=== PATIENT | female | born 1950 | race Caucasian/White ===

== ENCOUNTER → 2019-11-23 | Outpatient (CLI) | payer SELFPAY | PROVIDERS: Family Provider Family Medicine; Visit Provider Licensed Practical Nurse | DX: M51.17 Intervertebral disc disorders with radiculopathy, lumbosacral region (principal); M48.061 Spinal stenosis, lumbar region without neurogenic claudication; I70.0 Atherosclerosis of aorta | CPT/HCPCS: 72120 ==

== ENCOUNTER 2019-11-26 17:52 | Outpatient (CLI) | payer MEDICARE, OTHER, SELFPAY | END 2019-11-26 17:53 | disposition home or self-care (01) | LOC: RADWPI 17:53 | PROVIDERS: Family Provider Family Medicine; PCP Family Medicine; Visit Provider Licensed Practical Nurse | DX: M51.17 Intervertebral disc disorders with radiculopathy, lumbosacral region (principal); Z53.9 Procedure and treatment not carried out, unspecified reason ==

== ENCOUNTER → 2019-12-16 14:12 | Outpatient (BNVA) | payer MEDICARE, OTHER, SELFPAY | PROVIDERS: Family Provider Family Medicine; Visit Provider Psychiatry & Neurology Neurology | DX: M54.16 Radiculopathy, lumbar region (principal); M79.604 Pain in right leg; M79.605 Pain in left leg; Z87.891 Personal history of nicotine dependence | CPT/HCPCS: 95886; 95909 ==

== ENCOUNTER → 2020-01-04 09:25 | Outpatient (BNVA) | payer MEDICARE, OTHER, SELFPAY | PROVIDERS: Family Provider Family Medicine; Visit Provider Orthopaedic Surgery | DX: M17.12 Unilateral primary osteoarthritis, left knee (principal); M25.562 Pain in left knee | CPT/HCPCS: 73560; 73565 ==

== ENCOUNTER 2020-02-07 | Day surgery (SDC) | payer MEDICARE, OTHER, SELFPAY ==
--- NOTE | 2020-02-07 09:12 | ECG_ITS ---
Measurements Intervals [place] Rate: 58 P: 16 SC: 156 QRS: 21 QRSD: 98 T: 37 QT: 428 QTc: 422 SINUS BRADYCARDIA LOW QRS VOLTAGE IN PRECORDIAL LEADS [QRS DEFLECTION < 1.0 mV IN CHEST LEADS] WARNING: DATA QUALITY MAY AFFECT INTERPRETATION Compared to ECG 04/19/2019 12:15:48 Low QRS voltage now present Sinus rhythm no longer present Electronically Signed On 02-07-2020 17:24:28 CDT by Gabriel Sharma M.D. [email or web address]
--- NOTE | 2020-02-07 09:25 | ANES.PREANE2 ---
Pre-Anesthetic Assessment Pre-Anesthetic Assessment: Height/Weight: Height 1.6 m Weight 104.326 kg Preop Diagnosis: osteoarthritis left knee Proposed Procedure: Operation Date: 02/14/20 07:00 Proposed Procedures p Total Knee Arthroplasty 94370 M17.11(Left) - Mark Corbin MD Social: Social History: Tobacco Packs per day: 1/2 or less x20y Pack years: <10 Comment: quit 30y Exam: Pre-Anes Outpt Exam: alert, oriented x 3, clear to auscultation bilaterally and regular rate & rhythm Airway: Submandibular: WNL Cervical ROM: WNL MP: 2 Dentition: Full Pulmonary: Pulmonary: Sleep apnea CV/HEM: CV/HEM: HTN Comments: rx'd x 40y stress test ' negative 3 caths negative GI: GI: GERD Metabolic: Metabolic: Morbid obesity Musc/skel: Comments: bilateral radiculopathy Anesthetic Plan: ASA status: 3 Anesthesia: General PFSH Anesthesia PFSH: Medical History CVA (cerebral vascular accident) Hypercholesteremia Hypertension Lumbar disc disease with radiculopathy Lumbar spondylosis Morbid obesity Spondylolisthesis, lumbar region Surgical History (Updated 02/07/20 @ 08:35 by Lulú Auguste RN) H/O carpal tunnel repair H/O cataract removal with insertion of prosthetic lens H/O: hysterectomy History of arthroscopic surgery of elbow History of cholecystectomy Social History Smoking and tobacco status: former smoker Second hand smoke exposure: No Alcohol intake: never Adopted: No Caregiver/support person: Yes Lives independently: Yes Household members: spouse Housing: House Marital status: service: No Current occupational status: retired Current occupational exposures/hazards: No Pets and animals: No History of recent travel: No Sexually active: No Current gender identity: Female Ratna/Roman Catholic: Congregational Special ratna needs: No Agree to transfusion: No Financial difficulty paying for basics: Decline to Answer Data Anesthesia Cardiac Studies: No Data to Display
== END 2020-02-14 23:00 | disposition home or self-care (01) ==
LOC: OR 07-28 11:38
PROVIDERS: PCP Family Medicine; Visit Provider Orthopaedic Surgery
DX: Z01.818 Encounter for other preprocedural examination (principal); M17.12 Unilateral primary osteoarthritis, left knee; I10 Essential (primary) hypertension; K21.9 Gastro-esophageal reflux disease without esophagitis; E78.00 Pure hypercholesterolemia, unspecified; E66.01 Morbid (severe) obesity due to excess calories; Z68.41 Body mass index [BMI] 40.0-44.9, adult; Z86.73 Personal history of transient ischemic attack (TIA), and cerebral infarction without residual deficits; Z87.891 Personal history of nicotine dependence
CPT/HCPCS: 93005

== ENCOUNTER 2020-05-01 10:50 | Observation (INO) | payer MEDICARE, OTHER, SELFPAY ==
[2020-04-25 10:48] VITALS: BMI 40.7
--- NOTE | 2020-04-25 11:04 | P.ANESASSM_ITS ---
Pre-Anesthetic Assessment Pre-Anesthetic Assessment: Height/Weight: Height 1.6 m Weight 104.326 kg Preop Diagnosis: osteoarthritis left knee Proposed Procedure: Operation Date: 05/01/20 07:00 Proposed Procedures p Total Knee Arthroplasty 37094 M17.12(Left) - Mark Corbin MD Social: Social History: Tobacco (quit 2009) and No alcohol Exam: Pre-Anes Outpt Exam: alert, oriented x 3, clear to auscultation bilaterally and regular rate & rhythm Airway: Submandibular: WNL Cervical ROM: WNL MP: 2 Dentition: False (upper and lower) History/ROS: No significant history except as noted Pulmonary: Pulmonary: KELLY and Sleep apnea CV/HEM: CV/HEM: HTN : : None reported Hepatic: Hepatic: None reported GI: GI: GERD (occ) Metabolic: Metabolic: Hyperlipidemia and Morbid obesity Musc/skel: Musc/skel: Lower Back Pain and OA/DJD Neuropsych: Neuropsych: 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 for regional block, General and Regional (specify below) (left AC) Risk of > 500 ml blood loss (7ml/kg in children): Yes, adequate IV access and fluids planned PFSH Anesthesia PFSH: Medical History CVA (cerebral vascular accident) Hypercholesteremia Hypertension Lumbar disc disease with radiculopathy Lumbar spondylosis Morbid obesity Spondylolisthesis, lumbar region Surgical History H/O carpal tunnel repair H/O cataract removal with insertion of prosthetic lens H/O: hysterectomy History of arthroscopic surgery of elbow History of cholecystectomy Family History Father Cancer CAD (coronary artery disease) Mother CAD (coronary artery disease) Diabetes Hypertension Stroke Denies family history of Anesthesia complication Bleeding disorder Social History Smoking and tobacco status: former smoker Second hand smoke exposure: No Alcohol intake: never Adopted: No Caregiver/support person: Yes Lives independently: Yes Household members: spouse Housing: House Marital status: service: No Current occupational status: retired Current occupational exposures/hazards: No Pets and animals: No History of recent travel: No Sexually active: No Current gender identity: Female Ratna/Caodaism: Christianity Special ratna needs: No Agree to transfusion: No Financial difficulty paying for basics: Decline to Answer Data Anesthesia Cardiac Studies: No Data to Display
[2020-04-25 13:03] LABS: Basophils % 0.4 %; Eosinophils # 0.2 10^3/uL (0.0-0.8); Eosinophils % 2.6 %; Hematocrit 35.9 % (37.0-47.0); Hemoglobin 10.9 g/dL (11.5-15.3); Lymphocytes # 1.5 10^3/uL (0.8-4.8); Lymphocytes % 21.2 %; Mean Corpuscular HGB Conc 30.4 g/dL (30.0-36.0); Mean Corpuscular Hemoglobin 26.8 pg (28.0-34.0); Mean Corpuscular Volume 88.4 fL (81-99); Monocytes # 0.6 10^3/uL (0.2-0.9); Monocytes % 8.9 %; Neutrophils # 4.6 10^3/uL (1.8-7.7); Neutrophils % 66.3 %; Nucleated Red Blood Cells % 0 %; Platelet Count 283 10^3/cmm (130-400); Red Blood Count 4.06 10^6/uL (4.1-5.3); Red Cell Distribution Width 13.9 % (12.1-15.1); White Blood Count 6.9 10^3/uL (4.0-10.0)
[2020-04-25 13:06] LABS: Bilirubin Urine Neg (NEGATIVE); Blood Urine Neg (Negative); Glucose Urine UA Norm (Normal); Ketones Urine Negative (Negative); Nitrate Urine Positive (Negative); Protein Urine Neg (Negative); Specific Gravity, Urine 1.015 (1.005-1.030); Urine Appearance Cloudy (CLEAR); Urine Color Yellow (Yellow); Urobilinogen Urine Norm (Negative)
[2020-04-25 13:07] LABS: Add Urine Microscopic? YES; Leukocyte Esterase Urine 2+ (Negative)
[2020-04-25 13:22] LABS: Add Urine Culture? Yes; Bacteria Urine 3+; RBC Urine 0-4 /hpf (0-2); Squamous Epithelial Cell Urine 0-4 (0-5); WBC Urine 55-80 /hpf (0-5)
[2020-04-25 16:57] LABS: Alanine Aminotransferase 13 U/L (0-33); Albumin Level 4.2 g/dL (3.5-5.2); Alkaline Phosphatase 90 IU/L (35-105); Anion Gap 14.4 (5-19); Aspartate Amino Transferase 16 U/L (0-32); Blood Urea Nitrogen 12 mg/dL (8-23); Calcium 9.9 mg/dL (8.5-10.5); Carbon Dioxide 25 mmol/L (22-29); Chloride 99 mmol/L (98-107); Creatinine Clr Calc Pharmacy 77.7436; Glomerular Filtration Rate 83.2 mL/min (90-130); Glucose 114 mg/dL (65-115); Osmolality Calculated 275 mOsm/kg (285-295); Potassium 4.4 mmol/L (3.5-5.1); Sodium 134 mmol/L (136-145); Total Bilirubin 0.3 mg/dL (0.15-1.2); Total Protein 7.2 g/dL (6.6-8.7)
[2020-05-01] VITALS (25 sets, daily range): BP systolic 84–182; BP diastolic 43–84; PULSE 66–95; RESP 15–72; TEMP 36.2–36.8; O2SAT 90–100
--- NOTE | 2020-05-01 06:57 | P.ANESUD_ITS ---
Pre-Anesthetic Update Pre-Anesthetic Assessment: Date of Surgery/Procedure: 05/01/20 Preop Ashely gnosis: osteoarthritis left knee Proposed Procedure: Operation Date: 05/01/20 07:50 Proposed Procedures p Total Knee Arthroplasty 58774 M17.12(Left) - Mark Corbin MD Any changes to Pre-Anesthetic Assessment?: No Changes from Pre-Anesthetic Assessment: took labetalol Last Intake: Intake Last Liquid Date 05/01/20 Last Liquid Time 05:00 Last Solid Date 04/30/20 Last Solid Time 19:30 Vitals: Temperature 97.1 F L 05/01/20 06:31 Temperature Source Temporal Artery S can 05/01/20 06:31 Pulse Rate 67 05/01/20 06:31 Pulse Rhythm 05/01/20 06:31 Pulse Strength 3+ Normal 05/01/20 06:31 Respiratory Rate 18 05/01/20 06:31 Blood Pressure 182/84 05/01/20 06:31 Blood Pressure Annabel n 116 05/01/20 06:31 Pulse Oximetry 95 05/01/20 06:31 Oxygen Delivery Me thod 05/01/20 06:31 Cardiac Studies: No Data to Display
[2020-05-01] MEDS: sodium chloride 0.9% 1,000 ML 30 ML IV (06:58)
--- NOTE | 2020-05-01 06:59 | W.PM.OPSUD ---
Surgery/Procedure H&P Update DATE OF PROCEDURE: May 01, 2020 PREOP DIAGNOSIS: osteoarthritis left knee PLANNED PROCEDURE: Operation Date: 05/01/20 07:50 Proposed Procedures p Total Knee Arthroplasty 56147 M17.12(Left) - Mark Corbin MD
--- NOTE | 2020-05-01 07:01 | P.HP_ITS ---
Same Day Surgery H&P Indication for Procedure/HPI DATE OF PROCEDURE: May 01, 2020 CHIEF COMPLAINT/INDICATIONFOR SURGICAL PROCEDURE: Osteoarthritis left knee, here for left total knee arthroplasty PREOP DIAGNOSIS: osteoarthritis left knee PLANNED PROCEDRUE: Operation Date: 05/01/20 07:50 Proposed Procedures p Total Knee Arthroplasty 53785 M17.12(Left) - Mark Corbin MD Medications/Allergies* Home Medications Medication Instructions Recorded Confirmed Type amlodipine 5 mg tablet 5 mg PO ONCE tab 11/21/19 05/01/20 History aspirin 325 mg tablet 325 mg PO ONCE tab 11/21/19 04/25/20 History clonidine HCl 0.2 mg tablet 0.2 mg PO Q6H PRN tab 11/21/19 04/25/20 History hydrocodone 5 mg-acetaminophen 325 1 tab PO .as needed PRN tab 11/21/19 05/01/20 History mg tablet nitroglycerin 0.4 mg sublingual 0.4 mg SUBLINGUAL ONCE PRN tab 11/21/19 04/25/20 History tablet labetalol 200 mg PO DAILY 02/07/20 05/01/20 History biotin 1 mg PO DAILY 04/25/20 05/01/20 History Allergies/Adverse Reactions Allergy/AdvReac Type Severity Reaction Status Date / Time No Known Allergies Allergy Verified 02/08/20 13:03 Current Medications: Generic Name Dose Route Start Last Admin Trade Name Freq PRN Reason Stop Dose Admin Sodium Chloride 1,000 mls @ 30 mls/hr 05/01/20 05:45 05/01/20 06:58 Sodium Chloride 0.9% IV 05/02/20 05:44 30 mls/hr .Q24H BETTIE Administration Pertinent History/Comorbid Conditions* Medical History (Updated 02/08/20 @ 14:41 by Mark Corbin MD) CVA (cerebral vascular accident) Hypercholesteremia Hypertension Lumbar disc disease with radiculopathy Lumbar spondylosis Morbid obesity Spondylolisthesis, lumbar region Surgical History (Updated 02/05/20 @ 08:16 by Justin Johnson MD) H/O carpal tunnel repair H/O cataract removal with insertion of prosthetic lens H/O: hysterectomy History of arthroscopic surgery of elbow History of cholecystectomy Family History (Updated 02/03/20 @ 13:55 by Eri Loco RN) Diabetes Mother CAD (coronary artery disease) Father Mother Cancer Father Hypertension Mother Stroke Mother Denies family history of Anesthesia complication Bleeding disorder Social History Smoking and tobacco status: former smoker Second hand smoke exposure: No Alcohol intake: never Adopted: No Caregiver/support person: Yes Lives independently: Yes Household members: spouse Housing: House Marital status: service: No Current occupational status: retired Current occupational exposures/hazards: No Pets and animals: No History of recent travel: No Sexually active: No Current gender identity: Female Ratna/Amish: Mormonism Special ratna needs: No Agree to transfusion: No Financial difficulty paying for basics: Decline to Answer Pertinent Exam Findings alert, oriented x 3, clear to auscultation bilaterally and regular rate & rhythm Recommendations Surgery/Procedure today Coding Level of Care Code 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
[2020-05-01] MEDS: midazolam 1 mg/mL INJ 2 mL 2 MG IVP (07:10)
--- NOTE | 2020-05-01 07:13 | ANES.PROC ---
Anesthesia Procedures Procedure/Date: 05/01/20 Nerve Block ^: Nerve Block 1: Main Anesthesia: general anesthesia Time Out Performed: Yes Consent: requested by attending/covering physician, from patient, risks and benefits reviewed and patient agrees to proceed Nerve block location: adductor canal (L) Anesthesia monitors applied: pulse oximetry, BP cuff and oxygen Nerve block position: supine Anesthetic Used: ropivicaine 0.5% and with decadron (4 mg) Amount of anesthesia used (mL): 30 Ultrasound used to: recognize landmarks and visualize and ID femerol nerve Interscalene/Femoral BLK: 4 stimuplex 21 g needle used for position and inplane approach Injection: neg aspiration of heme Patient Tolerated Procedure: well and no complications Complications: none
[2020-05-01] MEDS: ketorolac 30 mg/mL INJ IM (09:27)
--- NOTE | 2020-05-01 09:27 | SUR.OPER ---
ropivicaine placed in surgical site. not via horse and wagon driver.
[2020-05-01] MEDS: EPINEPHrine 1 mg/mL INJ XX (09:30)
--- NOTE | 2020-05-01 09:54 | SUR.OPER ---
Called patient's daughter and updated her on status of surgery.
--- NOTE | 2020-05-01 10:10 | P.OP_ITS ---
Operative Report Date of procedure: May 01, 2020 Pre-op Diagnosis: osteoarthritis left knee Post-op diagnosis: same Post-op Findings: Same Procedure Done: Left total knee arthroplasty Implants: [place] total knee arthroplasty components were used includin) Size 3 triathalon cruciate retaining femoral component 2) Size 3 Tritanium tibial component 3) 29 mm /9 mm thickness Tritanium asymetric patella 4) Size 3/9 mm thickness CR tibial bearing insert Pathology: none sent Surgeon: Mark Corbin Anesthesia: General and Nerve Block (Abductor canal) Estimated blood loss (mL): 500 Complications: None Findings: The patient had eburnated bone over the medial femoral condyle and medial tibial plateau patella and Condition: stable Disposition: PACU Procedure: The patient was taken to the operating room. Patient was given 1 g of tranexamic acid . The above anesthesia provided by the anesthesia service. A timeout was performed. The patient was prepped and draped in the usual fashion with the lower extremity exposed. A anterior incision was made, midline, from a point proximal to the patella to the distal tibial tubercle. Dissection was accomplished through the subcutaneous fat to the extensor mechanism. The knee was entered through a medial parapatellar approach the patella was everted and the knee flexed. The patellar fat pad was resected to provide better visibility. Retractors were placed medially and laterally adjacent to the tibial plateau. The femoral canal was drilled in line with the longitudinal axis of the femur. Intramedullary femoral guide for used to make a distal femoral cut in 5 degrees of valgus, resecting 8 mm from the more prominent condyle. Next the extra medullary tibial guide was placed in alignment with the longitudinal axis of the tibia. The cutting guides were set to remove just over 9 mm from the high tibial plateau. The proximal tibia was then cut. The femoral measuring guide was then placed over the distal femur. Rotation was verified checking the relationship of the guide to the condyle and the trochlear groove. The femur was measured and cut for the desired femoral component. The desired tibial baseplate was then chosen. A trial reduction with the femur tibial baseplate and polyethylene was done, assuring that the knee was stable throughout full motion. Ligament balancing nothing more than release the deep medial collateral ligament.The tibia was prepared for the tibial baseplate. Patellar thickness was then measured. The patella was cut removing articular cartilage and prepared for appropriate size patellar button. All surfaces were cleaned with pulsatile lavage. The femur tibia and patella were then press-fit into place. The posterior capsule and collateral ligaments were then injected with a solution of 100 mL of 0.2% ropivacaine, 1 mL of a 1:1000 epinephrine so lution, and 30 mg of Toradol. Final polyethylene component was then snapped into place into the tibia. 2 grams of tranexamic acid were applied to the wound. The tourniquet was deflated. The tranxanemic acid was left contact with the knee for 5 minutes before the knee was irrigated with saline. The extensor retinaculum was closed with 1 Ethibond. The subcutaneous tissues were closed with 2-0 Vicryl and the skin was closed with skin newton. A compressive dressing was applied. The patient was taken to recovery room in stable condition.
--- NOTE | 2020-05-01 10:13 | XR_ITS ---
NOTE: Report was unsigned for reason: Order was edited. Original Signature date and time was: 05/01/20 1024 WS: [id number] LEFT KNEE 2 VIEWS AP and cross table lateral imaging is submitted. HISTORY: L TKA. COMPARISON: 01/04/2020 Total knee replacement prosthetic devices are in good position and alignment. Normal position of the patella. Posterior patella prosthesis. Numerous postsurgical sutures are noted over the anterior knee and there are normal postoperative changes in the soft tissues consistent with air, blood and edema. No complications are evident. MTDD XR/XR knee LT 3V* [id number] IMPRESSION: Satisfactory appearance of the recent LEFT knee arthroplasty.
[2020-05-01] MEDS: fentaNYL 50 mcg/mL INJ 2mL IVP ×2 (10:24→10:29)
[2020-05-01] MEDS: ondansetron 2 mg/ML SDV 2 mL 4 MG IVP ×2 (10:25→10:30)
--- NOTE | 2020-05-01 10:42 | SUR.PHASEI ---
1040 PT HAS SENSATION/MOVEMENT TO L. FOOT, CAP REFILL <3 SEC, PEDAL PULSE PALPATED
[2020-05-01] MEDS: metoclopramide 5 mg/mL SDV 2 mL 10 MG IVP (10:49)
[2020-05-01] MEDS: oxyCODONE-APAP 5-325 mg Tablet 2 TAB PO ×2 (11:19→22:35)
[2020-05-01] MEDS: CELEcoxib 200 mg Capsule PO ×2 (11:20→22:32)
[2020-05-01] MEDS: chlorhexidine gluconate 0.12% Btl 473 mL 30 ML MUCOUS MEM ×3 (12:29→20:41)
[2020-05-01] MEDS: morphine 4 mg/mL SDV 1 mL 2 MG IVP ×2 (12:36→20:34)
[2020-05-01] MEDS: sodium chloride 0.9% 1,000 ML 75 ML IV (14:40)
[2020-05-01] MEDS: mupirocin oint 22 gm 1 APPLIC TOPICAL (17:16)
[2020-05-01] MEDS: sennosides-docusate Tablet 2 TAB PO (17:16)
[2020-05-02] VITALS (11 sets, daily range): BP systolic 107–152; BP diastolic 65–78; PULSE 75–88; RESP 16–24; TEMP 36.5–36.9; O2SAT 94–96
[2020-05-02] MEDS: sodium chloride 0.9% 1,000 ML 75 ML IV (05:05)
[2020-05-02] MEDS: oxyCODONE-APAP 5-325 mg Tablet 2 TAB PO ×4 (05:09→16:41)
[2020-05-02 05:59] LABS: Hemoglobin 8.1 g/dL (11.5-15.3)
[2020-05-02] MEDS: sennosides-docusate Tablet 2 TAB PO (07:28)
[2020-05-02] MEDS: labetalol 200 mg Tablet PO (07:28)
[2020-05-02] MEDS: amlodipine 5 mg Tablet PO (07:28)
[2020-05-02] MEDS: losartan 50 mg Tablet 100 MG PO (07:29)
[2020-05-02] MEDS: chlorhexidine gluconate 0.12% Btl 473 mL 30 ML MUCOUS MEM ×2 (07:29→13:01)
[2020-05-02] MEDS: aspirin 325 mg EC Tablet PO (07:29)
[2020-05-02] MEDS: CELEcoxib 200 mg Capsule PO (13:01)
--- NOTE | 2020-05-02 15:34 | PM.DCS ---
Discharge Providers Date of Admission: 05/01/20 10:50 Date of Discharge: May 02, 2020 Attending Provider at Admission: Mark Corbin MD Attending Provider at Discharge: Mark Corbin MD Primary Care Provider: Howard Kraus MD Diagnoses at Discharge Discharge Diagnosis (1) Status post left knee replacement: Status: Acute (2) Osteoarthritis of left knee: Status: Resolved (3) Morbid obesity: Status: Acute (4) Hypertension: Status: Acute Qualifiers: Hypertension type: essential hypertension Qualified Code(s): I10 - Essential (primary) hypertension Reason for Visit Reason for Visit: Primary Osteoarthritis of left knee Hospital Course Hospital Course: Ms. Ansari did very well postoperatively. Her pain was adequately controlled with p.o. pain medications. She made excellent progress with therapy and was up with therapy the day of surgery. By the first postoperative she was independent with her walker. She has managed with aspirin and sequential compression dressings for DVT prophylaxis. She remained hemodynamically stable with an expected drop in her hemoglobin to 8.1. Physical Exam Urinary Catheter Management^: Delarosa: Cath Placed During This Visit: yes, but has since been removed by the nurse Reason for Continuing Indwelling Catheter: Decision to DC Catheter Urinary Catheter Date of Insertion: 05/01/20 Urinary Catheter Time of Insertion: 08:25 Date Urinary Catheter Removed: 05/02/20 Time Urinary Catheter Discontinued: 06:36 Discharge Data Data Completed and Pending: Completed Studies During Hospitalization Category Date Time Status XR knee LT 1-2V 7 3560 Routine Exams 05/01/20 10:13 Completed Labs from last 24 hours 05/02/20 04:45 Hgb 8.1 L Vitals: Last Vital Signs Temp 98.2 F 05/02/20 15:01 Pulse 77 05/02/20 15:01 Resp 18 05/02/20 15:01 BP 107/65 05/02/20 15:01 Pulse Ox 95 05/02/20 15:01 Discharge Plan Discharge Patient Disposition: Home Health Service Condition: Stable Prescriptions: New oxycodone-acetaminophen 5-325 mg Tablet 2 tab PO Q4H PRN (Reason: Severe Pain) Qty: 40 RF: 0 celecoxib 200 mg Capsule 200 mg PO Q12H Qty: 30 RF: 0 Continued mupirocin 2 % ointment 1 applic TOPICAL BID Qty: 30 RF: 0 hydrocodone-acetaminophen 5-325 mg tablet 1 tab PO .as needed PRN (Reason: Pain) RF: 0 amlodipine 5 mg tablet 5 mg PO ONCE RF: 0 clonidine HCl 0.2 mg tablet 0.2 mg PO Q6H PRN (Reason: Blood Pressure) RF: 0 aspirin 325 mg tablet 325 mg PO ONCE RF: 0 nitroglycerin [Nitrostat] 0.4 mg tablet, sublingual 0.4 mg SUBLINGUAL ONCE PRN (Reason: Chest Pain) RF: 0 losartan 100 mg tablet 100 mg PO ONCE 90 Days Qty: 90 RF: 3 labetalol 200 mg tablet 200 mg PO DAILY RF: 0 biotin 1 mg Tablet 1 mg PO DAILY RF: 0 Discharge Orders: Discharge Order (Routine); Ordered 05/02/20 Ordered By: Mark Corbin Other Ambulatory Orders: DME: Walker (Order) Location: None Selected Ordered By: Mark Corbin Referrals: Mark Corbin MD [Physician] - 05/15/20 1:15 pm Patient Instructions: Oxycodone/Acetaminophen (By mouth), Celecoxib (By mouth), Total Knee Replacement (DC) Activity Restrictions/Additional Instructions: May shower once incisions completely free of drainage. Replaced dressings as needed for drainage.. Take Celebrex twice a day for the next 15 days, discontinue other anti-inflammatories Take oxycodone for breakthrough pain. Exercises per physical therapy. Ice and elevate knees as needed for pain and swelling.. 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
== END 2020-05-02 16:56 | disposition home health service (06) ==
LOC: MEDSURG 10:51
PROVIDERS: Anesthesiology; Admitting Provider Orthopaedic Surgery; PCP Family Medicine; Visit Provider Orthopaedic Surgery
PROC: (CPT 27447; principal; 2020-05-01 07:50)
DX: M17.12 Unilateral primary osteoarthritis, left knee (principal); E66.01 Morbid (severe) obesity due to excess calories; Z68.41 Body mass index [BMI] 40.0-44.9, adult; I10 Essential (primary) hypertension
CPT/HCPCS: 27447; 12345; 36415; 51702; 73560; 73562; 80053; 81001; 85018; 85025; 87077; 87086; 87186; 96374; 96375; 97110; 97116; 97161; 97165; 97530; C1776; G0378; J0131; J0171; J0690; J1100; J1580; J1885; J2001; J2250; J2270; J2405; J2704; J2710; J2765; J2795; J3010; J3490; J7030

== ENCOUNTER 2020-05-04 12:48 | Inpatient (IN) | payer MEDICARE, OTHER, SELFPAY ==
[2020-05-04] VITALS (12 sets, daily range): BP systolic 112–152; BP diastolic 56–82; PULSE 77–87; RESP 16–22; TEMP 36.3–37; O2SAT 89–99; BMI 40.7
--- NOTE | 2020-05-04 13:36 | CT_ITS ---
WS: [id number] CTA scan of the chest with IV contrast. Additional two-dimensional coronal and sagittal reconstructio n and MIP images was performed. 05/04/2020 Clinical Data: pe Comparison: CT PE study, 04/14/2019. DLP: 491.[address] scans at [facility] use at least one of these dose optimization techniques: automat ed exposure control; mA and/or kV adjustment per patient size (includes targeted exams where dose is matched to clinical indication); or iterative reconstruction. Findings: The central pulmonary arteries and peripheral pulmonary arteries fill normally with no evidence of in termittent luminal filling defects. No pulmonary embolic disease is noted. No masses are seen. Air is a small left pleural effusion. There is a 0.5 cm nodule in the right middl e lobe seen best on axial image 26 of 54 unchanged. The heart size is normal with no pericardial effu kathleen. The pulmonary arterial system and thoracic aorta demonstrate no abnormalities or dilatations. T here is no axillary or significant mediastinal adenopathy. There are subcarinal calcifications. The t hyroid gland shows normal enhancement. The trachea bifurcates into the bronchi. No pneumonia or pneum othorax is seen. The upper abdomen shows no abnormalities. The visualized liver, spleen, pancreas, adrenal glands and superior poles of the kidneys are not remarkable. The gallbladder is absent from a cholecystectomy. The bones of the thoracic and upper lumbar spine showed degenerative arthritic change.. CT/CT angio chest PE protcl [id number] Impression: 1. Negative for pulmonary embolic disease. 2. Small left pleural effusion. 3. Stable 0.5 cm nodule in right middle lobe.
--- NOTE | 2020-05-04 13:38 | ECG_ITS ---
Measurements Intervals [place] Rate: 77 P: 36 MO: 147 QRS: 54 QRSD: 101 T: 38 QT: 377 QTc: 427 SINUS RHYTHM Compared to ECG 02/07/2020 09:19:53 Sinus bradycardia no longer present Electronically Signed On 05-04-2020 20:56:18 CDT by Juan Horne M.D. [email or web address]
[2020-05-04] MEDS: iohexol 350 mg/mL 100 mL Btl IV (14:33)
--- NOTE | 2020-05-04 14:40 | W.ED.SOB ---
HPI - SOB/Dyspnea General: Chief Complaint: Shortness of Breath/Dyspnea Stated Complaint: low o2 Time Seen by Provider: 05/04/20 13:33 History of Present Illness: HPI Narrative: Patient had left knee surgery 3 days ago. Yesterday she had sudden onset of shortness of breath and lower chest burning feeling MD elicited complaint: shortness of breath, pain with inspiration and chest pain Onset (ago): day(s) Timing: intermittent Severity: severe Exacerbating factors: exertion, movement and stress Relieving factors: nothing Associated symptoms: Reports no associated symptoms, abdominal pain, chest pain, diaphoresis, dizziness, extremity pain, myalgias and orthopnea; Deny fever(s), hemoptysis, lightheadedness or nausea Treatment prior to arrival: none Review of Systems General: Reports: 10 or more systems reviewed and unremarkable except in HPI and below Const: Reports: diaphoresis; Denies: fever(s) Card: Reports: chest pain and orthopnea; Denies: lightheadedness Resp: Denies: hemoptysis GI: Reports: abdominal pain; Denies: nausea Musc: Reports: extremity pain Neuro: Reports: dizziness PFSH ED PFSH: Medical History CVA (cerebral vascular accident) Hypercholesteremia Hypertension Lumbar disc disease with radiculopathy Lumbar spondylosis Morbid obesity Spondylolisthesis, lumbar region Surgical History H/O carpal tunnel repair H/O cataract removal with insertion of prosthetic lens H/O: hysterectomy History of arthroscopic surgery of elbow History of cholecystectomy Family History Father Cancer CAD (coronary artery disease) Mother CAD (coronary artery disease) Diabetes Hypertension Stroke Denies family history of Anesthesia complication Bleeding disorder Social History Smoking and tobacco status: former smoker Second hand smoke exposure: No Alcohol intake: never Adopted: No Caregiver/support person: Yes Lives independently: Yes Household members: spouse Housing: House Marital status: service: No Current occupational status: retired Current occupational exposures/hazards: No Pets and animals: No History of recent travel: No Sexually active: No Current gender identity: Female Ratna/Jain: Taoism Special ratna needs: No Agree to transfusion: No Financial difficulty paying for basics: Decline to Answer Physical Exam Const: COMMON NORMALS: patient oriented x3 and alert HENMT: COMMON NORMALS: normocephalic and atraumatic HEAD & SCALP: normocephalic and atraumatic Neck/C-Spine: COMMON NORMALS: no meningeal signs and no JVD Resp: EFFORT & INSPECTION: Yes respiratory distress Cardio: COMMON NORMALS: no JVD, regular rate and regular rhythm RATE: regular rate RHYTHM: regular rhythm GI: COMMON NORMALS: Normal to inspection, nondistended, normoactive bowel sounds present Extremity: COMMON NORMALS: normal to inspection and full ROM Neuro: COMMON NORMALS: patient oriented x3 SENSORIUM/ORIENTATION: Yes alert MENINGEAL SIGNS: Yes no meningeal signs Skin: COMMON NORMALS: no rashes or lesions noted, no jaundice and no mottling GENERAL SKIN EXAM: no rashes or lesions noted Course Vital Signs: Vital signs: Vital Signs Temperature 97.3 F L 05/04/20 13:21 Pulse Rate 77 05/04/20 13:21 Respiratory Rate 16 05/04/20 13:21 Blood Pressure 122/61 05/04/20 13:21 Pulse Oximetry 94 05/04/20 13:21 MDM - SOB/Dyspnea Lab Data: Labs: Lab Results 05/04/20 05/04/20 05/04/20 Range/Units 14:39 14:39 14:39 WBC 12.0 H (4.0-10.0) 10^3/ uL RBC 2.77 L (4.1-5.3) 10^6/u L Hgb 7.4 L (11.5-15.3) g/dL Hct 24.6 L (37.0-47.0) % MCV 88.8 (81-99) fL MCH 26.7 L (28.0-34.0) pg MCHC 30.1 (30.0-36.0) g/dL RDW 14.3 (12.1-15.1) % Plt Count 222 (130-400) 10^3/c mm MPV 9.1 (7.4-10.4) fL Neut % (Auto) 81.4 % Lymph % (Auto) 7.0 % Trinity % (Auto) 9.2 % Eos % (Auto) 1.4 % Baso % (Auto) 0.3 % Neut # (Auto) 9.8 H (1.8-7.7) 10^3/u L Lymph # (Auto) 0.8 (0.8-4.8) 10^3/u L Trinity # (Auto) 1.1 H (0.2-0.9) 10^3/u L Eos # (Auto) 0.2 (0.0-0.8) 10^3/u L Baso # (Auto) 0.0 (0.0-0.1) 10^3/u L Nucleated RBC % (a uto) 0 % Nucleated RBCs # 0.0 /100WBC Sodium 131 L (136-145) mmol/L Potassium 4.6 (3.5-5.1) mmol/L Chloride 94 L (98-107) mmol/L Carbon Dioxide 24 (22-29) mmol/L Anion Gap 17.6 (5-19) BUN 10 (8-23) mg/dL Creatinine 0.6 (0.5-0.9) mg/dL GFR Calculation 99.1 (90-130) mL/min Glucose 152 H (65-115) mg/dL Calculated Osmolal ity 271 L (285-295) mOsm/k g Lactic Acid 1.5 (0.5-2.2) mmol/L Calcium 8.8 (8.5-10.5) mg/dL Total Bilirubin 0.7 (0.15-1.2) mg/dL AST 15 (0-32) U/L ALT 11 (0-33) U/L Alkaline Phosphata se 77 (35-105) IU/L Troponin T Baselin e (0-10) ng/L Total Protein 6.5 L (6.6-8.7) g/dL Albumin 3.5 (3.5-5.2) g/dL Globulin 3.0 (1.3-4.6) g/dL Lipase 13 (13-60) U/L 05/04/20 Range/Units 14:39 WBC (4.0-10.0) 10^3/ uL RBC (4.1-5.3) 10^6/u L Hgb (11.5-15.3) g/dL Hct (37.0-47.0) % MCV (81-99) fL MCH (28.0-34.0) pg MCHC (30.0-36.0) g/dL RDW (12.1-15.1) % Plt Count (130-400) 10^3/c mm MPV (7.4-10.4) fL Neut % (Auto) % Lymph % (Auto) % Trinity % (Auto) % Eos % (Auto) % Baso % (Auto) % Neut # (Auto) (1.8-7.7) 10^3/u L Lymph # (Auto) (0.8-4.8) 10^3/u L Trinity # (Auto) (0.2-0.9) 10^3/u L Eos # (Auto) (0.0-0.8) 10^3/u L Baso # (Auto) (0.0-0.1) 10^3/u L Nucleated RBC % (a uto) % Nucleated RBCs # /100WBC Sodium (136-145) mmol/L Potassium (3.5-5.1) mmol/L Chloride (98-107) mmol/L Carbon Dioxide (22-29) mmol/L Anion Gap (5-19) BUN (8-23) mg/dL Creatinine (0.5-0.9) mg/dL GFR Calculation (90-130) mL/min Glucose (65-115) mg/dL Calculated Osmolal ity (285-295) mOsm/k g Lactic Acid (0.5-2.2) mmol/L Calcium (8.5-10.5) mg/dL Total Bilirubin (0.15-1.2) mg/dL AST (0-32) U/L ALT (0-33) U/L Alkaline Phosphata se (35-105) IU/L Troponin T Baselin e 12 H (0-10) ng/L Total Protein (6.6-8.7) g/dL Albumin (3.5-5.2) g/dL Globulin (1.3-4.6) g/dL Lipase (13-60) U/L Discharge Plan Discharge Patient Disposition: Admitted As Inpatient Clinical Impression: Acute dyspnea, S/P knee surgery Anemia Qualifiers: Anemia type: unspecified type Qualified Code(s): D64.9 - Anemia, unspecified Condition: Fair Referrals: Howard Kraus MD [Primary Care Provider] - Coding Level of Care Code ED Knitting Machine Operator for Chg Fwd Exam Comprehensive
[2020-05-04 14:46] LABS: Basophils % 0.3 %; Eosinophils # 0.2 10^3/uL (0.0-0.8); Eosinophils % 1.4 %; Hematocrit 24.6 % (37.0-47.0); Hemoglobin 7.4 g/dL (11.5-15.3); Lymphocytes # 0.8 10^3/uL (0.8-4.8); Mean Corpuscular HGB Conc 30.1 g/dL (30.0-36.0); Mean Corpuscular Hemoglobin 26.7 pg (28.0-34.0); Mean Corpuscular Volume 88.8 fL (81-99); Mean Platelet Volume 9.1 fL (7.4-10.4); Monocytes # 1.1 10^3/uL (0.2-0.9); Monocytes % 9.2 %; Neutrophils # 9.8 10^3/uL (1.8-7.7); Neutrophils % 81.4 %; Nucleated Red Blood Cells % 0 %; Platelet Count 222 10^3/cmm (130-400); Red Blood Count 2.77 10^6/uL (4.1-5.3); Red Cell Distribution Width 14.3 % (12.1-15.1)
[2020-05-04 15:06] LABS: Alanine Aminotransferase 11 U/L (0-33); Albumin Level 3.5 g/dL (3.5-5.2); Alkaline Phosphatase 77 IU/L (35-105); Anion Gap 17.6 (5-19); Aspartate Amino Transferase 15 U/L (0-32); Blood Urea Nitrogen 10 mg/dL (8-23); Calcium 8.8 mg/dL (8.5-10.5); Carbon Dioxide 24 mmol/L (22-29); Chloride 94 mmol/L (98-107); Creatinine Clr Calc Pharmacy 76.6638; Glomerular Filtration Rate 99.1 mL/min (90-130); Glucose 152 mg/dL (65-115); Lactic Sepsis W/Reflex 1.5 mmol/L (0.5-2.2); Lipase 13 U/L (13-60); Osmolality Calculated 271 mOsm/kg (285-295); Potassium 4.6 mmol/L (3.5-5.1); Sodium 131 mmol/L (136-145); Total Bilirubin 0.7 mg/dL (0.15-1.2); Total Protein 6.5 g/dL (6.6-8.7)
[2020-05-04 15:09] LABS: Troponin(5th) Baseline 12 ng/L (0-10)
--- NOTE | 2020-05-04 15:38 | ECG_ITS ---
Measurements Intervals [place] Rate: 78 P: 27 [place]: 152 QRS: 52 QRSD: 96 T: 42 QT: 374 QTc: 428 SINUS RHYTHM WITH OCCASIONAL SUPRAVENTRICULAR PREMATURE COMPLEXES Compared to ECG 02/07/2020 09:19:53 Sinus bradycardia no longer present Electronically Signed On 05-04-2020 21:03:02 CDT by Juan Horne M.D. [id number] f
[2020-05-04 17:07] LABS: Troponin 5 2HR 11.09 ng/L (0-10)
[2020-05-04 17:36] LABS: Troponin 5 2HR Delta -0.91 ABS# (0-10)
--- NOTE | 2020-05-04 17:54 | PM.HP ---
Providers/Chief Complaint Admitting Physician: Luis Alfredo Diez MD Primary Care Provider: Howard Kraus MD Chief Complaint: low o2 History of Present Illness Maria Del Carmen Ansari is a 70 year old female with a past medical history of hypertension, anxiety and depression, morbid obesity, recent history of left knee replacement on Friday, who presents [facility] due to complaints of shortness of breath Patient states that she had her left knee replacement on Friday, she got home, she has been ambulating with assistance, and a walker, needs help with activities of daily living, but can ambulate better each day, no falls, no injuries, has remained mobile, denies being bedridden, this afternoon she started develop sudden onset shortness of breath, she thought she was having a panic attack, and that it would go away, but the shortness of breath persisted, denies a cardiac history, denies stenting of the heart, denies history of heart failure, denies history of COPD, former smoker quit 30 years ago, no inhaler use, denies calf pain or calf swelling, denies hematemesis, does complain of some chest tightness, and some burning sensation anterior chest, nonradiating, no lightheadedness, no dizziness, no nausea, no vomiting Work-up in the emergency room CT was negative for pulmonary embolism, did show a small left pleural effusion, hemoglobin was 7.4, hospitalist team was called for admission Review of Systems Const: Denies: fever(s), chills, fatigue or malaise Eyes: Denies: change in vision or blurry vision ENMT: Denies: nasal congestion Card: Reports: chest pain; Denies: irregular heart rhythm Resp: Reports: dyspnea; Denies: productive cough, non-productive cough or wheezing GI: Denies: abdominal pain, nausea, vomiting, hematemesis, diarrhea, constipation, hematochezia or melena : Denies: flank pain, dysuria or urinary frequency Musc: Denies: neck pain or back pain Skin/Breast: Denies: rash Neuro: Denies: headache(s), dizziness or vertigo Psych: Denies: anxiety or depression Endo: Denies: polyuria or polydipsia Medications/Allergies Home Medications Medication Instructions Recorded Confirmed Last Taken Type amlodipine 5 mg tablet 5 mg PO DAILY tab 11/21/19 05/04/20 05/04/20 10:00 History aspirin 325 mg tablet 325 mg PO DAILY tab 11/21/19 05/04/20 05/04/20 10:00 History clonidine HCl 0.2 mg tablet 0.2 mg PO Q6H PRN tab 11/21/19 05/04/20 Unknown History hydrocodone 5 mg-acetaminophen 325 1 tab PO BID PRN tab 11/21/19 05/04/20 05/01/20 History mg tablet nitroglycerin 0.4 mg sublingual 0.4 mg SUBLINGUAL ONCE PRN tab 11/21/19 05/04/20 Unknown History tablet labetalol 200 mg PO BID 02/07/20 05/04/20 05/01/20 05:30 History mupirocin 2 % topical ointment 1 applic TOPICAL BID #30 gm 02/08/20 05/04/20 Unknown Rx biotin 1 mg PO DAILY 04/25/20 05/04/20 05/04/20 10:00 History oxycodone-acetaminophen 2 tab PO Q4H PRN #40 tab 05/01/20 05/04/20 05/04/20 12:00 Rx celecoxib 200 mg PO Q12H #30 cap 05/02/20 05/04/20 05/04/20 10:00 Rx alprazolam 0.25 mg tablet 0.25 mg PO TID PRN #14 tab 05/04/20 05/04/20 Unknown Rx ibuprofen 400 mg PO PRN 05/04/20 05/04/20 05/04/20 10:00 History losartan 100 mg PO DAILY 05/04/20 05/04/20 Unknown History Allergies Allergy/AdvReac Type Severity Reaction Status Date / Time No Known Allergies Allergy Verified 05/04/20 14:31 PFSH Acute PFSH: Medical History CVA (cerebral vascular accident) Hypercholesteremia Hypertension Lumbar disc disease with radiculopathy Lumbar spondylosis Morbid obesity Spondylolisthesis, lumbar region Surgical History H/O carpal tunnel repair H/O cataract removal with insertion of prosthetic lens H/O: hysterectomy History of arthroscopic surgery of elbow History of cholecystectomy Family History Father Cancer CAD (coronary artery disease) Mother CAD (coronary artery disease) Diabetes Hypertension Stroke Denies family history of Anesthesia complication Bleeding disorder Social History Smoking and tobacco status: former smoker Second hand smoke exposure: No Alcohol intake: never Adopted: No Caregiver/support person: Yes Lives independently: Yes Household members: spouse Housing: House Marital status: service: No Current occupational status: retired Current occupational exposures/hazards: No Pets and animals: No History of recent travel: No Sexually active: No Current gender identity: Female Ratna/Yarsanism: Sabianist Special ratna needs: No Agree to transfusion: No Financial difficulty paying for basics: Decline to Answer Vitals/I&O/Wt Last Vital Signs Temp 97.7 F 05/04/20 17:40 Pulse 87 05/04/20 17:40 Resp 20 H 05/04/20 17:40 BP 152/82 05/04/20 17:40 Pulse Ox 93 05/04/20 17:40 Weight last 48 hrs Weight 104.326 kg Physical Exam Const: COMMON NORMALS: no acute distress and patient oriented x3 GENERAL APPEARANCE: cooperative and comfortable HENMT: COMMON NORMALS: normocephalic HEAD & SCALP: normocephalic Eye: COMMON NORMALS: Equal, round and reactive pupils present, EOMs intact bilaterally and no papilledema GENERAL EYE: appearance normal, both eyes and all related structures PUPIL: Yes Equal, round and reactive pupils present DIRECT OPHTHALMOSCOPY: Yes no papilledema Neck/C-Spine: COMMON NORMALS: full ROM, no lymphadenopathy, no JVD and Thyroid normal THYROID: Thyroid normal Lymph: LYMPHATIC: no lymphadenopathy noted Resp: COMMON NORMALS: normal respiratory effort, No retractions, No use of accessory muscles and clear to auscultation bilaterally AUSCULTATION: clear to auscultation bilaterally Cardio: COMMON NORMALS: no JVD, regular rate, regular rhythm, S1 normal heart sound present, S2 normal heart sound present, No gallops present (Cardio), No clicks present (Cardio) and No murmurs present (Cardio) RATE: regular rate RHYTHM: regular rhythm HEART SOUNDS: S1 normal heart sound present and S2 normal heart sound present GI: COMMON NORMALS: Normal to inspection, nondistended, normoactive bowel sounds present, Soft to palpation, non-tender and No hepatosplenomegaly present PALPATION: Yes Soft to palpation and Yes No hepatosplenomegaly present Extremity: COMMON NORMALS: normal to inspection, full ROM and no pedal edema NARRATIVE EXTREMITY EXAM: Left knee, status post replacement, surgical site looks clean and dry Neuro: COMMON NORMALS: patient oriented x3, CN's II-XII intact bilaterally, moves all extremities and no focal motor deficits Psych: COMMON NORMALS: mental status grossly normal, Normal thought process present and cooperative THOUGHT PROCESS: Normal thought process present Urinary Catheter Management^: Delarosa: Cath Placed During This Visit: yes Urinary Catheter Date of Insertion: 05/04/20 Urinary Catheter Time of Insertion: 16:32 Data : 05/04/20 14:39 05/04/20 14:39 A&P Assessment and plan (1) Acute dyspnea: -CTA negative for pulmonary embolism -EKG no acute ST-T wave changes -Small left pleural effusion seen on CT -Hemoglobin 7.4 -Not requiring oxygen, no respiratory distress, no tachypnea, lung sounds clear Plan: -We will perform cardiac echocardiogram, telemetry monitoring, serial EKGs, serial troponins -Monitor hemoglobin Status: Acute (2) Anemia: -Hemoglobin 7.4, has conjunctival pallor, indications of chronic slow bleed, no acute bleeding, on top of postsurgical anemia, patient has been taking aspirin 325 daily for DVT prophylaxis Plan: -Transfuse 1 unit PRBC -Iron studies, ferritin, B12 -Protonix 40 twice daily -Monitor hemoglobin closely Status: Acute Qualifiers: Anemia type: unspecified type Qualified Code(s): D64.9 - Anemia, unspecified (3) S/P knee surgery: Status: Acute (4) Atypical chest pain: -EKG no acute ST-T wave changes -Baseline troponin 12, 120-minute 11, negative delta -Continue telemetry monitoring, serial EKGs, serial troponins -History does not sound cardiac in nature, but will get echocardiogram -Aspirin 81 mg, statin, beta-arminda Status: Acute Additional A&P Information DVT prophylaxis SCD, contraindicated due to GI bleed, full code Attestations Medical Necessity Statement*: Patient requires hospitalization, outpatient with observation, for acute dyspnea, atypical chest pain, anemia Coding Level of Care Code Acute Piping Design Specialist for [facility] Fw Diagnoses Acute dyspnea R06.00 Anemia D64.9 Anemia type: unspecified type S/P knee surgery Z98.890 Atypical chest pain R07.89
[2020-05-04] MEDS: morphine 4 mg/mL SDV 1 mL 2 MG IVP (18:19)
[2020-05-04] MEDS: pantoprazole 40 mg SDV IVP (18:20)
[2020-05-04] MEDS: sodium chloride 0.9% 1,000 ML 100 ML IV (18:34)
[2020-05-04 18:44] LABS: Hematocrit 24.1 % (37.0-47.0); Hemoglobin 7.2 g/dL (11.5-15.3)
[2020-05-04 18:46] LABS: Iron 13 ug/dL (37-145)
[2020-05-04 19:05] LABS: Ferritin 102 ng/mL (15-150); Iron 13 ug/dL (37-145); Percent Saturation 5.4 % (20-50); Thyroid Stimulating Hormone 1.24 uIU/mL (0.27-4.20); Total Iron Binding Capacity 240 mcg/dl; Unsaturated Iron Binding 227 ug/dL (112-347); Vitamin B12 364 pg/mL (232-1245)
[2020-05-04 19:34] LABS: Folate Level 7.8 ng/mL (4.8-37.3)
--- NOTE | 2020-05-04 19:38 | ECG_ITS ---
Measurements Intervals [place] Rate: 77 P: 34 [place]: 152 QRS: 61 QRSD: 96 T: 44 QT: 365 QTc: 415 SINUS RHYTHM Compared to ECG 02/07/2020 09:19:53 Sinus bradycardia no longer present Electronically Signed On 05-04-2020 21:05:29 CDT by Juan Horne M.D. [id number]
[2020-05-04] MEDS: ipratropium-albuterol 3 mL Neb INHALATION (20:39)
[2020-05-04 21:10] LABS: Troponin 5 6HR 13.01 ng/L (0-10); Troponin 5 6HR Delta 1.01 ng/L (0-12)
[2020-05-04] MEDS: sodium chloride 0.9% (100 ml) 100 ML 50 ML (23:04)
[2020-05-05] VITALS (18 sets, daily range): BP systolic 138–169; BP diastolic 66–81; PULSE 76–111; RESP 16–30; TEMP 36.7–37.1; O2SAT 95–99
[2020-05-05] MEDS: atorvastatin 40 mg Tablet PO ×2 (00:32→20:42)
[2020-05-05 02:53] LABS: Basophils % 0.3 %; Eosinophils # 0.2 10^3/uL (0.0-0.8); Eosinophils % 1.9 %; Hematocrit 24.8 % (37.0-47.0); Hemoglobin 7.7 g/dL (11.5-15.3); Lymphocytes # 0.8 10^3/uL (0.8-4.8); Lymphocytes % 6.4 %; Mean Corpuscular Hemoglobin 27.6 pg (28.0-34.0); Mean Corpuscular Volume 88.9 fL (81-99); Mean Platelet Volume 9.5 fL (7.4-10.4); Monocytes # 1.1 10^3/uL (0.2-0.9); Monocytes % 8.6 %; Neutrophils # 10.2 10^3/uL (1.8-7.7); Nucleated Red Blood Cells % 0 %; Platelet Count 247 10^3/cmm (130-400); Red Blood Count 2.79 10^6/uL (4.1-5.3); Red Cell Distribution Width 14.3 % (12.1-15.1); White Blood Count 12.4 10^3/uL (4.0-10.0)
[2020-05-05 02:56] LABS: INR 1.13 (0.8-1.2)
[2020-05-05 03:04] LABS: Alanine Aminotransferase 10 U/L (0-33); Albumin Level 3.3 g/dL (3.5-5.2); Alkaline Phosphatase 79 IU/L (35-105); Anion Gap 16.4 (5-19); Aspartate Amino Transferase 12 U/L (0-32); Blood Urea Nitrogen 9 mg/dL (8-23); Calcium 8.9 mg/dL (8.5-10.5); Carbon Dioxide 24 mmol/L (22-29); Chloride 98 mmol/L (98-107); Creatinine Clr Calc Pharmacy 76.6638; Globulin 3.2 g/dL (1.3-4.6); Glomerular Filtration Rate 122.3 mL/min (90-130); Glucose 144 mg/dL (65-115); Magnesium 1.9 mg/dL (1.7-2.3); Osmolality Calculated 277 mOsm/kg (285-295); Phosphorus 2.9 mg/dL (2.5-4.5); Potassium 4.4 mmol/L (3.5-5.1); Sodium 134 mmol/L (136-145); Total Bilirubin 0.8 mg/dL (0.15-1.2); Total Protein 6.5 g/dL (6.6-8.7)
[2020-05-05 03:10] LABS: Procalcitonin 0.14 ng/mL (0-0.5)
[2020-05-05 03:21] LABS: Chol HDL Ratio 3.23 mg/dL (0.0-4.40); Cholesterol 129 mg/dL (0-200); HDL Cholesterol 40 mg/dL (60-100); LDL Cholesterol Calculated 67 mg/dL (50-129); LDL HDL Ratio 1.68 RATIO (0.00-3.22); Triglycerides 108 mg/dL (0-150)
[2020-05-05 04:17] LABS: Estmated Average Glucose 105; Hemoglobin A1C 5.3 % (4.0-6.0)
[2020-05-05] MEDS: pantoprazole 40 mg SDV IVP ×2 (05:30→18:02)
[2020-05-05] MEDS: LORazepam 2 mg/mL INJ 1 mL 1 MG IVP (05:55)
--- NOTE | 2020-05-05 06:21 | XR_ITS ---
WS: [id number] PORTABLE CHEST HISTORY: new sob COMPARISON: 04/14/2019 Mild elevation of the RIGHT hemidiaphragm is stable. Diffuse thickened interstitial markings througho ut both lungs. There is mild haziness over both lungs. No focal consolidation or mass identified. No pleural effusion or pneumothorax. Cardiac size: Mildly enlarged cardiac silhouette. Mediastinum/Aorta: Mild atherosclerosis aorta. No osseous abnormality seen. XR/XR chest 1V portable [id number] IMPRESSION: Mild coarsened interstitium and haziness. Probably on the basis of mild interst itial edema and fluid overload.
[2020-05-05 06:51] LABS: Hematocrit 28.2 % (37.0-47.0); Hemoglobin 8.6 g/dL (11.5-15.3)
[2020-05-05 07:27] LABS: CKMB 1.8 ng/mL (0-5.34); Creatine Phosphokinase 73 U/L (26-192)
[2020-05-05] MEDS: ipratropium-albuterol 3 mL Neb INHALATION ×4 (08:06→19:57)
[2020-05-05] MEDS: losartan 50 mg Tablet 100 MG PO (08:26)
[2020-05-05] MEDS: aspirin 81 mg EC Tablet PO (08:26)
[2020-05-05] MEDS: amlodipine 5 mg Tablet PO (08:26)
[2020-05-05] MEDS: ALPRAZolam 0.25 mg Tablet PO (08:33)
[2020-05-05] MEDS: labetalol 200 mg Tablet PO (08:35)
--- NOTE | 2020-05-05 08:45 | USCV_ITS ---
Maria Del Carmen Ansari Age: 70 Gender: F : 1950 Exam Date: 05/05/2020 09:04 Ordering Phys: Luis Alfredo Diez MD Technologist: LANDON HARMON [place] [facility] [place]: [place] HISTORY: LEFT KNEE REPLACEMENT SURGERY ON Friday05/01/2020 PROCEDURES: Venous duplex imaging was performed in only the left lower extremity. The following venous structures were evaluated: common femoral vein, profunda vein, proximal portion of the greater saphenous vein, superficial femoral vein, and the popliteal vein. In addition, the posterior tibial and peroneal trunk were evaluated. Serial compression, augmentation maneuvers, and spectral Doppler flow evaluation were performed. FINDINGS: Normal 2-D Doppler and augmentation and compressibility throughout the lower extremity venous structures. Additional imaging through the proximal calf veins also reveals no thrombus. Limited evaluation of the greater saphenous vein is patent with no thrombus. CONCLUSIONS No DVT left lower extremity. Dr. Delicia Beck DO (Electronically Signed) Final Date: 05 May 2020 15:01 S
--- NOTE | 2020-05-05 08:45 | PC.NURSE ---
This patient's daughter had called asking for an update on her mother. This RN took the message and discovered that the nurse, Myriam Horne LPN was in the patient's room performing an assessment. This RN informed the daughter of this and asked to take a message and would have Myriam Horne call as soon as she was out of the patient's room. The daughter verbalized understanding. After hanging up, Myriam Horne LPN asked for this RN to assist in assessing the patient, she states that the patient reports not knowing what happened overnight and didn't wear her BiPAP . This RN performed a general assessment and discovered that the patient was having difficulty recalling the events that occurred overnight, but states that she doesn't feel as though she was able to wear her BiPAP. She is alert and oriented x4 at this time. She has fine crackles noted to her bilateral lower lobes, diminished lung sounds in the right middle lobe, and clear otherwise throughout. She has c/o productive cough but is unsure of the color/consistency. She has notable shallow breathing, however reports that she is breathing without difficulty. PO2 is WNL with 3L/min via NC at time of assessment. Patient has SCDs in place and once removed, trace edema is noted to BLE. She has an island dressing in place to her left knee that she reports underwent TKA on 05/01/[address] Corbin. During the assessment, this RN received a call from Mario Velazco, fun house operator stating that the patient's daughter, Deloris Lemus, was present at the single point entry and was upset that she didn't know what was going on with her mother. This RN spoke with Myriam Horne LPN and asked her to relay patient's status to Dr. Diez and await further orders from him. She verbalizes understanding. 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 This RN called and spoke with Terence Chicas, Engineering Leaderadministrative support clerk and Zone Manager data virtualization consultant and informed him of the situation with the patient's daughter. Myself, Terence Chicas, and Emilia Jackson, spareribs trimmer went to the single point entry and spoke with the patient's daughter, Deloris Lemus. She is pleasant and courteous, however states that she is concerned over the status of her mother because her mother seemed confused when she spoke with her this morning. It was discussed with Terence Chicas and Emilia Jackson and they were in agreement to allow Deloris to visit after COVID-19 visitor screening was completed. Deloris completed screening and this RN escorted her to Med/Surg and took her to her mother's room. The screening form will be placed in the patient's chart for documentation.
[2020-05-05 09:15] LABS: ABG PCO2 40.8 mmHg (35-45); ABG PH Result 7.41 (7.35-7.45); Alveolar-Arterial Oxygen Gradi 120.3 mmHg (5-10); Arterial Blood Gas Hematocrit 24.8 % (37-47); Base Excess ABG 0.8 mmol/L (-2.0-2.0); Blood Gas Allen Test Pos; Blood Gas Sample Site Radial, left; Blood Gas Sample Type Arterial; Carboxyhemoglobin 2.2 %THgb (0.4-20.1); HCO3 ABG 25.6 mmol/L (22-26); HGB O2 Sat 88.6 % (95-100); Ionized Calcium Level - ABG 1.2 mmol/L (1.1-1.4); Methemoglobin 1.1 % (0.4-1.5); Oxygen Device NC; Oxygen Saturation ABG 91.6; Potassium Level - ABG 4.3 mmol/L (3.5-5.0); Total Hemoglobin 8.1 g/dL (12-16)
--- NOTE | 2020-05-05 09:41 | PC.CHAP ---
Pastoral Care Encounter/Spiritual Assessment Type of Contact [] Declined milk of lime slaker visit [] Patient/Family/Request visit [] Outpatient visit [] Follow-up visit [] Physician referral [] Code/Alert [x] Routine visit [] Staff referral [] Actively dying [] Patient sleeping [] Family support [] [] Out of room [] Palliative care [] [] Receiving care in room [] Pre-surgical visit [] Trauma [] Long length of stay [] ICU visit [] Other: Relational/Emotional Strength [] Patient feels connected with others/family/visitors/staff [] Distress [] Loneliness/isolation [] Abandonment Spirituality of Patient [] Person of Ratna [] Attends [facility] of their Ratna [] Believes in Prayer [] Reads Bible or Zoroastrianism materials [] There are Spiritual issues to be addressed Legal Consultant Interventions [x] Prayer [] Active listening [] Non-anxious presence [] Spiritual/emotional support [] Crisis/trauma care [] Spiritual counseling [] Bereavement support [] Provided bereavement packet [] Provided Bible/devotional materials [] Provided toy/stuffed animal, coloring book to patient or family member [] Provided Communion [] Anointing/[place] [] Salvation [x] Completed spiritual assessment [] Other: Impact on Illness or Injury [] Angry [] Fearful [] Anxious [] Often cries [] Exhaustion [] Unable to work [] Unable to attend mandaen [] Unable to walk/stand [] Unable to read [] Unable to drive [] Unable to eat/drink [] Unable to sleep [] Unable to be with family [] Patient intubated [] Other: Summary Patient breathing easier. Resting Time spent with patient 5 min
[2020-05-05] MEDS: FUROsemide 10 mg/mL SDV 4mL 40 MG IVP ×2 (12:05→16:57)
[2020-05-05] MEDS: docusate sodium 100 mg Capsule PO ×2 (12:18→17:37)
[2020-05-05] MEDS: polyethylene glycol 3350 Pkt 17 gm PO (12:18)
[2020-05-05 12:42] LABS: Hematocrit 25.6 % (37.0-47.0); Hemoglobin 7.7 g/dL (11.5-15.3)
--- NOTE | 2020-05-05 16:07 | PM.PN ---
Subjective Subjective: Interval history: This morning I was called urgently into the room as patient was going into respiratory distress, nursing staff also allowed patient's family member into the room even though there was COVID-19 restrictions, upon my arrival, patient is on 3 L nasal cannula, no retractions, no nasal flaring, no belly breathing, no tripod positioning, stated that she was doing okay, thinking she was having a panic attack, her lungs did sound a bit wet, she did have 1+ pitting edema, I also saw physical therapy work with the patient, she worked well without any significant exacerbations of her shortness of breath, CT angiogram yesterday was negative for pulmonary [place], right lower extremity negative for DVT, echocardiogram shows severe diastolic dysfunction, hemoglobin 7.7, no overt signs of bleeding Vitals/I&O/Wt Last Vital Signs Temp 98.0 F 05/05/20 15:22 Pulse 80 05/05/20 15:22 Resp 20 H 05/05/20 15:22 BP 140/66 05/05/20 15:22 Pulse Ox 98 05/05/20 15:22 05/05/20 05/05/20 05/05/20 06:59 14:59 22:59 Intake Total 1310 / 1550 Output Total 1200 / 1200 Balance 1310 / 250 -1200 / -1200 Weight last 48 hrs Weight 104.326 kg Physical Exam Const: COMMON NORMALS: no acute distress and patient oriented x3 HENMT: COMMON NORMALS: normocephalic HEAD & SCALP: normocephalic Neck/C-Spine: COMMON NORMALS: no JVD Resp: COMMON NORMALS: normal respiratory effort, No retractions, No use of accessory muscles and clear to auscultation bilaterally AUSCULTATION: clear to auscultation bilaterally Cardio: COMMON NORMALS: no JVD, regular rate, regular rhythm, S1 normal heart sound present and S2 normal heart sound present RATE: regular rate RHYTHM: regular rhythm HEART SOUNDS: S1 normal heart sound present and S2 normal heart sound present GI: COMMON NORMALS: Normal to inspection, nondistended, normoactive bowel sounds present, Soft to palpation, non-tender, No hepatosplenomegaly present, no masses and no bruits PALPATION: Yes Soft to palpation and Yes No hepatosplenomegaly present Extremity: COMMON NORMALS: capillary refill normal, no clubbing, cyanosis or edema, no calf tenderness and no pedal edema Neuro: COMMON NORMALS: patient oriented x3 Psych: COMMON NORMALS: mental status grossly normal Urinary Catheter Management^: Delarosa: Cath Placed During This Visit: yes Reason for Continuing Indwelling Catheter: Required Immobilization for Trauma or Surgery or Anesthesia Urinary Catheter Date of Insertion: 05/04/20 Urinary Catheter Time of Insertion: 16:32 Data : 05/05/20 12:13 05/05/20 02:32 A&P Assessment and plan (1) Acute dyspnea: -CTA negative for pulmonary embolism -EKG no acute ST-T wave changes -Small left pleural effusion seen on CT -Hemoglobin 7.4 -Echocardiogram shows severe diastolic dysfunction, severely elevated filling pressure, mild aortic valve stenosis, -Carotid requiring up to 4 L, lungs a bit wet, no respiratory distress -Received 40 mg Lasix this morning -X-ray this morning did show mild interstitium and haziness, mild interstitial edema and fluid overload, there could be the possibility of pneumonia, given her recent hospitalization,, and her immobility, I have started patient on vancomycin and Zosyn for possible healthcare associated wound pneumonia -Dyspnea right likely secondary to fluid overload, worsening diastolic dysfunction, diastolic heart failure exacerbation - Plan: -Continue telemetry monitoring, -Fluid restriction 1500 cc, strict I's and O's -Lasix 40 mg twice daily -On vancomycin and Zosyn for possible healthcare associate pneumonia, monitor for fevers, monitor blood cultures, respiratory cultures, monitor chest x-ray, monitor respiratory status, de-escalate antibiotics as needed Status: Acute (2) Anemia: -Hemoglobin 7.4, has conjunctival pallor, indications of chronic slow bleed, no acute bleeding, on top of postsurgical anemia, patient has been taking aspirin 325 daily for DVT prophylaxis -Hemoglobin 7.7 status post 1 unit PRBC Plan: -Trend hemoglobin -Iron studies show mild iron deficiency -Protonix 40 twice daily -Monitor hemoglobin closely Status: Acute Qualifiers: Anemia type: unspecified type Qualified Code(s): D64.9 - Anemia, unspecified (3) S/P knee surgery: Status: Acute (4) Atypical chest pain: -EKG no acute ST-T wave changes -Baseline troponin 12, 120-minute 11, negative delta -Continue telemetry monitoring, serial EKGs, serial troponins -History does not sound cardiac in nature, but will get echocardiogram -Aspirin 81 mg, statin, beta-arminda Status: Acute Additional A&P Information DVT prophylaxis SCD, contraindicated due to GI bleed, full code Attestations Medical Necessity Statement*: Requires continued hospitalization due to acute dyspnea, anemia Coding Level of Care Code 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
--- NOTE | 2020-05-05 16:10 | USCV_ITS ---
Maria Del Carmen Ansari Age: 70 Gender: F : 1950 Exam Date: 05/05/2020 16:33 Ordering Phys: Luis Alfredo Diez MD Technologist: LANDON HARMON [place] [facility] [place]: right leg pain HISTORY: Lower extremity pain. PROCEDURES: Venous duplex imaging was performed in only the right lower extremity. The following venous structures were evaluated: common femoral vein, profunda vein, proximal portion of the greater saphenous vein, superficial femoral vein, and the popliteal vein. In addition, the posterior tibial and peroneal trunk were evaluated. FINDINGS: Normal 2-D Doppler and augmentation and compressibility throughout the lower extremity venous structures. Additional imaging through the proximal calf veins also reveals no thrombus. Limited evaluation of the greater saphenous vein is patent with no thrombus.. CONCLUSIONS No evidence of DVT in the above-mentioned identifiable veins. Dr Juan Horne MD [facility] (Electronically Signed) Final Date: 05 May 2020 18:51 S
[2020-05-05] MEDS: piperacillin-tazobactam 3.375 GM in sodium chloride 0.9% (plus) 50 ML IV (16:29)
--- NOTE | 2020-05-05 17:48 | USCV_ITS ---
Maria Del Carmen Ansari Age: 70 Gender: F : 1950 Exam Date: 05/05/2020 05:26 Ordering Phys: Luis Alfredo Diez MD Technologist: Nahomy Velazco Exam Location: [facility] – [place] Indication: PT VERY SOB BP: / HR: 95 Rhythm: Sinus Technical Quality: Adequate MEASUREMENTS (Male / Female) Normal Values 2D ECHO LV Diastolic Diameter PLAX 4.0 cm 4.2 - 5.9 / 3.9 - 5.3 cm LV Systolic Diameter PLAX 2.5 cm LV Chamber Size 4.1 cm IVS Diastolic Thickness 1.1 cm 0.6 - 1.0 / 0.6 - 0.9 cm IVS Systolic Thickness 1.5 cm LVPW Diastolic Thickness 1.6 cm 0.6 - 1.0 / 0.6 - 0.9 cm LVPW Systolic Thickness 1.7 cm RV Chamber Size 3.5 cm LVOT Diameter 2.0 cm LV Ejection Fraction 2D Teich 69.7 % LV Ejection Fraction MOD 2C 21.2 % LV Ejection Fraction 2C AL 23.0 % LA Diameter 5.0 cm LA Width 3.9 cm LA Height 5.7 cm RA Width 3.7 cm RA Height 4.3 cm Aorta at Sinotubular Diameter 2.3 cm M-MODE LV Diastolic Diameter MM 3.7 cm 4.2 - 5.9 / 3.9 - 5.3 cm LV Systolic Diameter MM 2.1 cm LV Ejection Fraction MM Teich 75.7 % IVS Diastolic Thickness MM 0.8 cm 0.6 - 1.0 / 0.6 - 0.9 cm IVS Systolic Thickness MM 1.7 cm LVPW Diastolic Thickness MM 1.2 cm 0.6 - 1.0 / 0.6 - 0.9 cm LVPW Systolic Thickness MM 1.5 cm RV Diastolic Diameter MM 1.7 cm Aortic Annulus Diameter 3.0 cm LA Ao Ratio MM 1.7 MV E Point Septal Separation 0.2 cm DOPPLER AV Peak Velocity 282.0 cm/s LVOT Peak Velocity 93.0 cm/s AV Area Cont Eq vti 1.5 cm squared AV Area Cont Eq pk 1.0 cm squared MV Area PHT 3.9 cm squared Mitral E to A Ratio 2.3 MV E' Velocity 10.0 cm/s Mitral E to MV E' Ratio 19.1 Mitral E to LV E' Lateral Ratio 19.1 Mitral E to LV E' Septal Ratio 19.3 TR Peak Velocity 347.1 cm/s TR Peak Gradient 48.2 mmHg TR Mean Velocity 273.4 cm/s TR Mean Gradient 32.3 mmHg TR Velocity Time Integral 100.2 cm TV Peak E Velocity 91.0 cm/s Right Atrial Pressure 3.0 mmHg Pulmonary Artery Systolic Pressu 51.2 mmHg PV Peak Velocity 101.0 cm/s RV Acceleration Time 0.1 s RV Ejection Time 0.4 s RV AcT/ET 0.4 FINDINGS Left Ventricle Normal left ventricular size and systolic function, EF 65%. Mild left ventricular hypertrophy. No regional wall motion abnormalities. Grade III/IV diastolic dysfunction (restrictive filling pattern), severely elevated filling pressures. Right Ventricle Normal right ventricular size and systolic function. Right Atrium Normal right atrial size Left Atrium Mildly increased left atrial size. Mitral Valve Thickened mitral valve. Moderate mitral annular calcification. Aortic Valve Thickened aortic valve. Mild aortic valve stenosis, mean gradient 14.1 mmHg, ALESSANDRO 1.5 cm squared. Peak velocity of 2.8 m/s with a peak gradient of 32 mmHg Tricuspid Valve Trace to mild tricuspid valve regurgitation. Pulmonic Valve No gross abnormalities noted Pericardium No pericardial effusion. Aorta Normal aortic annulus size. CONCLUSIONS Normal left ventricular size and systolic function, EF 65%. Mild left ventricular hypertrophy. No regional wall motion abnormalities. Grade III/IV diastolic dysfunction (restrictive filling pattern), severely elevated filling pressures. Mild aortic valve stenosis, mean gradient 14.1 mmHg, ALESSANDRO 1.5 cm squared. Peak velocity of 2.8 m/s with a peak gradient of 32 mmHg. Mildly increased left atrial size. Thickened mitral valve. Moderate mitral annular calcification. Trace to mild tricuspid valve regurgitation. There are no intracardiac masses. There is no pericardial effusion. No previous study is available for comparison. Dr Juan Horne MD [facility] (Electronically Signed) Final Date: 05 May 2020 14:38 S
[2020-05-05 18:16] LABS: Hematocrit 26.3 % (37.0-47.0); Hemoglobin 8.1 g/dL (11.5-15.3)
[2020-05-05 18:43] LABS: NT Pro B Type Natriuretic Pept 2000 pg/mL (0-125)
[2020-05-06] VITALS (17 sets, daily range): BP systolic 119–152; BP diastolic 62–73; PULSE 70–82; RESP 18–20; TEMP 36.6–37.1; O2SAT 92–99
[2020-05-06] MEDS: piperacillin-tazobactam 3.375 GM in sodium chloride 0.9% (plus) 50 ML IV ×3 (00:07→15:37)
[2020-05-06 00:13] LABS: Hematocrit 24.9 % (37.0-47.0); Hemoglobin 7.6 g/dL (11.5-15.3)
[2020-05-06] MEDS: FUROsemide 10 mg/mL SDV 4mL 40 MG IVP ×2 (04:08→16:50)
[2020-05-06 05:28] LABS: Basophils % 0.3 %; Eosinophils # 0.3 10^3/uL (0.0-0.8); Hematocrit 24.3 % (37.0-47.0); Hemoglobin 7.5 g/dL (11.5-15.3); Lymphocytes # 0.9 10^3/uL (0.8-4.8); Lymphocytes % 8.7 %; Mean Corpuscular HGB Conc 30.9 g/dL (30.0-36.0); Mean Corpuscular Hemoglobin 27.4 pg (28.0-34.0); Mean Corpuscular Volume 88.7 fL (81-99); Monocytes # 0.9 10^3/uL (0.2-0.9); Monocytes % 8.5 %; Neutrophils # 8.3 10^3/uL (1.8-7.7); Neutrophils % 78.8 %; Nucleated Red Blood Cells % 0 %; Platelet Count 283 10^3/cmm (130-400); Red Blood Count 2.74 10^6/uL (4.1-5.3); Red Cell Distribution Width 14.6 % (12.1-15.1); White Blood Count 10.5 10^3/uL (4.0-10.0)
[2020-05-06] MEDS: pantoprazole 40 mg SDV IVP ×2 (05:46→16:50)
[2020-05-06 06:16] LABS: Alanine Aminotransferase 9 U/L (0-33); Albumin Level 3.4 g/dL (3.5-5.2); Alkaline Phosphatase 86 IU/L (35-105); Anion Gap 15.8 (5-19); Aspartate Amino Transferase 11 U/L (0-32); Blood Urea Nitrogen 11 mg/dL (8-23); Calcium 8.9 mg/dL (8.5-10.5); Carbon Dioxide 30 mmol/L (22-29); Chloride 94 mmol/L (98-107); Creatinine Clr Calc Pharmacy 76.6638; Globulin 2.6 g/dL (1.3-4.6); Glomerular Filtration Rate 99.1 mL/min (90-130); Glucose 130 mg/dL (65-115); Magnesium 1.9 mg/dL (1.7-2.3); Osmolality Calculated 280 mOsm/kg (285-295); Potassium 3.8 mmol/L (3.5-5.1); Sodium 136 mmol/L (136-145); Total Bilirubin 0.8 mg/dL (0.15-1.2)
[2020-05-06 06:21] LABS: Procalcitonin 0.21 ng/mL (0-0.5)
--- NOTE | 2020-05-06 06:30 | PC.NURSE ---
pt is A/Ox4 - states she is feeling human again . Did not complain of SOB, but she is belly breathing and has tight lung sounds.
--- NOTE | 2020-05-06 07:00 | XRR_ITS ---
PROCEDURE INFORMATION: Exam: XR Chest, 1 View Exam date and time: 05/06/2020 5:46 AM Age: 70 years old Clinical indication: Shortness of breath; Additional info: SOB TECHNIQUE: Imaging protocol: XR of the chest Views: 1 view. COMPARISON: No relevant prior studies available. FINDINGS: Lungs: There are increased peribronchial markings present bilaterally. Increased interstitial markings are seen diffusely bilaterally of most prominently within the left lower hemithorax. There is indistinctness of the pulmonary vasculature. These findings suggest pulmonary edema. Superimposed pneumonitis cannot be entirely excluded. Pleural space: Unremarkable. No pleural effusion. No pneumothorax. Heart/Mediastinum: Unremarkable. No cardiomegaly. Bones/joints: Unremarkable. XR/XR chest 1V portable [id number] IMPRESSION: Increased peribronchial markings, increased interstitial markings and indistinctness of the pulmonary vasculature, findings that suggest pulmonary edema. However, a superimposed basilar pneumonitis cannot be entirely excluded.
[2020-05-06] MEDS: labetalol 200 mg Tablet PO (07:53)
[2020-05-06] MEDS: aspirin 81 mg EC Tablet PO (07:54)
[2020-05-06] MEDS: docusate sodium 100 mg Capsule PO (07:54)
[2020-05-06] MEDS: amlodipine 5 mg Tablet PO (07:54)
[2020-05-06] MEDS: losartan 50 mg Tablet 100 MG PO (07:54)
[2020-05-06] MEDS: polyethylene glycol 3350 Pkt 17 gm PO (07:54)
[2020-05-06] MEDS: HYDROcodone-acetaminophen 5-325 mg Tablet 1 TAB PO ×3 (08:17→22:00)
[2020-05-06] MEDS: ipratropium-albuterol 3 mL Neb INHALATION ×4 (08:31→20:27)
--- NOTE | 2020-05-06 11:48 | PC.NURSE ---
Pulp Mill Operator spoke to Hope pt daughter regarding wanting visitor information assistant asked daughter if possible could the family designate one person to call and receive information regarding pt and inform family of condition that poem writer understands how stressful it is that family is unable to be here with pt at this time but we are spending lots of time on the phone when needed to be doing pt care including their family member pt family got upset and stated I will just contact administration .
[2020-05-06] MEDS: potassium chloride ER 10 mEq Tablet 40 MEQ PO (12:04)
[2020-05-06 12:43] LABS: Hematocrit 26.9 % (37.0-47.0); Hemoglobin 8.2 g/dL (11.5-15.3)
--- NOTE | 2020-05-06 13:42 | P.PN_ITS ---
Subjective Subjective: Interval history: This morning patient is feeling much better, no fevers overnight, no chills, no lightheadedness, no dizziness, no chest pain, no shortness of breath episodes, she is diuresed roughly 6.125 L since yesterday, likely she had pulmonary edema which was causing her shortness of breath, previously Lasix, echo showing severe diastolic dysfunction, hemoglobin is trending down to 7.5, no overt signs of bleeding, no bloody or black stools Vitals/I&O/Wt Last Vital Signs Temp 98.1 F 05/06/20 08:00 Pulse 72 05/06/20 12:00 Resp 18 05/06/20 11:18 BP 131/72 05/06/20 08:00 Pulse Ox 97 05/06/20 11:18 05/05/20 05/06/20 05/06/20 22:59 06:59 14:59 Intake Total 50 / 300 300 / 600 Output Total 1775 / 2975 3000 / 5975 1000 / 1000 Balance -1725 / -2675 -2700 / -5375 -1000 / -1000 Physical Exam Const: COMMON NORMALS: no acute distress and patient oriented x3 HENMT: COMMON NORMALS: normocephalic HEAD & SCALP: normocephalic Neck/C-Spine: COMMON NORMALS: no JVD Resp: COMMON NORMALS: normal respiratory effort, No retractions, No use of accessory muscles and clear to auscultation bilaterally AUSCULTATION: clear to auscultation bilaterally Cardio: COMMON NORMALS: no JVD, regular rate, regular rhythm, S1 normal heart sound present and S2 normal heart sound present RATE: regular rate RHYTHM: regular rhythm HEART SOUNDS: S1 normal heart sound present and S2 normal heart sound present GI: COMMON NORMALS: Normal to inspection, nondistended, normoactive bowel sounds present, Soft to palpation, non-tender, No hepatosplenomegaly present, no masses and no bruits PALPATION: Yes Soft to palpation and Yes No hepatosplenomegaly present Extremity: COMMON NORMALS: capillary refill normal, no clubbing, cyanosis or edema, no calf tenderness and no pedal edema Neuro: COMMON NORMALS: patient oriented x3 Psych: COMMON NORMALS: mental status grossly normal Urinary Catheter Management^: Delarosa: Cath Placed During This Visit: yes Reason for Continuing Indwelling Catheter: Required Immobilization for Trauma or Surgery or Anesthesia Urinary Catheter Date of Insertion: 05/04/20 Urinary Catheter Time of Insertion: 16:32 Data : 05/06/20 11:40 05/06/20 04:47 Micro: Microbiology 05/05/20 07:15 Blood Culture - Preliminary Blood SPECIMEN COLLECTED 05/05/20 23:52 Blood Culture - Preliminary Blood SPECIMEN COLLECTED A&P Assessment and plan (1) Diastolic CHF, acute: -Echocardiogram yesterday showed diastolic dysfunction, grade 3 out of 4 diastolic dysfunction, restrictive filling pattern, severely elevated filling pressures, mild aortic valve stenosis, -BNP 1999 -Chest x-ray does show bilateral lateral pulmonary edema -Has diuresed roughly 6 L since admission, since Lasix was given Plan: -Strict I's and O's, fluid restrictions to 1500 cc -Lasix 40 mg IV twice daily -Monitor respiratory status closely Status: Acute (2) Acute dyspnea: -CTA negative for pulmonary embolism -EKG no acute ST-T wave changes -Small left pleural effusion seen on CT -Hemoglobin 8.2 -Had episode of respiratory distress yesterday morning, BNP 1999, improved with Lasix, diuresed 6 L, likely shortness of breath secondary to diastolic CHF exacerbation, pulmonary edema -Her chest x-ray showed possible bibasilar pneumonitis, given her recent hospitalization, she is been started on vancomycin and Zosyn to cover for healthcare associated pneumonia Plan: -Continue oxygen therapy, nebulizer treatments, diuresis with Lasix, strict I's and O's, fluid restrictions to 1500 cc -Continue vancomycin and Zosyn for healthcare associated pneumonia, although unlikely, de-escalate antibiotics in the next 24 hours -Monitor hemoglobin Status: Acute (3) Anemia: -Hemoglobin 8.2, has conjunctival pallor, indications of chronic slow ble ed, no acute bleeding, on top of postsurgical anemia, patient has been taking aspirin 325 daily for DVT prophylaxis Plan: -Status post 1 unit PRBC -Protonix 40 twice daily, Carafate -Hold all blood thinners, SCDs for DVT prophylaxis -Monitor hemoglobin closely Status: Acute Qualifiers: Anemia type: unspecified type Qualified Code(s): D64.9 - Anemia, unspecified (4) S/P knee surgery: Status: Acute (5) Atypical chest pain: -EKG no acute ST-T wave changes -Baseline troponin 12, 120-minute 11, negative delta -Continue telemetry monitoring, serial EKGs, serial troponins -History does not sound cardiac in nature, but will get echocardiogram -Hold aspirin 81 mg, continue statin, beta-arminda Status: Acute Additional A&P Information DVT prophylaxis SCD, contraindicated due to GI bleed, full code Attestations Medical Necessity Statement*: Patient requires continued hospitalization due to acute dyspnea secondary to CHF, anemia concerning for slow GI bleed, possible pneumonia Coding Level of Care Code 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
[2020-05-06 18:05] LABS: Hematocrit 24.2 % (37.0-47.0); Hemoglobin 7.4 g/dL (11.5-15.3)
[2020-05-06] MEDS: atorvastatin 40 mg Tablet PO (22:00)
[2020-05-06 22:56] LABS: Hematocrit 27.5 % (37.0-47.0); Hemoglobin 8.3 g/dL (11.5-15.3)
[2020-05-06 23:09] LABS: Vancomycin Trough 22.7 ug/mL (10-15)
--- NOTE | 2020-05-06 23:36 | PC.PHAR ---
VANCOMYCIN TROUGH IS 22.7. This dose is skipped and resumed in 24 hours at 1250mg IVPB every 12 hours with another trough level to be obtained before the fourth 1250mg dose.
[2020-05-07] VITALS (13 sets, daily range): BP systolic 117–143; BP diastolic 67–81; PULSE 67–75; RESP 16–24; TEMP 36.7–37.1; O2SAT 90–97
[2020-05-07] MEDS: piperacillin-tazobactam 3.375 GM in sodium chloride 0.9% (plus) 50 ML IV (01:28)
[2020-05-07] MEDS: HYDROcodone-acetaminophen 5-325 mg Tablet 1 TAB PO ×3 (04:35→22:27)
[2020-05-07] MEDS: FUROsemide 10 mg/mL SDV 4mL 40 MG IVP (05:41)
[2020-05-07] MEDS: pantoprazole 40 mg SDV IVP ×2 (05:41→17:45)
[2020-05-07 06:10] LABS: Basophils % 0.4 %; Eosinophils # 0.5 10^3/uL (0.0-0.8); Eosinophils % 5.2 %; Hematocrit 25.9 % (37.0-47.0); Hemoglobin 7.8 g/dL (11.5-15.3); Lymphocytes # 1.1 10^3/uL (0.8-4.8); Lymphocytes % 11.8 %; Mean Corpuscular HGB Conc 30.1 g/dL (30.0-36.0); Mean Corpuscular Hemoglobin 26.3 pg (28.0-34.0); Mean Corpuscular Volume 87.2 fL (81-99); Monocytes # 0.9 10^3/uL (0.2-0.9); Monocytes % 9.4 %; Nucleated Red Blood Cells % 0 %; Platelet Count 323 10^3/cmm (130-400); Red Blood Count 2.97 10^6/uL (4.1-5.3); Red Cell Distribution Width 14.6 % (12.1-15.1); White Blood Count 9.7 10^3/uL (4.0-10.0)
[2020-05-07 06:34] LABS: Alanine Aminotransferase 10 U/L (0-33); Albumin Level 3.3 g/dL (3.5-5.2); Alkaline Phosphatase 86 IU/L (35-105); Anion Gap 16.6 (5-19); Aspartate Amino Transferase 13 U/L (0-32); Blood Urea Nitrogen 18 mg/dL (8-23); Calcium 9.1 mg/dL (8.5-10.5); Carbon Dioxide 29 mmol/L (22-29); Chloride 94 mmol/L (98-107); Creatinine Clr Calc Pharmacy 76.6638; Globulin 3.4 g/dL (1.3-4.6); Glomerular Filtration Rate 71.1 mL/min (90-130); Glucose 135 mg/dL (65-115); Magnesium 1.8 mg/dL (1.7-2.3); Osmolality Calculated 281 mOsm/kg (285-295); Phosphorus 3.7 mg/dL (2.5-4.5); Potassium 3.6 mmol/L (3.5-5.1); Procalcitonin 0.21 ng/mL (0-0.5); Sodium 136 mmol/L (136-145); Total Bilirubin 0.6 mg/dL (0.15-1.2); Total Protein 6.7 g/dL (6.6-8.7)
--- NOTE | 2020-05-07 06:55 | PC.NURSE ---
Shift Summary Patient rested well through the night with no changes in status.
[2020-05-07] MEDS: ipratropium-albuterol 3 mL Neb INHALATION ×4 (07:30→21:09)
[2020-05-07] MEDS: potassium chloride ER 10 mEq Tablet 40 MEQ PO (09:10)
[2020-05-07] MEDS: labetalol 200 mg Tablet PO (09:11)
[2020-05-07] MEDS: amlodipine 5 mg Tablet PO (09:11)
[2020-05-07] MEDS: losartan 50 mg Tablet 100 MG PO (09:11)
--- NOTE | 2020-05-07 11:32 | P.CONIM_ITS ---
Providers/Reason For Consult Consulting Physican/Specialty*: Internal medicine/endoscopy Reason for Consult*: Anemia of undetermined origin Requesting Physcian: Luis Alfredo Diez MD Attending Physician: Luis Alfredo Diez MD Primary Care Provider: Howard Kraus MD History of Present Illness History of Present Illness Maria Del Carmen Ansari is a 70 year old female who was admitted after knee replacement last week. Her main issue was volume overload, and the hospitalist team have been diuresing her successfully. I am asked to see her because she started with a baseline hemoglobin in the normal range last month prior to her surgery. On discharge it was over 10, but on admission it was down around 7 and she required transfusion. She denies any hematochezia melena hematemesis or bleeding otherwise that she knows of. She has not noticed a large hematoma around her knee. Her last endoscopy was 12 years ago and she states this was a colonoscopy. She was not sure of the results. She is never had an upper endoscopy. She does not complain of a lot of heartburn or indigestion however. Review of Systems General: Reports: 10 or more systems reviewed and unremarkable except in HPI and below Meds/Allergies Home Medications and Allergies Home Medications Medication Instructions Recorded Confirmed Last Taken Type amlodipine 5 mg tablet 5 mg PO DAILY tab 11/21/19 05/04/20 05/04/20 10:00 History aspirin 325 mg tablet 325 mg PO DAILY tab 11/21/19 05/04/20 05/04/20 10:00 History clonidine HCl 0.2 mg tablet 0.2 mg PO Q6H PRN tab 11/21/19 05/04/20 Unknown History hydrocodone 5 mg-acetaminophen 325 1 tab PO BID PRN tab 11/21/19 05/04/20 05/01/20 History mg tablet nitroglycerin 0.4 mg sublingual 0.4 mg SUBLINGUAL ONCE PRN tab 11/21/19 05/04/20 Unknown History tablet labetalol 200 mg PO BID 02/07/20 05/04/20 05/01/20 05:30 History mupirocin 2 % topical ointment 1 applic TOPICAL BID #30 gm 02/08/20 05/04/20 Unknown Rx biotin 1 mg PO DAILY 04/25/20 05/04/20 05/04/20 10:00 History oxycodone-acetaminophen 2 tab PO Q4H PRN #40 tab 05/01/20 05/04/20 05/04/20 12:00 Rx celecoxib 200 mg PO Q12H #30 cap 05/02/20 05/04/20 05/04/20 10:00 Rx alprazolam 0.25 mg tablet 0.25 mg PO TID PRN #14 tab 05/04/20 05/04/20 Unknown Rx ibuprofen 400 mg PO PRN 05/04/20 05/04/20 05/04/20 10:00 History losartan 100 mg PO DAILY 05/04/20 05/04/20 Unknown History Allergies Allergy/AdvReac Type Severity Reaction Status Date / Time No Known Allergies Allergy Verified 05/04/20 14:31 Current Medications Current Medications Generic Name Dose Route Start Last Admin Trade Name Freq PRN Reason Stop Dose Admin Hydrocodone Bitart/Acetaminophen 1 tab 05/04/20 18:22 05/07/20 04:35 Minetto 5-325 Mg PO 1 tab Q6H PRN Administration MODERATE PAIN Albuterol/Ipratropium 3 ml 05/04/20 16:00 05/07/20 11:14 Duoneb INHALATION 3 ml QID.RESPIRATORY BETTIE Administration Alprazolam 0.25 mg 05/04/20 17:49 05/05/20 08:33 Xanax PO 0.25 mg TID PRN Administration anxiety Amlodipine Besylate 5 mg 05/05/20 09:00 05/07/20 09:11 Norvasc PO 5 mg DAILY BETTIE Administration Aspirin 81 mg 05/05/20 09:00 05/06/20 07:54 Aspirin Ec PO 81 mg DAILY BETITE Administration Atorvastatin Calcium 40 mg 05/04/20 21:00 05/06/20 22:00 Lipitor PO 40 mg BEDTIME BETTIE Administration Docusate Sodium 100 mg 05/05/20 11:50 05/07/20 09:12 Colace PO Not Given BID BETTIE Furosemide 40 mg 05/05/20 16:15 05/07/20 05:41 Lasix IVP 40 mg Q12H BETTIE Administration Labetalol HCl 200 mg 05/05/20 09:00 05/07/20 09:11 Trandate PO 200 mg DAILY BETTIE Administration Losartan Potassium 100 mg 05/05/20 09:00 05/07/20 09:11 Cozaar PO 100 mg DAILY BETTIE Administration Pantoprazole Sodium 40 mg 05/04/20 18:00 05/07/20 05:41 Protonix IVP 40 mg Q12H BETTIE Administration Polyethylene Glycol 17 gm 05/05/20 11:50 05/07/20 09:12 Miralax PO Not Given DAILY BETTIE Potassium Chloride 40 meq 05/06/20 10:05 05/07/20 09:10 Klor-Con 10 PO 40 meq DAILY BETTIE Administration PFSH Acute PFSH: Medical History CVA (cerebral vascular accident) Hypercholesteremia Hypertension Lumbar disc disease with radiculopathy Lumbar spondylosis Morbid obesity Spondylolisthesis, lumbar region Surgical History H/O carpal tunnel repair H/O cataract removal with insertion of prosthetic lens H/O: hysterectomy History of arthroscopic surgery of elbow History of cholecystectomy Family History Father Cancer CAD (coronary artery disease) Mother CAD (coronary artery disease) Diabetes Hypertension Stroke Denies family history of Anesthesia complication Bleeding disorder Social History Smoking and tobacco status: former smoker Second hand smoke exposure: No Alcohol intake: never Adopted: No Caregiver/support person: Yes Lives independently: Yes Household members: spouse Housing: House Marital status: service: No Current occupational status: retired Current occupational exposures/hazards: No Pets and animals: No History of recent travel: No Sexually active: No Current gender identity: Female Ratna/Christian: Pentecostal Special ratna needs: No Agree to transfusion: No Financial difficulty paying for basics: Decline to Answer Vitals/I&O/Wt Last Vital Signs Temp 98.2 F 05/07/20 07:47 Pulse 70 05/07/20 11:19 Resp 17 05/07/20 11:17 BP 128/70 05/07/20 09:11 Pulse Ox 95 05/07/20 11:17 05/06/20 05/07/20 05/07/20 22:59 06:59 14:59 Intake Total 450 / 740 320 / 1060 360 / 360 Output Total 1300 / 2300 1200 / 3500 Balance -850 / -1560 -880 / -2440 360 / 360 Physical Exam Const: COMMON NORMALS: no acute distress, average body habitus, patient oriented x3, no limitations, healthy appearing, alert and well nourished Chest: COMMONS NORMALS: normal inspection of the chest, normal palpation of entire chest wall, normal inspection of the breasts and normal palpation of the breasts Resp: COMMON NORMALS: normal respiratory effort, No retractions, No use of accessory muscles, clear to auscultation bilaterally and percussion normal AUSCULTATION: clear to auscultation bilaterally PERCUSSION: percussion normal Cardio: COMMON NORMALS: regular rate and regular rhythm RATE: regular rate RHYTHM: regular rhythm GI: COMMON NORMALS: Normal to inspection, nondistended, normoactive bowel sounds present, Soft to palpation, non-tender, No hepatosplenomegaly present, no masses and no bruits PALPATION: Yes Soft to palpation and Yes No hepatosplenomegaly present Neuro: COMMON NORMALS: patient oriented x3 SENSORIUM/ORIENTATION: Yes alert Urinary Catheter Management^: Delarosa: Cath Placed During This Visit: yes Reason for Continuing Indwelling Catheter: Required Immobilization for Trauma or Surgery or Anesthesia Urinary Catheter Date of Insertion: 05/04/20 Urinary Catheter Time of Insertion: 16:32 Data Micro: Micro: Microbiology 05/05/20 07:15 Blood Culture - Pr eliminary Blood NEGATIVE TO TAVO E 05/05/20 23:52 Blood Culture - Pr eliminary Blood NEGATIVE TO TAVO E A&P Assessment and plan (1) Anemia: Status: Acute Qualifiers: Anemia type: unspecified type Qualified Code(s): D64.9 - Anemia, unspecified (2) Morbid obesity: Status: Acute Coding Level of Care Code Acute 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 Please allow Hillary Long to do the coding and billing for me.
[2020-05-07 12:31] LABS: Hemoglobin 8.4 g/dL (11.5-15.3)
--- NOTE | 2020-05-07 12:45 | PM.PN ---
Subjective Subjective: Interval history: This morning patient is in much better spirits, no fevers, shortness of breath has significantly improved, she would really like Delarosa catheter removed, no bloody or black stools, no lightheadedness, no dizziness, no cough Vitals/I&O/Wt Last Vital Signs Temp 98.2 F 05/07/20 11:47 Pulse 69 05/07/20 11:47 Resp 18 05/07/20 11:47 BP 135/81 05/07/20 11:47 Pulse Ox 94 05/07/20 11:47 05/06/20 05/07/20 05/07/20 22:59 06:59 14:59 Intake Total 450 / 740 320 / 1060 360 / 360 Output Total 1300 / 2300 1200 / 3500 Balance -850 / -1560 -880 / -2440 360 / 360 Physical Exam Const: COMMON NORMALS: no acute distress and patient oriented x3 HENMT: COMMON NORMALS: normocephalic HEAD & SCALP: normocephalic Neck/C-Spine: COMMON NORMALS: no JVD Resp: COMMON NORMALS: normal respiratory effort, No retractions, No use of accessory muscles and clear to auscultation bilaterally AUSCULTATION: clear to auscultation bilaterally Cardio: COMMON NORMALS: no JVD, regular rate, regular rhythm, S1 normal heart sound present and S2 normal heart sound present RATE: regular rate RHYTHM: regular rhythm HEART SOUNDS: S1 normal heart sound present and S2 normal heart sound present GI: COMMON NORMALS: Normal to inspection, nondistended, normoactive bowel sounds present, Soft to palpation, non-tender, No hepatosplenomegaly present, no masses and no bruits PALPATION: Yes Soft to palpation and Yes No hepatosplenomegaly present Extremity: COMMON NORMALS: capillary refill normal, no clubbing, cyanosis or edema, no calf tenderness and no pedal edema Neuro: COMMON NORMALS: patient oriented x3 Psych: COMMON NORMALS: mental status grossly normal Urinary Catheter Management^: Delarosa: Cath Placed During This Visit: yes Reason for Continuing Indwelling Catheter: Required Immobilization for Trauma or Surgery or Anesthesia Urinary Catheter Date of Insertion: 05/04/20 Urinary Catheter Time of Insertion: 16:32 Data : 05/07/20 12:17 05/07/20 05:26 Micro: Microbiology 05/05/20 07:15 Blood Culture - Preliminary Blood NEGATIVE TO DATE 05/05/20 23:52 Blood Culture - Preliminary Blood NEGATIVE TO DATE A&P Assessment and plan (1) Diastolic CHF, acute: -Echocardiogram yesterday showed diastolic dysfunction, grade 3 out of 4 diastolic dysfunction, restrictive filling pattern, severely elevated filling pressures, mild aortic valve stenosis, -BNP 1999 -Chest x-ray does show bilateral lateral pulmonary edema -Has diuresed roughly 7205ml since admission, currently doing well on room air Plan: -Strict I's and O's, fluid restrictions to 1500 cc -Lasix 40 mg p.o. daily, potassium replacement therapy -Monitor respiratory status closely Status: Acute (2) Acute dyspnea: -CTA negative for pulmonary embolism -EKG no acute ST-T wave changes -Small left pleural effusion seen on CT -Hemoglobin 8.4 -Had episode of respiratory distress yesterday morning, BNP 1999, improved with Lasix, diuresed 7 L, likely shortness of breath secondary to diastolic CHF exacerbation, pulmonary edema -Her chest x-ray showed possible bibasilar pneumonitis, given her recent hospitalization, she was started on vancomycin and Zosyn to cover for healthcare associated pneumonia, although quite unlikely a pneumonia Plan: -Continue oxygen therapy, nebulizer treatments, diuresis with Lasix, strict I's and O's, fluid restrictions to 1500 cc -De-escalate antibiotics to doxycycline, pneumonia highly unlikely, cultures within normal limits -Monitor hemoglobin Status: Acute (3) Anemia: -Hemoglobin 8.4, has conjunctival pallor, indications of chronic slow bleed, no acute bleeding, on top of postsurgical anemia, patient has been taking aspirin 325 daily for DVT prophylaxis Plan: -Status post 1 unit PRBC -Protonix 40 twice daily, Carafate -Hold all blood thinners, SCDs for DVT prophylaxis -Monitor hemoglobin closely -I have consulted Dr. Tan as her hemoglobin continues to trend downwards, consideration for EGD tomorrow, n.p.o. over midnight Status: Acute Qualifiers: Anemia type: unspecified type Qualified Code(s): D64.9 - Anemia, unspecified (4) S/P knee surgery: Status: Acute (5) Atypical chest pain: -EKG no acute ST-T wave changes -Baseline troponin 12, 120-minute 11, negative delta -Continue telemetry monitoring, serial EKGs, serial troponins -History does not sound cardiac in nature, but will get echocardiogram -Hold aspirin 81 mg, continue statin, beta-arminda Status: Acute Additional A&P Information DVT prophylaxis SCD, contraindicated due to GI bleed, full code Likely discharge in the next 24 hours Attestations Medical Necessity Statement*: Patient requires continued hospitalization and due to anemia, acute dyspnea, heart failure, GI bleed Coding Level of Care Code Acute Customer Sales Consultant for [facility] Fwd Diagnoses Diastolic CHF, acute I50.31 Acute dyspnea R06.00 Anemia D64.9 Anemia type: unspecified type S/P knee surgery Z98.890 Atypical chest pain R07.89
--- NOTE | 2020-05-07 13:44 | PC.SOCIAL ---
IMM Update Pg 2 of IMM given and explained to patient who verbalized understanding. Copy provided.
[2020-05-07] MEDS: doxycycline 100 mg Tablet PO (17:44)
[2020-05-07] MEDS: sucralfate 1 gm Tablet PO (17:44)
[2020-05-07] MEDS: docusate sodium 100 mg Capsule PO (17:47)
[2020-05-07 19:03] LABS: Hematocrit 27.1 % (37.0-47.0); Hemoglobin 8.3 g/dL (11.5-15.3)
--- NOTE | 2020-05-07 22:00 | PC.NURSE ---
Upon patient assessment, this nurse noticed in order for bowel prep to prepare for EGD and Colonoscopy were ordered around 1145. Upon further review, bowel prep had not been administered. This nurse read through the doctor order to get all medications ordered for the bowel prep. As this nurse was reviewing orders, patient had fluids ordered to begin around 1145 as well. Nurse received in report that patient did not have an IV due to no medications or fluids being ordered, therefore an IV was not needed in the immediate timeframe.
[2020-05-07] MEDS: atorvastatin 40 mg Tablet PO (22:28)
[2020-05-07] MEDS: sodium chloride 0.9% 1,000 ML 30 ML IV (22:41)
[2020-05-07] MEDS: magnesium citrate Btl 296 mL PO (23:06)
[2020-05-07] MEDS: bisacodyl 5 mg Tablet PO (23:06)
[2020-05-08] VITALS (12 sets, daily range): BP systolic 87–159; BP diastolic 38–77; PULSE 63–78; RESP 12–20; TEMP 36.6–36.9; O2SAT 91–100
[2020-05-08] MEDS: bisacodyl 5 mg Tablet 15 MG PO (00:36)
[2020-05-08] MEDS: magnesium citrate Btl 296 mL PO (00:37)
[2020-05-08 01:19] LABS: Hematocrit 27.1 % (37.0-47.0); Hemoglobin 8.1 g/dL (11.5-15.3)
[2020-05-08] MEDS: ondansetron 2 mg/ML SDV 2 mL 4 MG IVP (02:20)
--- NOTE | 2020-05-08 02:46 | PC.NURSE ---
Bowel Prep Patient bowl prep began at 22:39. Patient has not had a bowel movement yet, although she can feel her belly gurgling. Patient began vomiting about 200cc. Patient was given zofran to improve nausea which patient reports that it did help.
[2020-05-08] MEDS: pantoprazole 40 mg SDV IVP ×2 (05:34→17:45)
[2020-05-08] MEDS: HYDROcodone-acetaminophen 5-325 mg Tablet 1 TAB PO ×3 (05:41→20:43)
[2020-05-08 05:51] LABS: Procalcitonin 0.16 ng/mL (0-0.5)
[2020-05-08 06:28] LABS: Alanine Aminotransferase 11 U/L (0-33); Albumin Level 3.8 g/dL (3.5-5.2); Alkaline Phosphatase 94 IU/L (35-105); Anion Gap 18.5 (5-19); Aspartate Amino Transferase 18 U/L (0-32); Blood Urea Nitrogen 16 mg/dL (8-23); Calcium 9.3 mg/dL (8.5-10.5); Carbon Dioxide 24 mmol/L (22-29); Chloride 96 mmol/L (98-107); Creatinine Clr Calc Pharmacy 76.6638; Globulin 2.2 g/dL (1.3-4.6); Glomerular Filtration Rate 71.1 mL/min (90-130); Glucose 137 mg/dL (65-115); Magnesium 2.4 mg/dL (1.7-2.3); Osmolality Calculated 276 mOsm/kg (285-295); Potassium 4.5 mmol/L (3.5-5.1); Sodium 134 mmol/L (136-145); Total Bilirubin 0.6 mg/dL (0.15-1.2)
[2020-05-08 06:44] LABS: Basophils # 0.1 10^3/uL (0.0-0.1); Basophils % 0.5 %; Eosinophils # 0.5 10^3/uL (0.0-0.8); Eosinophils % 4.9 %; Hematocrit 28.4 % (37.0-47.0); Hemoglobin 8.5 g/dL (11.5-15.3); Lymphocytes # 1.2 10^3/uL (0.8-4.8); Lymphocytes % 12.1 %; Mean Corpuscular HGB Conc 29.9 g/dL (30.0-36.0); Mean Corpuscular Hemoglobin 26.3 pg (28.0-34.0); Mean Corpuscular Volume 87.9 fL (81-99); Mean Platelet Volume 8.5 fL (7.4-10.4); Monocytes # 0.9 10^3/uL (0.2-0.9); Monocytes % 9.2 %; Neutrophils # 7.2 10^3/uL (1.8-7.7); Neutrophils % 71.5 %; Nucleated Red Blood Cells % 0 %; Platelet Count 371 10^3/cmm (130-400); Red Blood Count 3.23 10^6/uL (4.1-5.3); Red Cell Distribution Width 14.6 % (12.1-15.1)
--- NOTE | 2020-05-08 08:13 | PC.OT ---
OT Note: Pt declined OT at this time due to going to a procedure soon. Will attempt later as able.
[2020-05-08] MEDS: polyethylene glycol 3350 Pkt 17 gm PO (08:22)
[2020-05-08] MEDS: potassium chloride ER 10 mEq Tablet 40 MEQ PO (08:23)
[2020-05-08] MEDS: docusate sodium 100 mg Capsule PO (08:23)
[2020-05-08] MEDS: sucralfate 1 gm Tablet PO ×2 (08:23→17:45)
[2020-05-08] MEDS: amlodipine 5 mg Tablet PO (08:23)
[2020-05-08] MEDS: FUROsemide 40 mg Tablet PO ×2 (08:24→17:45)
[2020-05-08] MEDS: doxycycline 100 mg Tablet PO ×2 (08:24→17:44)
[2020-05-08] MEDS: losartan 50 mg Tablet 100 MG PO (08:24)
[2020-05-08] MEDS: labetalol 200 mg Tablet PO (08:26)
[2020-05-08] MEDS: ipratropium-albuterol 3 mL Neb INHALATION ×2 (08:42→19:37)
--- NOTE | 2020-05-08 10:19 | PC.NURSE ---
NURSE FROM OUTPATIENT SURGERY CALLED TO FOLLOW UP ON BOWEL PREP STATUS FOR PATIENT. WHEN TOLD THAT BOWEL MOVEMENTS ARE STILL RUNNY AND SOLID BROWN SHE CALLED BACK AND STATED THAT PER DR. GARCIA PATIENT WILL NEED TO HAVE ANOTHER ONE . NURSE WAS ASKED TO SPECIFY WHAT WAS NEEDED. NURSE STATED THAT DR. GARCIA WANTED PATIENT TO HAVE ANOTHER ENEMA LIKE SHE HAD LAST NIGHT. I INFORMED HER THAT AN ORDER FOR A SOAPS SUDS ENEMA WAS PACED LAST NIGHT. NURSE SAID THAT A TAP WATER ENEMA WOULD BE BEST.
--- NOTE | 2020-05-08 11:28 | P.ANESASSM_ITS ---
Pre-Anesthetic Assessment Pre-Anesthetic Assessment: Height/Weight: Height 1.6 m Weight 104.326 kg Temp Pulse Resp BP Pulse Ox 97.9 F 78 16 125/67 97 05/08/20 07:51 05/08/20 08:42 05/08/20 08:42 05/08/20 08:24 05/08/20 08:42 Preop Diagnosis: Anemia Proposed Procedure: Operation Date: 05/08/20 11:15 Proposed Procedures p EGD(Not Applicable) - Stephen Tan MD s Colonoscopy(Not Applicable) - Stephen Tan MD Exam: Pre-Anes Outpt Exam: alert, oriented x 3, clear to auscultation bilater ally and regular rate & rhythm Airway: Submandibular: WNL Cervical ROM: WNL MP: 2 Dentition: False History/ROS: No significant history except as noted and No significant complaints Pulmonary: Pulmonary: KELLY and Sleep apnea Comments: Breathing well now. SOB relieved with diuresis. CV/HEM: CV/HEM: CHF (admitted with fluid overload and had significant diuresis. ) : : None reported Hepatic: Hepatic: None reported Metabolic: Metabolic: Morbid [place] [facility] [place] Musc/skel: OA/DJD Neuropsych: Neuropsych: Anxiety and CORREA Anesthetic Plan: ASA status: 3 Anesthesia: MAC Risk of > 500 ml blood loss (7ml/kg in children): No Meds/Allergies Current Medications: Current Medications Generic Name Dose Route Start Last Admin Trade Name Freq PRN Reason Stop Dose Admin Hydrocodone Bitart /Acetaminophen 1 tab 05/04/20 18:22 05/08/20 05:41 [place] 5-325 Mg PO 1 tab Q6H PRN Administration MODERATE PAIN Albuterol/Ipratrop ium 3 ml 05/04/20 16:00 05/08/20 08:42 Duoneb INHALATION 3 ml QID.RESPIRATORY S CH Administration Alprazolam 0.25 mg 05/04/20 17:49 05/05/20 08:33 Xanax PO 0.25 mg TID PRN Administration anxiety Amlodipine Besylat e 5 mg 05/05/20 09:00 05/08/20 08:23 Norvasc PO 5 mg DAILY BETTIE Administration Aspirin 81 mg 05/05/20 09:00 05/06/20 07:54 Aspirin Ec PO 81 mg DAILY BETTIE Administration Atorvastatin Calci um 40 mg 05/04/20 21:00 05/07/20 22:28 Lipitor PO 40 mg BEDTIME BETTIE Administration Docusate Sodium 100 mg 05/05/20 11:50 05/08/20 08:23 Colace PO 100 mg BID BETTIE Administration Doxycycline Monohy drate 100 mg 05/07/20 18:00 05/08/20 08:24 Vibramycin PO 100 mg BID BETTIE Administration Protocol Furosemide 40 mg 05/08/20 08:00 05/08/20 08:24 Lasix PO 40 mg BID@08,16 BETTIE Administration Sodium Chloride 1,000 mls @ 30 ml s/hr 05/07/20 11:40 05/07/20 22:41 Sodium Chloride 0.9% IV 05/08/20 11:39 30 mls/hr .Q24H ONE Administration Labetalol HCl 200 mg 05/05/20 09:00 05/08/20 08:26 Trandate PO 200 mg DAILY BETTIE Administration Losartan Potassium 100 mg 05/05/20 09:00 05/08/20 08:24 Cozaar PO 100 mg DAILY BETTIE Administration Ondansetron HCl 4 mg 05/04/20 15:57 05/08/20 02:20 Zofran IVP 4 mg Q6H PRN Administration NAUSEA AND VOMITI NG Pantoprazole Sodiu m 40 mg 05/04/20 18:00 05/08/20 05:34 Protonix IVP 40 mg Q12H BETTIE Administration Polyethylene Glyco l 17 gm 05/05/20 11:50 05/08/20 08:22 Miralax PO 17 gm DAILY BETTIE Administration Potassium Chloride 40 meq 05/06/20 10:05 05/08/20 08:23 Klor-Con 10 PO 40 meq DAILY BETTIE Administration Sucralfate 1 gm 05/07/20 17:00 05/08/20 08:23 Carafate PO 1 gm BIDAC BETTIE Administration PFSH Anesthesia PFSH: Medical History CVA (cerebral vascular accident) Hypercholesteremia Hypertension Lumbar disc disease with radiculopathy Lumbar spondylosis Morbid obesity Spondylolisthesis, lumbar region Surgical History H/O carpal tunnel repair H/O cataract removal with insertion of prosthetic lens H/O: hysterectomy History of arthroscopic surgery of elbow History of cholecystectomy Family History Father Cancer CAD (coronary artery disease) Mother CAD (coronary artery disease) Diabetes Hypertension Stroke Denies family history of Anesthesia complication Bleeding disorder Social History Smoking and tobacco status: former smoker Second hand smoke exposure: No Alcohol intake: never Adopted: No Caregiver/support person: Yes Lives independently: Yes Household members: spouse Housing: House Marital status: service: No Current occupational status: retired Current occupational exposures/hazards: No Pets and animals: No History of recent travel: No Sexually active: No Current gender identity: Female Ratna/Amish: Anabaptist Special ratna needs: No Agree to transfusion: No Financial difficulty paying for basics: Decline to Answer Data Anesthesia CBC & Chem 7: 05/08/20 06:30 05/08/20 03:28 Other Labs: Laboratory Results - last 48 hr 05/06/20 05/06/20 05/06/20 11:40 17:30 22:46 WBC RBC Hgb 8.2 L 7.4 L 8.3 L Hct 26.9 L 24.2 L 27.5 L MCV MCH MCHC RDW Plt Count MPV Neut % (Auto) Lymph % (Auto) Hutchinson % (Auto) Eos % (Auto) Baso % (Auto) Neut # (Auto) Lymph # (Auto) Hutchinson # (Auto) Eos # (Auto) Baso # (Auto) Nucleated RBC % (auto) Nucleated RBCs # Sodium Potassium Chloride Carbon Dioxide Anion Gap BUN Creatinine GFR Calculation Glucose Calculated Osmolality Calcium Phosphorus Magnesium Total Bilirubin AST ALT Alkaline Phosphatase Total Protein Albumin Globulin Procalcitonin Vancomycin Trough 05/06/20 05/07/20 05/07/20 22:46 05:26 05:26 WBC 9.7 RBC 2.97 L Hgb 7.8 L Hct 25.9 L MCV 87.2 MCH 26.3 L MCHC 30.1 RDW 14.6 Plt Count 323 MPV 9.0 Neut % (Auto) 72.0 Lymph % (Auto) 11.8 Hutchinson % (Auto) 9.4 Eos % (Auto) 5.2 Baso % (Auto) 0.4 Neut # (Auto) 7.0 Lymph # (Auto) 1.1 Hutchinson # (Auto) 0.9 Eos # (Auto) 0.5 Baso # (Auto) 0.0 Nucleated RBC % (auto) 0 Nucleated RBCs # 0.0 Sodium 136 Potassium 3.6 Chloride 94 L Carbon Dioxide 29 Anion Gap 16.6 BUN 18 Creatinine 0.8 GFR Calculation 71.1 L Glucose 135 H Calculated Osmolality 281 L Calcium 9.1 Phosphorus 3.7 Magnesium 1.8 Total Bilirubin 0.6 AST 13 ALT 10 Alkaline Phosphatase 86 Total Protein 6.7 Albumin 3.3 L Globulin 3.4 Procalcitonin Vancomycin Trough 22.7 H 05/07/20 05/07/20 05/07/20 05:26 12:17 18:50 WBC RBC Hgb 8.4 L 8.3 L Hct 26.0 L 27.1 L MCV MCH MCHC RDW Plt Count MPV Neut % (Auto) Lymph % (Auto) Hutchinson % (Auto) Eos % (Auto) Baso % (Auto) Neut # (Auto) Lymph # (Auto) Hutchinson # (Auto) Eos # (Auto) Baso # (Auto) Nucleated RBC % (auto) Nucleated RBCs # Sodium Potassium Chloride Carbon Dioxide Anion Gap BUN Creatinine GFR Calculation Glucose Calculated Osmolality Calcium Phosphorus Magnesium Total Bilirubin AST ALT Alkaline Phosphatase Total Protein Albumin Globulin Procalcitonin 0.21 Vancomycin Trough 05/08/20 05/08/20 05/08/20 00:33 03:28 03:28 WBC RBC Hgb 8.1 L Hct 27.1 L MCV MCH MCHC RDW Plt Count MPV Neut % (Auto) Lymph % (Auto) Hutchinson % (Auto) Eos % (Auto) Baso % (Auto) Neut # (Auto) Lymph # (Auto) Hutchinson # (Auto) Eos # (Auto) Baso # (Auto) Nucleated RBC % (auto) Nucleated RBCs # Sodium 134 L Potassium 4.5 Chloride 96 L Carbon Dioxide 24 Anion Gap 18.5 BUN 16 Creatinine 0.8 GFR Calculation 71.1 L Glucose 137 H Calculated Osmolality 276 L Calcium 9.3 Phosphorus 4.0 Magnesium 2.4 H Total Bilirubin 0.6 AST 18 ALT 11 Alkaline Phosphatase 94 Total Protein 6.0 L Albumin 3.8 Globulin 2.2 Procalcitonin 0.16 Vancomycin Trough 05/08/20 06:30 WBC 10.0 RBC 3.23 L Hgb 8.5 L Hct 28.4 L MCV 87.9 MCH 26.3 L MCHC 29.9 L RDW 14.6 Plt Count 371 MPV 8.5 Neut % (Auto) 71.5 Lymph % (Auto) 12.1 Hutchinson % (Auto) 9.2 Eos % (Auto) 4.9 Baso % (Auto) 0.5 Neut # (Auto) 7.2 Lymph # (Auto) 1.2 Hutchinson # (Auto) 0.9 Eos # (Auto) 0.5 Baso # (Auto) 0.1 Nucleated RBC % (auto) 0 Nucleated RBCs # 0.0 Sodium Potassium Chloride Carbon Dioxide Anion Gap BUN Creatinine GFR Calculation Glucose Calculated Osmolality Calcium Phosphorus Magnesium Total Bilirubin AST ALT Alkaline Phosphatase Total Protein Albumin Globulin Procalcitonin Vancomycin Trough Micro: Microbiology 05/05/20 07:15 Blood Culture - Preliminary Blood NEGATIVE TO DATE Cardiac Studies: No Data to Display
--- NOTE | 2020-05-08 12:16 | ANE.PACU2 ---
Inpatient post-anesthesia follow up: Airway intact: Yes Vital signs: Temperature 98.1 F Pulse Rate [Left] 77 Pulse Rate 66 Respiratory Rate 12 Blood Pressure [Le ft Arm] 122/61 Blood Pressure 87/38 Pulse Oximetry 97 Oxygen Delivery Me thod Nasal Cannula Oxygen Flow Rate 3.0 Fraction of Inspir ed Oxygen 60 Hydration adequate: Yes Nausea and vomiting: No Pain level: Other (0) Mental status: Baseline
--- NOTE | 2020-05-08 17:25 | PM.PN ---
Subjective Subjective: Interval history: s/p endoscopy today, no source of bleeding identified. Hb stable. Having multiple eepisodes of diarrhea, likely related to colonoscopy prep. No c/o dyspnea, palpitations, syncope Medications: Reviewed: Yes Vitals/I&O/Wt Last Vital Signs Temp 98.2 F 05/08/20 15:44 Pulse 70 05/08/20 15:44 Resp 16 05/08/20 15:44 BP 135/75 05/08/20 15:44 Pulse Ox 99 05/08/20 15:44 05/08/20 05/08/20 05/08/20 06:59 14:59 22:59 Output Total 400 / 800 Balance -400 / 400 Physical Exam Narrative: EXAM NARRATIVE: GEN: Awake, alert and oriented, no acute distress CVS: S1S2 N RS: CTA B/L Abd: Soft, nt/nd , bs+ PATIENT CENTERED CARE SPECIALIST: no focal neuro deficits Urinary Catheter Management^: Delarosa: Cath Placed During This Visit: yes, but has since been removed by the nurse Reason for Continuing Indwelling Catheter: Accurate Measurement of Urinary Output in Critically Ill Patients Urinary Catheter Date of Insertion: 05/04/20 Urinary Catheter Time of Insertion: 16:32 Date Urinary Catheter Removed: 05/07/20 Time Urinary Catheter Discontinued: 14:00 Data : 05/08/20 06:30 05/08/20 03:28 A&P Assessment and plan (1) Diastolic CHF, acute: -Echocardiogram showed diastolic dysfunction, grade 3 out of 4 diastolic dysfunction, restrictive filling pattern, severely elevated filling pressures, mild aortic valve stenosis, -BNP 2000, Chest x-ray bilateral pulmonary edema -Has diuresed roughly 7205ml since admission, currently doing well on room air -Continue Strict I's and O's, fluid restrictions to 1500 cc -Lasix 40 mg p.o. BID, potassium replacement therapy Status: Acute (2) Acute dyspnea: -CTA negative for pulmonary embolism -EKG no acute ST-T wave changes -Small left pleural effusion seen on CT - Likely related to acute CHF exacerbation, likely contributed by anemia Status: Acute (3) Anemia: -Hemoglobin 8.4, has conjunctival pallor, indications of chronic slow bleed, no acute bleeding, on top of postsurgical anemia, patient has been taking aspirin 325 daily for DVT prophylaxis -Status post 1 unit PRBC -Protonix 40 twice daily, Carafate - s/p endoscopy today with no bleeding identified Status: Acute Qualifiers: Anemia type: unspecified type Qualified Code(s): D64.9 - Anemia, unspecified (4) S/P knee surgery: Status: Acute (5) Atypical chest pain: -EKG no acute ST-T wave changes -Baseline troponin 12, 120-minute 11, negative delta -History does not sound cardiac in nature, but will get echocardiogram - Resume ASA 81mg today Status: Acute Additional A&P Information DVT prophylaxis SCD Will need outpatient follow up with cardiology for diastolic CHF Patient with ongoing diarrhea post bowel prep which is contributing to weakness, will montior overnight, discharge with resolution of diarrhea. Attestations Medical Necessity Statement*: s/p endoscopy today, awaiting resolution of diarrhea, resumption of diet Coding Level of Care Code Acute Director Public Policy for [facility] [place] Fwd Diagnoses Diastolic CHF, acute I50.31 Acute dyspnea R06.00 Anemia D64.9 Anemia type: unspecified type S/P knee surgery Z98.890 Atypical chest pain R07.89
[2020-05-08] MEDS: atorvastatin 40 mg Tablet PO (20:44)
[2020-05-09] VITALS (10 sets, daily range): BP systolic 130–141; BP diastolic 55–77; PULSE 65–77; RESP 17–24; TEMP 36.7–36.8; O2SAT 93–98
[2020-05-09] MEDS: HYDROcodone-acetaminophen 5-325 mg Tablet 1 TAB PO (05:27)
[2020-05-09] MEDS: sucralfate 1 gm Tablet PO (06:24)
[2020-05-09] MEDS: pantoprazole 40 mg SDV IVP (06:28)
--- NOTE | 2020-05-09 06:40 | PC.NURSE ---
SHIFT SUMMARY Has had a good night. Had couple of diarrhea stools at first of night but says believes has stopped now. Is hoping to go home today. Receiving po Hydrocodone for left knee pain and says prn ice pack helps also. Island dressing remains dry & intact. Ambulates with walker and SBA.
[2020-05-09] MEDS: ipratropium-albuterol 3 mL Neb INHALATION (08:05)
[2020-05-09] MEDS: losartan 50 mg Tablet 100 MG PO (08:20)
[2020-05-09] MEDS: labetalol 200 mg Tablet PO (08:20)
[2020-05-09] MEDS: potassium chloride ER 10 mEq Tablet 40 MEQ PO (08:21)
[2020-05-09] MEDS: aspirin 81 mg EC Tablet PO (08:21)
[2020-05-09] MEDS: FUROsemide 40 mg Tablet PO (08:21)
[2020-05-09] MEDS: doxycycline 100 mg Tablet PO (08:21)
[2020-05-09] MEDS: amlodipine 5 mg Tablet PO (08:21)
--- NOTE | 2020-05-09 11:23 | P.DS_ITS ---
Discharge Providers Date of Admission: 05/04/20 15:57 Date of Discharge: May 09, 2020 Attending Provider at Admission: Luis Alfredo Diez MD Attending Provider at Discharge: Shy Macedo MD Primary Care Provider: Howard Kraus MD Diagnoses at Discharge Discharge Diagnosis (1) Diastolic CHF, acute: Status: Acute (2) Acute dyspnea: Status: Acute (3) Anemia: Status: Acute Qualifiers: Anemia type: unspecified type Qualified Code(s): D64.9 - Anemia, unspecified (4) S/P knee surgery: Status: Acute (5) Atypical chest pain: Status: Acute Reason for Visit Reason for Visit: low o2 Hospital Course Discharge Summary: Maria Del Carmen Ansari is a 70 year old female with a past medical history of hypertension, anxiety and depression, morbid obesity, recent history of left knee replacement, who presented to [facility] due to complaints of shortness of breath on 05/04. She was found to have newly diagnosed diastolic CHF and hypoxia as a result, requiring supplemetal 02 during course of admission. Echocardiogram showed diastolic dysfunction, grade 3 out of 4 diastolic dysfunction, restrictive filling pattern, severely elevated filling pressures, mild aortic valve stenosis, BNP 2000, Chest x-ray bilateral pulmonary edema. She diuresed well with iv lasix, transitioned to po lasix. At time of discharge, she is on room air. Currently on 40mg BID lasix which is being reduced to 40mg po daily lasix. She has been advised to check her weight at home daily. In case of increasing weight &/or increasing pedal edema, she is instructed to increase her Lasix to 40 mg twice daily. Follow-up has been arranged with cardiology as an outpatient. Patient does note she has had a little more longstanding exertional shortness of breath and pedal edema going over the past year however has not had any work-up for the same. She does not know if she may have underlying COPD or asthma. Pulmonary function testing has been set up as outpatient. CTA negative for pulmonary embolism, EKG no acute ST- T wave change, troponins without significant delta to suggest ACS. No c/o chest pain. Hospital course also notable for anemia and hemoglobin at 8.4 for which she received 1 unit of packed RBC. She underwent upper GI and colonoscopy to evaluate for slow GI bleed, however no source of GI bleeding was identified. She was on aspirin 325 mg daily for DVT prophylaxis postoperatively, this is now been reduced to aspirin 81 mg daily (prior home dosing) given that she is able to currently ambulate well and has anemia which will need follow-up. In the interim Protonix 40 mg to continue. It is recommended she follow-up with her primary care provider within a week to recheck her hemoglobin and ensure its not falling any further. 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: no focal neuro deficits EXT: minimal left LE pitting edema, R side side no edema Urinary Catheter Management^: Delarosa: Cath Placed During This Visit: yes, but has since been removed by the nurse Reason for Continuing Indwelling Catheter: Accurate Measurement of Urinary Output in Critically Ill Patients Urinary Catheter Date of Insertion: 05/04/20 Urinary Catheter Time of Insertion: 16:32 Date Urinary Catheter Removed: 05/07/20 Time Urinary Catheter Discontinued: 14:00 Discharge Data Data Completed and Pending: Completed Studies During Hospitalization Category Date Time Status CT angio chest PE protcl [id number] Urge nt Cat Scan 05/04/20 13:36 Completed XR chest 1V jorge ble [id number] Routine Exams 05/05/20 06:21 Completed XR chest 1V jorge ble [id number] Routine Exams 05/06/20 07:00 Completed CV echo complete* [id number] Routine Ultrasound 05/05/20 17:48 [place] [id number] Stat Ultrasound 05/05/20 08:45 [place] [id number] Routin e Ultrasound 05/05/20 16:10 Completed Pending at discharge Category Date Time Status Blood Culture Sta t Lab 05/05/20 07:15 Results Urinalysis Stat Lab 05/04/20 16:23 Ordered Vitals: Last Vital Signs Temp 98.0 F 05/09/20 07:43 Pulse 75 05/09/20 08:06 Resp 17 05/09/20 08:05 BP 141/55 05/09/20 08:20 Pulse Ox 96 05/09/20 08:05 Discharge Plan Discharge Patient Disposition: Home, Self-Care Condition: Stable Prescriptions: New atorvastatin 40 mg Tablet 40 mg PO BEDTIME 30 Days Qty: 30 RF: 0 furosemide 40 mg Tablet 40 mg PO DAILY 30 Days Qty: 30 RF: 0 albuterol sulfate 90 mcg/actuation HFA aerosol inhaler 1 inh INHALATION Q6H PRN (Reason: shortness of breath or wheezing) Qty: 6.7 RF: 2 pantoprazole [Protonix] 40 mg tablet,delayed release (DR/EC) 40 mg PO DAILY Qty: 30 RF: 0 Continued mupirocin 2 % ointment 1 applic TOPICAL BID Qty: 30 RF: 0 hydrocodone-acetaminophen 5-325 mg tablet 1 tab PO BID PRN (Reason: Pain) RF: 0 amlodipine 5 mg tablet 5 mg PO DAILY RF: 0 nitroglycerin [Nitrostat] 0.4 mg tablet, sublingual 0.4 mg SUBLINGUAL ONCE PRN (Reason: Chest Pain) RF: 0 alprazolam 0.25 mg tablet 0.25 mg PO TID PRN (Reason: anxiety) Qty: 14 RF: 1 labetalol 200 mg tablet 200 mg PO BID RF: 0 losartan 100 mg tablet 100 mg PO DAILY RF: 0 biotin 1 mg Tablet 1 mg PO DAILY RF: 0 Changed aspirin 325 mg tablet 81 mg PO DAILY Qty: 0 RF: 0 celecoxib 200 mg Capsule 200 mg PO Q12H PRN (Reason: pain) Qty: 30 RF: 0 Held clonidine HCl 0.2 mg tablet 0.2 mg PO Q6H PRN (Reason: Blood Pressure) RF: 0 Hold Instructions: Resume on 05/16/20. resume after discussion with PCP, this medication has been on hold during admission with BP being well controlled. Discontinued ibuprofen 200 mg Tablet 400 mg PO PRN RF: 0 oxycodone-acetaminophen 5-325 mg Tablet 2 tab PO Q4H PRN (Reason: Severe Pain) Qty: 40 RF: 0 Discharge Orders: Discharge Order (Routine); Ordered 05/09/20 Ordered By: Shy Macedo Other Ambulatory Orders: Pulmonary Function Screen with Bronchodilator (Routine) Timeframe: 1 Week Facility: [facility] - Location: Respiratory Therapy Ordered By: Shy Macedo Referrals: Howard Kraus MD [Primary Care Provider] - 7-10 days Diana Horton MD [Physician] - 2 weeks Discharge Diet: Cardiac and Diabetic Discharge Activity: Increase activity as tolerated Activity Restrictions/Additional Instructions: Your home medication clonidine has been placed on hold. This is remained on hold during the course of admission and blood pressure has been well maintained. Check your blood pressure twice a day at the same time and maintain a chart. If blood pressure is consistently above 160 as the top number, and takes 0.2 mg clonidine. Also notify your primary care provider. Lasix is a new medication that has been added to your regimen at 40mg once daily. This is for a diagnosis of congestive heart failure which is going to need further evaluation as an outpatient with cardiology. Check your weight daily and also monitor for lower extremity swelling. If the swelling increases or daily weight is increasing greater than 2 to 3 pounds in a day, increase the dose of Lasix to 40 mg twice a day. Discharge Attestations Time Spent in Discharge Care*: greater than 30 min Quality Metrics Clinical Quality Measures During this hospital stay, did patient experience: None Coding Level of Care Code Acute Computer Network Specialist for Sariah Borjas Diagnoses Diastolic CHF, acute I50.31 Acute dyspnea R06.00 Anemia D64.9 Anemia type: unspecified type S/P knee surgery Z98.890 Atypical chest pain R07.89
--- NOTE | 2020-05-09 11:36 | PC.CHAP ---
Pastoral Care Encounter/Spiritual Assessment Type of Contact [x] Declined manager diabetes visit [] Patient/Family/Request visit [] Outpatient visit [] Follow-up visit [] Physician referral [] Code/Alert [] Routine visit [] Staff referral [] Actively dying [] Patient sleeping [] Family support [] [] Out of room [] Palliative care [] [] Receiving care in room [] Pre-surgical visit [] Trauma [] Long length of stay [] ICU visit [] Other: Relational/Emotional Strength [] Patient feels connected with others/family/visitors/staff [] Distress [] Loneliness/isolation [] Abandonment Spirituality of Patient [] Person of Ratna [] Attends Rastafari of their Ratna [] Believes in Prayer [] Reads Bible or Baptist materials [] There are Spiritual issues to be addressed Cylinder Inspector And Tester Interventions [] Prayer [] Active listening [] Non-anxious presence [] Spiritual/emotional support [] Crisis/trauma care [] Spiritual counseling [] Bereavement support [] Provided bereavement packet [] Provided Bible/devotional materials [] Provided toy/stuffed animal, coloring book to patient or family member [] Provided Communion [] Anointing/[place] [] Salvation [] Completed spiritual assessment [] Other: Impact on Illness or Injury [] Angry [] Fearful [] Anxious [] Often cries [] Exhaustion [] Unable to work [] Unable to attend temple [] Unable to walk/stand [] Unable to read [] Unable to drive [] Unable to eat/drink [] Unable to sleep [] Unable to be with family [] Patient intubated [] Other: Summary Declined manager diabetes visit Time spent with patient 5 mins
== END 2020-05-09 14:41 | disposition home or self-care (01) | DRG 291 ==
LOC: ER 15:53 → MEDSURG 16:57
PROVIDERS: Family Medicine; Internal Medicine; Admitting Provider Family Medicine; PCP Family Medicine; Visit Provider Student in an Organized Health Care Education/Training Program
PROC: 0DJ08ZZ Inspection of Upper Intestinal Tract, Via Natural or Artificial Opening Endoscopic (ICD-10-PCS; CPT 43235; principal; 2020-05-08 11:15)
PROC: 0DJD8ZZ Inspection of Lower Intestinal Tract, Via Natural or Artificial Opening Endoscopic (ICD-10-PCS; CPT 45378; 2020-05-08 11:15)
DX: I11.0 Hypertensive heart disease with heart failure (principal); I50.31 Acute diastolic (congestive) heart failure; J96.00 Acute respiratory failure, unspecified whether with hypoxia or hypercapnia; Z68.41 Body mass index [BMI] 40.0-44.9, adult; D64.9 Anemia, unspecified; F41.8 Other specified anxiety disorders; E66.01 Morbid (severe) obesity due to excess calories; Z96.652 Presence of left artificial knee joint; I35.0 Nonrheumatic aortic (valve) stenosis; Z79.82 Long term (current) use of aspirin; R19.7 Diarrhea, unspecified; Z86.73 Personal history of transient ischemic attack (TIA), and cerebral infarction without residual deficits; E78.00 Pure hypercholesterolemia, unspecified; M51.16 Intervertebral disc disorders with radiculopathy, lumbar region; M47.816 Spondylosis without myelopathy or radiculopathy, lumbar region; M43.16 Spondylolisthesis, lumbar region; Z87.891 Personal history of nicotine dependence
CPT/HCPCS: 12345; 36415; 36430; 36600; 43235; 45378; 51702; 71045; 71275; 73560; 80051; 80053; 80061; 80202; 82550; 82553; 82607; 82728; 82746; 82810; 83036; 83540; 83550; 83605; 83690; 83735; 83880; 83986; 84100; 84145; 84443; 84484; 85014; 85018; 85025; 85045; 85610; 86850; 86900; 86920; 87040; 93005; 93306; 93971; 94640; 94660; 96374; 96375; 97110; 97116; 97161; 97165; 97530; 97535; 99283; C1776; C9113; G0378; J0131; J0171; J0690; J1580; J1885; J1940; J2001; J2060; J2250; J2270; J2405; J2543; J2704; J2710; J2765; J2795; J3010; J3370; J3490; J7030; J7050; P9016; Q9967

== ENCOUNTER → 2020-05-16 10:47 | Outpatient (BNVA) | payer MEDICARE, OTHER, SELFPAY | PROVIDERS: PCP Family Medicine; Visit Provider Family Medicine | DX: D64.9 Anemia, unspecified (principal); Z96.652 Presence of left artificial knee joint; Z09 Encounter for follow-up examination after completed treatment for conditions other than malignant neoplasm; I50.31 Acute diastolic (congestive) heart failure | CPT/HCPCS: 80048; 85025 ==

== ENCOUNTER → 2020-05-24 13:50 | Outpatient (BNVA) | payer MEDICARE, OTHER, SELFPAY | PROVIDERS: PCP Family Medicine; Visit Provider Internal Medicine Cardiovascular Disease | DX: I11.0 Hypertensive heart disease with heart failure (principal); I50.32 Chronic diastolic (congestive) heart failure; D64.9 Anemia, unspecified; E66.01 Morbid (severe) obesity due to excess calories; R06.02 Shortness of breath; Z87.891 Personal history of nicotine dependence | CPT/HCPCS: 80048; 83735; 83880 ==

== ENCOUNTER 2020-05-29 12:49 | Outpatient (RCR) | payer MEDICARE, OTHER, SELFPAY | END 2020-06-23 23:59 | disposition home or self-care (01) | LOC: SPT 12:49 | PROVIDERS: PCP Family Medicine; Referring Provider Orthopaedic Surgery; Visit Provider Orthopaedic Surgery | DX: Z47.1 Aftercare following joint replacement surgery (principal); Z96.652 Presence of left artificial knee joint | CPT/HCPCS: 97110; 97161 ==

== ENCOUNTER → 2020-05-31 10:31 | Outpatient (BNVA) | payer MEDICARE, OTHER, SELFPAY | PROVIDERS: PCP Family Medicine; Visit Provider Family Medicine | DX: D64.9 Anemia, unspecified (principal); I50.31 Acute diastolic (congestive) heart failure | CPT/HCPCS: 80048; 85025 ==

== ENCOUNTER → 2020-06-08 08:57 | Outpatient (BNVA) | payer MEDICARE, OTHER, SELFPAY | PROVIDERS: PCP Family Medicine; Visit Provider Orthopaedic Surgery | DX: Z96.652 Presence of left artificial knee joint (principal) | CPT/HCPCS: 73560; 73565 ==

== ENCOUNTER 2020-06-09 07:58 | Outpatient (RCR) | payer MEDICARE, OTHER, SELFPAY ==
[2020-06-09 08:03] VITALS: BMI 43.0
[2020-06-09 08:15] VITALS: BP 143/66; PULSE 68; RESP 20; TEMP 36.3; O2SAT 95
[2020-06-09] MEDS: ferric carboxy (IVPB) 750 MG in sodium chloride 0.9% (100 ml) 100 ML 345 MG IV (08:35)
== END 2020-06-23 23:59 | disposition home or self-care (01) ==
LOC: GILAB 07:58
PROVIDERS: PCP Family Medicine; Visit Provider Family Medicine
DX: D50.8 Other iron deficiency anemias (principal)
CPT/HCPCS: 96365; J1439; J1642

== ENCOUNTER 2020-06-16 08:03 | Outpatient (CLI) | payer MEDICARE, OTHER, SELFPAY ==
[2020-06-16] MEDS: ferric carboxy (IVPB) 750 MG in sodium chloride 0.9% (100 ml) 100 ML 345 MG IV (08:51)
[2020-06-16 09:04] VITALS: BP 156/66; PULSE 62; RESP 18; TEMP 36.3; O2SAT 99
== END 2020-06-16 08:04 | disposition home or self-care (01) ==
LOC: GILAB 08:07
PROVIDERS: PCP Family Medicine; Visit Provider Family Medicine
DX: D50.8 Other iron deficiency anemias (principal)
CPT/HCPCS: 96365; J1439

== ENCOUNTER 2020-06-24 06:00 | Outpatient (RCR) | payer MEDICARE, OTHER, SELFPAY | END 2020-07-11 23:00 | disposition home or self-care (01) | LOC: SPT 06:00 | PROVIDERS: PCP Family Medicine; Referring Provider Orthopaedic Surgery; Visit Provider Orthopaedic Surgery | DX: Z47.1 Aftercare following joint replacement surgery (principal); Z96.652 Presence of left artificial knee joint | CPT/HCPCS: 97110 ==

== ENCOUNTER → 2020-07-06 10:34 | Outpatient (BNVA) | payer MEDICARE, OTHER, SELFPAY | PROVIDERS: PCP Family Medicine; Visit Provider Family Medicine | DX: D64.9 Anemia, unspecified (principal); I50.31 Acute diastolic (congestive) heart failure; E66.01 Morbid (severe) obesity due to excess calories; Z68.39 Body mass index [BMI] 39.0-39.9, adult; M51.16 Intervertebral disc disorders with radiculopathy, lumbar region; R06.02 Shortness of breath; I11.0 Hypertensive heart disease with heart failure; I50.30 Unspecified diastolic (congestive) heart failure; F17.211 Nicotine dependence, cigarettes, in remission; Z79.899 Other long term (current) drug therapy; Z01.810 Encounter for preprocedural cardiovascular examination; I10 Essential (primary) hypertension; Z71.89 Other specified counseling | CPT/HCPCS: 80048; 82728; 83540; 83735; 83880; 85025 ==

== ENCOUNTER 2020-09-27 09:43 | Outpatient (CLI) | payer MEDICARE, OTHER, SELFPAY ==
[2020-09-27 10:14] LABS: Basophils % 0.5 %; Eosinophils # 0.2 10^3/uL (0.0-0.8); Eosinophils % 2.7 %; Hematocrit 38.6 % (37.0-47.0); Hemoglobin 12.2 g/dL (11.5-15.3); Lymphocytes # 1.8 10^3/uL (0.8-4.8); Lymphocytes % 21.5 %; Mean Corpuscular HGB Conc 31.6 g/dL (30.0-36.0); Mean Corpuscular Volume 91.9 fL (81-99); Mean Platelet Volume 8.6 fL (7.4-10.4); Monocytes # 0.6 10^3/uL (0.2-0.9); Monocytes % 7.4 %; Neutrophils # 5.67 10^3/uL (1.8-7.7); Neutrophils % 67.2 %; Nucleated Red Blood Cells % 0 %; Platelet Count 278 10^3/cmm (130-400); Red Cell Distribution Width 13.7 % (12.1-15.1); White Blood Count 8.4 10^3/uL (4.0-10.0)
[2020-09-27 10:43] LABS: Anion Gap 16.5 (5-19); Blood Urea Nitrogen 13 mg/dL (8-23); Calcium 9.7 mg/dL (8.5-10.5); Carbon Dioxide 25 mmol/L (22-29); Chloride 99 mmol/L (98-107); Chol HDL Ratio 5.25 mg/dL (0.0-4.40); Cholesterol 210 mg/dL (0-200); Glomerular Filtration Rate 71.1 mL/min (90-130); Glucose 131 mg/dL (65-115); HDL Cholesterol 40 mg/dL (60-100); LDL Cholesterol Calculated 113 mg/dL (50-129); LDL HDL Ratio 2.83 RATIO (0.00-3.22); Osmolality Calculated 284 mOsm/kg (285-295); Potassium 4.5 mmol/L (3.5-5.1); Sodium 136 mmol/L (136-145); Thyroid Stimulating Hormone 2.49 uIU/mL (0.27-4.20); Triglycerides 286 mg/dL (0-150)
== END 2020-09-27 09:44 | disposition home or self-care (01) ==
LOC: LAB 09:49
PROVIDERS: PCP Family Medicine; Visit Provider Family Medicine
DX: D64.9 Anemia, unspecified (principal); E03.9 Hypothyroidism, unspecified; E78.00 Pure hypercholesterolemia, unspecified; I10 Essential (primary) hypertension
CPT/HCPCS: 36415; 80048; 80061; 84443; 85025

== ENCOUNTER → 2021-04-17 09:02 | Outpatient (BNVA) | payer MEDICARE, OTHER, SELFPAY | PROVIDERS: PCP Family Medicine; Visit Provider Family Medicine | DX: R60.9 Edema, unspecified (principal); I11.0 Hypertensive heart disease with heart failure; I50.31 Acute diastolic (congestive) heart failure | CPT/HCPCS: 80048; 80061; 83721; 85025 ==

== ENCOUNTER 2021-06-16 23:14 | Emergency (ER) | payer MEDICARE, OTHER, SELFPAY ==
[2021-06-16 23:30] VITALS: BP 147/82; PULSE 74; RESP 24; TEMP 37.9; O2SAT 97; BMI 42.5
[2021-06-16 23:36] VITALS: O2SAT 99
--- NOTE | 2021-06-16 23:44 | XRR_ITS ---
PROCEDURE INFORMATION: Exam: XR Chest Exam date and time: 06/16/2021 11:44 PM Age: 71 years old Clinical indication: Cough TECHNIQUE: Imaging protocol: XR of the chest. Views: 1 view. COMPARISON: CR XR knees AP WB w LT lmt ORTH 06/08/2020 9:05 AM FINDINGS: Lungs: Unremarkable. No consolidation. Pleural spaces: Unremarkable. No pleural effusion. No pneumothorax. Heart/Mediastinum: Unremarkable. No cardiomegaly. Bones/joints: Unremarkable. XR/XR chest 1V portable [id number] IMPRESSION: No acute findings.
--- NOTE | 2021-06-16 23:49 | W.ED.COVID ---
HPI - COVID General: Chief Complaint: COVID symptoms Stated Complaint: covid symptomatic:COUGH,SOB,ACHY,FEVER(100.1/HOME) Time Seen by Provider: 06/16/21 23:42 Source: patient Mode of arrival: ambulatory Limitations: no limitations Triage information: Has fever, cough or shortness of breath. No known COVID + exposure last 14 days History of Present Illness: HPI Narrative: 71-year-old female states of last 2 days she had body aches chills and fever along with a cough. States her cough has been nonproductive but she been coughing so much she has not had a sharp pain in her chest from the cough. States her dyspnea is worse with exertion and with her cough. States she went to [place] yesterday. She did receive her Covid vaccine back in February. Denies any vomiting or diarrhea. Patient's pulse ox here is 98% on room air. COVID 19 common symptoms: positive fever(s), chills, non-productive cough, dyspnea and body aches; negative headache(s), throat pain, nausea, vomiting or diarrhea COVID 19 other sytmptoms: positive chest pain COVID Results: No Data to Display Review of Systems Const: Reports: fever(s), chills and body aches Eyes: Denies: blurry vision or eye discomfort ENMT: Denies: throat pain or dental pain Card: Reports: chest pain Resp: Reports: dyspnea and non-productive cough GI: Denies: abdominal pain, nausea, vomiting or diarrhea : Denies: dysuria Musc: Denies: neck pain or back pain Skin/Breast: Denies: rash Neuro: Denies: headache(s) Psych: Denies: depression Jt/Lymph: Denies: easy bruising All/Imm: Denies: urticaria PFSH ED PFSH: Medical History CVA (cerebral vascular accident) Hypercholesteremia Hypertension Hypothyroid Lumbar disc disease with radiculopathy Lumbar spondylosis Morbid obesity Spondylolisthesis, lumbar region Venous insufficiency of both lower extremities Surgical History H/O carpal tunnel repair H/O cataract removal with insertion of prosthetic lens H/O: hysterectomy History of arthroscopic surgery of elbow History of cholecystectomy Family History Father Cancer CAD (coronary artery disease) Mother CAD (coronary artery disease) Diabetes Hypertension Stroke Denies family history of Anesthesia complication Bleeding disorder Social History Smoking and tobacco status: former smoker Second hand smoke exposure: No Alcohol intake: never Adopted: No Caregiver/support person: Yes Lives independently: Yes Household members: spouse Housing: House Marital status: service: No Current occupational status: retired Current occupational exposures/hazards: No Pets and animals: No History of recent travel: No Sexually active: No Current gender identity: Female Ratna/Bahai: Temple Special ratna needs: No Agree to transfusion: No Financial difficulty paying for basics: Decline to Answer Physical Exam Const: COMMON NORMALS: no acute distress, patient oriented x3 and healthy appearing HENMT: COMMON NORMALS: normocephalic and atraumatic HEAD & SCALP: normocephalic and atraumatic Eye: COMMON NORMALS: Equal, round and reactive pupils present and EOMs intact bilaterally PUPIL: Yes Equal, round and reactive pupils present Neck/C-Spine: COMMON NORMALS: full ROM and supple Chest: COMMONS NORMALS: normal inspection of the chest and normal palpation of entire chest wall Resp: COMMON NORMALS: normal respiratory effort, No retractions, No use of accessory muscles and clear to auscultation bilaterally AUSCULTATION: clear to auscultation bilaterally Cardio: COMMON NORMALS: regular rate, regular rhythm and No murmurs present (Cardio) RATE: regular rate RHYTHM: regular rhythm GI: COMMON NORMALS: Normal to inspection, nondistended, normoactive bowel sounds present, Soft to palpation, non-tender and no masses PALPATION: Yes Soft to palpation Extremity: COMMON NORMALS: normal to inspection and full ROM Neuro: COMMON NORMALS: patient oriented x3, moves all extremities and no focal motor deficits Psych: COMMON NORMALS: mental status grossly normal, Normal thought process present and cooperative THOUGHT PROCESS: Normal thought process present Skin: COMMON NORMALS: no rashes or lesions noted and no wounds GENERAL SKIN EXAM: no rashes or lesions noted Course Vital Signs: Vital signs: Vital Signs Temperature 100.3 F H 06/16/21 23:30 Pulse Rate 83 06/17/21 02:26 Respiratory Rate 18 06/17/21 02:26 Blood Pressure 173/72 06/17/21 02:26 Pulse Oximetry 99 06/17/21 02:26 MDM - COVID MDM Narrative: Medical decision making narrative: Patient presents cough and congestion is likely bronchitis. Patient's Covid is negative here but will do a send off. Her blood work here is normal. She has had a sense of cough will place on steroids antibiotic and albuterol inhaler. EKG here is normal. She has no signs of severe pneumonia. No signs of acute coronary syndrome. She is to follow-up with PCP and return if worsening. Lab Data: Labs: Lab Results 06/16/21 06/16/21 06/16/21 Range/Units 00:01 00:01 00:01 WBC 4.9 (4.0-10.0) 10^3/ uL RBC 3.91 L (4.1-5.3) 10^6/u L Hgb 11.4 L (11.5-15.3) g/dL Hct 36.2 L (37.0-47.0) % MCV 92.6 (81-99) fL MCH 29.2 (28.0-34.0) pg MCHC 31.5 (30.0-36.0) g/dL RDW 14.2 (12.1-15.1) % Plt Count 175 (130-400) 10^3/c mm MPV 9.2 (7.4-10.4) fL Neut % (Auto) 61.1 % Lymph % (Auto) 17.6 % [place] % (Auto) 19.5 % Eos % (Auto) 0.6 % Baso % (Auto) 0.6 % Neut # (Auto) 3.01 (1.8-7.7) 10^3/u L Lymph # (Auto) 0.9 (0.8-4.8) 10^3/u L [place] # (Auto) 1.0 H (0.2-0.9) 10^3/u L Eos # (Auto) 0.0 (0.0-0.8) 10^3/u L Baso # (Auto) 0.0 (0.0-0.1) 10^3/u L Nucleated RBC % (a uto) 0 % Nucleated RBCs # 0.0 /100WBC Sodium 134 L (136-145) mmol/L Potassium 3.8 (3.5-5.1) mmol/L Chloride 99 (98-107) mmol/L Carbon Dioxide 24 (22-29) mmol/L Anion Gap 14.8 (5-19) BUN 11 (8-23) mg/dL Creatinine 0.7 (0.5-0.9) mg/dL GFR Calculation 82.7 L (90-130) mL/min Glucose 141 H (65-115) mg/dL Calculated Osmolal ity 280 L (285-295) mOsm/k g Lactic Acid 1.8 (0.5-2.2) mmol/L Calcium 8.3 L (8.5-10.5) mg/dL Total Bilirubin 0.3 (0.15-1.2) mg/dL AST 44 H (0-32) U/L ALT 36 H (0-33) U/L Alkaline Phosphata se 81 (35-105) IU/L C-Reactive Protein 14.2 H (0.0-4.9) mg/L Total Protein 6.8 (6.6-8.7) g/dL Albumin 3.9 (3.5-5.2) g/dL Globulin 2.9 (1.3-4.6) g/dL SARS-CoV-2 Ag (Rap id) 06/17/21 Range/Units 00:05 WBC (4.0-10.0) 10^3/ uL RBC (4.1-5.3) 10^6/u L Hgb (11.5-15.3) g/dL Hct (37.0-47.0) % MCV (81-99) fL MCH (28.0-34.0) pg MCHC (30.0-36.0) g/dL RDW (12.1-15.1) % Plt Count (130-400) 10^3/c mm MPV (7.4-10.4) fL Neut % (Auto) % Lymph % (Auto) % [place] % (Auto) % Eos % (Auto) % Baso % (Auto) % Neut # (Auto) (1.8-7.7) 10^3/u L Lymph # (Auto) (0.8-4.8) 10^3/u L [place] # (Auto) (0.2-0.9) 10^3/u L Eos # (Auto) (0.0-0.8) 10^3/u L Baso # (Auto) (0.0-0.1) 10^3/u L Nucleated RBC % (a uto) % Nucleated RBCs # /100WBC Sodium (136-145) mmol/L Potassium (3.5-5.1) mmol/L Chloride (98-107) mmol/L Carbon Dioxide (22-29) mmol/L Anion Gap (5-19) BUN (8-23) mg/dL Creatinine (0.5-0.9) mg/dL GFR Calculation (90-130) mL/min Glucose (65-115) mg/dL Calculated Osmolal ity (285-295) mOsm/k g Lactic Acid (0.5-2.2) mmol/L Calcium (8.5-10.5) mg/dL Total Bilirubin (0.15-1.2) mg/dL AST (0-32) U/L ALT (0-33) U/L Alkaline Phosphata se (35-105) IU/L C-Reactive Protein (0.0-4.9) mg/L Total Protein (6.6-8.7) g/dL Albumin (3.5-5.2) g/dL Globulin (1.3-4.6) g/dL SARS-CoV-2 Ag (Rap id) Cancelled Imaging Data: CXR: Attestation: I personally reviewed and interpreted this imaging study as follows: Radiologist's impression: [address] [address] XRay Report Signed Patient: Maria Del Carmen Ansari Unit #: [id number] : [id number] Age/Sex: 71 / F ADM Date: 06/16/21 Loc: ER Room/Bed: Attending Dr: Ordering Provider/Ordering MD: Deann Aguilar MD Date of Service: 06/16/21 Procedure(s): XR chest 1V portable [id number] Accession Number(s): [id number] Report Number: [id number] PROCEDURE INFORMATION: Exam: XR Chest Exam date and time: 06/16/2021 11:44 PM Age: 71 years old Clinical indication: Cough TECHNIQUE: Imaging protocol: XR of the chest. Views: 1 view. COMPARISON: CR XR knees AP WB w LT lmt ORTH 06/08/2020 9:05 AM FINDINGS: Lungs: Unremarkable. No consolidation. Pleural spaces: Unremarkable. No pleural effusion. No pneumothorax. Heart/Mediastinum: Unremarkable. No cardiomegaly. Bones/joints: Unremarkable. XR/XR chest 1V portable [id number] IMPRESSION: No acute findings. Dictated By: Sulaiman Vail MD Signed By: Sulaiman Vail MD Signed Date/Time: 06/17/21115 DD/ 2 EKG Data: EKG 1: Attestation: I personally reviewed and interpreted this EKG as follows: EKG interpretation date: 06/17/21 EKG interpretation time: 02:07 Interpretation: nsr hr [address] or t wave abnormalities qrs 98 qtc 422 COVID Results: No Data to Display Discharge Plan Discharge Patient Disposition: Home Clinical Impression: Viral syndrome Condition: Stable Prescriptions: New prednisone 50 mg tablet 50 mg PO DAILY Qty: 5 RF: 0 albuterol sulfate 90 mcg/actuation HFA aerosol inhaler 2 inh INHALATION Q6H PRN (Reason: shortness of breath or wheezing) Qty: 8 RF: 0 doxycycline hyclate 100 mg tablet 100 mg PO BID 7 Days Qty: 14 RF: 0 Tessalon Perles 100 mg capsule 100 mg PO TID PRN (Reason: cough) Qty: 14 RF: 0 No Action potassium 99 mg tablet PO RF: 0 sennosides [senna] 8.6 mg tablet 8.6 mg PO DAILY RF: 0 nitroglycerin [Nitrostat] 0.4 mg tablet, sublingual 0.4 mg SUBLINGUAL ONCE PRN (Reason: Chest Pain) Qty: 25 RF: 2 amlodipine 2.5 mg tablet 2.5 mg PO DAILY Qty: 90 RF: 1 labetalol 200 mg tablet 200 mg PO BID 90 Days Qty: 180 RF: 1 furosemide 40 mg tablet 40 mg PO DAILY RF: 0 (DME) Burak Aerosol Panola Enhancer Spacer See Rx Instructions .ROUTE .MEDSUPPLY Qty: 1 RF: 0 ferrous sulfate 325 mg (65 mg iron) tablet 325 mg PO BID Qty: 180 RF: 1 losartan 100 mg tablet 100 mg PO DAILY Qty: 90 RF: 2 simvastatin 40 mg tablet 20 mg PO DAILY Qty: 90 RF: 3 albuterol sulfate 90 mcg/actuation HFA aerosol inhaler 1 inh INHALATION Q6H PRN (Reason: shortness of breath or wheezing) Qty: 6.7 RF: 2 Aspir-81 81 mg Tablet,Delayed Release (Dr/Ec) 81 mg PO DAILY RF: 0 biotin 1 mg Tablet 1 mg PO DAILY RF: 0 Discharge Orders: Discharge ED (Routine); Ordered 06/17/21 Ordered By: Deann Aguilar Referrals: Howard Kraus MD [Primary Care Provider] - 1-3 days Discharge Diet: Advance as tolerated Discharge Activity: Resume usual activity Patient Instructions: Upper Respiratory Infection (ED) Coding Level of Care Code ED Clam Dredger for Sariah Fwd Exam Comprehensive
[2021-06-17] MEDS: acetaminophen 325 mg Tablet 650 MG PO (00:10)
[2021-06-17 00:20] VITALS: PULSE 68; RESP 19; O2SAT 98
[2021-06-17] MEDS: albuterol 8 gm MDI 2 PUFF INHALATION (00:20)
[2021-06-17 00:28] VITALS: PULSE 71
[2021-06-17 00:40] LABS: Basophils % 0.6 %; Eosinophils % 0.6 %; Hematocrit 36.2 % (37.0-47.0); Hemoglobin 11.4 g/dL (11.5-15.3); Lymphocytes # 0.9 10^3/uL (0.8-4.8); Lymphocytes % 17.6 %; Mean Corpuscular HGB Conc 31.5 g/dL (30.0-36.0); Mean Corpuscular Hemoglobin 29.2 pg (28.0-34.0); Mean Corpuscular Volume 92.6 fL (81-99); Mean Platelet Volume 9.2 fL (7.4-10.4); Monocytes % 19.5 %; Neutrophils # 3.01 10^3/uL (1.8-7.7); Neutrophils % 61.1 %; Nucleated Red Blood Cells % 0 %; Platelet Count 175 10^3/cmm (130-400); Red Blood Count 3.91 10^6/uL (4.1-5.3); Red Cell Distribution Width 14.2 % (12.1-15.1); White Blood Count 4.9 10^3/uL (4.0-10.0)
[2021-06-17 01:24] LABS: Lactic Sepsis W/Reflex 1.8 mmol/L (0.5-2.2)
[2021-06-17 01:27] LABS: Alanine Aminotransferase 36 U/L (0-33); Albumin Level 3.9 g/dL (3.5-5.2); Alkaline Phosphatase 81 IU/L (35-105); Anion Gap 14.8 (5-19); Aspartate Amino Transferase 44 U/L (0-32); Blood Urea Nitrogen 11 mg/dL (8-23); C Reactive Protein 14.2 mg/L (0.0-4.9); Calcium 8.3 mg/dL (8.5-10.5); Carbon Dioxide 24 mmol/L (22-29); Chloride 99 mmol/L (98-107); Creatinine Clr Calc Pharmacy 77.4583; Globulin 2.9 g/dL (1.3-4.6); Glomerular Filtration Rate 82.7 mL/min (90-130); Glucose 141 mg/dL (65-115); Osmolality Calculated 280 mOsm/kg (285-295); Potassium 3.8 mmol/L (3.5-5.1); Sodium 134 mmol/L (136-145); Total Bilirubin 0.3 mg/dL (0.15-1.2); Total Protein 6.8 g/dL (6.6-8.7)
[2021-06-17] MEDS: benzonatate 100 mg Capsule 200 MG PO (01:57)
[2021-06-17 02:26] VITALS: BP 173/72; PULSE 83; RESP 18; O2SAT 99
[2021-06-18 14:01] LABS: Coronavirus Test Green County Detected
== END 2021-06-17 02:26 | disposition home or self-care (01) ==
PROVIDERS: Emergency Provider Emergency Medicine; PCP Family Medicine
DX: B34.9 Viral infection, unspecified (principal); E78.00 Pure hypercholesterolemia, unspecified; I10 Essential (primary) hypertension; E66.01 Morbid (severe) obesity due to excess calories; Z68.41 Body mass index [BMI] 40.0-44.9, adult; Z87.891 Personal history of nicotine dependence; Z86.73 Personal history of transient ischemic attack (TIA), and cerebral infarction without residual deficits
CPT/HCPCS: 71045; 80053; 83605; 85025; 86140; 87635; 94640; 96374; 99284; J2930; J3535

== ENCOUNTER 2021-06-22 06:35 | Emergency (ER) | payer MEDICARE, OTHER, SELFPAY ==
[2021-06-22 06:45] VITALS: BP 178/73; PULSE 81; RESP 26; TEMP 36.6; O2SAT 97; BMI 42.5
[2021-06-22 06:48] VITALS: PULSE 90; RESP 26; O2SAT 96
[2021-06-22 06:49] VITALS: O2SAT 96
--- NOTE | 2021-06-22 06:50 | XRR_ITS ---
PROCEDURE INFORMATION: Exam: XR Chest Exam date and time: 06/22/2021 6:50 AM Age: 71 years old Clinical indication: Dyspnea and shortness of breath; Prior surgery; Surgery date: 6+ months; Surgery type: Spine stimulator for pain; Patient HX: C/O shortness of breath; Dyspnea; Additional info: Dyspnea/cough TECHNIQUE: Imaging protocol: XR of the chest. Views: 1 view. COMPARISON: CR (CHEST, ) 06/17/2021 12:03 AM FINDINGS: Tubes, catheters and devices: Neurostimulator wires project on the thoracic spinal canal. Lungs: Unremarkable. No consolidation. Pleural spaces: Unremarkable. No pleural effusion. No pneumothorax. Heart/Mediastinum: The heart is not enlarged. There is calcification of the aortic arch. Bones/joints: Unremarkable. XR/XR chest 1V portable [id number] IMPRESSION: No significant cardiopulmonary abnormality.
--- NOTE | 2021-06-22 07:17 | W.ED.COVID ---
HPI - COVID General: Chief Complaint: COVID symptoms Stated Complaint: COVID+ SOB LOW O2 AT HOME Time Seen by Provider: 06/22/21 06:50 Triage information: Has fever, cough or shortness of breath. Exposure to COVID + person last 14 days History of Present Illness: HPI Narrative: 71-year-old female presents emergency room complaining of fever shortness of breath and cough last several days. Her symptoms began approximately 1 week ago. Her positive test was on 725. She is not had any orthopnea denies chest pain cough is nonproductive. Cough has been worsening the last 24 hours. MD complaint: known COVID positive Prior covid testing: yes, results known Prior testing date: 06/17/21 COVID 19 common symptoms: positive fever(s), chills, cough, non-productive cough, dyspnea, fatigue, body aches, headache(s), loss of sense of smell and/or taste, throat pain and nasal congestion; negative nausea, vomiting or diarrhea COVID 19 other sytmptoms: negative chest pain or requiring oxygen Onset (ago): day(s) (7) Pertinent comorbid conditions: hypertension and heart disease Treatment prior to arrival: none COVID Results: Nasal/Oral Coronavirus 2019 PCR Detected H 06/17/21 02:24 06/17/21 Review of Systems Const: Reports: fever(s), chills, body aches and fatigue ENMT: Reports: throat pain and nasal congestion Card: Denies: chest pain, edema, dyspnea on exertion or orthopnea Resp: Reports: dyspnea and non-productive cough GI: Denies: abdominal pain, nausea, vomiting, hematemesis, coffee ground emesis, diarrhea, constipation, bloating, hematochezia or melena : Denies: flank pain, difficulty voiding, dysuria, urinary frequency or urinary urgency Skin/Breast: Denies: rash or pruritus Neuro: Reports: headache(s) PFSH ED PFSH: Medical History CVA (cerebral vascular accident) Hypercholesteremia Hypertension Hypothyroid Lumbar disc disease with radiculopathy Lumbar spondylosis Morbid obesity Spondylolisthesis, lumbar region Venous insufficiency of both lower extremities Surgical History H/O carpal tunnel repair H/O cataract removal with insertion of prosthetic lens H/O: hysterectomy History of arthroscopic surgery of elbow History of cholecystectomy Family History Father Cancer CAD (coronary artery disease) Mother CAD (coronary artery disease) Diabetes Hypertension Stroke Denies family history of Anesthesia complication Bleeding disorder Social History Smoking and tobacco status: former smoker Second hand smoke exposure: No Alcohol intake: never Adopted: No Caregiver/support person: Yes Lives independently: Yes Household members: spouse Housing: House Marital status: service: No Current occupational status: retired Current occupational exposures/hazards: No Pets and animals: No History of recent travel: No Sexually active: No Current gender identity: Female Ratna/Mormon: Zoroastrianism Special ratna needs: No Agree to transfusion: No Financial difficulty paying for basics: Decline to Answer Physical Exam Const: COMMON NORMALS: no acute distress GENERAL APPEARANCE: cooperative and comfortable ORIENTATION/CONSCIOUSNESS: Yes oriented to person, Yes oriented to place and Yes oriented to time HENMT: COMMON NORMALS: normocephalic, atraumatic and hearing grossly normal bilaterally HEAD & SCALP: normocephalic and atraumatic Neck/C-Spine: COMMON NORMALS: no JVD Resp: COMMON NORMALS: normal respiratory effort, No retractions, No use of accessory muscles and clear to auscultation bilaterally AUSCULTATION: clear to auscultation bilaterally Cardio: COMMON NORMALS: no JVD, regular rate, regular rhythm and No murmurs present (Cardio) RATE: regular rate RHYTHM: regular rhythm GI: COMMON NORMALS: Soft to palpation and No hepatosplenomegaly present AUSCULTATION: Yes normoactive bowel sounds PALPATION: Yes Soft to palpation, No Tenderness to palpation present (GI), No Guarding due to palpation present (GI) and Yes No hepatosplenomegaly present Extremity: COMMON NORMALS: normal to inspection, capillary refill normal, no clubbing, cyanosis or edema, no calf tenderness and no pedal edema Neuro: SENSORIUM/ORIENTATION: Yes oriented to person, Yes oriented to place and Yes oriented to time Skin: COMMON NORMALS: no rashes or lesions noted GENERAL SKIN EXAM: no rashes or lesions noted Course Vital Signs: Vital signs: Vital Signs Temperature 97.9 F 06/22/21 06:45 Pulse Rate 79 06/22/21 10:10 Respiratory Rate 17 06/22/21 10:10 Blood Pressure 151/61 06/22/21 10:10 Pulse Oximetry 95 06/22/21 10:10 MDM - COVID MDM Narrative: Medical decision making narrative: Discharge home supportive cares patient's has good O2 sats on room air. She tested positive for Covid 3 days ago currently has no progression of her disease just mild continue to monitor at home. Infusion monoclonal antibodies COVID Results: Nasal/Oral Coronavirus 2019 PCR Detected H 06/17/21 02:24 06/17/21 Discharge Plan Discharge Patient Disposition: Home Clinical Impression: COVID-19 Condition: Stable Prescriptions: No Action potassium 99 mg tablet PO RF: 0 sennosides [senna] 8.6 mg tablet 8.6 mg PO DAILY RF: 0 nitroglycerin [Nitrostat] 0.4 mg tablet, sublingual 0.4 mg SUBLINGUAL ONCE PRN (Reason: Chest Pain) Qty: 25 RF: 2 amlodipine 2.5 mg tablet 2.5 mg PO DAILY Qty: 90 RF: 1 labetalol 200 mg tablet 200 mg PO BID 90 Days Qty: 180 RF: 1 furosemide 40 mg tablet 40 mg PO DAILY RF: 0 (DME) Burak Aerosol Payne Enhancer Spacer See Rx Instructions .ROUTE .MEDSUPPLY Qty: 1 RF: 0 ferrous sulfate 325 mg (65 mg iron) tablet 325 mg PO BID Qty: 180 RF: 1 losartan 100 mg tablet 100 mg PO DAILY Qty: 90 RF: 2 simvastatin 40 mg tablet 20 mg PO DAILY Qty: 90 RF: 3 Tessalon Perles 100 mg capsule 100 mg PO TID PRN (Reason: cough) Qty: 14 RF: 0 albuterol sulfate 90 mcg/actuation HFA aerosol inhaler 1 inh INHALATION Q6H PRN (Reason: shortness of breath or wheezing) Qty: 6.7 RF: 2 Aspir-81 81 mg Tablet,Delayed Release (Dr/Ec) 81 mg PO DAILY RF: 0 biotin 1 mg Tablet 1 mg PO DAILY RF: 0 prednisone 50 mg tablet 50 mg PO DAILY Qty: 5 RF: 0 albuterol sulfate 90 mcg/actuation HFA aerosol inhaler 2 inh INHALATION Q6H PRN (Reason: shortness of breath or wheezing) Qty: 8 RF: 0 Discharge Orders: Discharge ED (Routine); Ordered 06/22/21 Ordered By: Yousif Neumann Referrals: Howard Kraus MD [Primary Care Provider] - Discharge Diet: Usual diet Discharge Activity: Limit activity as instructed Patient Instructions: Opioid Safety Activity Restrictions/Additional Instructions: Self quarantine until your quarantine period is completed for worsening symptoms return monitor your home oxygen saturations Coding Level of Care Code ED Night Patrol Inspector for Chg Fwd Exam Comprehensive
[2021-06-22 08:54] VITALS: BP 197/77; PULSE 78; RESP 23; O2SAT 97
[2021-06-22 09:37] VITALS: O2SAT 94; O2SAT 96
[2021-06-22 10:10] VITALS: BP 151/61; PULSE 79; RESP 17; O2SAT 95
--- NOTE | 2021-06-29 13:04 | DCPLANNER ---
manager construction had message that patient received the monoclonal antibody infusion. manager construction called to check on patient after receiving the infusion. Patient stated that before the infusion, she had a cough. Patient stated that she is really not feeling any better at this time, she still has a cough, and she is weak. Patient stated that her oxygen is staying between, 95-97, and that she has an appointment scheduled with her primary care physician on 07.02.21.
== END 2021-06-22 10:10 | disposition home or self-care (01) ==
PROVIDERS: Emergency Provider Family Medicine; PCP Family Medicine
DX: U07.1 COVID-19 (principal); I11.9 Hypertensive heart disease without heart failure; E78.00 Pure hypercholesterolemia, unspecified; E03.9 Hypothyroidism, unspecified; E66.01 Morbid (severe) obesity due to excess calories; Z68.41 Body mass index [BMI] 40.0-44.9, adult; Z79.82 Long term (current) use of aspirin; Z87.891 Personal history of nicotine dependence; Z86.73 Personal history of transient ischemic attack (TIA), and cerebral infarction without residual deficits
CPT/HCPCS: 71045; 96365; 99284

== ENCOUNTER → 2021-07-02 12:13 | Outpatient (BNVA) | payer MEDICARE, OTHER, SELFPAY | PROVIDERS: PCP Family Medicine; Visit Provider Family Medicine | DX: R06.02 Shortness of breath (principal); U07.1 COVID-19 | CPT/HCPCS: 71046 ==

== ENCOUNTER → 2021-07-17 09:23 | Outpatient (BNVA) | payer MEDICARE, OTHER, SELFPAY | PROVIDERS: PCP Family Medicine; Visit Provider Family Medicine | DX: R73.9 Hyperglycemia, unspecified (principal); E78.00 Pure hypercholesterolemia, unspecified; I50.31 Acute diastolic (congestive) heart failure; I10 Essential (primary) hypertension; F45.8 Other somatoform disorders; I87.2 Venous insufficiency (chronic) (peripheral); E03.9 Hypothyroidism, unspecified | CPT/HCPCS: 80053; 80061; 83036; 83735; 83880; 85025 ==

== ENCOUNTER → 2021-09-17 09:28 | Outpatient (BNVA) | payer MEDICARE, OTHER, SELFPAY | PROVIDERS: PCP Family Medicine; Visit Provider Family Medicine | DX: D64.9 Anemia, unspecified (principal); F45.8 Other somatoform disorders; I87.2 Venous insufficiency (chronic) (peripheral); Z96.652 Presence of left artificial knee joint; E66.01 Morbid (severe) obesity due to excess calories; I10 Essential (primary) hypertension | CPT/HCPCS: 85018 ==

== ENCOUNTER → 2022-01-07 09:20 | Outpatient (BNVA) | payer MEDICARE, OTHER, SELFPAY | PROVIDERS: PCP Family Medicine; Visit Provider Family Medicine | DX: D64.9 Anemia, unspecified (principal); E78.00 Pure hypercholesterolemia, unspecified; I10 Essential (primary) hypertension | CPT/HCPCS: 80053; 80061; 85025 ==

== ENCOUNTER → 2022-05-16 13:20 | Outpatient (BNVA) | payer MEDICARE, OTHER, SELFPAY | PROVIDERS: PCP Family Medicine; Visit Provider Internal Medicine Cardiovascular Disease | DX: I11.0 Hypertensive heart disease with heart failure (principal); I50.31 Acute diastolic (congestive) heart failure; E78.00 Pure hypercholesterolemia, unspecified; D64.9 Anemia, unspecified; E66.01 Morbid (severe) obesity due to excess calories; Z68.41 Body mass index [BMI] 40.0-44.9, adult; Z87.891 Personal history of nicotine dependence; Z86.73 Personal history of transient ischemic attack (TIA), and cerebral infarction without residual deficits | CPT/HCPCS: 99214 ==

== ENCOUNTER → 2022-07-03 09:26 | Outpatient (BNVA) | payer MEDICARE, OTHER, SELFPAY | PROVIDERS: PCP Family Medicine; Visit Provider Family Medicine | DX: Z00.00 Encounter for general adult medical examination without abnormal findings (principal); I10 Essential (primary) hypertension; D64.9 Anemia, unspecified | CPT/HCPCS: 80048; 85025 ==

== ENCOUNTER 2022-09-21 10:01 | Emergency (ER) | payer MEDICARE, OTHER, SELFPAY ==
--- NOTE | 2022-09-21 10:21 | ECG_ITS ---
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 Measurements Intervals [place] Rate: 74 P: 30 TN: 164 QRS: 54 QRSD: 102 T: 55 QT: 396 QTc: 441 Interpretive Statements SINUS RHYTHM INTERPRETATION BASED ON A DEFAULT AGE OF 40 YEARS Compared to ECG 05/04/2020 20:43:36 No significant changes Electronically Signed On 09-22-2022 10:13:26 CDT by Gabriel Sharma M.D. [id number]
[2022-09-21 10:25] VITALS: BP 150/80; PULSE 73; RESP 18; TEMP 36.6; O2SAT 96; BMI 42.5
--- NOTE | 2022-09-21 10:37 | XRR_ITS ---
PROCEDURE INFORMATION: Exam: XR Chest Exam date and time: 09/21/2022 11:03 AM Age: 72 years old Clinical indication: Shortness of breath; Additional info: SOB TECHNIQUE: Imaging protocol: Radiologic exam of the chest. Views: 1 view. COMPARISON: CR XR chest 2V* [id number] 07/02/2021 12:18 PM FINDINGS: Lungs: Low lung volumes seen. The lungs are otherwise clear No consolidation. Pleural spaces: Unremarkable. No pleural effusion. No pneumothorax. Heart/Mediastinum: Unremarkable. No cardiomegaly. Bones/joints: Unremarkable. Electronic stimulator wire extends to the mid dorsal spine XR/XR chest 1V portable [id number] IMPRESSION: No acute findings. Electronic stimulator wire in the mid dorsal spine.
--- NOTE | 2022-09-21 10:37 | XRR_ITS ---
PROCEDURE INFORMATION: Exam: XR Abdomen Exam date and time: 09/21/2022 11:03 AM Age: 72 years old Clinical indication: Nausea and vomiting; Prior surgery; Surgery type: Back pain; Additional info: N/v/d TECHNIQUE: Imaging protocol: Radiologic exam of the abdomen. Views: Frontal supine view of the abdomen. 1 View. COMPARISON: CT abdomen pelvis wo/w [id number] 12/11/2016 12:29 AM FINDINGS: Tubes, catheters and devices: There is new Erick chronic stimulator device in the left lower quadrant. Is solitary lead extends into the lumbar spine Gastrointestinal tract: Normal. No bowel dilation. Vasculature: The abdominal aorta is calcified without aneurysm. Bones/joints: Unremarkable. XR/XR KUB portable [id number] IMPRESSION: 1. No acute GI abnormality. 2. Calcified aorta without aneurysm. 3. Electronic stimulator device left lower quadrant
[2022-09-21] MEDS: sodium chloride 0.9% 500 ML IV (11:09)
[2022-09-21 11:10] LABS: Basophils % 0.5 %; Eosinophils # 0.6 10^3/uL (0.0-0.8); Eosinophils % 8.4 %; Hematocrit 35.5 % (37.0-47.0); Hemoglobin 11.5 g/dL (11.5-15.3); Lymphocytes # 0.9 10^3/uL (0.8-4.8); Lymphocytes % 12.4 %; Mean Corpuscular HGB Conc 32.4 g/dL (30.0-36.0); Mean Corpuscular Volume 92.7 fl (81-99); Mean Platelet Volume 8.6 fL (7.4-10.4); Monocytes # 0.5 10^3/uL (0.2-0.9); Monocytes % 7.2 %; Neutrophils # 5.29 10^3/uL (1.8-7.7); Neutrophils % 70.8 %; Nucleated Red Blood Cells % 0 %; Platelet Count 215 10^3/cmm (130-400); Red Blood Count 3.83 10^6/uL (4.1-5.3); Red Cell Distribution Width 14.2 % (12.1-15.1); White Blood Count 7.5 10^3/uL (4.0-10.0)
[2022-09-21 11:15] VITALS: BP 115/63; PULSE 69; O2SAT 97
[2022-09-21 11:28] LABS: Alanine Aminotransferase 42 U/L (0-33); Albumin Level 3.8 g/dL (3.5-5.2); Alkaline Phosphatase 92 U/L (35-105); Anion Gap 14.3 (5-19); Aspartate Amino Transferase 30 U/L (0-32); Blood Urea Nitrogen 13 mg/dL (8-23); Calcium 9.6 mg/dL (8.5-10.5); Carbon Dioxide 25 mmol/L (22-29); Chloride 97 mmol/L (98-107); Globulin 2.8 g/dL (1.3-4.6); Glucose 195 mg/dL (65-115); Lipase 28 U/L (13-60); Magnesium 1.8 mg/dL (1.7-2.3); Osmolality Calculated 279 mOsm/kg (285-295); Potassium 4.3 mmol/L (3.5-5.1); Sodium 132 mmol/L (136-145); Total Bilirubin 0.3 mg/dL (0.15-1.2); Total Protein 6.6 g/dL (6.6-8.7)
[2022-09-21 11:29] LABS: Troponin(5th) Baseline 17 ng/L (0-10)
--- NOTE | 2022-09-21 13:19 | ED_ITS ---
HPI - SOB/Dyspnea General: Chief Complaint: Shortness of Breath/Dyspnea Stated Complaint: SOB N/V/D Time Seen by Provider: 09/21/22 10:30 History of Present Illness: HPI Narrative: 72-year-old female presents with an episode of shortness of breath, nausea vomi ting diarrhea, feeling flush. She reports that she was walking in [employer] when the episode hit her. She has a little bit of epigastric/chest tightness. Otherwise all her symptoms have seemed to resolve. She does have some mild malaise following it. She reports no fever at this time, no recent illness. Patient reports that she came back here immediately after it happened. Associated symptoms: Reports lightheadedness, nausea and vomiting; Deny abdominal pain, chest pain, fever(s) or palpitations Review of Systems Const: Reports: chills and malaise; Denies: fever(s) or fatigue Eyes: Denies: change in vision or blurry vision ENMT: Denies: throat pain or ear or mastoid pain Card: Reports: lightheadedness; Denies: chest pain or palpitations Resp: Reports: dyspnea; Denies: productive cough, non-productive cough or wheezing GI: Reports: nausea, vomiting and diarrhea; Denies: abdominal pain : Denies: difficulty voiding or urinary frequency Musc: Denies: neck pain or back pain Skin/Breast: Denies: rash or erythema Neuro: Denies: headache(s) or numbness in extremities Psych: Denies: anxiety or depression PFSH ED PFSH: Medical History (Updated 07/03/22 @ 09:16 by Howard Kraus MD) CVA (cerebral vascular accident) Hypercholesteremia Hyperglycemia Hypertension Hypothyroid Lumbar disc disease with radiculopathy Lumbar spondylosis Morbid obesity Spondylolisthesis, lumbar region Venous insufficiency of both lower extremities Surgical History (Updated 07/03/22 @ 09:16 by Howard Kraus MD) H/O carpal tunnel repair H/O cataract removal with insertion of prosthetic lens H/O: hysterectomy History of arthroscopic surgery of elbow History of cholecystectomy Family History Father Cancer CAD (coronary artery disease) Mother CAD (coronary artery disease) Diabetes Hypertension Stroke Denies family history of Anesthesia complication Bleeding disorder Social History Smoking and tobacco status: never smoked Second hand smoke exposure: No Alcohol intake: never Adopted: No Caregiver/support person: Yes Lives independently: Yes Household members: spouse Housing: House Marital status: service: No Current occupational status: retired Current occupational exposures/hazards: No Pets and animals: No History of recent travel: No Sexually active: No Current gender identity: Female Ratna/Zoroastrian: Sabianist Special ratna needs: No Agree to transfusion: No Financial difficulty paying for basics: Decline to Answer Physical Exam Const: COMMON NORMALS: no acute distress, average body habitus and patient oriented x3 HENMT: COMMON NORMALS: normocephalic, hearing grossly normal bilaterally and moist oral mucous membranes HEAD & SCALP: normocephalic Neck/C-Spine: GENERAL: Yes normal visual inspection and No tender Resp: COMMON NORMALS: normal respiratory effort, No retractions, No use of accessory muscles and clear to auscultation bilaterally AUSCULTATION: clear to auscultation bilaterally Cardio: COMMON NORMALS: regular rate and regular rhythm RATE: regular rate RHYTHM: regular rhythm GI: COMMON NORMALS: Normal to inspection, nondistended, normoactive bowel sounds present, Soft to palpation and non-tender PALPATION: Yes Soft to palpation Extremity: COMMON NORMALS: normal to inspection and full ROM Neuro: COMMON NORMALS: patient oriented x3, moves all extremities, no focal motor deficits and no sensory deficits noted Psych: COMMON NORMALS: mental status grossly normal, Normal thought process present, cooperative and normal affect THOUGHT PROCESS: Normal thought process present Course Vital Signs: Vital signs: Vital Signs Temperature 98 F 09/21/22 10:25 Pulse Rate 72 09/21/22 14:40 Respiratory Rate 18 09/21/22 14:40 Blood Pressure 115/63 09/21/22 11:15 Pulse Oximetry 96 09/21/22 14:40 Oxygen Delivery Me thod 09/21/22 14:40 MDM - SOB/Dyspnea Medical Decision Making Patient with no significant changes on labs, patient with 2 negative troponins. Patient negative EKG. Patient chest x-ray shows no acute findings. Discussed with patient's does not appear to be cardiac. Could be potential early viral syndrome. 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 Lab Data : 09/21/22 11:00 09/21/22 11:00 Labs/Radiology: Radiology Impressions Chest X-Ray 09/21/22 10:37 IMPRESSION: No acute findings. Electronic stimulator wire in the mid dorsal spine. KUB X-Ray 09/21/22 10:37 IMPRESSION: 1. No acute GI abnormality. 2. Calcified aorta without aneurysm. 3. Electronic stimulator device left lower quadrant Laboratory Results WBC 7.5 10^3/uL (4.0-10.0) 09/21/22 11:00 RBC 3.83 10^6/uL (4.1-5.3) L 09/21/22 11:00 Hgb 11.5 g/dL (11.5-15.3) 09/21/22 11:00 Hct 35.5 % (37.0-47.0) L 09/21/22 11:00 MCV 92.7 fl (81-99) 09/21/22 11:00 MCH 30.0 pg (28.0-34.0) 09/21/22 11:00 MCHC 32.4 g/dL (30.0-36.0) 09/21/22 11:00 RDW 14.2 % (12.1-15.1) 09/21/22 11:00 Plt Count 215 10^3/cmm (130-400) 09/21/22 11:00 MPV 8.6 fL (7.4-10.4) 09/21/22 11:00 Neut % (Auto) 70.8 % 09/21/22 11:00 Lymph % (Auto) 12.4 % 09/21/22 11:00 [place] % (Auto) 7.2 % 09/21/22 11:00 Eos % (Auto) 8.4 % 09/21/22 11:00 Baso % (Auto) 0.5 % 09/21/22 11:00 Neut # (Auto) 5.29 10^3/uL (1.8-7.7) 09/21/22 11:00 Lymph # (Auto) 0.9 10^3/uL (0.8-4.8) 09/21/22 11:00 [place] # (Auto) 0.5 10^3/uL (0.2-0.9) 09/21/22 11:00 Eos # (Auto) 0.6 10^3/uL (0.0-0.8) 09/21/22 11:00 Baso # (Auto) 0.0 10^3/uL (0.0-0.1) 09/21/22 11:00 Nucleated RBC % (auto) 0 % 09/21/22 11:00 Nucleated RBCs # 0.0 /100WBC 09/21/22 11:00 Sodium 132 mmol/L (136-145) L 09/21/22 11:00 Potassium 4.3 mmol/L (3.5-5.1) 09/21/22 11:00 Chloride 97 mmol/L (98-107) L 09/21/22 11:00 Carbon Dioxide 25 mmol/L (22-29) 09/21/22 11:00 Anion Gap 14.3 (5-19) 09/21/22 11:00 BUN 13 mg/dL (8-23) 09/21/22 11:00 Creatinine 0.7 mg/dL (0.5-0.9) 09/21/22 11:00 GFR Calculation Not Reportable 09/21/22 11:00 Glucose 195 mg/dL (65-115) H 09/21/22 11:00 Calculated Osmolality 279 mOsm/kg (285-295) L 09/21/22 11:00 Calcium 9.6 mg/dL (8.5-10.5) 09/21/22 11:00 Magnesium 1.8 mg/dL (1.7-2.3) 09/21/22 11:00 Total Bilirubin 0.3 mg/dL (0.15-1.2) 09/21/22 11:00 AST 30 U/L (0-32) 09/21/22 11:00 ALT 42 U/L (0-33) H 09/21/22 11:00 Alkaline Phosphatase 92 U/L (35-105) 09/21/22 11:00 Troponin T Baseline 17 ng/L (0-10) H 09/21/22 11:00 Troponin T 120 Minute 13.67 ng/L (0-10) H 09/21/22 13:52 Delta Troponin T -3.33 ABS# (0-10) L 09/21/22 13:52 Total Protein 6.6 g/dL (6.6-8.7) 09/21/22 11:00 Albumin 3.8 g/dL (3.5-5.2) 09/21/22 11:00 Globulin 2.8 g/dL (1.3-4.6) 09/21/22 11:00 Lipase 28 U/L (13-60) 09/21/22 11:00 Coronavirus 229E (PCR) Not detected (NOT DETECT) 09/21/22 11:12 SARS-CoV-2 (PCR) Not detected (NOT DETECT) 09/21/22 11:12 Discharge Plan Discharge Condition: Stable Prescriptions: No Action sennosides [senna] 8.6 mg tablet 8.6 mg PO DAILY nitroglycerin [Nitrostat] 0.4 mg tablet, sublingual 0.4 mg SUBLINGUAL ONCE PRN (Reason: Chest Pain) Qty: 25 2RF Rx Instructions: as needed for chest pain labetalol 200 mg tablet 200 mg PO BID Qty: 180 1RF furosemide 40 mg tablet 60 mg PO DAILY Qty: 135 3RF losartan 100 mg tablet 100 mg PO DAILY Qty: 90 2RF simvastatin 40 mg tablet 40 mg PO DAILY Qty: 90 2RF Aspir-81 81 mg Tablet,Delayed Release (Dr/Ec) 81 mg PO DAILY biotin 1 mg Tablet 1 mg PO DAILY albuterol sulfate 90 mcg/actuation HFA aerosol inhaler 2 inh INHALATION Q6H PRN (Reason: shortness of breath or wheezing) Qty: 8 0RF Referrals: Howard Kraus MD [Primary Care Provider] - Coding Level of Care Code ED Ice Plant Operator for Chg Fwd Exam Comprehensive
[2022-09-21] MEDS: famotidine 20 mg/2 mL INJ IVP (13:55)
[2022-09-21] MEDS: ipratropium-albuterol 3 mL Neb INHALATION (14:39)
[2022-09-21 14:40] VITALS: PULSE 72; RESP 18; O2SAT 96
[2022-09-21 14:46] LABS: Troponin 5 2HR 13.67 ng/L (0-10)
[2022-09-21 14:48] LABS: Troponin 5 2HR Delta -3.33 ABS# (0-10)
[2022-09-21 15:17] LABS: Adenovirus Not Detected (NOT DETECT); Chlamydia Pneumoniae Not Detected (NOT DETECT); Coronavirus 229E,HKU1,NL63,OC4 Not Detected (NOT DETECT); Human Metapneumovirus Not Detected (NOT DETECT); Human Rhinovirus/Enterovirus Not Detected (NOT DETECT); Influenza A Not Detected (NOT DETECT); Influenza A H1 Not Detected (NOT DETECT); Influenza A H1-2009 Not Detected (NOT DETECT); Influenza A H3 Not Detected (NOT DETECT); Influenza B Not Detected (NOT DETECT); Mycoplasma Pneumoniae Not Detected (NOT DETECT); Parainfluenza Virus Type 1 Not Detected (NOT DETECT); Parainfluenza Virus Type 2 Not Detected (NOT DETECT); Parainfluenza Virus Type 3 Not Detected (NOT DETECT); Parainfluenza Virus Type 4 Not Detected (NOT DETECT); Respiratory Syncytial Virus A Not Detected (NOT DETECT); Respiratory Syncytial Virus B Not Detected (NOT DETECT); SARS-COV-2 Not Detected (NOT DETECT)
[2022-09-21 18:35] VITALS: BP 115/63; PULSE 72; O2SAT 96
== END 2022-09-21 18:36 | disposition home or self-care (01) ==
PROVIDERS: Emergency Provider Student in an Organized Health Care Education/Training Program; PCP Family Medicine
DX: R06.02 Shortness of breath (principal); R11.2 Nausea with vomiting, unspecified; R19.7 Diarrhea, unspecified; Z79.82 Long term (current) use of aspirin; Z20.822 Contact with and (suspected) exposure to COVID-19; Z86.73 Personal history of transient ischemic attack (TIA), and cerebral infarction without residual deficits; I10 Essential (primary) hypertension
CPT/HCPCS: 71045; 74018; 80053; 83690; 83735; 84484; 85025; 87635; 93005; 94640; 96374; 99285; J3490; J7040

== ENCOUNTER → 2022-09-23 14:13 | Outpatient (BNVA) | payer MEDICARE, OTHER, SELFPAY | PROVIDERS: PCP Family Medicine; Visit Provider Family Medicine | DX: Z09 Encounter for follow-up examination after completed treatment for conditions other than malignant neoplasm (principal); R07.9 Chest pain, unspecified; R73.9 Hyperglycemia, unspecified; I20.8 Other forms of angina pectoris; F41.8 Other specified anxiety disorders | CPT/HCPCS: 80048; 84484 ==

== ENCOUNTER 2022-10-15 07:07 | Emergency (ER) | payer MEDICARE, OTHER, SELFPAY ==
[2022-10-15] VITALS (13 sets, daily range): BP systolic 166–184; BP diastolic 69–96; PULSE 79–90; RESP 20–37; TEMP 36.5; O2SAT 92–98
--- NOTE | 2022-10-15 07:08 | XRR_ITS ---
PROCEDURE INFORMATION: Exam: XR Chest Exam date and time: 10/15/2022 8:27 AM Age: 72 years old Clinical indication: Cough and dyspnea and shortness of breath; Smoker's cough TECHNIQUE: Imaging protocol: Radiologic exam of the chest. Views: 1 view. COMPARISON: CR (CHEST, ) 09/21/2022 11:03 AM FINDINGS: Tubes, catheters and devices: Thoracic spinal lead wires noted. Lungs: Persistent density at the left costophrenic angle may be consistent with prominent pericardiac fat/scarring. The remainder of the lung parenchyma is clear. Pleural spaces: No pneumothorax. Heart/Mediastinum: The heart is mildly enlarged for size. Bones/joints: Unremarkable. XR/XR chest 1V portable [id number] IMPRESSION: No acute cardiopulmonary abnormality identified.
--- NOTE | 2022-10-15 07:08 | ECG_ITS ---
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 Measurements Intervals [place] Rate: 80 P: 25 HI: 156 QRS: 44 QRSD: 95 T: 74 QT: 364 QTc: 422 Interpretive Statements SINUS RHYTHM Compared to ECG 09/21/2022 10:21:21 No significant changes Electronically Signed On 10-15-2022 20:35:18 STEEL PAN FORM PLACING SUPERVISOR by Juan Horne M.D. [id number]
--- NOTE | 2022-10-15 07:20 | PC.NURSE ---
pt reports a nonproductive, dry cough that began last night and trouble breathing. denies specific chest pain, reports generalized sharp pain everywhere. Denies fevers. Pt sitting up in bed, respirations even and unlabored. coarse lung sounds to left lower lobe. other gray clear. skin pink/warm/dry. pt reprots she has CHF but does not weigh herself daily due to not liking what the scale says. education provided to pt on importance of daily weights. Pt reports she does monitor for swelling.
[2022-10-15] MEDS: aspirin 81 mg Chew Tablet 324 MG PO (07:24)
--- NOTE | 2022-10-15 07:30 | W.ED.CHESTPA ---
HPI - Chest Pain General: Chief Complaint: Chest Pain Stated Complaint: Chest Pain and SOB Time Seen by Provider: 10/15/22 07:07 Source: patient Mode of arrival: ambulatory History of Present Illness: 72-year-old female presents to the emergency room with complaints of shortness of breath cough sore throat. Today she had some chest discomfort radiating into her shoulders. Increasing shortness of breath that is resolved by rest cough has been nonproductive she denies any fever she has no known history of any coronary artery disease does have a history hypertension remote history of smoking she is not diabetic. Does have a history of hyperlipidemia and hypertension. She denied having any chest pain at this time. Initial EKG does not show any acute ST changes. MD complaint: chest discomfort Onset (ago): day(s) Timing of current episode: episodic Prior episodes: Yes Onset: during exertion Pain location: left chest and right chest Pain radiation: left shoulder and right shoulder Severity: moderate Quality: aching and heaviness Relieving factors: nothing Exacerbating factors: nothing Associated symptoms: Reports dyspnea; Deny abdominal pain, diaphoresis, fever(s), leg edema, nausea, palpitations, sense of impending doom, syncope or vomiting Treatment prior to arrival: none Review of Systems Const: Denies: fever(s), chills, fatigue, malaise or diaphoresis ENMT: Denies: throat pain, ear or mastoid pain, nasal discharge or nasal congestion Card: Reports: chest pain; Denies: palpitations or syncope Resp: Reports: dyspnea and non-productive cough; Denies: productive cough or wheezing GI: Denies: abdominal pain, nausea or vomiting : Denies: flank pain, difficulty voiding, dysuria, urinary frequency or urinary urgency Skin/Breast: Denies: rash or pruritus [facility] ED PFSH: Medical History CVA (cerebral vascular accident) Hypercholesteremia Hyperglycemia Hypertension Hypothyroid Lumbar disc disease with radiculopathy Lumbar spondylosis Morbid obesity Spondylolisthesis, lumbar region Venous insufficiency of both lower extremities Surgical History H/O carpal tunnel repair H/O cataract removal with insertion of prosthetic lens H/O: hysterectomy History of arthroscopic surgery of elbow History of cholecystectomy Family History Father Cancer CAD (coronary artery disease) Mother CAD (coronary artery disease) Diabetes Hypertension Stroke Denies family history of Anesthesia complication Bleeding disorder Social History Smoking and tobacco status: never smoked Second hand smoke exposure: No Alcohol intake: never Adopted: No Caregiver/support person: Yes Lives independently: Yes Household members: spouse Housing: House Marital status: service: No Current occupational status: retired Current occupational exposures/hazards: No Pets and animals: No History of recent travel: No Sexually active: No Current gender identity: Female Ratna/Denominational: [employer] Special ratna needs: No Agree to transfusion: No Financial difficulty paying for basics: Decline to Answer Physical Exam Const: GENERAL APPEARANCE: cooperative and comfortable ORIENTATION/CONSCIOUSNESS: Yes awake, Yes oriented to person, Yes oriented to place and Yes oriented to time HENMT: COMMON NORMALS: normocephalic, atraumatic and hearing grossly normal bilaterally HEAD & SCALP: normocephalic and atraumatic Resp: COMMON NORMALS: normal respiratory effort, No retractions, No use of accessory muscles and clear to auscultation bilaterally AUSCULTATION: clear to auscultation bilaterally Cardio: COMMON NORMALS: regular rate, regular rhythm and No murmurs present (Cardio) RATE: regular rate RHYTHM: regular rhythm GI: COMMON NORMALS: Soft to palpation and No hepatosplenomegaly present AUSCULTATION: Yes normoactive bowel sounds PALPATION: Yes Soft to palpation, No Tenderness to palpation present (GI), No Guarding due to palpation present (GI) and Yes No hepatosplenomegaly present Extremity: COMMON NORMALS: normal to inspection, capillary refill normal, no clubbing, cyanosis or edema, no calf tenderness and no pedal edema Neuro: SENSORIUM/ORIENTATION: Yes oriented to person, Yes oriented to place and Yes oriented to time Skin: COMMON NORMALS: no rashes or lesions noted GENERAL SKIN EXAM: no rashes or lesions noted Course Vital Signs: Vital signs: Vital Signs Temperature 97.7 F 10/15/22 07:14 Pulse Rate 88 10/15/22 10:31 Respiratory Rate 24 H 10/15/22 10:31 Blood Pressure 183/69 10/15/22 10:31 Pulse Oximetry 95 10/15/22 10:31 Oxygen Delivery Me thod 10/15/22 07:52 MDM - Chest Pain Medical Decision Making Labs and imaging reviewed. Influenza was positive. Patient is within window of antivirals prescription given she is uncertain if she will use the Tamiflu or not. Discharge home with supportive cares. Follow-up as needed Medical Records I reviewed the patient's medical records. Lab Data I reviewed the patient's lab results. 10/15/22 07:07 10/15/22 07:48 Radiology Impressions Chest X-Ray 10/15/22 07:08 IMPRESSION: No acute cardiopulmonary abnormality identified. Laboratory Results WBC 8.6 10^3/uL (4.0-10.0) 10/15/22 07:07 RBC 3.94 10^6/uL (4.1-5.3) L 10/15/22 07:07 Hgb 11.7 g/dL (11.5-15.3) 10/15/22 07:07 Hct 37.1 % (37.0-47.0) 10/15/22 07:07 MCV 94.2 fl (81-99) 10/15/22 07:07 MCH 29.7 pg (28.0-34.0) 10/15/22 07:07 MCHC 31.5 g/dL (30.0-36.0) 10/15/22 07:07 RDW 14.3 % (12.1-15.1) 10/15/22 07:07 Plt Count 204 10^3/cmm (130-400) 10/15/22 07:07 MPV 8.7 fL (7.4-10.4) 10/15/22 07:07 Neut % (Auto) 77.6 % 10/15/22 07:07 Lymph % (Auto) 7.7 % 10/15/22 07:07 Eddy % (Auto) 7.8 % 10/15/22 07:07 Eos % (Auto) 6.3 % 10/15/22 07:07 Baso % (Auto) 0.3 % 10/15/22 07:07 Neut # (Auto) 6.67 10^3/uL (1.8-7.7) 10/15/22 07:07 Lymph # (Auto) 0.7 10^3/uL (0.8-4.8) L 10/15/22 07:07 Eddy # (Auto) 0.7 10^3/uL (0.2-0.9) 10/15/22 07:07 Eos # (Auto) 0.5 10^3/uL (0.0-0.8) 10/15/22 07:07 Baso # (Auto) 0.0 10^3/uL (0.0-0.1) 10/15/22 07:07 Nucleated RBC % (auto) 0 % 10/15/22 07:07 Nucleated RBCs # 0.0 /100WBC 10/15/22 07:07 Sodium 136 mmol/L (136-145) 10/15/22 07:48 Potassium 4.9 mmol/L (3.5-5.1) 10/15/22 07:48 Chloride 101 mmol/L (98-107) 10/15/22 07:48 Carbon Dioxide 24 mmol/L (22-29) 10/15/22 07:48 Anion Gap 15.9 (5-19) 10/15/22 07:48 BUN 13 mg/dL (8-23) 10/15/22 07:48 Creatinine 0.7 mg/dL (0.5-0.9) 10/15/22 07:48 GFR Calculation Not Reportable 10/15/22 07:48 Glucose 141 mg/dL (65-115) H 10/15/22 07:48 Calculated Osmolality 284 mOsm/kg (285-295) L 10/15/22 07:48 Calcium 9.6 mg/dL (8.5-10.5) 10/15/22 07:48 Total Bilirubin 0.4 mg/dL (0.15-1.2) 10/15/22 07:48 AST 31 U/L (0-32) 10/15/22 07:48 ALT 39 U/L (0-33) H 10/15/22 07:48 Alkaline Phosphatase 91 U/L (35-105) 10/15/22 07:48 Troponin T Baseline 14 ng/L (0-10) H 10/15/22 07:48 Troponin T 120 Minute 13.83 ng/L (0-10) H 10/15/22 09:09 Delta Troponin T -0.17 ABS# (0-10) L 10/15/22 09:09 Total Protein 7.2 g/dL (6.6-8.7) 10/15/22 07:48 Albumin 3.8 g/dL (3.5-5.2) 10/15/22 07:48 Globulin 3.4 g/dL (1.3-4.6) 10/15/22 07:48 Nasal Influ A H1 2009 PCR Cancelled 10/15/22 09:56 Coronavirus 229E (PCR) Not detected (NOT DETECT) 10/15/22 07:48 Influenza A (H1) PCR Cancelled 10/15/22 09:56 Influenza A (H3) PCR Cancelled 10/15/22 09:56 Influenza Type A Ag Cancelled 10/15/22 07:48 Influenza Type A (PCR) Cancelled 10/15/22 09:56 Influenza Type B Ag Cancelled 10/15/22 07:48 Influenza Type B (PCR) Cancelled 10/15/22 09:56 SARS-CoV-2 (PCR) Not detected (NOT DETECT) 10/15/22 07:48 Discharge Plan Discharge Patient Disposition: Home Clinical Impression: Influenza A Condition: Stable Prescriptions: New Tamiflu 75 mg capsule 75 mg PO BID 5 Days Qty: 10 0RF No Action sennosides [senna] 8.6 mg tablet 8.6 mg PO DAILY nitroglycerin [Nitrostat] 0.4 mg tablet, sublingual 0.4 mg SUBLINGUAL ONCE PRN (Reason: Chest Pain) Qty: 25 2RF Rx Instructions: as needed for chest pain labetalol 200 mg tablet 200 mg PO BID Qty: 180 1RF furosemide 40 mg tablet 60 mg PO DAILY Qty: 135 3RF losartan 100 mg tablet 100 mg PO DAILY Qty: 90 2RF simvastatin 40 mg tablet 40 mg PO DAILY Qty: 90 2RF alprazolam 0.5 mg tablet 0.5 mg PO BID PRN (Reason: anxiety) Qty: 45 1RF Aspir-81 81 mg Tablet,Delayed Release (Dr/Ec) 81 mg PO DAILY biotin 1 mg Tablet 1 mg PO DAILY albuterol sulfate 90 mcg/actuation HFA aerosol inhaler 2 inh INHALATION Q6H PRN (Reason: shortness of breath or wheezing) Qty: 8 0RF Discharge Orders: Discharge ED (Routine); Ordered 10/15/22 Ordered By: Yousif Neumann Referrals: Howard Kraus MD [Primary Care Provider] - Discharge Diet: Usual diet Discharge Activity: Increase activity as tolerated Patient Instructions: Opioid Safety, Pain Management Activity Restrictions/Additional Instructions: Supportive cares follow-up as needed use [id number] cough and cold medications as needed. Coding Level of Care Code ED Lawn And Garden Technician for Chg Fwd Exam Detailed
[2022-10-15 07:39] LABS: Basophils % 0.3 %; Eosinophils # 0.5 10^3/uL (0.0-0.8); Eosinophils % 6.3 %; Hematocrit 37.1 % (37.0-47.0); Hemoglobin 11.7 g/dL (11.5-15.3); Lymphocytes # 0.7 10^3/uL (0.8-4.8); Lymphocytes % 7.7 %; Mean Corpuscular HGB Conc 31.5 g/dL (30.0-36.0); Mean Corpuscular Hemoglobin 29.7 pg (28.0-34.0); Mean Corpuscular Volume 94.2 fl (81-99); Mean Platelet Volume 8.7 fL (7.4-10.4); Monocytes # 0.7 10^3/uL (0.2-0.9); Monocytes % 7.8 %; Neutrophils # 6.67 10^3/uL (1.8-7.7); Neutrophils % 77.6 %; Nucleated Red Blood Cells % 0 %; Platelet Count 204 10^3/cmm (130-400); Red Blood Count 3.94 10^6/uL (4.1-5.3); Red Cell Distribution Width 14.3 % (12.1-15.1); White Blood Count 8.6 10^3/uL (4.0-10.0)
[2022-10-15 08:10] LABS: Alanine Aminotransferase 39 U/L (0-33); Albumin Level 3.8 g/dL (3.5-5.2); Alkaline Phosphatase 91 U/L (35-105); Anion Gap 15.9 (5-19); Aspartate Amino Transferase 31 U/L (0-32); Blood Urea Nitrogen 13 mg/dL (8-23); Calcium 9.6 mg/dL (8.5-10.5); Carbon Dioxide 24 mmol/L (22-29); Chloride 101 mmol/L (98-107); Globulin 3.4 g/dL (1.3-4.6); Glucose 141 mg/dL (65-115); Osmolality Calculated 284 mOsm/kg (285-295); Potassium 4.9 mmol/L (3.5-5.1); Sodium 136 mmol/L (136-145); Total Bilirubin 0.4 mg/dL (0.15-1.2); Total Protein 7.2 g/dL (6.6-8.7); Troponin(5th) Baseline 14 ng/L (0-10)
--- NOTE | 2022-10-15 09:17 | ECG_ITS ---
[facility] Test Date: 2022-10-15 Pat Name: Maria Del Carmen Ansari Department: Room: Gender: Female Hammer Heater: : 1950 Requested By: Yousif Bell Order Number: [id number] Tremaine MD: Juan Horne M.D. Measurements Intervals [place] Rate: 84 P: 26 MT: 158 QRS: 38 QRSD: 96 T: 64 QT: 355 QTc: 421 Interpretive Statements SINUS RHYTHM Compared to ECG 09/21/2022 10:21:21 No significant changes Electronically Signed On 10-15-2022 20:45:04 TOP STITCHER by Juan Horne M.D. [email or web address]/[id number]
[2022-10-15 09:36] LABS: Troponin 5 2HR 13.83 ng/L (0-10)
[2022-10-15 09:37] LABS: Troponin 5 2HR Delta -0.17 ABS# (0-10)
[2022-10-15 09:54] LABS: Adenovirus Not Detected (NOT DETECT); Chlamydia Pneumoniae Not Detected (NOT DETECT); Coronavirus 229E,HKU1,NL63,OC4 Not Detected (NOT DETECT); Human Metapneumovirus Not Detected (NOT DETECT); Human Rhinovirus/Enterovirus Not Detected (NOT DETECT); Influenza A Detected (NOT DETECT); Influenza A H1 Not Detected (NOT DETECT); Influenza A H1-2009 Detected (NOT DETECT); Influenza A H3 Not Detected (NOT DETECT); Influenza B Not Detected (NOT DETECT); Mycoplasma Pneumoniae Not Detected (NOT DETECT); Parainfluenza Virus Type 1 Not Detected (NOT DETECT); Parainfluenza Virus Type 2 Not Detected (NOT DETECT); Parainfluenza Virus Type 3 Not Detected (NOT DETECT); Parainfluenza Virus Type 4 Not Detected (NOT DETECT); Respiratory Syncytial Virus A Not Detected (NOT DETECT); Respiratory Syncytial Virus B Not Detected (NOT DETECT); SARS-COV-2 Not Detected (NOT DETECT)
[2022-10-15 09:56] LABS: Results from Genmark
== END 2022-10-15 10:35 | disposition home or self-care (01) ==
PROVIDERS: Emergency Provider Family Medicine; PCP Family Medicine
DX: J10.1 Influenza due to other identified influenza virus with other respiratory manifestations (principal); Z20.822 Contact with and (suspected) exposure to COVID-19; Z79.82 Long term (current) use of aspirin; Z86.73 Personal history of transient ischemic attack (TIA), and cerebral infarction without residual deficits; I10 Essential (primary) hypertension
CPT/HCPCS: 71045; 80053; 84484; 85025; 87631; 87635; 93005; 99285

== ENCOUNTER 2022-11-03 09:44 | Emergency (ER) | payer MEDICARE, OTHER, SELFPAY ==
[2022-11-03 09:52] VITALS: BP 173/71; PULSE 73; RESP 22; TEMP 36.3; O2SAT 96; BMI 41.1
--- NOTE | 2022-11-03 10:08 | XRR_ITS ---
PROCEDURE INFORMATION: Exam: XR Left Forearm Exam date and time: 11/03/2022 10:17 AM Age: 72 years old Clinical indication: Injury or trauma; Fall; Blunt trauma (contusions or hematomas); Arm, lower; Left; Additional info: Fall, left wrist pain TECHNIQUE: Imaging protocol: Radiologic exam of the Left forearm. Views: 2 views. COMPARISON: No relevant prior studies available. FINDINGS: Bones/joints: No radial fracture identified. No ulnar fracture identified. Soft tissues: Normal. XR/XR forearm LT 2V [id number] IMPRESSION: No radial or ulnar fracture identified.
--- NOTE | 2022-11-03 10:08 | XRR_ITS ---
PROCEDURE INFORMATION: Exam: XR Left Wrist Exam date and time: 11/03/2022 10:17 AM Age: 72 years old Clinical indication: Injury or trauma; Fall; Blunt trauma (contusions or hematomas); Wrist; Left; Additional info: Fall, left wrist pain TECHNIQUE: Imaging protocol: Radiologic exam of the Left wrist. Views: 1 or 2 views. COMPARISON: No relevant prior studies available. FINDINGS: Bones/joints: The carpal bones maintain normal alignment. No dislocation identified. No abnormality at the radiocarpal or ulnocarpal joints. No fracture identified. Soft tissues: Unremarkable. XR/XR wrist LT 2V [id number] IMPRESSION: No evidence of fracture or dislocation.
--- NOTE | 2022-11-03 10:36 | W.ED.EXTPRO ---
HPI - Extremity Problem General: Chief complaint: Extremity Injury, Upper Stated complaint: fell on left wrisk Time Seen by Provider: 11/03/22 10:36 History of Present Illness: left wrist pain Review of Systems General: Reports: 10 or more systems reviewed and unremarkable except in HPI and below Musc: Reports: extremity pain (left wrist pain ), extremity swelling and joint stiffness PFSH ED PFSH: Medical History CVA (cerebral vascular accident) Hypercholesteremia Hyperglycemia Hypertension Hypothyroid Lumbar disc disease with radiculopathy Lumbar spondylosis Morbid obesity Spondylolisthesis, lumbar region Venous insufficiency of both lower extremities Surgical History H/O carpal tunnel repair H/O cataract removal with insertion of prosthetic lens H/O: hysterectomy History of arthroscopic surgery of elbow History of cholecystectomy Family History Father Cancer CAD (coronary artery disease) Mother CAD (coronary artery disease) Diabetes Hypertension Stroke Denies family history of Anesthesia complication Bleeding disorder Social History Smoking and tobacco status: never smoked Second hand smoke exposure: No Alcohol intake: never Adopted: No Caregiver/support person: Yes Lives independently: Yes Household members: spouse Housing: House Marital status: service: No Current occupational status: retired Current occupational exposures/hazards: No Pets and animals: No History of recent travel: No Sexually active: No Current gender identity: Female Ratna/[employer] Special ratna needs: No Agree to transfusion: No Financial difficulty paying for basics: Decline to Answer Physical Exam Const: COMMON NORMALS: no acute distress, patient oriented x3, no limitations and alert GENERAL APPEARANCE: cooperative and comfortable ORIENTATION/CONSCIOUSNESS: Yes awake, Yes oriented to person, Yes oriented to place and Yes oriented to time HENMT: COMMON NORMALS: normocephalic, atraumatic, external ears normal, EAC's normal, TM's normal bilaterally and Normal external nose present HEAD & SCALP: normal to inspection, normocephalic and atraumatic FACE & SINUS: normal facial exam, sinuses nontender and face symmetric NOSE: Normal external nose present, Normal nares present and No nasal discharge present EXTERNAL EAR: Yes external ears normal EXTERNAL AUDITORY CANAL: EAC's normal TYMPANIC MEMBRANE: TM's normal bilaterally MOUTH: Normal oral and palatal mucosa present, lip normal and tongue normal THROAT: posterior oropharynx normal, tonsils normal and uvula midline Eye: COMMON NORMALS: Equal, round and reactive pupils present, EOMs intact bilaterally and conjunctivae normal GENERAL EYE: appearance normal, both eyes and all related structures and normal light reflex EYELID: eyelids normal CONJUNCTIVA: Yes conjunctivae normal PUPIL: Yes Equal, round and reactive pupils present EOM: Yes EOM abnormal DIRECT OPHTHALMOSCOPY: Yes normal light reflex Neck/C-Spine: COMMON NORMALS: full ROM, no lymphadenopathy, supple, no meningeal signs, no JVD and Thyroid normal GENERAL: Yes normal visual inspection THYROID: Thyroid normal CERVICAL SPINE: Yes cervical ROM normal and Yes normal cervical lordosis Lymph: LYMPHATIC: no lymphadenopathy noted Chest: COMMONS NORMALS: normal inspection of the chest and normal palpation of entire chest wall Resp: COMMON NORMALS: normal respiratory effort, No retractions and clear to auscultation bilaterally AUSCULTATION: clear to auscultation bilaterally Cardio: COMMON NORMALS: no JVD, regular rate, regular rhythm, S1 normal heart sound present, S2 normal heart sound present, No gallops present (Cardio), No clicks present (Cardio), No murmurs present (Cardio), No rub (Cardio) and Peripheral pulses 2+ throughout RATE: regular rate RHYTHM: regular rhythm HEART SOUNDS: S1 normal heart sound present and S2 normal heart sound present PERIPHERAL PULSES: Peripheral pulses 2+ throughout GI: COMMON NORMALS: Normal to inspection, nondistended, normoactive bowel sounds present, Soft to palpation, non-tender and no masses PALPATION: Yes Soft to palpation : COMMON NORMALS: Yes no CVA tenderness and Yes normal external appearance BLADDER/KIDNEY EXAM: Yes no CVA tenderness Back/Pelvis: COMMON NORMALS: no CVA tenderness, thoracic and lumbar spine normal to inspection, no thoracic nor lumbar tenderness and thoraco-lumbar ROM normal Extremity: GENERAL: Yes normal exam except as noted LEFT UPPER EXTREMITY: Yes wrist (pain with movement and palpation, cannot clench fists without pain ) Left wrist: Yes neurovascular exam (intact) and Yes other (bruising on point of pain ) Neuro: COMMON NORMALS: patient oriented x3, moves all extremities, no focal motor deficits, no sensory deficits noted and gait normal SENSORIUM/ORIENTATION: Yes alert, Yes oriented to person, Yes oriented to place and Yes oriented to time MENINGEAL SIGNS: Yes no meningeal signs Psych: COMMON NORMALS: mental status grossly normal, Normal thought process present, cooperative, normal affect, speech normal and activity/motor behavior normal SPEECH: Yes normal speech THOUGHT PROCESS: Normal thought process present Skin: COMMON NORMALS: no rashes or lesions noted, no wounds and turgor normal GENERAL SKIN EXAM: no rashes or lesions noted and turgor normal Course ED course: Pt xray does not exhibit any displaced fx of the left hand however based on assessment and pain location, an avulsion fx still cannot be ruled out. We will splint and elevate and have follow up with ortho. Vital Signs: Vital signs: Vital Signs Temperature 97.4 F L 11/03/22 09:52 Pulse Rate 73 11/03/22 09:52 Respiratory Rate 22 H 11/03/22 09:52 Blood Pressure 173/71 11/03/22 09:52 Pulse Oximetry 96 11/03/22 09:52 Oxygen Delivery Me thod 11/03/22 09:52 MDM - Extremity (Nontraumatic) Medical Decision Making Xray negative but physical assessment cannot exclude fx-follow up with ortho and splint in place upon DC. Lab Data Radiology Impressions Forearm X-Ray 11/03/22 10:08 IMPRESSION: No radial or ulnar fracture identified. Wrist X-Ray 11/03/22 10:08 IMPRESSION: No evidence of fracture or dislocation. Discharge Plan Discharge Patient Disposition: Home Clinical Impression: Fracture of hand Condition: Stable Prescriptions: No Action sennosides [senna] 8.6 mg tablet 8.6 mg PO DAILY nitroglycerin [Nitrostat] 0.4 mg tablet, sublingual 0.4 mg SUBLINGUAL ONCE PRN (Reason: Chest Pain) Qty: 25 2RF Rx Instructions: as needed for chest pain labetalol 200 mg tablet 200 mg PO BID Qty: 180 1RF furosemide 40 mg tablet 60 mg PO DAILY Qty: 135 3RF losartan 100 mg tablet 100 mg PO DAILY Qty: 90 2RF simvastatin 40 mg tablet 40 mg PO DAILY Qty: 90 2RF alprazolam 0.5 mg tablet 0.5 mg PO BID PRN (Reason: anxiety) Qty: 45 1RF promethazine-DM 6.25-15 mg/5 mL syrup 5 ml PO Q6H PRN (Reason: cough) Qty: 240 0RF Aspir-81 81 mg Tablet,Delayed Release (Dr/Ec) 81 mg PO DAILY biotin 1 mg Tablet 1 mg PO DAILY albuterol sulfate 90 mcg/actuation HFA aerosol inhaler 2 inh INHALATION Q6H PRN (Reason: shortness of breath or wheezing) Qty: 8 0RF Discharge Orders: Discharge ED (Routine); Ordered 11/03/22 Ordered By: Alea Majano Referrals: Howard Kraus MD [Primary Care Provider] - Discharge Diet: Usual diet Discharge Activity: Increase activity as tolerated Patient Instructions: Opioid Safety, Pain Management Activity Restrictions/Additional Instructions: Follow up with ortho if pain persists. They will be contacting you this week for follow up appt. Coding Level of Care Code ED Junior Project Coordinator for Sariah Borjas
[2022-11-03] MEDS: HYDROcodone-acetaminophen 5-325 mg Tablet 1 TAB PO (11:25)
--- NOTE | 2022-11-04 11:08 | DCPLANNER ---
Addendum entered by Vicky Pool 11/08/22 14:13: airline manager received the following message from the ortho clinic regarding follow up appointment: spoke to patient - she got a call from her primary that stated no fx and she should just leave the splint on for a week and see how its doing then. she has a follow up with her primary care next week so she stated she will just keep that appt and does not need f/u with ortho at this time. Original Note: airline manager had message to schedule a follow up appointment for patient with ortho. airline manager sent patients information to the front office staff at ortho. Patients information will be printed and reviewed. Clinic will call patient with appointment information.
== END 2022-11-03 12:20 | disposition home or self-care (01) ==
PROVIDERS: Emergency Provider Nurse Practitioner Family; PCP Family Medicine
DX: S62.92XA Unspecified fracture of left hand, initial encounter for closed fracture (principal); Z79.82 Long term (current) use of aspirin; Z86.73 Personal history of transient ischemic attack (TIA), and cerebral infarction without residual deficits; I10 Essential (primary) hypertension; W19.XXXA Unspecified fall, initial encounter
CPT/HCPCS: 29125; 73090; 73100; 99283

== ENCOUNTER 2022-12-25 13:49 | Outpatient (CLI) | payer MEDICARE, OTHER, SELFPAY ==
--- NOTE | 2022-12-25 14:51 | XR_ITS ---
WS: [id number] CHEST 2 VIEWS HISTORY: persistant cough x 3 months COMPARISON: 10/15/2022 Lungs: Lung volumes are decreased. Elevation of the RIGHT hemidiaphragm is similar to prior studies. Mild pulmonary congestion. No pneumonia. Cardiac size: Normal. Mediastinum/Aorta: Mild atherosclerosis aorta. Dorsal column stimulator electrodes over the mid thora cic spine. Bones: Moderate increase in thoracic kyphosis. XR/XR chest 2V* [id number] IMPRESSION: 1. Mild vascular congestion. 2. No pneumonia. 3. Mild atherosclerosis aorta.
== END 2022-12-25 13:50 | disposition home or self-care (01) ==
PROVIDERS: PCP Family Medicine; Visit Provider Family Medicine
DX: R05.3 Chronic cough (principal); R06.00 Dyspnea, unspecified; R06.89 Other abnormalities of breathing
CPT/HCPCS: 71046; 94060; J7613

== ENCOUNTER → 2023-02-13 15:19 | Outpatient (BNVA) | payer MEDICARE, OTHER, SELFPAY | PROVIDERS: PCP Family Medicine; Visit Provider Nurse Practitioner Family | DX: I50.31 Acute diastolic (congestive) heart failure (principal); R06.00 Dyspnea, unspecified; R06.02 Shortness of breath; R07.89 Other chest pain; I10 Essential (primary) hypertension | CPT/HCPCS: 36415; 71046; 80048; 83880; 93005; 99214 ==

== ENCOUNTER 2023-02-20 13:46 | Emergency (ER) | payer MEDICARE, OTHER, SELFPAY ==
[2023-02-20 13:50] VITALS: BP 150/59; PULSE 68; RESP 17; TEMP 36.7; O2SAT 97; BMI 40.7
--- NOTE | 2023-02-20 15:34 | W.ED.GENADLT ---
HPI - General Adult General: Chief complaint: Eye Problems Stated complaint: Eye blur, Possible stroke Time Seen by Provider: 02/20/23 15:34 History of Present Illness: Ms. Ansari is a 72-year-old lady with complex past medical history including multiple strokes including left-sided vision loss presenting to the emergency department for further evaluation of right eye visual cut. She noted this past weekend and was sudden in onset. She endorses the upper portion of her vision is ricks and blurry. She has had intermittent episodes of this for the past few months however this is constant. She was evaluated by ophthalmology and referred for further evaluation for concern over embolic source of recurrent strokes. Patient otherwise denies neurologic symptoms. No other specific changes in health, exacerbating, or alleviating factors identified. Onset (ago): day(s) Severity: moderate Relieving factors: none Exacerbating factors: none Review of Systems General: Reports: 10 or more systems reviewed and unremarkable except in HPI and below PFSH ED PFSH: Medical History Anxiety CVA (cerebral vascular accident) Hypercholesteremia Hyperglycemia Hypertension Hypothyroid Lumbar disc disease with radiculopathy Lumbar spondylosis Morbid obesity Spondylolisthesis, lumbar region Venous insufficiency of both lower extremities Surgical History H/O carpal tunnel repair H/O cataract removal with insertion of prosthetic lens H/O: hysterectomy History of arthroscopic surgery of elbow History of cholecystectomy Family History Father Cancer CAD (coronary artery disease) Mother CAD (coronary artery disease) Diabetes Hypertension Stroke Denies family history of Anesthesia complication Bleeding disorder Social History Smoking and tobacco status: never smoked Second hand smoke exposure: No Alcohol intake: never Adopted: No Caregiver/support person: Yes Lives independently: Yes Household members: spouse Housing: House Marital status: service: No Current occupational status: retired Current occupational exposures/hazards: No Pets and animals: No Sexually active: No Current gender identity: Female Ratna/Adventist: Religion Special ratna needs: No Agree to transfusion: No Financial difficulty paying for basics: Decline to Answer Physical Exam Const: COMMON NORMALS: alert GENERAL APPEARANCE: cooperative and well developed HENMT: COMMON NORMALS: normocephalic and atraumatic HEAD & SCALP: normocephalic and atraumatic Eye: COMMON NORMALS: conjunctivae normal CONJUNCTIVA: Yes conjunctivae normal SCLERA: sclerae normal Neck/C-Spine: COMMON NORMALS: supple GENERAL: Yes trachea midline Resp: COMMON NORMALS: clear to auscultation bilaterally EFFORT & INSPECTION: Yes able to speak in complete sentences AUSCULTATION: clear to auscultation bilaterally Cardio: COMMON NORMALS: regular rate and regular rhythm RATE: regular rate RHYTHM: regular rhythm GI: COMMON NORMALS: Soft to palpation PALPATION: Yes Soft to palpation and No Tenderness to palpation present (GI) Extremity: GENERAL: Yes normal exam except as noted and No edema Neuro: COMMON NORMALS: moves all extremities SENSORIUM/ORIENTATION: Yes alert and No Orientation impaired OTHER: Left eye chronic vision loss, right eye superior field nasal and temporal cuts. Otherwise no focal/new neurologic deficits. Psych: COMMON NORMALS: mental status grossly normal and Normal thought process present THOUGHT PROCESS: Normal thought process present Course Vital Signs: Vital signs: Vital Signs Temperature 98.0 F 02/20/23 13:50 Pulse Rate 72 02/20/23 18:29 Respiratory Rate 16 02/20/23 18:29 Blood Pressure 184/66 02/20/23 18:29 Pulse Oximetry 99 02/20/23 18:29 Oxygen Delivery Me thod 02/20/23 17:55 MDM - General Adult Medical Decision Making 72-year-old lady presenting with multiple day history of vision changes. Patient has a history of left eye vision loss secondary to stroke and now endorses multiday history of visual changes in the superior gray of her right eye. Exam is otherwise as above. No other focal neurologic deficits/new neurologic deficits appreciated. Labs with no significant hematologic or metabolic abnormalities to explain symptoms, perhaps mild dehydration present. CT demonstrates severe stenosis of the left internal carotid artery and left middle cerebral artery occlusion as well as right common carotid stenosis and internal carotid stenosis. Incidental findings discussed with patient. Most likely etiology of patient's symptoms is branch CRAO. I discussed possible disposition options, patient prefers outpatient management. Plan to increase aspirin to full dose and start on Plavix. Increase statin. The results of ED evaluation were discussed with the patient including prescriptions and/or symptomatic cares (if applicable) including appropriate and responsible use, followup plan, and return precautions. The patient verbalized understanding and felt safe for discharge. Medical Records I reviewed the patient's medical records. Lab Data I reviewed the patient's lab results. 02/20/23 16:00 02/20/23 16:00 Radiology Impressions Head/Neck CTA 02/20/23 15:45 IMPRESSION: 1. Severe stenosis left internal carotid artery 2. Occlusion left middle cerebral artery of unknown age 3. No other large vessel occlusion is identified. IMPRESSION: 1. Right common carotid artery stenosis in the 50-60% range. 2. Stenosis in the proximal right internal carotid artery in excess of 60%. 3. Stenosis in the proximal left internal carotid artery in excess of 50%. 4. Mild mediastinal and hilar adenopathy of uncertain significance. 5. Incidental noncalcified left apical pulmonary nodule. Follow-up according to Fleischner society guidelines recommended. COMMENTS: THIS REPORT CONTAINS FINDINGS THAT MAY BE CRITICAL TO PATIENT CARE. The findings were verbally communicated via telephone conference with Yoel Espitia at 5:44 PM CDT on 02/20/2023. The findings were acknowledged and understood. REFERENCES: NASCET CRITERIA. The degree of stenosis in the cervical segment of the internal carotid artery is based on NASCET criteria. Normal is no stenosis. Mild is less than 50% stenosis. Moderate is 50-69% stenosis. Severe is 70% to 99% stenosis. Total occlusion is no detectable patent lumen. Laboratory Results WBC 7.9 10^3/uL (4.0-10.0) 02/20/23 16:00 RBC 4.44 10^6/uL (4.1-5.3) 02/20/23 16:00 Hgb 12.5 g/dL (11.5-15.3) 02/20/23 16:00 Hct 40.9 % (37.0-47.0) 02/20/23 16:00 MCV 92.1 fl (81-99) 02/20/23 16:00 MCH 28.2 pg (28.0-34.0) 02/20/23 16:00 MCHC 30.6 g/dL (30.0-36.0) 02/20/23 16:00 RDW 14.9 % (12.1-15.1) 02/20/23 16:00 Plt Count 260 10^3/cmm (130-400) 02/20/23 16:00 MPV 8.8 fL (7.4-10.4) 02/20/23 16:00 Neut % (Auto) 53.3 % 02/20/23 16:00 Lymph % (Auto) 22.7 % 02/20/23 16:00 [place] % (Auto) 11.5 % 02/20/23 16:00 Eos % (Auto) 11.3 % 02/20/23 16:00 Baso % (Auto) 0.6 % 02/20/23 16:00 Neut # (Auto) 4.21 10^3/uL (1.8-7.7) 02/20/23 16:00 Lymph # (Auto) 1.8 10^3/uL (0.8-4.8) 02/20/23 16:00 [place] # (Auto) 0.9 10^3/uL (0.2-0.9) 02/20/23 16:00 Eos # (Auto) 0.9 10^3/uL (0.0-0.8) H 02/20/23 16:00 Baso # (Auto) 0.1 10^3/uL (0.0-0.1) 02/20/23 16:00 Nucleated RBC % (auto) 0 % 02/20/23 16:00 Nucleated RBCs # 0.0 /100WBC 02/20/23 16:00 Sodium 133 mmol/L (136-145) L 02/20/23 16:00 Potassium 4.7 mmol/L (3.5-5.1) 02/20/23 16:00 Chloride 96 mmol/L (98-107) L 02/20/23 16:00 Carbon Dioxide 28 mmol/L (22-29) 02/20/23 16:00 Anion Gap 13.7 (5-19) 02/20/23 16:00 BUN 17 mg/dL (8-23) 02/20/23 16:00 Creatinine 0.8 mg/dL (0.5-0.9) 02/20/23 16:00 GFR Calculation Not Reportable 02/20/23 16:00 Glucose 105 mg/dL (65-115) 02/20/23 16:00 POC Glucose 115 mg/dL (70-110) H 02/20/23 15:51 Calculated Osmolality 278 mOsm/kg (285-295) L 02/20/23 16:00 Calcium 10.3 mg/dL (8.5-10.5) 02/20/23 16:00 Total Bilirubin 0.4 mg/dL (0.15-1.2) 02/20/23 16:00 AST 29 U/L (0-32) 02/20/23 16:00 ALT 29 U/L (0-33) 02/20/23 16:00 Alkaline Phosphatase 84 U/L (35-105) 02/20/23 16:00 Total Protein 8.1 g/dL (6.6-8.7) 02/20/23 16:00 Albumin 4.6 g/dL (3.5-5.2) 02/20/23 16:00 Globulin 3.5 g/dL (1.3-4.6) 02/20/23 16:00 Discharge Plan Discharge Patient Disposition: Home Clinical Impression: Branch retinal artery occlusion of right eye, Cerebral vascular disease, Carotid arterial disease Condition: Stable Prescriptions: New Plavix 75 mg tablet 75 mg PO DAILY Qty: 30 1RF No Action furosemide 40 mg tablet 40 mg PO DAILY@12 alprazolam 0.5 mg tablet 0.5 mg PO BID PRN (Reason: anxiety) Qty: 45 1RF labetalol 200 mg tablet 200 mg PO BID Qty: 180 1RF clonidine HCl 0.1 mg tablet 0.1 mg PO TID PRN (Reason: pressure >190/100) Qty: 30 0RF potassium chloride [Klor-Con 10] 10 mEq tablet extended release 10 meq PO DAILY Qty: 30 0RF Aspir-81 81 mg Tablet,Delayed Release (Dr/Ec) 81 mg PO QAM Nitrostat 0.4 mg Tablet, Sublingual 0.4 mg SUBLINGUAL Q5M PRN (Reason: Chest Pain) Rx Instructions: do not exceed 3 doses per episode Colace 100 mg Capsule 100 mg PO QAM Biotin-Collagen Gummies 2 tab PO QAM Centrum Silver Womens Gummies 2 tab PO QAM Advair Diskus 250-50 mcg/dose blister with device 1 inh inhalation BID PRN (Reason: unknown) simvastatin 40 mg tablet 40 mg PO BEDTIME losartan 100 mg tablet 100 mg PO QAM Discharge Orders: Discharge ED (Routine); Ordered 02/20/23 Ordered By: Yoel Espitia Referrals: Howard Kraus MD [Primary Care Provider] - Discharge Diet: Usual diet Discharge Activity: Resume usual activity Activity Restrictions/Additional Instructions: Thank you for visiting the emergency department. You were seen and evaluated for vision loss. The exact cause of your symptoms is unclear though likely secondary to retinal artery branch occlusion. You are found to have at least moderate vascular disease in the carotid and cerebral vessels. Please increase aspirin to full dose daily, I will prescribe Plavix, please continue your simvastatin. I will message case management for follow-up. Please also follow-up with your primary care provider. Return to the emergency department for any new neurologic symptoms or anything that you are concerned about and feel needs emergency department evaluation. Coding Level of Care Code ED Computer Numerical Control Operator for Sariah Borjas
--- NOTE | 2023-02-20 15:45 | CTR_ITS ---
PROCEDURE INFORMATION: Exam: CTA Head Without And With Contrast, Arteriography Exam date and time: 02/20/2023 4:34 PM Age: 72 years old Clinical indication: Visual disturbance; Sudden visual loss; Additional info: R eye visual field loss TECHNIQUE: Imaging protocol: Computed tomographic angiography of the head without and with contrast. Exam focused on the arteries. 3D rendering (Not supervised by radiologist): MIP and/or 3D reconstructed images were created by the technologist. Contrast material: OMNI 350; Contrast volume: 100 ml; Contrast route: INTRAVENOUS (IV); REPORTING DATA: Count of CT and Cardiac NM exams in prior 12 months: This patient has received 0 known CTs and 0 known cardiac nuclear medicine studies in the 12 months prior to the current study. COMPARISON: CT head wo con* [id number] 04/19/2019 12:58 PM RADIATION DOSE METRICS: Total DLP (mGy-cm): 1126 FINDINGS: ANTERIOR CIRCULATION: Right internal carotid artery: There is atherosclerotic plaque involving the blade that cavernous and clinoid portions of the right internal carotid artery with mild stenosis. Right middle cerebral artery: No occlusion or significant stenosis. No aneurysm. Right anterior cerebral artery: No occlusion or significant stenosis. No aneurysm. Left internal carotid artery: There is atherosclerotic plaque involving the left cavernous carotid artery with moderate to severe stenosis of the ophthalmic portion. Left middle cerebral artery: There is a short segment occlusion of the mid to distal left middle cerebral artery. The distal middle cerebral artery and the M2 and M3 branches are supplied via collateral flow. There are multiple small collateral branches seen in the region of the occlusion which may indicate that this is a chronic rather than acute finding. Left anterior cerebral artery: No occlusion or significant stenosis. No aneurysm. POSTERIOR CIRCULATION: Right vertebral artery: No occlusion or significant stenosis. No aneurysm. Left vertebral artery: No occlusion or significant stenosis. No aneurysm. Basilar artery: No occlusion or significant stenosis. No aneurysm. Right posterior cerebral artery: No occlusion or significant stenosis. No aneurysm. Left posterior cerebral artery: No occlusion or significant stenosis. No aneurysm. HEAD: Brain: Normal. No hemorrhage. Unremarkable white matter. No mass effect. Cerebral ventricles: Normal. No ventriculomegaly. Bones/joints: Unremarkable. No acute fracture. Paranasal sinuses: Visualized sinuses are normal. No fluid levels. Mastoid air cells: Visualized mastoids are normal. No mastoid effusion. Soft tissues: Unremarkable. PROCEDURE INFORMATION: Exam: CTA Neck Without And With Contrast Exam date and time: 02/20/2023 4:34 PM Age: 72 years old Clinical indication: Visual disturbance; Sudden visual loss; Additional info: R eye visual field loss TECHNIQUE: Imaging protocol: Computed tomographic angiography of the neck without and with contrast. 3D rendering (Not supervised by radiologist): MIP and/or 3D reconstructed images were created by the technologist. Contrast material: OMNI 350; Contrast volume: 100 ml; Contrast route: INTRAVENOUS (IV); REPORTING DATA: Count of CT and Cardiac NM exams in prior 12 months: This patient has received 0 known CTs and 0 known cardiac nuclear medicine studies in the 12 months prior to the current study. COMPARISON: CT angio chest PE protcl [id number] 05/04/2020 2:18 PM RADIATION DOSE METRICS: Total DLP (mGy-cm): 1126 FINDINGS: Right common carotid artery: There is atherosclerotic calcification of the distal right common carotid artery causing stenosis in the 50-60% range. Right internal carotid artery: There is calcified atherosclerotic plaque in the proximal right internal carotid artery causing stenosis in the proximal right internal carotid artery in excess of 60%. There is also some focal atherosclerotic plaque in the mid internal carotid artery in the right side of the neck causing mild stenosis. Right external carotid artery: No occlusion or stenosis of the origin. Left common carotid artery: No stenosis. No dissection or occlusion. Left internal carotid artery: There is calcified atherosclerotic plaque proximal left internal carotid artery causing stenosis in excess of 50%. Left external carotid artery: No occlusion or stenosis of the origin. Right vertebral artery: No stenosis. No dissection or occlusion. Left vertebral artery: No stenosis. No dissection or occlusion. Lymph nodes: There are calcified mediastinal and hilar lymph nodes in keeping with old granulomatous disease. There is mild mediastinal adenopathy with precarinal lymph node measuring 15 x 17 mm and mildly prominent hilar nodes not fully imaged on this examination but not significantly changed compared with 05/04/2020. Soft tissues: Normal. No significant soft tissue swelling. Bones/joints: No acute fracture. Lungs: There is some mild mosaic perfusion in the pulmonary apices which may be due to gas trapping. Noncalcified left upper lobe pulmonary nodule measuring 6 mm. This is not seen on 05/04/2020. Follow-up in 12 months according to Fleischner society guidelines recommended. CT/CT angio headneck* [id number] IMPRESSION: 1. Severe stenosis left internal carotid artery 2. Occlusion left middle cerebral artery of unknown age 3. No other large vessel occlusion is identified. IMPRESSION: 1. Right common carotid artery stenosis in the 50-60% range. 2. Stenosis in the proximal right internal carotid artery in excess of 60%. 3. Stenosis in the proximal left internal carotid artery in excess of 50%. 4. Mild mediastinal and hilar adenopathy of uncertain significance. 5. Incidental noncalcified left apical pulmonary nodule. Follow-up according to Fleischner society guidelines recommended. COMMENTS: THIS REPORT CONTAINS FINDINGS THAT MAY BE CRITICAL TO PATIENT CARE. The findings were verbally communicated via telephone conference with Yoel Espitia at 5:44 PM CDT on 02/20/2023. The findings were acknowledged and understood. REFERENCES: NASCET CRITERIA. The degree of stenosis in the cervical segment of the internal carotid artery is based on NASCET criteria. Normal is no stenosis. Mild is less than 50% stenosis. Moderate is 50-69% stenosis. Severe is 70% to 99% stenosis. Total occlusion is no detectable patent lumen.
[2023-02-20 15:54] LABS: Glucose Point of Care 115 mg/dL (70-110)
[2023-02-20 16:15] VITALS: BP 173/64; PULSE 76; RESP 16; O2SAT 95
[2023-02-20 16:16] LABS: Basophils # 0.1 10^3/uL (0.0-0.1); Basophils % 0.6 %; Eosinophils # 0.9 10^3/uL (0.0-0.8); Eosinophils % 11.3 %; Hematocrit 40.9 % (37.0-47.0); Hemoglobin 12.5 g/dL (11.5-15.3); Lymphocytes # 1.8 10^3/uL (0.8-4.8); Lymphocytes % 22.7 %; Mean Corpuscular HGB Conc 30.6 g/dL (30.0-36.0); Mean Corpuscular Hemoglobin 28.2 pg (28.0-34.0); Mean Corpuscular Volume 92.1 fl (81-99); Mean Platelet Volume 8.8 fL (7.4-10.4); Monocytes # 0.9 10^3/uL (0.2-0.9); Monocytes % 11.5 %; Neutrophils # 4.21 10^3/uL (1.8-7.7); Neutrophils % 53.3 %; Nucleated Red Blood Cells % 0 %; Platelet Count 260 10^3/cmm (130-400); Red Blood Count 4.44 10^6/uL (4.1-5.3); Red Cell Distribution Width 14.9 % (12.1-15.1); White Blood Count 7.9 10^3/uL (4.0-10.0)
[2023-02-20 16:39] LABS: Alanine Aminotransferase 29 U/L (0-33); Albumin Level 4.6 g/dL (3.5-5.2); Alkaline Phosphatase 84 U/L (35-105); Aspartate Amino Transferase 29 U/L (0-32); Blood Urea Nitrogen 17 mg/dL (8-23); Calcium 10.3 mg/dL (8.5-10.5); Carbon Dioxide 28 mmol/L (22-29); Chloride 96 mmol/L (98-107); Globulin 3.5 g/dL (1.3-4.6); Glucose 105 mg/dL (65-115); Osmolality Calculated 278 mOsm/kg (285-295); Sodium 133 mmol/L (136-145); Total Bilirubin 0.4 mg/dL (0.15-1.2); Total Protein 8.1 g/dL (6.6-8.7)
[2023-02-20 16:43] LABS: Anion Gap 13.7 (5-19)
[2023-02-20 16:44] LABS: Potassium 4.7 mmol/L (3.5-5.1)
[2023-02-20] MEDS: iohexol 350 mg/mL 500 mL Btl (per mL) IV (16:45)
[2023-02-20 17:55] VITALS: BP 184/66; PULSE 72; RESP 16; O2SAT 99
[2023-02-20 18:29] VITALS: BP 184/66; PULSE 72; RESP 16; O2SAT 99
--- NOTE | 2023-02-24 11:15 | DCPLANNER ---
Addendum entered by Vicky Pool 03/14/23 08:09: Patient had a follow up appointment scheduled with heart care - patient did attend appointment. Addendum entered by Vicky Pool 02/25/23 11:05: Patient has a follow up appointment scheduled for Saturday, March 04, 2023 at 3:[address] Auguste at [facility]. Original Note: dairy bar manager had message to schedule a follow up appointment for patient with cardiology. dairy bar manager sent patients information to the front office staff at [facility]. Patients information will be printed and reviewed. Clinic will call patient with appointment information.
== END 2023-02-20 18:31 | disposition home or self-care (01) ==
PROVIDERS: Emergency Provider Emergency Medicine; PCP Family Medicine
DX: H34.231 Retinal artery branch occlusion, right eye (principal); I67.9 Cerebrovascular disease, unspecified; I77.9 Disorder of arteries and arterioles, unspecified; Z79.82 Long term (current) use of aspirin; Z86.73 Personal history of transient ischemic attack (TIA), and cerebral infarction without residual deficits; I10 Essential (primary) hypertension
CPT/HCPCS: 36416; 70496; 70498; 80053; 82962; 85025; 99285; Q9967

== ENCOUNTER → 2023-03-13 13:13 | Outpatient (BNVA) | payer MEDICARE, OTHER, SELFPAY | PROVIDERS: PCP Family Medicine; Visit Provider Nurse Practitioner Family | DX: I11.0 Hypertensive heart disease with heart failure (principal); I50.31 Acute diastolic (congestive) heart failure; Z86.73 Personal history of transient ischemic attack (TIA), and cerebral infarction without residual deficits | CPT/HCPCS: 36415; 80048; 83880; 99214 ==

== ENCOUNTER 2023-03-20 07:29 | Outpatient (CLI) | payer MEDICARE, OTHER, SELFPAY ==
--- NOTE | 2023-03-10 14:08 | USCV_ITS ---
Maria Del Carmen Ansari Age: 72 Gender: F : 1950 Exam Date: 03/10/2023 14:44 Ordering Phys: Paola Galindo Technologist: [place] [facility] [place]: chest pain mumur BP: 170 / 75 HR: 81 Rhythm: Sinus Technical Quality: Adequate MEASUREMENTS (Male / Female) Normal Values 2D ECHO LV Diastolic Diameter PLAX 4.8 cm 4.2 - 5.9 / 3.9 - 5.3 cm LV Systolic Diameter PLAX 3.0 cm IVS Diastolic Thickness 1.3 cm 0.6 - 1.0 / 0.6 - 0.9 cm IVS Systolic Thickness 1.9 cm LVPW Diastolic Thickness 1.7 cm 0.6 - 1.0 / 0.6 - 0.9 cm LVPW Systolic Thickness 1.7 cm LVOT Diameter 2.0 cm LV Ejection Fraction 2D Teich 68.2 % LV Ejection Fraction MOD 2C 81.3 % LV Ejection Fraction 2C AL 80.7 % LA Diameter 5.4 cm Aorta at Sinotubular Diameter 2.9 cm M-MODE Aortic Annulus Diameter 3.9 cm LA Ao Ratio MM 1.5 MV E Point Septal Separation 1.6 cm DOPPLER AV Peak Velocity 272.8 cm/s LVOT Peak Velocity 115.0 cm/s AV Area Cont Eq vti 1.3 cm squared AV Area Cont Eq pk 1.3 cm squared MV Peak Velocity 203.0 cm/s MV Area PHT 3.9 cm squared Mitral E to A Ratio 1.7 MV E' Velocity 197.0 cm/s TR Peak Velocity 329.0 cm/s TR Peak Gradient 43.3 mmHg TV Peak E Velocity 102.0 cm/s Right Atrial Pressure 3.0 mmHg Pulmonary Artery Systolic Pressu 46.3 mmHg RV Acceleration Time 0.1 s FINDINGS Left Ventricle Left ventricle is normal in size. LV systolic function is normal with EF of 60 to 65%. No regional wall motion normalities are seen. Grade 3 diastolic dysfunction Right Ventricle Normal in size and function Right Atrium The right atrium is normal in size. Left Atrium The left atrium is normal in size. Mitral Valve Mitral valve is thickened and calcified. Mild mitral regurgitation. Mild mitral stenosis with mean gradient across mitral valve of 4.7 mmHg. Aortic Valve Aortic valve is thickened. Mild aortic stenosis with aortic valve area 1.2 cm squared and mean gradient across aortic valve of 13 mmHg. Tricuspid Valve Mild tricuspid regurgitation. Insufficient TR jet to calculate RVSP. Pulmonic Valve Not well-visualized. Pericardium Normal pericardium without effusion. Aorta Normal in size IVC Appears to be normal CONCLUSIONS LV systolic function is normal with EF of 60 to 65%. Grade 3 diastolic dysfunction Mitral valve is thickened and calcified. Mild mitral regurgitation. Mild mitral stenosis. Mild aortic stenosis. Mild tricuspid regurgitation Compared to prior echocardiogram from 2019, no significant changes are seen. Madi Rodriguez MD (Electronically Signed) Final Date: 13 March 2023 13:58 S
--- NOTE | 2023-03-20 07:45 | USCV_ITS ---
Maria Del Carmen Ansari Age: 72 Gender: F : 1950 Exam Date: 03/20/2023 07:49 Ordering Phys: Howard Kraus MD Technologist: CT Exam [place] [facility] [place] Ind[place]: Risk Factors: Previous Vascular Surgery: Right Brachial BP: / Left Brachial BP: / Right Left Velocity (cm/s) Spectral Plaque Velocity (cm/s) Spectral Plaque Syst/Diast Broadening Syst/Diast Broadening 103.60/24.30 Prox CCA 106.90/ 18.70 89.50/ 23.90 Mid CCA 82.70 / 15.40 91.70/ 26.60 Distal CCA 91.70 / 17.70 203.70/77.40 Prox ICA 41.70 / 13.90 202.80/72.40 Mid ICA 84.00 / 27.80 93.80/ 39.60 Distal ICA 87.00 / 29.00 147.30 ECA 134.00 1.97 ICA/CCA 0.81 Vertebral 63.70/ 32.60 cm/s 63.50/ 17.60 cm/s Subclavian 89.30 166.8 0 FINDINGS stenosis on rt, some portion of left ica not dopplerable due to anterior wall plq, f/u as indicated Comp 2019 CONCLUSIONS Right ICA stenosis 50-69%. Moderate atheromatous plaque right carotid bulb/ICA. Velocites progressed since 2019 Left ICA stenosis <50% by strict velocity criteria. Shadowing plaque may obscure more severe stenosis. Recommend CTA neck Normal antegrade Doppler flow noted in the right vertebral artery. Normal antegrade Doppler flow noted in the left vertebral artery. Kevin Adames MD (Electronically Signed) Final Date: 20 March 2023 11:50 S
== END 2023-03-20 07:30 | disposition home or self-care (01) ==
LOC: RAD 07:34
PROVIDERS: PCP Family Medicine; Visit Provider Family Medicine
DX: I50.31 Acute diastolic (congestive) heart failure (principal); Z09 Encounter for follow-up examination after completed treatment for conditions other than malignant neoplasm; H34.231 Retinal artery branch occlusion, right eye; I67.9 Cerebrovascular disease, unspecified; I77.9 Disorder of arteries and arterioles, unspecified; I05.9 Rheumatic mitral valve disease, unspecified; I05.0 Rheumatic mitral stenosis; I35.0 Nonrheumatic aortic (valve) stenosis; I07.1 Rheumatic tricuspid insufficiency
CPT/HCPCS: 93306; 93880

== ENCOUNTER → 2023-03-25 13:12 | Outpatient (BNVA) | payer MEDICARE, OTHER, SELFPAY | PROVIDERS: PCP Family Medicine; Visit Provider Thoracic Surgery (Cardiothoracic Vascular Surgery) | DX: I63.9 Cerebral infarction, unspecified (principal) | CPT/HCPCS: 99203 ==

== ENCOUNTER 2023-04-22 18:30 | Emergency (ER) | payer MEDICARE, OTHER, SELFPAY ==
[2023-04-22 18:44] VITALS: BP 161/77; PULSE 74; RESP 14; TEMP 36.7; O2SAT 96; BMI 40.7
--- NOTE | 2023-04-22 19:06 | ED_ITS ---
HPI - Extremity Problem General: Chief complaint: Extremity Injury, Upper Stated complaint: finger lac Time Seen by Provider: 04/22/23 19:05 History of Present Illness: 72-year-old female comes in today with injury to the distal left thumb. Patient was slicing potatoes and excellently cut her thumb. Observation note a skin flap to the distal left thumb. No bleeding at this time. Patient does not recall her last tetanus. Associated symptoms: Deny chest pain or fever(s) Review of Systems General: Reports: 10 or more systems reviewed and unremarkable except in HPI a nd below Const: Denies: fever(s) Card: Denies: chest pain Resp: Denies: dyspnea GI: Denies: vomiting Musc: Reports: extremity pain Skin/Breast: Reports: new lesions PFSH ED PFSH: Medical History (Updated 04/22/23 @ 19:25 by JERRY Camarena) Anxiety CVA (cerebral vascular accident) Hypercholesteremia Hyperglycemia Hypertension Hypothyroid Lumbar disc disease with radiculopathy Lumbar spondylosis Morbid obesity Spondylolisthesis, lumbar region Venous insufficiency of both lower extremities Surgical History H/O carpal tunnel repair H/O cataract removal with insertion of prosthetic lens H/O: hysterectomy History of arthroscopic surgery of elbow History of cholecystectomy Family History Father Cancer CAD (coronary artery disease) Mother CAD (coronary artery disease) Diabetes Hypertension Stroke Denies family history of Anesthesia complication Bleeding disorder Social History Smoking and tobacco status: never smoked Second hand smoke exposure: No Alcohol intake: never Substance/Drug Use: never Adopted: No Caregiver/support person: Yes Lives independently: Yes Household members: spouse Housing: House Marital status: service: No Current occupational status: retired Current occupational exposures/hazards: No Pets and animals: No Sexually active: No Do you think of yourself as: Straight/Heterosexual Current gender identity: Female Ratna/Shinto: Zoroastrian Special ratna needs: No Agree to transfusion: No Financial difficulty paying for basics: Decline to Answer Physical Exam Const: COMMON NORMALS: alert HENMT: COMMON NORMALS: normocephalic HEAD & SCALP: normocephalic Neck/C-Spine: COMMON NORMALS: full ROM Resp: COMMON NORMALS: normal respiratory effort Cardio: COMMON NORMALS: regular rate RATE: regular rate Back/Pelvis: COMMON NORMALS: thoracic and lumbar spine normal to inspection Extremity: LEFT UPPER EXTREMITY: Yes hand & digits (Left thumb has a flap laceration distal pad) Left hand and digits: Yes inspection, Yes palpation, Yes ROM and Yes neurovascular exam Neuro: SENSORIUM/ORIENTATION: Yes alert Skin: TRAUMA: laceration (Flap distal pad left thumb) flap Procedures Laceration Laceration 1: Site: hand Side (If applicable): left Size (cm): 1 Description: flap Depth: simple, single layer Pre-repair: wound explored Skin layer closed with: other (Skin adhesive) Course Vital Signs: Vital signs: Vital Signs Temperature 98.1 F 04/22/23 18:44 Pulse Rate 69 04/22/23 19:46 Respiratory Rate 16 04/22/23 19:46 Blood Pressure 161/77 04/22/23 18:44 Pulse Oximetry 97 04/22/23 19:46 Oxygen Delivery Me thod Room Air 04/22/23 18:44 MDM - Extremity (Nontraumatic) Medical Decision Making Patient comes in for an injury to the distal left thumb. On exam patient has a little skin flap approximate 1 cm to the left distal thumb pad. Patient has normal range of motion. Remainder of exam is unremarkable. Differential diagnosis includes a foreign body, fracture, laceration. No signs of fracture or foreign body is noted. Reviewed exam with patient recommended treatment with skin adhesive and follow-up. Patient reported understanding agreed to plan. Postprocedure care and instruction was viewed. Patient reported understanding. Discharge Plan Discharge Patient Disposition: Home Clinical Impression: Laceration of left thumb Qualifiers: Encounter type: initial encounter Damage to nail status: without damage Foreign body presence: without foreign body Qualified Code(s): S61.012A - Laceration without foreign body of left thumb without damage to nail, initial encounter Condition: Stable Prescriptions: No Action furosemide 40 mg tablet 40 mg PO DAILY@12 labetalol 200 mg tablet 200 mg PO BID Qty: 180 1RF clonidine HCl 0.1 mg tablet 0.1 mg PO TID PRN (Reason: pressure >190/100) Qty: 30 0RF potassium chloride [Klor-Con 10] 10 mEq tablet extended release 10 meq PO DAILY Qty: 90 2RF alprazolam 0.5 mg tablet 0.5 mg PO BID PRN (Reason: anxiety) Qty: 45 3RF Nitrostat 0.4 mg Tablet, Sublingual 0.4 mg SUBLINGUAL Q5M PRN (Reason: Chest Pain) Rx Instructions: do not exceed 3 doses per episode Colace 100 mg Capsule 100 mg PO QAM Biotin-Collagen Gummies 2 tab PO QAM Centrum Silver Womens Gummies 2 tab PO QAM Advair Diskus 250-50 mcg/dose blister with device 1 inh inhalation BID PRN (Reason: unknown) simvastatin 40 mg tablet 40 mg PO BEDTIME losartan 100 mg tablet 100 mg PO QAM Plavix 75 mg tablet 75 mg PO DAILY Qty: 30 1RF aspirin 81 mg tablet,delayed release (DR/EC) 325 mg PO QAM Discharge Orders: Discharge ED (Routine); Ordered 04/22/23 Ordered By: Jonathan Gu Referrals: Howard Kraus MD [Primary Care Provider] - Discharge Diet: Usual diet Discharge Activity: Increase activity as tolerated Patient Instructions: Finger Laceration (ED) Activity Restrictions/Additional Instructions: Allow dressing and adhesive to come off on its own. Keep the wound clean and dry as much as possible. Follow-up with primary care in 3 to 4 days for recheck. Return to ED for new concerns. Coding Level of Care Code ED Web User Experience Strategist for Sariah Borjas
[2023-04-22] MEDS: tetanus-dipt-pertussis 0.5 mL SDV IM (19:28)
[2023-04-22 19:46] VITALS: PULSE 69; RESP 16; O2SAT 97
== END 2023-04-22 19:47 | disposition home or self-care (01) ==
PROVIDERS: Emergency Provider Nurse Practitioner Family; PCP Family Medicine
DX: S61.011A Laceration without foreign body of right thumb without damage to nail, initial encounter (principal); W26.0XXA Contact with knife, initial encounter; Y93.G1 Activity, food preparation and clean up; Z23 Encounter for immunization
CPT/HCPCS: 12001; 90471; 90715; 99282

== ENCOUNTER 2023-06-26 11:19 | Inpatient (IN) | payer MEDICARE, OTHER, SELFPAY ==
[2023-06-26] VITALS (8 sets, daily range): BP systolic 119–188; BP diastolic 45–79; PULSE 66–77; RESP 18–24; TEMP 36.6–36.7; O2SAT 96–99
--- NOTE | 2023-06-26 11:34 | ED_ITS ---
HPI - Weakness General: Chief complaint: Weakness Stated complaint: SOB/weakness Time Seen by Provider: 06/26/23 11:23 History of Present Illness: Ms. Ansari is a 73-year-old lady with history of hypertension, obesity, diastolic heart failure, mild valvular heart disease, prior stroke presenting to the emergency department for generalized illness. She notes onset of symptoms approximately 1 week ago. Since that time she has had marked dyspnea on exertion, increased fatigue and somnolence, dry cough, nausea, generalized malaise. She also notes significantly lower blood pressure than typical for her today. Overall course of symptoms has worsened. Moderate to severe in int ensity. No other specific changes in health, exacerbating, or alleviating factors identified. Onset (ago): week(s) Severity: severe Exacerbating factors: exertion Associated symptoms: Reports chest pain, decreased appetite, nausea and short of breath Review of Systems General: Reports: 10 or more systems reviewed and unremarkable except in HPI and below Card: Reports: chest pain GI: Reports: nausea PFSH ED PFSH: Medical History Anxiety CVA (cerebral vascular accident) Hypercholesteremia Hyperglycemia Hypertension Hypothyroid Lumbar disc disease with radiculopathy Lumbar spondylosis Morbid obesity Spondylolisthesis, lumbar region Venous insufficiency of both lower extremities Surgical History H/O carpal tunnel repair H/O cataract removal with insertion of prosthetic lens H/O: hysterectomy History of arthroscopic surgery of elbow History of cholecystectomy Family History Father Cancer CAD (coronary artery disease) Mother CAD (coronary artery disease) Diabetes Hypertension Stroke Denies family history of Anesthesia complication Bleeding disorder Social History Smoking and tobacco status: never smoked Second hand smoke exposure: No Alcohol intake: never Substance/Drug Use: never Adopted: No Caregiver/support person: Yes Lives independently: Yes Household members: spouse Housing: House Marital status: service: No Current occupational status: retired Current occupational exposures/hazards: No Pets and animals: No Sexually active: No Do you think of yourself as: Straight/Heterosexual Current gender identity: Female Ratna/Spiritism: Yazdanism Special ratna needs: No Agree to transfusion: No Financial difficulty paying for basics: Decline to Answer Physical Exam Const: COMMON NORMALS: alert GENERAL APPEARANCE: cooperative and well developed HENMT: COMMON NORMALS: normocephalic and atraumatic HEAD & SCALP: normocephalic and atraumatic Eye: COMMON NORMALS: conjunctivae normal CONJUNCTIVA: Yes conjunctivae normal SCLERA: sclerae normal Neck/C-Spine: COMMON NORMALS: supple GENERAL: Yes trachea midline Resp: COMMON NORMALS: clear to auscultation bilaterally EFFORT & INSPECTION: Yes able to speak in complete sentences AUSCULTATION: clear to au scultation bilaterally Cardio: COMMON NORMALS: regular rate and regular rhythm RATE: regular rate RHYTHM: regular rhythm GI: COMMON NORMALS: Soft to palpation PALPATION: Yes Soft to palpation and No Tenderness to palpation present (GI) Extremity: GENERAL: Yes normal exam except as noted and No edema Neuro: COMMON NORMALS: moves all extremities SENSORIUM/ORIENTATION: Yes sana rt and No Orientation impaired Psych: COMMON NORMALS: mental status grossly normal and Normal thought process present THOUGHT PROCESS: Normal thought process present Course Vital Signs: Vital signs: Vital Signs Temperature 98.5 F 07/02/23 16:43 Pulse Rate 71 07/02/23 16:43 Respiratory Rate 25 H 07/02/23 16:43 Blood Pressure 125/73 07/02/23 16:43 Pulse Oximetry 100 07/02/23 16:43 Oxygen Delivery Me thod Nasal Cannula 07/02/23 08:00 Oxygen Flow Rate 2 07/02/23 08:00 MDM - Weakness Medical Decision Making 73-year-old lady presenting with generalized illness including nonproductive cough, shortness of breath, malaise. Exam as above. Nontoxic. EKG demonstrates sinus rhythm with nonspecific ST segment abnormalities, no STEMI. Labs with no leukocytosis, normocytic anemia, mild thrombocytopenia. Metabolic panel with hyponatremia and evidence of metabolic stress possibly from dehydration. Minimal transaminitis noted. Negative range 2-hour delta troponin. Possible UTI. Chest x-ray with no lobar consolidation or pneumothorax. Most likely etiology of symptoms based on history is heart failure exacerbation. The results of ED evaluation were discussed with the patient including plan for admission due to requirement for level of care not available if discharged to prevent significant worsening/deterioration. Patient agreeable with plan. Discussed with hospitalist service who was agreeable to admit patient. Medical Records I reviewed the patient's medical records. Lab Data I reviewed the patient's lab results. 07/02/23 04:11 07/02/23 04:11 Radiology Impressions Chest CTA 06/27/23 16:20 IMPRESSION: 1. No evidence of pulmonary embolism. 2. Stable right-sided pulmonary nodules common no further follow-up necessary. Chest X-Ray 07/01/23 23:31 IMPRESSION: Cardiomegaly and mild pulmonary vascular congestion. Laboratory Results WBC 5.4 10^3/uL (4.0-10.0) 06/27/23 03:10 RBC 3.51 10^6/uL (4.1-5.3) L 06/27/23 03:10 Hgb 10.1 g/dL (11.5-15.3) L 06/27/23 03:10 Hct 30.3 % (37.0-47.0) L 06/27/23 03:10 MCV 86.3 fl (81-99) 06/27/23 03:10 MCH 28.8 pg (28.0-34.0) 06/27/23 03:10 MCHC 33.3 g/dL (30.0-36.0) 06/27/23 03:10 RDW 15.9 % (12.1-15.1) H 06/27/23 03:10 Plt Count 147 10^3/cmm (130-400) 06/27/23 03:10 MPV 9.5 fL (7.4-10.4) 06/27/23 03:10 Neut % (Auto) 58.9 % 06/27/23 03:10 Lymph % (Auto) 19.3 % 06/27/23 03:10 [place] % (Auto) 17.3 % 06/27/23 03:10 Eos % (Auto) 2.4 % 06/27/23 03:10 Baso % (Auto) 0.6 % 06/27/23 03:10 Neut # (Auto) 3.18 10^3/uL (1.8-7.7) 06/27/23 03:10 Lymph # (Auto) 1.0 10^3/uL (0.8-4.8) 06/27/23 03:10 [place] # (Auto) 0.9 10^3/uL (0.2-0.9) 06/27/23 03:10 Eos # (Auto) 0.1 10^3/uL (0.0-0.8) 06/27/23 03:10 Baso # (Auto) 0.0 10^3/uL (0.0-0.1) 06/27/23 03:10 Nucleated RBC % (auto) 0 % 06/27/23 03:10 Nucleated RBCs # 0.0 /100WBC 06/27/23 03:10 Specimen Type Venous 06/26/23 11:50 Sample Site Not specified 06/26/23 11:50 Artur Test N/a 06/26/23 11:50 VBG pH 7.53 (7.32-7.42) H 06/26/23 11:50 VBG pCO2 26.1 mmHg (41-51) L 06/26/23 11:50 VBG pO2 40.2 mmHg (25-40) H 06/26/23 11:50 VBG HCO3 21.8 mmol/L (24-28) L 06/26/23 11:50 VBG Base Excess 0.2 mmol/L (-3.0-3.0) 06/26/23 11:50 VBG Hematocrit 36.4 % (37-47) L 06/26/23 11:50 O2 Delivery Device Not Reportable 06/26/23 11:50 Program Engineer ID Yoana 06/26/23 11:50 Blood Gas Notified Time 1206 06/26/23 11:50 Sodium 127 mmol/L (136-145) L 06/27/23 03:10 Potassium 4.1 mmol/L (3.5-5.1) 06/27/23 03:10 Chloride 92 mmol/L (98-107) L 06/27/23 03:10 Carbon Dioxide 24 mmol/L (22-29) 06/27/23 03:10 Anion Gap 15.1 (5-19) 06/27/23 03:10 BUN 17 mg/dL (8-23) 06/27/23 03:10 Creatinine 0.7 mg/dL (0.5-0.9) 06/27/23 03:10 GFR Calculation Not Reportable 06/27/23 03:10 Glucose 131 mg/dL (65-115) H 06/27/23 03:10 POC Glucose 157 mg/dL (70-110) H 06/26/23 11:45 Estimat Average Glucose 103 06/27/23 03:10 Hemoglobin A1c 5.2 % (4.0-6.0) 06/27/23 03:10 Calculated Osmolality 267 mOsm/kg (285-295) L 06/27/23 03:10 Calcium 8.7 mg/dL (8.5-10.5) 06/27/23 03:10 Phosphorus 3.3 mg/dL (2.5-4.5) 06/27/23 03:10 Magnesium 2.0 mg/dL (1.7-2.3) 06/27/23 03:10 Total Bilirubin 1.0 mg/dL (0.15-1.2) 06/27/23 03:10 AST 56 U/L (0-32) H 06/27/23 03:10 ALT 55 U/L (0-33) H 06/27/23 03:10 Alkaline Phosphatase 80 U/L (35-105) 06/27/23 03:10 Troponin T Baseline 17 ng/L (0-10) H 06/26/23 11:50 Troponin T 120 Minute 17.69 ng/L (0-10) H 06/26/23 14:11 Delta Troponin T 0.69 ABS# (0-10) 06/26/23 14:11 Troponin T Hi Sens 6Hr 13.78 ng/L (0-10) H 06/26/23 17:37 Troponin T Hi Sens 6Hr Delta -3.22 ng/L (0-12) L 06/26/23 17:37 C-Reactive Protein 39.9 mg/L (0.0-4.9) H 06/26/23 11:50 NT-Pro-B Natriuret Pep 524 pg/mL (0-125) H 06/27/23 03:10 Total Protein 6.7 g/dL (6.6-8.7) 06/27/23 03:10 Albumin 4.2 g/dL (3.5-5.2) 06/27/23 03:10 Globulin 2.5 g/dL (1.3-4.6) 06/27/23 03:10 Triglycerides 317 mg/dL (0-150) H 06/27/23 03:10 Cholesterol 144 mg/dL (0-200) 06/27/23 03:10 LDL Cholesterol, Calc 55 mg/dL (50-129) 06/27/23 03:10 HDL Cholesterol 26 mg/dL (60-100) L 06/27/23 03:10 LDL/HDL Ratio 2.12 RATIO (0.00-3.22) 06/27/23 03:10 Cholesterol/HDL Ratio 5.54 mg/dL (0.0-4.40) H 06/27/23 03:10 Procalcitonin 0.43 ng/mL (0-0.5) 06/26/23 11:50 TSH 3.76 uIU/mL (0.27-4.20) 06/26/23 11:50 Urine Color Yellow (Yellow) 06/26/23 15:48 Urine Appearance Clear (CLEAR) 06/26/23 15:48 Urine pH 6 (5-7) 06/26/23 15:48 Ur Specific [place] 1.005 (1.005-1.030) 06/26/23 15:48 Urine Protein Neg (Negative) 06/26/23 15:48 Urine Glucose (UA) Norm (Normal) 06/26/23 15:48 Urine Ketones Negative (Negative) 06/26/23 15:48 Urine Blood Neg (Negative) 06/26/23 15:48 Urine Nitrate Positive (Negative) H 06/26/23 15:48 Urine Bilirubin Neg (Negative) 06/26/23 15:48 Urine Urobilinogen Norm mg/dL (Negative) 06/26/23 15:48 Ur Leukocyte Esterase Trace (Negative) H 06/26/23 15:48 Urine RBC 0-4 /hpf (0-2) H 06/26/23 15:48 Urine WBC 5-10 /hpf (0-5) H 06/26/23 15:48 Ur Squamous Epith Cells 0-4 /hpf (0-5) H 06/26/23 15:48 Amorphous Sediment Not Reportable 06/26/23 15:48 Urine Bacteria 4+ /hpf (NONE) H 06/26/23 15:48 Nasal Influ A H1 2008 PCR Not detected (NOT DETECT) 06/26/23 11:49 Adenovirus (PCR) Not detected (NOT DETECT) 06/26/23 11:49 C. pneumoniae DNA (PCR) Not detected (NOT DETECT) 06/26/23 11:49 Coronavirus 229E (PCR) Not detected (NOT DETECT) 06/26/23 11:49 Human Metapneumovir PCR Not detected (NOT DETECT) 06/26/23 11:49 Influenza A (H1) PCR Not detected (NOT DETECT) 06/26/23 11:49 Influenza A (H3) PCR Not detected (NOT DETECT) 06/26/23 11:49 Influenza Type A (PCR) Not detected (NOT DETECT) 06/26/23 11:49 Influenza Type B (PCR) Not detected (NOT DETECT) 06/26/23 11:49 M. pneumoniae (PCR) Not detected (NOT DETECT) 06/26/23 11:49 Parainfluenza 1 (PCR) Not detected (NOT DETECT) 06/26/23 11:49 Parainfluenza 2 (PCR) Not detected (NOT DETECT) 06/26/23 11:49 Parainfluenza 3 (PCR) Not detected (NOT DETECT) 06/26/23 11:49 Parainfluenza 4 (PCR) Not detected (NOT DETECT) 06/26/23 11:49 RSV Type A (PCR) Not detected (NOT DETECT) 06/26/23 11:49 RSV Type B (PCR) Not detected (NOT DETECT) 06/26/23 11:49 Entero/Rhino (PCR) Not detected (NOT DETECT) 06/26/23 11:49 SARS-CoV-2 (PCR) Not detected (NOT DETECT) 06/26/23 11:49 Discharge Plan Discharge Patient Disposition: Placed in Observation Admit Provider: Artie Bliss Clinical Impression: Acute on chronic diastolic (congestive) heart failure Discharge Diet: Cardiac Discharge Activity: Resume usual activity Coding Level of Care Code ED Assistant Production Manager for Sariah Borjas
--- NOTE | 2023-06-26 11:40 | XR_ITS ---
WS: [id number] Portable AP upright chest, 06/26/2023 Clinical Data: sob Comparison: Two-view chest, 02/13/2023 Findings: No nodules, masses or effusions are seen. The heart is normal. The pulmonary vascularity is not increased. No pneumonia or pneumothorax is seen. The right diaphragm is elevated but unchanged. The aortic arch and descending thoracic aorta show calcification. There is probably a mitral valve ca lcification. There are epidural stimulator leads in the mid thoracic region. The patient's clothing o bscure is minimal detail. XR/XR chest 1V portable [id number] Impression: Atherosclerosis.
--- NOTE | 2023-06-26 11:47 | ECG_ITS ---
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 Measurements Intervals Cook Rate: 70 P: 240 GA: 366 QRS: 44 QRSD: 93 T: 50 QT: 414 QTc: 447 Interpretive Statements Baseline artifact prevents rhythm assessment Regular, narrow complex rhythm Compared to ECG 10/15/2022 09:17:32 Sinus rhythm no longer present Electronically Signed On 06-26-2023 15:30:51 CDT by Madi Rodriguez M.D. [id number]
[2023-06-26 11:50] LABS: Glucose Point of Care 157 mg/dL (70-110)
[2023-06-26 12:00] LABS: Basophils % 0.8 %; Eosinophils # 0.1 10^3/uL (0.0-0.8); Eosinophils % 1.4 %; Hematocrit 33.4 % (37.0-47.0); Lymphocytes % 20.4 %; Mean Corpuscular HGB Conc 32.9 g/dL (30.0-36.0); Mean Corpuscular Hemoglobin 29.3 pg (28.0-34.0); Mean Corpuscular Volume 88.8 fl (81-99); Mean Platelet Volume 9.4 fL (7.4-10.4); Monocytes # 0.9 10^3/uL (0.2-0.9); Monocytes % 17.6 %; Neutrophils # 2.87 10^3/uL (1.8-7.7); Nucleated Red Blood Cells % 0 %; Platelet Count 125 10^3/cmm (130-400); Red Blood Count 3.76 10^6/uL (4.1-5.3); Red Cell Distribution Width 15.9 % (12.1-15.1)
[2023-06-26 12:02] LABS: Base Excess VBG 0.2 mmol/L (-3.0-3.0); Blood Gas Sample Site Not specified; Blood Gas Sample Type Venous; HCO3 VBG 21.8 mmol/L (24-28); PCO2 VBG 26.1 mmHg (41-51); PO2 VBG 40.2 mmHg (25-40); Venous Blood Gas Hematocrit 36.4 % (37-47); pH VBG 7.53 (7.32-7.42)
[2023-06-26 12:06] LABS: Blood Gas CCRB Time 1206
[2023-06-26 12:38] LABS: NT Pro B Type Natriuretic Pept 560 pg/mL (0-125); Procalcitonin 0.43 ng/mL (0-0.5); Thyroid Stimulating Hormone 3.76 uIU/mL (0.27-4.20)
[2023-06-26 12:49] LABS: Alanine Aminotransferase 59 U/L (0-33); Albumin Level 3.7 g/dL (3.5-5.2); Alkaline Phosphatase 73 U/L (35-105); Aspartate Amino Transferase 67 U/L (0-32); Blood Urea Nitrogen 15 mg/dL (8-23); C Reactive Protein 39.9 mg/L (0.0-4.9); Calcium 9.4 mg/dL (8.5-10.5); Carbon Dioxide 17 mmol/L (22-29); Chloride 93 mmol/L (98-107); Globulin 3.3 g/dL (1.3-4.6); Glucose 146 mg/dL (65-115); Osmolality Calculated 265 mOsm/kg (285-295); Sodium 126 mmol/L (136-145); Total Bilirubin 1.1 mg/dL (0.15-1.2)
[2023-06-26 12:50] LABS: Anion Gap 20.3 (5-19); Potassium 4.3 mmol/L (3.5-5.1)
[2023-06-26 13:03] LABS: Troponin(5th) Baseline 17 ng/L (0-10)
[2023-06-26 13:41] LABS: Adenovirus Not Detected (NOT DETECT); Chlamydia Pneumoniae Not Detected (NOT DETECT); Coronavirus 229E,HKU1,NL63,OC4 Not Detected (NOT DETECT); Human Metapneumovirus Not Detected (NOT DETECT); Human Rhinovirus/Enterovirus Not Detected (NOT DETECT); Influenza A Not Detected (NOT DETECT); Influenza A H1 Not Detected (NOT DETECT); Influenza A H1-2009 Not Detected (NOT DETECT); Influenza A H3 Not Detected (NOT DETECT); Influenza B Not Detected (NOT DETECT); Mycoplasma Pneumoniae Not Detected (NOT DETECT); Parainfluenza Virus Type 1 Not Detected (NOT DETECT); Parainfluenza Virus Type 2 Not Detected (NOT DETECT); Parainfluenza Virus Type 3 Not Detected (NOT DETECT); Parainfluenza Virus Type 4 Not Detected (NOT DETECT); Respiratory Syncytial Virus A Not Detected (NOT DETECT); Respiratory Syncytial Virus B Not Detected (NOT DETECT); SARS-COV-2 Not Detected (NOT DETECT)
--- NOTE | 2023-06-26 13:46 | ECG_ITS ---
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 Measurements Intervals [place] Rate: 66 P: 13 NM: 353 QRS: 42 QRSD: 91 T: 53 QT: 408 QTc: 431 Interpretive Statements BASELINE ARTIFACT. POSSIBLE NORMAL SINUS RHYTHM Electronically Signed On 06-26-2023 16:05:35 CDT by Madi Rodriguez M.D. [id number]
[2023-06-26] MEDS: sodium chloride 0.9% 500 ML 999 ML IV (14:12)
[2023-06-26 14:52] LABS: Troponin 5 2HR 17.69 ng/L (0-10)
[2023-06-26 14:54] LABS: Troponin 5 2HR Delta 0.69 ABS# (0-10)
--- NOTE | 2023-06-26 15:35 | PM.HP ---
Providers/Chief Complaint Admitting Physician: Dr. Bliss Primary Care Provider: Howard Kraus MD Chief Complaint: SOB/weakness History of Present Illness Maria Del Carmen Ansari is a 73 year old female with Hx of HTN, HLD, HFpEF with diastolic HF, mild valvular heart disease, Hx of CVA, anxiety/depression and obesity presented to ED with SOB. onset 1 week. Associated with KELLY, SOB, fatigue, somnolence, dry cough, N, malaise. states it feels like when she had HF in past. SOB and KELLY, some difficulty eating 2/2 SOB, unable to walk more than 20ft without SOB, shaking. states symptoms of SOB have progressively worsened over past 1 week. Sleeps in a recliner, not as beneficial over past few days. has been able to urinate but has decreased over past days. No changes of medication changes or hospitalizations. Admits to medication compliance. pt states she uses lasix 40mg on a PRN basis but gets terrible leg cramps. last seen by cardiology 03/16, scheduled for AM appointment. Has not used clonidine in some time, used on PRN basis. currently taking ASA and plavix since CVA 2 months ago in eyes. Denies V/D/C, abd pain, productive cough. Review of Systems General: Reports: 10 or more systems reviewed and unremarkable except in HPI and below Const: Reports: fatigue and malaise; Denies: fever(s) or chills Eyes: Denies: change in vision or blurry vision ENMT: Denies: throat pain, odynophagia or hoarseness Card: Reports: dyspnea on exertion; Denies: chest pain or palpitations Resp: Reports: dyspnea; Denies: productive cough, non-productive cough or wheezing GI: Denies: abdominal pain, nausea, vomiting, diarrhea or constipation Musc: Denies: neck pain, back pain or joint pain Skin/Breast: Denies: rash or new lesions Neuro: Denies: headache(s), numbness in extremities or weakness in extremities Medications/Allergies Home Medications Medication Instructions Recorded Confirmed Last Taken Type clonidine HCl 0.1 mg tablet 0.1 mg PO TID PRN pressure 12/23/22 06/26/23 Unknown Rx >190/100 #30 tabs clopidogrel 75 mg tablet (Plavix) 75 mg PO DAILY #30 tabs 02/20/23 06/26/23 06/26/23 Rx docusate sodium 100 mg capsule 100 mg PO QAM 02/20/23 06/26/23 06/26/23 History (Colace) nitroglycerin 0.4 mg sublingual 0.4 mg sublingual Q5M PRN Chest 02/20/23 06/26/23 Unknown History tablet (Nitrostat) Pain simvastatin 40 mg tablet 40 mg PO BEDTIME 02/20/23 06/26/23 06/25/23 History potassium chloride 10 mEq 10 meq PO DAILY #90 tabs 03/13/23 06/26/23 06/26/23 Rx tablet,extended release (Klor-Con) furosemide 40 mg tablet 40 mg PO DAILY@12 PRN Edema 03/25/23 06/26/23 Unknown History alprazolam 0.5 mg tablet 0.5 mg PO BID PRN anxiety #45 tabs 03/27/23 06/26/23 Unknown Rx losartan 100 mg tablet 100 mg PO QAM #90 tabs 05/20/23 06/26/23 06/26/23 Rx labetalol 200 mg tablet 200 mg PO BID #180 tabs 06/23/23 06/26/23 06/26/23 Rx aspirin 325 mg tablet 325 mg PO DAILY 06/26/23 06/26/23 06/26/23 History biotin 10,000 mcg chewable tablet 20,000 mcg PO DAILY 06/26/23 06/26/23 06/26/23 History (Hair, Skin and Nails (biotin)) multivit with 1 tab PO DAILY 06/26/23 06/26/23 06/26/23 History [id number]-[id number]-JD-lutein 8 mg iron-400 mcg-300 mcg tablet (Centrum Silver Women) Allergies Allergy/AdvReac Type Severity Reaction Status Date / Time No Known Allergies Allergy Verified 06/26/23 11:33 PFSH Acute PFSH: Medical History Anxiety CVA (cerebral vascular accident) Hypercholesteremia Hyperglycemia Hypertension Hypothyroid Lumbar disc disease with radiculopathy Lumbar spondylosis Morbid obesity Spondylolisthesis, lumbar region Venous insufficiency of both lower extremities Surgical History H/O carpal tunnel repair H/O cataract removal with insertion of prosthetic lens H/O: hysterectomy History of arthroscopic surgery of elbow History of cholecystectomy Family History Father Cancer CAD (coronary artery disease) Mother CAD (coronary artery disease) Diabetes Hypertension Stroke Denies family history of Anesthesia complication Bleeding disorder Social History Smoking and tobacco status: never smoked Second hand smoke exposure: No Alcohol intake: never Substance/Drug Use: never Adopted: No Caregiver/support person: Yes Lives independently: Yes Household members: spouse Housing: House Marital status: service: No Current occupational status: retired Current occupational exposures/hazards: No Pets and animals: No Sexually active: No Do you think of yourself as: Straight/Heterosexual Current gender identity: Female Ratna/Scientology: Anabaptist Special ratna needs: No Agree to transfusion: No Financial difficulty paying for basics: Decline to Answer Vitals/I&O/Wt Last Vital Signs Temp 98.0 F 06/26/23 11:27 Pulse 68 06/26/23 14:17 Resp 18 06/26/23 11:27 BP 145/67 06/26/23 14:17 Pulse Ox 99 06/26/23 14:17 O2 Del Method Room Air 06/26/23 11:27 Weight last 48 hrs Weight 235 lb Physical Exam Narrative: General: AOx3, visible mild acute resp distress, morbidly obese, appears stated age. psych: appropriate mood and affect. good judgment and insight. Head: atraumatic, normocephalic, no mass/lesions Eyes: conjunctiva clear w/o exudate or hemorrhage. non-icteric, EOM intact, PERRLA. no signs of nystagmus Nose: nasal mucosa pink, septum midline Oropharynx: good dentition Neck: FROM, no lymphadenopathy Chest: atraumatic, symmetrical CVD: RRR, normal S1 and S2, no S3, 2/6 diastolic murmur in LSB. no rub/gallops. 2+ pulse x 4 extremities, no JVD, no carotid bruit. Lungs: distant lung sounds, crackles L lung base > R lung base. no rhonchi or wheezing. Abdomen: morbidly obese, NT, ND, soft, NABS. No hepatosplenomegaly, no mass. umbilicus midline w/o herniation Extremities: FROM and 5/5 strength in BUE and BLE. no visible joint abnormalities on active and passive ROM. Neuro: CNII-XII grossly intact. No atrophy, weakness, tremors or clonus.? 2+ DTR, no sensory abnormalities. Skin:? no rash, vesicles, lesions. Data 06/26/23 11:50 06/26/23 11:50 A&P Assessment and plan (1) Acute on chronic diastolic (congestive) heart failure: will give IV lasix 40mg x 1 will see how patient responds. likely to need additional bolus later today or in AM (2) Heart failure with preserved ejection fraction, borderline, class III: continue labetolol, lasix 40mg PO qd, losartan 100mg, KCL ECHO 03/16: EF 60-65%, G3DD. no change from 2019 pt has been taking lasix PRN, was supposed to take daily per cardiology; however, cramps in legs have limited use. has not used in weeks. (3) Hyponatremia: likely 2/2 HFpEF exacerbation will monitor in AM (4) Hyperglycemia: will get A1c (5) Anxiety: continue home regiment (6) Hypertension: continue management will diurese Qualifiers: Hypertension type: essential hypertension Qualified Code(s): I10 - Essential (primary) hypertension Plan IM lasix 40mg IPV, will re-eval continue home medications NC PRN, goal sp02>92% monitor hyponatremia blood work in AM: CBC, CMP, A1, BNP no imaging required full code [email or web address] BID 2/2 BMI Attestations Medical Necessity Statement*: obeservation, may require 2 overnight stays if no substantial improvement. Coding Level of Care Code 26867 Diagnoses Acute on chronic diastolic (congestive) heart failure I50.33 Heart failure with preserved ejection fraction, borderline, class III I50.30 Hyponatremia E87.1 Hyperglycemia R73.9 Anxiety F41.9 Hypertension I10 Hypertension type: essential hypertension
[2023-06-26] MEDS: FUROsemide 10 mg/mL SDV 4mL 40 MG IVP (16:09)
[2023-06-26 16:22] LABS: Add Urine Microscopic? YES; Bilirubin Urine Neg (Negative); Blood Urine Neg (Negative); Glucose Urine UA Norm (Normal); Ketones Urine Negative (Negative); Leukocyte Esterase Urine Trace (Negative); Nitrate Urine Positive (Negative); Protein Urine Neg (Negative); Specific Gravity, Urine 1.005 (1.005-1.030); Urine Appearance Clear (CLEAR); Urine Color Yellow (Yellow); Urobilinogen Urine Norm (Negative); pH Urine 6 (5-7)
[2023-06-26 16:23] LABS: Add Urine Culture? Yes; Bacteria Urine 4+ /hpf; RBC Urine 0-4 /hpf (0-2); Squamous Epithelial Cell Urine 0-4 /hpf (0-5)
--- NOTE | 2023-06-26 16:57 | ECG_ITS ---
[facility] Test Date: 2023-06-26 Pat Name: Maria Del Carmen Ansari Department: Room: 101 Gender: Female Wet Cotton Feeder: : 1950 Requested By: Yoel Espitia Order Number: [id number] Penaloza MD: Madi Rodriguez M.D. Measurements Intervals [place] Rate: 67 P: -80 NV: 349 QRS: 19 QRSD: 100 T: 65 QT: 409 QTc: 433 Interpretive Statements BASELINE ARTIFACT. POSSIBLE SINUS RHYTHM Compared to ECG 06/26/2023 13:46:43 No significant changes Electronically Signed On 06-26-2023 22:10:02 CDT by Madi Rodriguez M.D. [email or web address], [email or web address] On [id number]
[2023-06-26] MEDS: labetalol 200 mg Tablet PO (17:38)
[2023-06-26] MEDS: enoxaparin 40 mg/0.4 mL Syringe SUBCUT (17:38)
[2023-06-26] MEDS: famotidine 20 mg Tablet PO (17:38)
[2023-06-26 18:27] LABS: Troponin 5 6HR 13.78 ng/L (0-10)
[2023-06-26 18:29] LABS: Troponin 5 6HR Delta -3.22 ng/L (0-12)
[2023-06-26] MEDS: atorvastatin 40 mg Tablet 20 MG PO (20:48)
[2023-06-27] VITALS (11 sets, daily range): BP systolic 94–133; BP diastolic 46–68; PULSE 65–72; RESP 18–29; TEMP 36.7–37.2; O2SAT 95–98
[2023-06-27] MEDS: ALPRAZolam 0.5 mg Tablet PO (01:49)
[2023-06-27 03:25] LABS: Basophils % 0.6 %; Eosinophils # 0.1 10^3/uL (0.0-0.8); Eosinophils % 2.4 %; Hematocrit 30.3 % (37.0-47.0); Hemoglobin 10.1 g/dL (11.5-15.3); Lymphocytes % 19.3 %; Mean Corpuscular HGB Conc 33.3 g/dL (30.0-36.0); Mean Corpuscular Hemoglobin 28.8 pg (28.0-34.0); Mean Corpuscular Volume 86.3 fl (81-99); Mean Platelet Volume 9.5 fL (7.4-10.4); Monocytes # 0.9 10^3/uL (0.2-0.9); Monocytes % 17.3 %; Neutrophils # 3.18 10^3/uL (1.8-7.7); Neutrophils % 58.9 %; Nucleated Red Blood Cells % 0 %; Platelet Count 147 10^3/cmm (130-400); Red Blood Count 3.51 10^6/uL (4.1-5.3); Red Cell Distribution Width 15.9 % (12.1-15.1); White Blood Count 5.4 10^3/uL (4.0-10.0)
[2023-06-27 03:45] LABS: Alanine Aminotransferase 55 U/L (0-33); Albumin Level 4.2 g/dL (3.5-5.2); Alkaline Phosphatase 80 U/L (35-105); Anion Gap 15.1 (5-19); Aspartate Amino Transferase 56 U/L (0-32); Blood Urea Nitrogen 17 mg/dL (8-23); Calcium 8.7 mg/dL (8.5-10.5); Carbon Dioxide 24 mmol/L (22-29); Chloride 92 mmol/L (98-107); Globulin 2.5 g/dL (1.3-4.6); Glucose 131 mg/dL (65-115); Osmolality Calculated 267 mOsm/kg (285-295); Phosphorus 3.3 mg/dL (2.5-4.5); Potassium 4.1 mmol/L (3.5-5.1); Sodium 127 mmol/L (136-145); Total Protein 6.7 g/dL (6.6-8.7)
[2023-06-27 03:49] LABS: Estmated Average Glucose 103; Hemoglobin A1C 5.2 % (4.0-6.0)
[2023-06-27 03:56] LABS: Chol HDL Ratio 5.54 mg/dL (0.0-4.40); Cholesterol 144 mg/dL (0-200); HDL Cholesterol 26 mg/dL (60-100); LDL Cholesterol Calculated 55 mg/dL (50-129); LDL HDL Ratio 2.12 RATIO (0.00-3.22); NT Pro B Type Natriuretic Pept 524 pg/mL (0-125); Triglycerides 317 mg/dL (0-150)
[2023-06-27] MEDS: losartan 50 mg Tablet 100 MG PO (05:46)
[2023-06-27] MEDS: docusate sodium 100 mg Capsule PO (05:47)
[2023-06-27] MEDS: enoxaparin 40 mg/0.4 mL Syringe SUBCUT ×2 (05:47→18:05)
--- NOTE | 2023-06-27 08:10 | PM.PN ---
Subjective Subjective: seen this AM. minimal improvement after lasix administered yday. this AM BP is 126/48. Denies CP, palpitations, N/V/D/C. tolerating PO well. 1200ml UOP overnight. will further diures today. Vitals/I&O/Wt Last Vital Signs Temp 98.0 F 06/27/23 04:00 Pulse 65 06/27/23 05:18 Resp 29 H 06/27/23 04:00 BP 133/60 06/27/23 05:46 Pulse Ox 96 06/27/23 04:00 O2 Del Method Room Air 06/27/23 04:00 06/26/23 06/27/23 06/27/23 22:59 06:59 14:59 Intake Total 740 / 740 2000 / 2740 Output Total 1400 / 1400 Balance 740 / 740 600 / 1340 Weight last 48 hrs Weight 247 lb 3.2 oz Weight 235 lb Physical Exam Narrative: General: AOx3, visible mild acute resp distress, morbidly obese, appears stated age. Chest: atraumatic, symmetrical CVD: RRR, normal S1 and S2, no S3, 2/6 diastolic murmur in LSB. no rub/gallops. 2+ pulse x 4 extremities, no JVD, no carotid bruit. Lungs: distant lung sounds, faint crackles L lung base > R lung base. no rhonchi or wheezing. Abdomen: morbidly obese, NT, ND, soft, NABS. Extremities: FROM and 5/5 strength in BUE and BLE. Neuro: CNII-XII grossly intact. No atrophy or weakness, no sensory abnormalities. Skin:? no rash, vesicles, lesions. Data 06/27/23 03:10 06/27/23 03:10 A&P Assessment and plan (1) Acute on chronic diastolic (congestive) heart failure: will give additional IV lasix 40mg x 1 this AM, likely second dose in PM if BP tolerates responding slowly likely will require further diuresis in AM (2) Heart failure with preserved ejection fraction, borderline, class III: continue labetolol, lasix 40mg PO qd, losartan 100mg, KCL ECHO 03/16: EF 60-65%, G3DD. no change from 2019 pt has been taking lasix PRN, was supposed to take daily per cardiology; however, cramps in legs have limited use. has not used in weeks. likely to be discharged on daily lasix vs torsemide (3) Hyponatremia: likely 2/2 HFpEF exacerbation will monitor in AM (4) Hyperglycemia: A1c 5.2 (5) Anxiety: continue home regiment (6) Hypertension: continue management will diurese Qualifiers: Hypertension type: essential hypertension Qualified Code(s): I10 - Essential (primary) hypertension Plan IM lasix 40mg IPV, will re-cece and ricihe give additional dose in PM continue home medications NC PRN, goal sp02>92% monitor hyponatremia. likely to increase after further diuresis. blood work in AM: CBC, CMP, no imaging required full code [email or web address] 40 BID 2/2 BMI Attestations Medical Necessity Statement*: will require 2 overnight stays due to heart failure exacerbation Coding Level of Care Code 73874 Diagnoses Acute on chronic diastolic (congestive) heart failure I50.33 Heart failure with preserved ejection fraction, borderline, class III I50.30 Hyponatremia E87.1 Hyperglycemia R73.9 Anxiety F41.9 Hypertension I10 Hypertension type: essential hypertension
[2023-06-27] MEDS: clopidogrel 75 mg Tablet PO (08:11)
[2023-06-27] MEDS: aspirin 325 mg Tablet PO (08:11)
[2023-06-27] MEDS: famotidine 20 mg Tablet PO ×2 (08:11→18:05)
[2023-06-27] MEDS: FUROsemide 10 mg/mL SDV 4mL 40 MG IVP (08:56)
--- NOTE | 2023-06-27 09:46 | PC.NURSE ---
Orders to hold labetalol d/t decreased diastolic BP
[2023-06-27] MEDS: FUROsemide 40 mg Tablet PO (13:56)
--- NOTE | 2023-06-27 16:20 | CTR_ITS ---
PROCEDURE INFORMATION: Exam: CTA Chest With Contrast Exam date and time: 06/27/2023 4:54 PM Age: 73 years old Clinical indication: Shortness of breath; Additional info: SOB despite diuresis TECHNIQUE: Imaging protocol: Computed tomographic angiography of the chest with contrast. Exam focused on the arteries. 3D rendering (Not supervised by radiologist): MIP and/or 3D reconstructed images were created by the technologist. Radiation optimization: All CT scans at this facility use at least one of these dose optimization techniques: automated exposure control; mA and/or kV adjustment per patient size (includes targeted exams where dose is matched to clinical indication); or iterative reconstruction. Contrast material: OMNI 350; Contrast volume: 100 ml; Contrast route: INTRAVENOUS (IV); REPORTING DATA: Count of CT and Cardiac NM exams in prior 12 months: This patient has received [address] and 0 known cardiac nuclear medicine studies in the 12 months prior to the current study. COMPARISON: CT angio chest PE protcl [id number] 05/04/2020 2:18 PM RADIATION DOSE METRICS: Total DLP (mGy-cm): 450.53 FINDINGS: Tubes, catheters and devices: There epidural neurostimulator electrodes in the thoracolumbar spine new from the previous study. Pulmonary arteries: There is no evidence of filling defects within the pulmonary arterial circulation to suggest pulmonary embolism. Aorta: There is no thoracic aortic aneurysm or dissection. Lungs: There are multiple noncalcified right pulmonary nodules measuring up to 6 mm not significantly changed from 05/04/2020. Mosaic attenuation may represent some gas trapping from small airways disease. There is some mild basilar atelectasis on the right unchanged. No acute appearing infiltrate is identified. Pleural spaces: Unremarkable. No pneumothorax. No pleural effusion. Heart: Unremarkable. No cardiomegaly. No pericardial effusion. Coronary arteries: There is moderate atherosclerotic calcification of the coronary arteries. Lymph nodes: There are calcified hilar and mediastinal lymph nodes in keeping with old granulomatous disease. Mildly prominent mediastinal and hilar nodes unchanged from previous. No adenopathy. Diaphragm: There is chronic elevation the right hemidiaphragm. Bones/joints: Unremarkable. No acute fracture. Soft tissues: Unremarkable. CT/CT angio chest [id number] IMPRESSION: 1. No evidence of pulmonary embolism. 2. Stable right-sided pulmonary nodules common no further follow-up necessary.
[2023-06-27] MEDS: ipratropium-albuterol 3 mL Neb INHALATION (17:21)
[2023-06-27] MEDS: FUROsemide 10 mg/mL SDV 10mL 60 MG IVP (18:05)
[2023-06-27] MEDS: atorvastatin 40 mg Tablet 20 MG PO (20:32)
[2023-06-28] VITALS (60 sets, daily range): BP systolic 99–144; BP diastolic 49–62; PULSE 64–81; RESP 15–31; TEMP 36.7–37.1; O2SAT 89–98
[2023-06-28 03:30] LABS: Basophils % 0.3 %; Eosinophils # 0.3 10^3/uL (0.0-0.8); Eosinophils % 4.8 %; Hematocrit 30.6 % (37.0-47.0); Hemoglobin 10.1 g/dL (11.5-15.3); Lymphocytes # 1.3 10^3/uL (0.8-4.8); Lymphocytes % 22.3 %; Mean Corpuscular Volume 87.9 fl (81-99); Mean Platelet Volume 9.4 fL (7.4-10.4); Monocytes # 1.2 10^3/uL (0.2-0.9); Monocytes % 19.6 %; Neutrophils # 3.02 10^3/uL (1.8-7.7); Neutrophils % 51.3 %; Nucleated Red Blood Cells % 0 %; Platelet Count 162 10^3/cmm (130-400); Red Blood Count 3.48 10^6/uL (4.1-5.3); Red Cell Distribution Width 15.7 % (12.1-15.1); White Blood Count 5.9 10^3/uL (4.0-10.0)
[2023-06-28 03:51] LABS: Alanine Aminotransferase 48 U/L (0-33); Albumin Level 4.1 g/dL (3.5-5.2); Alkaline Phosphatase 80 U/L (35-105); Anion Gap 15.9 (5-19); Aspartate Amino Transferase 43 U/L (0-32); Blood Urea Nitrogen 24 mg/dL (8-23); Calcium 8.7 mg/dL (8.5-10.5); Carbon Dioxide 25 mmol/L (22-29); Chloride 94 mmol/L (98-107); Globulin 2.6 g/dL (1.3-4.6); Glucose 125 mg/dL (65-115); Osmolality Calculated 278 mOsm/kg (285-295); Potassium 3.9 mmol/L (3.5-5.1); Sodium 131 mmol/L (136-145); Total Bilirubin 0.6 mg/dL (0.15-1.2); Total Protein 6.7 g/dL (6.6-8.7)
[2023-06-28] MEDS: enoxaparin 40 mg/0.4 mL Syringe SUBCUT ×2 (04:33→17:22)
[2023-06-28] MEDS: losartan 50 mg Tablet 100 MG PO (05:05)
[2023-06-28] MEDS: docusate sodium 100 mg Capsule PO (05:05)
[2023-06-28] MEDS: aspirin 325 mg Tablet PO (08:11)
[2023-06-28] MEDS: famotidine 20 mg Tablet PO ×2 (08:11→17:22)
[2023-06-28] MEDS: clopidogrel 75 mg Tablet PO (08:11)
--- NOTE | 2023-06-28 11:52 | PM.PN ---
Subjective Subjective: Patient was seen today at bedside, her daughter was present in the room. States that patient had been ambulating short distance through the hallway when she became very short of breath again. She denies any chest pain or pressure, says that she feels very fatigued. Medications: Reviewed: Yes Vitals/I&O/Wt Last Vital Signs Temp 98.7 F 06/28/23 07:59 Pulse 71 06/28/23 07:59 Resp 23 H 06/28/23 07:59 BP 144/50 06/28/23 07:59 Pulse Ox 97 06/28/23 07:59 O2 Del Method Room Air 06/28/23 07:59 06/27/23 06/28/23 06/28/23 22:59 06:59 14:59 Intake Total 240 / 600 1800 / 2400 Output Total 1350 / 2200 1450 / 3650 Balance -1110 / -1600 350 / -1250 Weight last 48 hrs Weight 245 lb 12.8 oz Weight 247 lb 3.2 oz Physical Exam Narrative: General: Cooperative patient in mild respiratory distress. HEENT: Normocephalic, Atraumatic. External ears normal. Nasal passages patent without drainage. MMM. Heart: RRR. Resp: LCTA. Mild respiratory distress. Decreased sounds over the right lung base. Abd: Soft, non-tender. Non-distended. Extremities: No edema. Skin: No rash or lesions on exposed areas. Data 06/28/23 02:49 06/28/23 02:49 Micro: Microbiology 06/26/23 15:48 Urine Culture - Preliminary Urine,Clean Catch Gram Negative Rods Gram Negative Rods#2 A&P Assessment and plan (1) Acute on chronic diastolic (congestive) heart failure: will give additional IV lasix 40mg x 1 this AM, likely second dose in PM if BP tolerates responding slowly likely will require further diuresis in AM (2) Heart failure with preserved ejection fraction, borderline, class III: continue labetolol, lasix 40mg PO qd, losartan 100mg, KCL ECHO 03/16: EF 60-65%, G3DD. no change from 2019 pt has been taking lasix PRN, was supposed to take daily per cardiology; however, cramps in legs have limited use. has not used in weeks. likely to be discharged on daily lasix vs torsemide (3) Hyponatremia: likely 2/2 HFpEF exacerbation will monitor in AM (4) Hyperglycemia: A1c 5.2 (5) Anxiety: continue home regiment (6) Hypertension: continue management will diurese Qualifiers: Hypertension type: essential hypertension Qualified Code(s): I10 - Essential (primary) hypertension (7) UTI (urinary tract infection): Plan 73-year-old female admitted for dyspnea on exertion. Has received Lasix x2. I/O 2276/2800 mL in the last 24 hours. BUN/creatinine up to 24/1.0. BNP 524. We will hold on additional Lasix at this time. UA shows 4+ bacteria and positive nitrates. Urine culture is pending. Start Rocephin today. Will de-escalate once ID and sensitivities are available. O2 sats have been in the 90 percentile on room air. Hyponatremia at 131, stable. Recheck a.m. labs. With her ongoing shortness of breath and fatigue, we will keep her in the hospital to have cardiac stress test. She is uncertain as to when her last one was. She does endorse CVA in the last 2 months, has been on aspirin and Plavix since that time. 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 She had an echocardiogram in February of this year which showed an EF of 60 to 65% as well as grade 3 diastolic dysfunction. She does have some valvular dysfunctions. Code Status: Full IVF: None DVT PPx: Lovenox GI PPx: Pepcid ABx: Rocephin Diet: Cardiac Discharge plan: Will remain in the hospital until possibly Friday, then home after her stress test. Attestations Medical Necessity Statement*: Will need inpatient monitoring for cardiac stress test, continued dyspnea on exertion, IV antibiotics, and ID and sensitivities of UTI. Coding Level of Care Code Acute Code for Chg Fwd Moderate MDM includes number and complexity of problems actively addressed during encounter, amount and/or complexity of data reviewed/ordered and described risk of complication, morbidity or mortality of management as documented Diagnoses Acute on chronic diastolic (congestive) heart failure I50.33 Heart failure with preserved ejection fraction, borderline, class III I50.30 Hyponatremia E87.1 Hyperglycemia R73.9 Anxiety F41.9 Hypertension I10 Hypertension type: essential hypertension UTI (urinary tract infection) N39.0
[2023-06-28] MEDS: cefTRIAXone 1,000 MG in sodium chloride 0.9% (plus) 50 ML 100 MG IV (17:20)
[2023-06-28] MEDS: atorvastatin 40 mg Tablet 20 MG PO (20:14)
[2023-06-29] VITALS (9 sets, daily range): BP systolic 122–161; BP diastolic 56–89; PULSE 70–83; RESP 16–28; TEMP 36.4–37; O2SAT 95–97
[2023-06-29 04:39] LABS: Basophils % 0.7 %; Eosinophils # 0.4 10^3/uL (0.0-0.8); Hemoglobin 9.9 g/dL (11.5-15.3); Lymphocytes # 1.3 10^3/uL (0.8-4.8); Lymphocytes % 22.4 %; Mean Corpuscular HGB Conc 31.9 g/dL (30.0-36.0); Mean Corpuscular Hemoglobin 28.5 pg (28.0-34.0); Mean Corpuscular Volume 89.3 fl (81-99); Mean Platelet Volume 9.2 fL (7.4-10.4); Monocytes % 17.6 %; Neutrophils # 2.82 10^3/uL (1.8-7.7); Neutrophils % 49.7 %; Nucleated Red Blood Cells % 0 %; Platelet Count 193 10^3/cmm (130-400); Red Blood Count 3.47 10^6/uL (4.1-5.3); Red Cell Distribution Width 15.7 % (12.1-15.1); White Blood Count 5.7 10^3/uL (4.0-10.0)
[2023-06-29 05:02] LABS: Alanine Aminotransferase 47 U/L (0-33); Albumin Level 4.1 g/dL (3.5-5.2); Alkaline Phosphatase 78 U/L (35-105); Aspartate Amino Transferase 40 U/L (0-32); Blood Urea Nitrogen 21 mg/dL (8-23); Calcium 8.9 mg/dL (8.5-10.5); Carbon Dioxide 23 mmol/L (22-29); Chloride 97 mmol/L (98-107); Globulin 2.6 g/dL (1.3-4.6); Glucose 134 mg/dL (65-115); Osmolality Calculated 281 mOsm/kg (285-295); Sodium 133 mmol/L (136-145); Total Bilirubin 0.5 mg/dL (0.15-1.2); Total Protein 6.7 g/dL (6.6-8.7)
[2023-06-29] MEDS: losartan 50 mg Tablet 100 MG PO (05:23)
[2023-06-29] MEDS: docusate sodium 100 mg Capsule PO (05:23)
[2023-06-29] MEDS: enoxaparin 40 mg/0.4 mL Syringe SUBCUT ×2 (05:29→17:08)
[2023-06-29] MEDS: aspirin 325 mg Tablet PO (08:30)
[2023-06-29] MEDS: clopidogrel 75 mg Tablet PO (08:31)
[2023-06-29] MEDS: famotidine 20 mg Tablet PO ×2 (08:31→17:08)
--- NOTE | 2023-06-29 12:00 | PM.PN ---
Subjective Subjective: Says she feels about the same. Was able to walk a little farther this morning, but still was very out of breath. Denies any chest pain at this time. Vitals/I&O/Wt Last Vital Signs Temp 97.6 F 06/29/23 08:00 Pulse 80 06/29/23 08:00 Resp 18 06/29/23 08:00 BP 122/56 06/29/23 08:00 Pulse Ox 97 06/29/23 08:00 O2 Del Method Room Air 06/29/23 08:00 06/28/23 06/29/23 06/29/23 22:59 06:59 14:59 Intake Total 50 / 1186 1200 / 2386 240 / 240 Output Total 900 / 900 1050 / 1950 Balance -850 / 286 150 / 436 240 / 240 Weight last 48 hrs Weight 245 lb Weight 245 lb 12.8 oz Physical Exam Narrative: General: Cooperative patient. No acute distress. HEENT: Normocephalic, Atraumatic. External ears normal. Nasal passages patent without drainage. MMM. Heart: RRR. Resp: LCTA. No wheezes rhonchi or rales. Lung sounds diminished over the right lower lobe. Abd: Soft, non-tender. Non-distended. Extremities: No edema. Skin: No rash or lesions on exposed areas. Data 06/29/23 03:49 06/29/23 03:49 Micro: Microbiology 06/26/23 15:48 Urine Culture - Preliminary Urine,Clean Catch Gram Negative Rods Gram Negative Rods#2 A&P Assessment and plan (1) Acute on chronic diastolic (congestive) heart failure: (2) Heart failure with preserved ejection fraction, borderline, class III: (3) Hyponatremia: (4) Hyperglycemia: (5) Anxiety: (6) Hypertension: Qualifiers: Hypertension type: essential hypertension Qualified Code(s): I10 - Essential (primary) hypertension (7) UTI (urinary tract infection): Plan 73-year-old female admitted for dyspnea on exertion. Continue inpatient monitoring. Planning for stress test tomorrow. If normal, patient can likely discharge. Has received Lasix x2. Intake and output remain appropriate. She had a negative balance of 460 ml overnight. Hold additional diruetics at this time. UA shows 4+ bacteria and positive nitrates. Urine culture is pending. Start Rocephin today. Will de-escalate once ID and sensitivities are available. Remains doing well on room air. Sats in the upper 90s. Sodium has increased to 133, and is stable. Potassium is normal. Recheck a.m. labs. With her ongoing shortness of breath and fatigue, we will keep her in the hospital to have cardiac stress test. She is uncertain as to when her last one was. She does endorse CVA in the last 2 months, has been on aspirin and Plavix. . 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 She had an echocardiogram in February of this year which showed an EF of 60 to 65% as well as grade 3 diastolic dysfunction. She does have some valvular dysfunctions. Code Status: Full IVF: None DVT PPx: Lovenox GI PPx: Pepcid ABx: Rocephin Diet: Cardiac Discharge plan:Home after a.m. stress test. Attestations Medical Necessity Statement*: Will need inpatient monitoring for cardiac stress test, continued dyspnea on exertion, IV antibiotics, and ID and sensitivities of UTI. Coding Level of Care Code Acute Code for Chg Fwd Straight Forward/Low MDM includes number and complexity of problems actively addressed during encounter, amount and/or complexity of data reviewed/ordered and described risk of complication, morbidity or mortality of management as documented Diagnoses Acute on chronic diastolic (congestive) heart failure I50.33 Heart failure with preserved ejection fraction, borderline, class III I50.30 Hyponatremia E87.1 Hyperglycemia R73.9 Anxiety F41.9 Hypertension I10 Hypertension type: essential hypertension UTI (urinary tract infection) N39.0
[2023-06-29] MEDS: labetalol 200 mg Tablet PO (17:08)
[2023-06-29] MEDS: cefTRIAXone 1,000 MG in sodium chloride 0.9% (plus) 50 ML 100 MG IV (17:08)
[2023-06-29 20:02] LABS: Glucose Point of Care 204 mg/dL (70-110)
[2023-06-29] MEDS: atorvastatin 40 mg Tablet 20 MG PO (20:08)
[2023-06-29] MEDS: ALPRAZolam 0.5 mg Tablet PO (20:09)
[2023-06-30] VITALS (13 sets, daily range): BP systolic 90–159; BP diastolic 47–73; PULSE 66–80; RESP 16–26; TEMP 36.5–37; O2SAT 93–97
[2023-06-30 03:38] LABS: Hemoglobin 9.6 g/dL (11.5-15.3); Mean Corpuscular Hemoglobin 28.9 pg (28.0-34.0); Mean Corpuscular Volume 90.4 fl (81-99); Platelet Count 206 10^3/cmm (130-400); Red Blood Count 3.32 10^6/uL (4.1-5.3); Red Cell Distribution Width 15.8 % (12.1-15.1); Reticulocyte % 3.2 % (0.5-2.0)
[2023-06-30 04:09] LABS: Ferritin 740 ng/mL (15-150); Iron 68 ug/dL (37-145); Percent Saturation 23.1 % (20-50); Total Iron Binding Capacity 294 mcg/dl; Unsaturated Iron Binding 226 ug/dL (112-347)
[2023-06-30 04:24] LABS: Vitamin B12 1142 pg/mL (232-1245)
[2023-06-30 04:38] LABS: Folate Level > 20.0 ng/mL (4.8-37.3)
[2023-06-30] MEDS: docusate sodium 100 mg Capsule PO (05:26)
[2023-06-30] MEDS: losartan 50 mg Tablet 100 MG PO (05:26)
[2023-06-30] MEDS: enoxaparin 40 mg/0.4 mL Syringe SUBCUT (05:27)
--- NOTE | 2023-06-30 06:00 | NMCV_ITS ---
NM rashida perf SPECT r/s* [id number] ElanMaria Del Carmen Age: 73 Gender: F : 1950 Exam Date: 06/30/2023 06:00 Ordering Phys: Wayne Chong DO Technologist: KARINA Carr Exam Location: [facility] Indications: CHEST PAIN STRESS TEST Please see separate stress test report in [facility] for full findings IMAGE PROTOCOL Rest/Stress 1 Lexiscan Day Radiopharmaceutical Dose (mCi) Administration Site Administered by Rest: Tc-99m 10.7 IV KARINA Jones Sestamibi Stress:Tc-99m 33.0 IV KARINA Jones Sestamibi Rest: 30-Jun-2023 60 Discovery 630 Stress: 30-Jun-2023 30 Discovery 630 0.4mg Lexiscan. Supine position only as patient was unable to lay prone. SPECT RESULTS Technical Quality: Excellent Raw Data Analysis: Normal Image Corrections: No attenuation or motion correction applied Summed Stress Score: 7 Summed Rest Score: 3 Summed Difference Score: 5 PERFUSION FINDINGS There is a medium sized area of reversible perfusion defect noted in the apical, apical anterior and apical septal jaimes. This is consistent with medium sized area of ischemia in the LAD territory. FUNCTIONAL RESULTS (calculated via Gated SPECT) Stress Image LV EF (%): 92 Stress EDV (mL):89 TID: 1.1 Stress ESV (mL):7 FUNCTIONAL FINDINGS: There is normal left ventricular systolic function. IMPRESSIONS 1. Medium sized area of ischemia is noted in the LAD territory. Prone imaging not performed 2. LV systolic fucntion is normal Madi Rodriguez MD (Electronically Signed) Final Date: 30 June 2023 09:39 S
[2023-06-30 06:18] LABS: Glucose Point of Care 133 mg/dL (70-110)
--- NOTE | 2023-06-30 06:58 | ECG_ITS ---
[facility] Test Date: 2023-06-30 Pat Name: Maria Del Carmen Ansari Department: Room: 101 Gender: Female Facility Technician: Gay Landa : 1950 Requested By: Wayne Tripathi Order Number: [id number] Tremaine MD: Diana Horton M.D. Interpretive Statements NAME OF STUDY: LEXISCAN SESTAMIBI STRESS TEST INDICATION: Chest Pain PROCEDURE: At the baseline, the blood pressure was 110/70 mmHg, oxygen saturation 96% with a heart rate of 69 bpm. The electrocardiogram showed sinus rhythm, normal axis with normal ST and T's. The Lexiscan was infused over a period of 20 seconds. A total of 0.4 milligrams of Lexiscan was infused. The stress phase was continued for a total of 5 minutes. Heart rate at the end of the stress phase was 82 bpm, oxygen saturation 98% with a blood pressure 107/53 mmHg. The EKG at the peak infusion revealed no significant ST-T wave changes. Sestamibi was injected 20 seconds after the Lexiscan infusion. Blood pressure at the end of the recovery phase was 73/51 mmHg, oxygen saturation 96% with a heart rate of 79 beats per minute. CONCLUSION: 1. No significant EKG changes with the LexiScan infusion. 2. No LexiScan induced chest pain or cardiac arrhythmia. 3. Normal blood pressure and heart rate response. 4. Sestamibi/sestamibi perfusion scan pending; see separate report. Electronically Signed On 07-04-2023 10:33:14 CDT by Diana Horton M.D. [id number]
[2023-06-30] MEDS: regadenoson 0.4 Mg/5 ml Syringe IVP (07:14)
[2023-06-30] MEDS: famotidine 20 mg Tablet PO ×2 (08:47→17:18)
[2023-06-30] MEDS: aspirin 325 mg Tablet PO (08:47)
[2023-06-30] MEDS: clopidogrel 75 mg Tablet PO (08:47)
[2023-06-30 10:11] LABS: Blood Urea Nitrogen 18 mg/dL (8-23); Calcium 8.6 mg/dL (8.5-10.5); Carbon Dioxide 22 mmol/L (22-29); Chloride 95 mmol/L (98-107); Glucose 183 mg/dL (65-115); Osmolality Calculated 275 mOsm/kg (285-295); Sodium 129 mmol/L (136-145)
[2023-06-30 11:03] LABS: NT Pro B Type Natriuretic Pept 227 pg/mL (0-125)
--- NOTE | 2023-06-30 11:59 | USCV_ITS ---
Maria Del Carmen Ansari Age: 73 Gender: F : 1950 Exam Date: 06/30/2023 12:59 Ordering Phys: Luis Alfredo Diez MD Technologist: Carmelo Cutler Exam Location: [facility] Indication: SOB BP: 122 / 56 HR: 78 Rhythm: Sinus Technical Quality: Adequate MEASUREMENTS (Male / Female) Normal Values 2D ECHO LVOT Diameter 2.0 cm LV Ejection Fraction MOD 2C 75.9 % LV Ejection Fraction 2C AL 75.8 % LA Diameter 3.1 cm LA Width 3.6 cm LA Height 4.3 cm RA Width 3.2 cm RA Height 3.5 cm Aorta at Sinotubular Diameter 1.9 cm IVC Diameter 1.6 cm M-MODE Aortic Annulus Diameter 2.7 cm LA Ao Ratio MM 1.1 DOPPLER AV Peak Velocity 269.7 cm/s LVOT Peak Velocity 121.0 cm/s AV Area Cont Eq vti 1.7 cm squared AV Area Cont Eq pk 1.5 cm squared MV Peak Velocity 235.0 cm/s MV Area PHT 3.1 cm squared Mitral E to A Ratio 1.7 MV E' Velocity 109.0 cm/s Mitral E to MV E' Ratio 26.1 Mitral E to LV E' Lateral Ratio 23.0 Mitral E to LV E' Septal Ratio 30.3 TR Peak Velocity 362.1 cm/s TR Peak Gradient 52.4 mmHg TR Mean Velocity 309.5 cm/s TR Mean Gradient 38.5 mmHg TR Velocity Time Integral 116.1 cm Right Atrial Pressure 3.0 mmHg Pulmonary Artery Systolic Pressu 55.4 mmHg PV Peak Velocity 94.0 cm/s RV Acceleration Time 0.1 s RV Ejection Time 0.3 s RV AcT/ET 0.4 FINDINGS Left Ventricle Left ventricle is normal in size. LV systolic function is normal with EF of 60 to 65%. No regional wall motion abnormalities are seen. Right Ventricle Normal in size and function Right Atrium Normal in size Left Atrium Normal in size Mitral Valve Mitral valve is thickened and calcified. Mild mitral regurgitation. Moderate mitral stenosis with mean gradient across mitral valve of 7.9 mmHg. Mitral valve area by pressure half time is 3.1cm2. Aortic Valve Aortic valve is thickened and calcified. Mild aortic stenosis with aortic valve area 1.87 cm squared and mean gradient across aortic valve of 13.3 mmHg. Tricuspid Valve Mild tricuspid regurgitation. RVSP is 50 to 55 mmHg. This is consistent with moderate pulmonary hypertension. Pulmonic Valve Not well visualized Pericardium Normal Aorta Normal in size IVC Appears to be normal CONCLUSIONS LV systolic function is normal with EF of 60 to 65%. No regional wall motion abnormalities are seen. Moderate mitral stenosis with mean gradient of 7.9 mmHg. Mild mitral regurgitation Mild aortic stenosis. Mild tricuspid regurgitation. Moderate pulmonary hypertension. Compared to prior echocardiogram from 02/2023, mitral stenosis has progressed and is in moderate now. Madi Rodriguez MD (Electronically Signed) Final Date: 01 July 2023 11:30 S
--- NOTE | 2023-06-30 11:59 | XR_ITS ---
WS: [id number] XR chest 1V portable [id number] REASON FOR EXAM: sob FINDINGS Patient rotated significantly to the left.: Chest is unchanged compared to 06/26/2023. Heart at the upper limit of normal in size. Mild tortuosity the thoracic aorta. Moderate elevation of the right hemidiaphragm. Calcified granulomatous disease in both hemithoraces. No acute or subacute pulmonary parenchymal or pleural abnormality. Dorsal column stimulator at T9. Mild thoracic scoliosis convex right. Mild degenerative spondylosis i n the mid and lower thoracic spine. XR/XR chest 1V portable [id number] IMPRESSION: Stable chest without acute abnormality.
--- NOTE | 2023-06-30 12:25 | ECG_ITS ---
[facility] Test Date: 2023-06-30 Pat Name: Maria Del Carmen Ansari Department: Room: 101 Gender: Female Dogman/Woman: : 1950 Requested By: Luis Alfredo Diez Order Number: [id number] Tremaine MD: Juan Horne M.D. Measurements Intervals Emery Rate: 76 P: 57 RI: 357 QRS: 59 QRSD: 100 T: 53 QT: 397 QTc: 448 Interpretive Statements Supraventricular rhythm Heavy electrical artifact Further interpretation is not possible Electronically Signed On 06-30-2023 22:44:38 CDT by Juan Horne M.D. [id number]
[2023-06-30 13:08] LABS: Troponin(5th) Baseline 18 ng/L (0-10)
[2023-06-30 13:09] LABS: C Reactive Protein 25.3 mg/L (0.0-4.9)
[2023-06-30 13:15] LABS: Procalcitonin 0.25 ng/mL (0-0.5)
[2023-06-30 15:26] LABS: Troponin 5 2HR 15.96 ng/L (0-10)
[2023-06-30 15:28] LABS: Troponin 5 2HR Delta -2.04 ABS# (0-10)
--- NOTE | 2023-06-30 15:33 | ECG_ITS ---
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 Measurements Intervals [place] Rate: 75 P: 60 AK: 363 QRS: 58 QRSD: 90 T: 39 QT: 395 QTc: 442 Interpretive Statements Regular supraventricular rhythm. Heavy electrical artifact. Further interpretation is not possible Electronically Signed On 06-30-2023 22:50:59 CDT by Juan Horne M.D. [id number]
[2023-06-30] MEDS: cefTRIAXone 1,000 MG in sodium chloride 0.9% (plus) 50 ML 100 MG IV (15:45)
--- NOTE | 2023-06-30 16:23 | PM.CONSULT ---
Providers/Reason For Consult Consulting Physician/Specialty*: Madi Rodriguez MD/Cardiology Reason for Consult*: Dyspnea/ congestive heart failure/abnormal stress test Requesting Physician: Dr Diez Attending Physician: Luis Alfredo Diez MD Primary Care Provider: Howard Kraus MD History of Present Illness History of Present Illness Maria Del Carmen Ansari is a 73 year old female with past medical history of HFpEF, carotid artery disease, hypertension who presented to hospital with shortness of breath. She has been diuresed. No significant troponin uptrend. Cardiology consulted as she underwent stress test that shows medium sized area of possible ischemia in LAD territory. She has occasional pressure in the chest but no significant chest pain. EKG not showing significant ischemic changes. She continues to have significant shortness of breath and says can not walk any significant distance without getting out of breath. Review of Systems General: Reports: 10 or more systems reviewed and unremarkable except in HPI and below Const: Reports: fatigue and malaise; Denies: fever(s) or chills Eyes: Denies: change in vision or blurry vision ENMT: Denies: throat pain, odynophagia or hoarseness Card: Reports: dyspnea on exertion; Denies: chest pain or palpitations Resp: Reports: dyspnea; Denies: productive cough, non-productive cough or wheezing GI: Denies: abdominal pain, nausea, vomiting, diarrhea or constipation Musc: Denies: neck pain, back pain or joint pain Skin/Breast: Denies: rash or new lesions Neuro: Denies: headache(s), numbness in extremities or weakness in extremities Medications/Allergies Home Medications Medication Instructions Recorded Confirmed Last Taken Type clonidine HCl 0.1 mg tablet 0.1 mg PO TID PRN pressure 12/23/22 06/26/23 Unknown Rx >190/100 #30 tabs clopidogrel 75 mg tablet (Plavix) 75 mg PO DAILY #30 tabs 02/20/23 06/26/23 06/26/23 Rx docusate sodium 100 mg capsule 100 mg PO QAM 02/20/23 06/26/23 06/26/23 History (Colace) nitroglycerin 0.4 mg sublingual 0.4 mg sublingual Q5M PRN Chest 02/20/23 06/26/23 Unknown History tablet (Nitrostat) Pain simvastatin 40 mg tablet 40 mg PO BEDTIME 02/20/23 06/26/23 06/25/23 History potassium chloride 10 mEq 10 meq PO DAILY #90 tabs 03/13/23 06/26/23 06/26/23 Rx tablet,extended release (Klor-Con) furosemide 40 mg tablet 40 mg PO DAILY@12 PRN Edema 03/25/23 06/26/23 Unknown History alprazolam 0.5 mg tablet 0.5 mg PO BID PRN anxiety #45 tabs 03/27/23 06/26/23 Unknown Rx losartan 100 mg tablet 100 mg PO QAM #90 tabs 05/20/23 06/26/23 06/26/23 Rx aspirin 325 mg tablet 325 mg PO DAILY 06/26/23 06/26/23 06/26/23 History biotin 10,000 mcg chewable tablet 20,000 mcg PO DAILY 06/26/23 06/26/23 06/26/23 History (Hair, Skin and Nails (biotin)) multivit with 1 tab PO DAILY 06/26/23 06/26/23 06/26/23 History nrwuxsrn-igcy-KH-lutein 8 mg iron-400 mcg-300 mcg tablet (Centrum Silver Women) labetalol 200 mg tablet 200 mg PO BID #180 tabs 06/30/23 Unknown Rx Allergies Allergy/AdvReac Type Severity Reaction Status Date / Time No Known Allergies Allergy Verified 06/26/23 11:33 Current Medications Generic Name Dose Route Start Last Admin Trade Name Freq PRN Reason Stop Dose Admin Albuterol/Ipratropium 3 ml 06/27/23 13:19 06/27/23 17:21 Ipratropium-Albuterol 3 Ml Neb INHALATION 3 ml Q4H PRN Administration SHORTNESS OF BREATH Alprazolam 0.5 mg 06/26/23 16:44 06/29/23 20:09 Alprazolam 0.5 Mg Tablet PO 0.5 mg BID PRN Administration anxiety Aspirin 325 mg 06/27/23 09:00 06/30/23 08:47 Aspirin 325 Mg Tablet PO 325 mg DAILY BETTIE Administration Atorvastatin Calcium 20 mg 06/26/23 21:00 06/29/23 20:08 Atorvastatin 40 Mg Tablet PO 20 mg BEDTIME BETTIE Administration Clopidogrel Bisulfate 75 mg 06/27/23 09:00 06/30/23 08:47 Clopidogrel 75 Mg Tablet PO 75 mg DAILY BETTIE Administration Docusate Sodium 100 mg 06/27/23 06:00 06/30/23 05:26 Docusate Sodium 100 Mg Capsule PO 100 mg QAM BETTIE Administration Famotidine 20 mg 06/26/23 18:00 06/30/23 08:47 Famotidine 20 Mg Tablet PO 20 mg BID BETTIE Administration Ceftriaxone Sodium 1,000 mg/ 50 mls @ 100 mls/hr 06/28/23 13:30 06/30/23 15:45 Sodium Chloride IV 100 mls/hr Q24H BETTIE Administration Protocol Labetalol HCl 200 mg 06/26/23 18:00 06/30/23 08:47 Labetalol 200 Mg Tablet PO Not Given BID BETTIE Losartan Potassium 100 mg 06/27/23 06:00 06/30/23 05:26 Losartan 50 Mg Tablet PO 100 mg QAM BETTIE Administration PFSH Acute PFSH: Medical History Anxiety CVA (cerebral vascular accident) Hypercholesteremia Hyperglycemia Hypertension Hypothyroid Lumbar disc disease with radiculopathy Lumbar spondylosis Morbid obesity Spondylolisthesis, lumbar region Venous insufficiency of both lower extremities Surgical History H/O carpal tunnel repair H/O cataract removal with insertion of prosthetic lens H/O: hysterectomy History of arthroscopic surgery of elbow History of cholecystectomy Family History Father Cancer CAD (coronary artery disease) Mother CAD (coronary artery disease) Diabetes Hypertension Stroke Denies family history of Anesthesia complication Bleeding disorder Social History Smoking and tobacco status: never smoked Second hand smoke exposure: No Alcohol intake: never Substance/Drug Use: never Adopted: No Caregiver/support person: Yes Lives independently: Yes Household members: spouse Housing: House Marital status: service: No Current occupational status: retired Current occupational exposures/hazards: No Pets and animals: No Sexually active: No Do you think of yourself as: Straight/Heterosexual Current gender identity: Female Ratna/Rastafari: Rastafarian Special ratna needs: No Agree to transfusion: No Financial difficulty paying for basics: Decline to Answer Vitals/I&O/Wt Last Vital Signs Temp 97.9 F 06/30/23 08:00 Pulse 75 06/30/23 15:43 Resp 18 06/30/23 15:43 BP 159/55 06/30/23 12:00 Pulse Ox 96 06/30/23 15:43 O2 Del Method Room Air 06/30/23 15:43 06/30/23 06/30/23 06/30/23 06:59 14:59 22:59 Intake Total 720 / 720 Output Total 400 / 400 Balance 720 / 720 -400 / 320 Weight last 48 hrs Weight 250 lb 1.6 oz Weight 245 lb Physical Exam Narrative: GENERAL: Patient is alert, awake and oriented x3. [] NECK: No jugular vein distension. [] HEENT: No cyanosis. No icterus. No pallor. [] HEART: Regular S1 and S2. Grade 2/6 systolic murmur LUNGS: Diminished air entry. [] CENTRAL NERVOUS SYSTEM: Grossly nonfocal. [] EXTREMITIES: Lower extremities with 1+ edema bilaterally. Data 07/01/23 04:52 07/01/23 04:52 Micro: Microbiology 06/26/23 15:48 Urine Culture - Final Urine,Clean Catch Escherichia coli Escherichia coli#2 A&P Assessment and plan (1) Acute on chronic diastolic (congestive) heart failure: (2) Morbid obesity: (3) Hypertension: Qualifiers: Hypertension type: essential hypertension Qualified Code(s): I10 - Essential (primary) hypertension (4) Abnormal stress test: Plan Patient has presented with volume overload and has been diuresed. She has preserved LV systolic function. Current admission echo is pending. She had a stress test that shows medium sized area of ischemia in LAD territory. She had a stress test that shows medium sized area of ischemia in LAD territory. Attenuation artifact cannot be ruled out however patient has significant symptoms and cannot walk any significant distance without having to stop because of shortness of breath. We will plan on coronary angiogram with possible percutaneous coronary intervention. Risks and benefits of the procedure have been discussed with the patient. NPO past midnight Continue aspirin and plavix Thank you for involving us with care of this patient. We will continue to follow. Please call with questions. Consult Attestations Medical Necessity Statement: Care expected to cross 2 midnights. Coding Level of Care Code Acute Code for Chg Fwd Diagnoses Acute on chronic diastolic (congestive) heart failure I50.33 Morbid obesity E66.01 Hypertension I10 Hypertension type: essential hypertension Abnormal stress test R94.39
[2023-06-30] MEDS: labetalol 200 mg Tablet PO (17:18)
[2023-06-30 18:44] LABS: Troponin 5 6HR 14.43 ng/L (0-10)
[2023-06-30 18:45] LABS: Troponin 5 6HR Delta -3.57 ng/L (0-12)
--- NOTE | 2023-06-30 18:45 | PM.PN ---
Subjective Subjective: Patient was seen this morning, she denies any fevers, no chills, does report a cough, she denies any edema, she does report continued shortness of breath with exertion, she tells me that she was short of breath with less than 5 feet she walked with her daughter yesterday and she continues to feel short of breath, she feels about the same since she has been here in the hospital, denies any fevers, denies any chills, she tells me that many years ago she had shortness of breath like this, and they took over 13 L of fluid off of her Vitals/I&O/Wt Last Vital Signs Temp 97.9 F 06/30/23 08:00 Pulse 75 06/30/23 15:43 Resp 18 06/30/23 15:43 BP 159/55 06/30/23 12:00 Pulse Ox 96 06/30/23 15:43 O2 Del Method Room Air 06/30/23 15:43 06/30/23 06/30/23 06/30/23 06:59 14:59 22:59 Intake Total 720 / 720 50 / 770 Output Total 400 / 400 Balance 720 / 720 -350 / 370 Weight last 48 hrs Weight 113.443 kg Weight 111.13 kg Physical Exam Const: COMMON NORMALS: no acute distress and patient oriented x3 Resp: COMMON NORMALS: normal respiratory effort, No retractions and No use of accessory muscles AUSCULTATION: crackles Cardio: COMMON NORMALS: regular rate, regular rhythm, S1 normal heart sound present and S2 normal heart sound present RATE: regular rate RHYTHM: regular rhythm HEART SOUNDS: S1 normal heart sound present and S2 normal heart sound present GI: COMMON NORMALS: Normal to inspection, nondistended, normoactive bowel sounds present and non-tender Extremity: COMMON NORMALS: no pedal edema Neuro: COMMON NORMALS: patient oriented x3 Data 06/30/23 02:44 06/30/23 09:38 Micro: Microbiology 06/26/23 15:48 Urine Culture - Final Urine,Clean Catch Escherichia coli Escherichia coli#2 A&P Assessment and plan (1) Acute on chronic diastolic (congestive) heart failure: (2) Heart failure with preserved ejection fraction, borderline, class III: (3) Hyponatremia: (4) Hyperglycemia: (5) Anxiety: (6) Hypertension: Qualifiers: Hypertension type: essential hypertension Qualified Code(s): I10 - Essential (primary) hypertension (7) UTI (urinary tract infection): Plan 73-year-old female admitted for dyspnea on exertion. Continue inpatient monitoring. Stress testing shows medium size area of ischemia in LAD territory, spoke to Dr. Rodriguez, will consult for consideration of cath Has received Lasix, currently on hold due to hyponatremia, Limit fluid intake to 1000 cc Hold additional diruetics at this time. UA shows 4+ bacteria and positive nitrates. Currently on Rocephin Remains doing well on room air. Sats in the upper 90s. Sodium has increased to 129, monitor Recheck a.m. labs. 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 Will need follow-up with vascular surgery as outpatient Code Status: Full IVF: None DVT PPx: Lovenox GI PPx: Pepcid ABx: Rocephin Diet: Cardiac Consult cardiology, plans on possible cardiac catheterization today hold diuresis due to hyponatremia, spoke to cardiology, spoke to patient, troponin series ordered Attestations Medical Necessity Statement*: Patient requires hospitalization for hyponatremia, shortness of breath, positive stress test underwent cardiac catheterization Diagnoses Acute on chronic diastolic (congestive) heart failure I50.33 Heart failure with preserved ejection fraction, borderline, class III I50.30 Hyponatremia E87.1 Hyperglycemia R73.9 Anxiety F41.9 Hypertension I10 Hypertension type: essential hypertension UTI (urinary tract infection) N39.0
[2023-06-30] MEDS: atorvastatin 40 mg Tablet 20 MG PO (20:16)
[2023-07-01] VITALS (14 sets, daily range): BP systolic 120–159; BP diastolic 37–73; PULSE 66–82; RESP 18–30; TEMP 36.6–37.3; O2SAT 90–98
[2023-07-01 05:05] LABS: Basophils % 0.6 %; Eosinophils # 0.4 10^3/uL (0.0-0.8); Eosinophils % 8.1 %; Hematocrit 30.1 % (37.0-47.0); Hemoglobin 9.7 g/dL (11.5-15.3); Lymphocytes % 19.5 %; Mean Corpuscular HGB Conc 32.2 g/dL (30.0-36.0); Mean Corpuscular Hemoglobin 29.2 pg (28.0-34.0); Mean Corpuscular Volume 90.7 fl (81-99); Mean Platelet Volume 8.9 fL (7.4-10.4); Monocytes # 0.8 10^3/uL (0.2-0.9); Neutrophils # 2.84 10^3/uL (1.8-7.7); Neutrophils % 53.1 %; Nucleated Red Blood Cells % 0 %; Platelet Count 228 10^3/cmm (130-400); Red Blood Count 3.32 10^6/uL (4.1-5.3); Red Cell Distribution Width 15.8 % (12.1-15.1); White Blood Count 5.3 10^3/uL (4.0-10.0)
[2023-07-01] MEDS: docusate sodium 100 mg Capsule PO (05:18)
[2023-07-01] MEDS: losartan 50 mg Tablet 100 MG PO (05:18)
[2023-07-01 05:28] LABS: Magnesium 2.1 mg/dL (1.7-2.3); Phosphorus 3.1 mg/dL (2.5-4.5)
[2023-07-01 05:37] LABS: Anion Gap 14.6 (5-19); Blood Urea Nitrogen 15 mg/dL (8-23); Calcium 8.9 mg/dL (8.5-10.5); Carbon Dioxide 26 mmol/L (22-29); Chloride 99 mmol/L (98-107); Glucose 116 mg/dL (65-115); NT Pro B Type Natriuretic Pept 352 pg/mL (0-125); Osmolality Calculated 282 mOsm/kg (285-295); Potassium 4.6 mmol/L (3.5-5.1); Sodium 135 mmol/L (136-145)
[2023-07-01] MEDS: aspirin 325 mg Tablet PO (09:19)
[2023-07-01] MEDS: clopidogrel 75 mg Tablet PO (09:19)
[2023-07-01] MEDS: diphenhydrAMINE 50 mg Capsule PO (09:19)
[2023-07-01] MEDS: famotidine 20 mg Tablet PO ×2 (09:20→17:49)
[2023-07-01] MEDS: ALPRAZolam 0.5 mg Tablet PO ×2 (09:25→17:48)
--- NOTE | 2023-07-01 09:54 | XACV_ITS ---
Exam Room: [facility] Ht: 160 cm Wt: 112 kg BSA: 2.30 m2 Gender: Female : 1950 Any Known Allergies: No known allergies Exam Priority: Routine Procedure(s): Procedure Description: Diagnostic procedure Procedure Description: Left Heart Catheterization Procedure Description: Coronary Angiography Diagnostic Cath Status: Elective Diagnostic Findings * INDICATION: Dyspnea on exertion/abnormal stress test. * No significant disease noted in the Left Main, Left Anterior Descending, Right, or Circumflex coronary arteries. * Coronary angiography shows co-dominance. Conclusions 1. No significant disease noted in the Left Main, Left Anterior Descending, Right, or Circumflex coronary arteries. Recommendations * Aggressive risk factor modification. * Outpatient cardiology follow up in 4 weeks. Interventional RX Recommendation: medical therapy and/or counseling Diagnostic RX Recommendation: medical therapy and/or counseling Pressures Phase:Rest AO : 136 / 71 ( 98 ) @ 11:26:00 AM 109 / 66 ( 87 ) @ 11:28:00 AM 114 / 70 ( 92 ) @ 11:34:00 AM 153 / 60 ( 96 ) @ 11:46:00 AM 153 / 61 ( 97 ) @ 11:46:00 AM LV : 148 / 3 / 15 @ 11:45:00 AM 150 / 1 / 16 @ 11:46:00 AM Valves Phase:DefaultPhase AV : 0.0 @ 10:56:50 AM 0.0 @ 10:56:50 AM AV Mean Gradient: 0.0 @ 10:56:50 AM 0.0 @ 10:56:50 AM Clinical Evaluation EBL: 5mL-10mL Procedural Details Procedure Consent Obtained. Pre-Procedure Time Out. Identified patient by full name and date of as verbalized by the patient/guarantor. Does the consent match the physician's order: Yes. Accurate & Complete Informed Consent: Yes. Inpatient/Outpatient History & Physical on Chart: Yes. If H&P is completed, is and addenduem needed: No; If yes, is the addendum complete: N/A. Visualize and Verify Site with Patient/Guarantor: N/A. Relevant Radiology Images available: Yes. Pre-op teaching completed and patient verbalized understanding. The risks, benefits, and alternatives of sedation and/or procedure were discussed by physician. The patient agrees to continue. Procedure started. [facility] Clinical Fraility Score: 5: Mildly Frail. Procedure Analyst Indications: Other. Chest Pain Symptom Assessment: Atypical Angina. Correct patient, site and procedure confirmed by cath team. Current diagnosis: Chest Pain. PERRLA. Strong, equal hand verse writer bilaterally. Lungs clear x 5 lobes. IV Site on Arrival: 20 gauge in the right anticubital. IV Fluids: 0.9% NaCl at KVO. 0 mL infused prior to dairy lab technician. Oxygen started at 2liters/min via nasal canula. bilateral groins was prepped with chloroprep then draped in the usual sterile fashion. Baseline sample Acquired. HR: 72 BPM. Physician arrived. Physician scrubbed in. Immediate Pre-Procedure Time Out. Correct Patient: Yes; Correct Procedure: Yes; Correct Site: Yes; Correct Patient Position: Yes; Correct Supplies: Yes; Dried Flammable Prep: Yes; Blood Products Available: N/A;. Lidocaine 1% infiltrated to the right groin. Arterial access obtained with micropuncture set. A 5 citizen [place] JL4 catheter in over wire. Multiple views taken of left coronary artery. Catheter removed over the standard wire. A 5 [place] JR4 catheter in over wire. Catheter removed over the standard wire. A 5 [place] 3DRC catheter in over wire. Multiple views taken of right coronary artery. Catheter removed over the standard wire. A 5 [place] AL1 catheter in over wire. Multiple views taken of right coronary artery. Catheter removed over the standard wire. A 5 citizen [place] Angled Pig catheter in over wire. Catheter removed over the standard wire. A 5 [place] JR4 catheter in over wire. EDP Sample taken: LV 148/3,15; HR: 72 BPM; SpO2: 97%. Pullback taken: LV 150/1,16; AO 153/60(96); Mean: 0mmHg, Peak to Peak: 0mmHg, SEP: 8sec/min; HR: 76 BPM; SpO2: 97%. Catheter removed over the standard wire. A Right femoral angiogram was performed to determine safe placement of closure device. A Mynx was successful obtaining hemostatsis at the Right Femoral artery insertion site. Post Procedure: Pulses reassessed and unchanged. PERRLA. Strong, equal hand verse writer bilaterally. No VTE prophylaxis required. Medication's Wasted: Heparin = 1000 units. Total IV fluids: 50 mL. Complications: None. Estimated blood loss: 5mL-10mL. Responsiveness - Normal response to verbal stimuli; alert and oriented, PERRLA. Airway - Unaffected, no intervention required; spontaneous ventilation. Circulation: W/N/L, pulses unchanged. Nausea/Vomiting: No. Procedure completed. Patient transferred by bed to 1st floor. Vital chart was stopped. Post-op diagnosis: Non-obstructive CAD. Access Site Site: Right Femoral artery Sheath Size: 6 Fr Hemostasis Method: Mynx Hemostasis Success: Successful Procedure Medications Start: 10:12 AM Stop: 10:12 AM Medication: Versed Amount: 1 mg Route: I.V. Start: 10:12 AM Stop: 10:12 AM Medication: Fentanyl Amount: 50 mcg Route: I.V. Start: 10:25 AM Stop: 10:25 AM Medication: Versed Amount: 1 mg Route: I.V. Start: 10:25 AM Stop: 10:25 AM Medication: Fentanyl Amount: 25 mcg Route: I.V. Start: 10:43 AM Stop: 10:43 AM Medication: Fentanyl Amount: 25 mcg Route: I.V. I, the attending physician, have reviewed and verified all procedure medications. Yes, all medications given per verbal order History/Risk Factors Hypertension: Yes Dyslipidemia: No Peripheral Arterial Disease (PAD): No Myocardial Infarction (AL): No Obesity: No Renal Disease: No Prior Interventions PCI: No CABG: No Valve Surgery: No Report Signatures Finalized by Madi Rodriguez MD on 07/14/2023 10:29 AM
--- NOTE | 2023-07-01 10:18 | W.PM.OPSUD ---
Surgery/Procedure H&P Update DATE OF PROCEDURE: July 01, 2023 DATE H&P PERFORMED: 06/30/23 H&P UPDATE INFORMATION: I have reviewed H&P completed within last 30 days, I have examined patient prior to procedure and No changes to prior documentation PREOP DIAGNOSIS: Dyspnea on exertion/abnormal stress test PRIMARY INDICATION FOR PROCEDURE: Dyspnea on exertion/abnormal stress test PLANNED PROCEDURE: Left heart cath with possible percutaneous coronary intervention PATIENT REASSESSED PRIOR TO SEDATION, WITH NO CHANGE NOTED: Yes PHYSICAL EXAM: alert, oriented x 3, clear to auscultation bilaterally and regular rate & rhythm AIRWAY EVAL/ANESTHESIA PLAN: normal airway, ASA IV, Local Anesthesia, Risks, benefits & alternatives of sedation and/or procedure discussed and Patient agrees to continue as planned
--- NOTE | 2023-07-01 11:32 | PM.PN ---
Subjective Subjective: Patient is stable. Had coronary angiogram that showed patent coronary arteries. LVEDP is normal. Vitals/I&O/Wt Last Vital Signs Temp 98.2 F 07/01/23 08:00 Pulse 73 07/01/23 11:00 Resp 18 07/01/23 11:00 BP 120/61 07/01/23 11:00 Pulse Ox 96 07/01/23 11:00 O2 Del Method Room Air 07/01/23 11:00 06/30/23 07/01/23 07/01/23 22:59 06:59 14:59 Intake Total 50 / 770 Output Total 400 / 400 Balance -350 / 370 Weight last 48 hrs Weight 248 lb 9.6 oz Weight 250 lb 1.6 oz Physical Exam Narrative: GENERAL: Patient is alert, awake and oriented x3. [] NECK: No jugular vein distension. [] HEENT: No cyanosis. No icterus. No pallor. [] HEART: Regular S1 and S2. Grade 2/6 systolic murmur LUNGS: Diminished air entry. [] CENTRAL NERVOUS SYSTEM: Grossly nonfocal. [] EXTREMITIES: Lower extremities with 1+ edema bilaterally. Data 07/02/23 04:11 07/02/23 04:11 A&P Assessment and plan (1) Acute on chronic diastolic (congestive) heart failure: (2) Morbid obesity: (3) Hypertension: Qualifiers: Hypertension type: essential hypertension Qualified Code(s): I10 - Essential (primary) hypertension (4) Abnormal stress test: Plan Patient's coronary arteries are patent. LVEDP is normal to borderline elevated. Continue p.o. Lasix Moderate mitral stenosis. Will better assess with DEBBIE as outpatient. Low sodium diet recommended Thank you for involving us with care of this patient. We will continue to follow. Please call with questions. Attestations Medical Necessity Statement*: Care expected to cross 2 midnights. Coding Level of Care Code Acute Code for Chg Fwd Diagnoses Acute on chronic diastolic (congestive) heart failure I50.33 Morbid obesity E66.01 Hypertension I10 Hypertension type: essential hypertension Abnormal stress test R94.39
--- NOTE | 2023-07-01 11:39 | PC.NURSE ---
around 1100 cpru nurse received pt from diagnostic left heart cath. pt alert and oriented x3. right groin access point with dry dressing in place with no hematoma or bruising noted. pt complains of no pain. distal pulses palpable. pt educated on restrictions of right leg and pt acknowledged understanding. pt placed on monitor and will be in CPRU for approx 30 mins.
--- NOTE | 2023-07-01 12:30 | PC.NURSE ---
Patient arrived from [facility]. Patient went for [facility] this am and has arrived back via bed. Right groin was accessed and ananth-closed via minx closure device. No bleeding, oozing or hematoma. Patient VS are stable.Patient and family educated regarding activity restriction. Nurse will continue to monitor patient.
[2023-07-01] MEDS: acetaminophen 325 mg Tablet 650 MG PO (14:19)
--- NOTE | 2023-07-01 16:08 | P.PN_ITS ---
Subjective Subjective: - Patient was examined multiple times at this morning -Spoke to cardiology and cardiac catheterization lab, no obstructive CAD, does have aortic stenosis, potentially this is playing a role, will require outpatient evaluation including a DEBBIE -Patient was seen in postop recovery, she is alert oriented x 3, denies any chest pain, no shortness of breath, she tells me that her last sleep study was over 10 years ago, -Spoke to patient's family, they tell me that they want to see if she can get a CPAP, she continues to have cramps with Lasix they are wondering if there is any other medication that could not cause cramps Vitals/I&O/Wt Last Vital Signs Temp 98.2 F 07/01/23 08:00 Pulse 67 07/01/23 12:00 Resp 22 H 07/01/23 12:00 BP 134/51 07/01/23 12:00 Pulse Ox 96 07/01/23 12:00 O2 Del Method Room Air 07/01/23 12:00 Weight last 48 hrs Weight 112.763 kg Weight 113.443 kg Physical Exam Const: COMMON NORMALS: no acute distress and patient oriented x3 Resp: COMMON NORMALS: normal respiratory effort, No retractions, No use of acc essory muscles and clear to auscultation bilaterally AUSCULTATION: clear to auscultation bilaterally Cardio: COMMON NORMALS: regular rate, regular rhythm, S1 normal heart sound present and S2 normal heart sound present RATE: regular rate RHYTHM: regular rhythm HEART SOUNDS: S1 normal heart sound present and S2 normal heart sound present GI: COMMON NORMALS: Normal to inspection, nondistended, normoactive bowel sounds present and non-tender Extremity: COMMON NORMALS: no pedal edema Neuro: COMMON NORMALS: patient oriented x3 Psych: COMMON NORMALS: mental status grossly normal Data 07/01/23 04:52 07/01/23 04:52 A&P Assessment and plan (1) Acute on chronic diastolic (congestive) heart failure: (2) Heart failure with preserved ejection fraction, borderline, class III: (3) Hyponatremia: (4) Hyperglycemia: (5) Anxiety: (6) Hypertension: Qualifiers: Hypertension type: essential hypertension Qualified Code(s): I10 - Essential (primary) hypertension (7) UTI (urinary tract infection): Plan 73-year-old female admitted for dyspnea on exertion. Continue inpatient monitoring. Stress testing shows medium size area of ischemia in LAD territory, spoke to Dr. Rodriguez, cath negative for obstructive CAD, does have aortic stenosis will need a follow-up as outpatient for DEBBIE Currently euvolemic hold off on Lasix for today Limit fluid intake to 1000 cc Will consider diuresis tomorrow UA shows 4+ bacteria and positive nitrates. Currently on Rocephin Remains doing well on room air. Sats in the upper 90s. Sodium has increased to 129, monitor Recheck a.m. labs. 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 Will need follow-up with vascular surgery as outpatient, continue aspirin, Plavix Code Status: Full IVF: None DVT PPx: Lovenox GI PPx: Pepcid ABx: Rocephin Diet: Cardiac Consult cardiology, spoke to patient, spoke to patient's family Attestations Medical Necessity Statement*: Patient requires hospitalization for shortness of breath status post cath, Diagnoses Acute on chronic diastolic (congestive) heart failure I50.33 Heart failure with preserved ejection fraction, borderline, class III I50.30 Hyponatremia E87.1 Hyperglycemia R73.9 Anxiety F41.9 Hypertension I10 Hypertension type: essential hypertension UTI (urinary tract infection) N39.0
[2023-07-01] MEDS: cefTRIAXone 1,000 MG in sodium chloride 0.9% (plus) 50 ML 100 MG IV (17:47)
[2023-07-01] MEDS: atorvastatin 40 mg Tablet 20 MG PO (20:16)
--- NOTE | 2023-07-01 23:31 | XRR_ITS ---
PROCEDURE INFORMATION: Exam: XR Chest Exam date and time: 07/01/2023 11:45 PM Age: 73 years old Clinical indication: Shortness of breath; Additional info: SOB TECHNIQUE: Imaging protocol: Radiologic exam of the chest. Views: 1 view. COMPARISON: CR XR chest 1V portable [id number] 06/30/2023 12:15 PM FINDINGS: Tubes, catheters and devices: Spinal stimulator. Lungs: See Heart/Mediastinum finding. Pleural spaces: Unremarkable. No pleural effusion. No pneumothorax. Heart/Mediastinum: Cardiomegaly and mild pulmonary vascular congestion. Bones/joints: Unremarkable. XR/XR chest 1V portable [id number] IMPRESSION: Cardiomegaly and mild pulmonary vascular congestion.
[2023-07-01] MEDS: morphine 4 mg/mL SDV 1 mL 2 MG IVP (23:34)
--- NOTE | 2023-07-01 23:40 | ECG_ITS ---
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 Measurements Intervals [place] Rate: 90 P: 240 [place]: 343 QRS: 23 QRSD: 101 T: 56 QT: 347 QTc: 426 Interpretive Statements BASELINE ARTIFACT NOTED UNDERLYING NRMAL SINUS RHYTHM Electronically Signed On 07-02-2023 6:56:47 CDT by Madi Rodriguez M.D. [email or web address]
[2023-07-02] VITALS (8 sets, daily range): BP systolic 125–153; BP diastolic 54–79; PULSE 71–85; RESP 16–33; TEMP 36.7–36.9; O2SAT 95–100
[2023-07-02] MEDS: hyDRALAzine 20 mg/mL INJ 1 mL 10 MG IVP
[2023-07-02] MEDS: FUROsemide 10 mg/mL SDV 2mL 20 MG IVP (00:38)
[2023-07-02] MEDS: ALPRAZolam 0.5 mg Tablet PO ×2 (00:49→11:20)
--- NOTE | 2023-07-02 01:07 | PC.NURSE ---
pt had episode of cp and sob, notified Dr Jameson, received orders for 2 mg IV morphine, cxr, and ekg, pt rated pain at 9/10 which decreased to 6/10 with morphine, but then shortly afterward pt stated that it was all coming back, Dr Jameson saw pt and reviewed cxr and ekg, 20 mg IV lasix given and one time order for xanax, after lasix pt voided 550 ml, family at bedside, vss, continue to monitor
[2023-07-02] MEDS: enoxaparin 40 mg/0.4 mL Syringe SUBCUT (04:22)
[2023-07-02 04:30] LABS: Basophils % 0.5 %; Eosinophils # 0.3 10^3/uL (0.0-0.8); Eosinophils % 3.7 %; Hematocrit 30.8 % (37.0-47.0); Hemoglobin 9.9 g/dL (11.5-15.3); Lymphocytes # 1.3 10^3/uL (0.8-4.8); Lymphocytes % 17.4 %; Mean Corpuscular HGB Conc 32.1 g/dL (30.0-36.0); Mean Corpuscular Hemoglobin 28.9 pg (28.0-34.0); Mean Corpuscular Volume 90.1 fl (81-99); Mean Platelet Volume 8.3 fL (7.4-10.4); Monocytes % 13.5 %; Neutrophils # 4.65 10^3/uL (1.8-7.7); Neutrophils % 62.2 %; Nucleated Red Blood Cells % 0 %; Platelet Count 257 10^3/cmm (130-400); Red Blood Count 3.42 10^6/uL (4.1-5.3); Red Cell Distribution Width 15.8 % (12.1-15.1); White Blood Count 7.5 10^3/uL (4.0-10.0)
[2023-07-02 04:48] LABS: D Dimer 0.96 ug/mIFEU (0-0.59)
[2023-07-02 04:58] LABS: Phosphorus 3.3 mg/dL (2.5-4.5)
[2023-07-02 05:06] LABS: Anion Gap 15.9 (5-19); Blood Urea Nitrogen 14 mg/dL (8-23); Calcium 8.8 mg/dL (8.5-10.5); Carbon Dioxide 26 mmol/L (22-29); Chloride 95 mmol/L (98-107); Glucose 144 mg/dL (65-115); NT Pro B Type Natriuretic Pept 1357 pg/mL (0-125); Osmolality Calculated 277 mOsm/kg (285-295); Potassium 4.9 mmol/L (3.5-5.1); Sodium 132 mmol/L (136-145)
[2023-07-02] MEDS: docusate sodium 100 mg Capsule PO (05:31)
[2023-07-02] MEDS: losartan 50 mg Tablet 100 MG PO (05:31)
[2023-07-02] MEDS: labetalol 200 mg Tablet PO (08:09)
[2023-07-02] MEDS: famotidine 20 mg Tablet PO (08:09)
[2023-07-02] MEDS: clopidogrel 75 mg Tablet PO (08:09)
[2023-07-02] MEDS: aspirin 81 mg EC Tablet PO (08:10)
[2023-07-02] MEDS: bumetanide 1 mg Tablet PO (09:36)
[2023-07-02] MEDS: magnesium lactate 84 mg Tablet PO (09:36)
[2023-07-02] MEDS: potassium chloride ER 20 mEq Tablet PO (09:36)
--- NOTE | 2023-07-02 09:48 | PC.SOCIAL ---
Imm update Imm updated with patient at bedside. copy of page 2 provided. Patient verbalized understanding. Copy in chart initialed, dated and timed.
[2023-07-02] MEDS: CLONazepam 0.5 mg Tablet 0.25 MG PO (10:10)
[2023-07-02 10:31] LABS: ABG PCO2 36.4 mmHg (35-45); ABG PH Result 7.44 (7.35-7.45); Alveolar-Arterial Oxygen Gradi 4.3 mmHg (5-10); Base Excess ABG 0.8 mmol/L (-2.0-2.0); Blood Gas Allen Test Pos; Blood Gas Sample Site Radial, left; Blood Gas Sample Type Arterial; Carboxyhemoglobin 2.4 %THgb (0.4-20.1); HCO3 ABG 24.8 mmol/L (22-26); HGB O2 Sat 94.4 % (95-100); Ionized Calcium Level - ABG 1.2 mmol/L (1.1-1.4); Methemoglobin 0.4 % (0.4-1.5); Oxygen Device ROOM AIR; PO2 ABG 70.9 mmHg (80.0-100.0); Potassium Level - ABG 4.1 mmol/L (3.5-5.0); Total Hemoglobin 9.8 g/dL (12-16)
--- NOTE | 2023-07-02 16:03 | PM.DCS ---
Discharge Providers Date of Admission: 06/27/23 16:39 Date of Discharge: July 02, 2023 Attending Provider at Admission: Artie Bliss MD Attending Provider at Discharge: Luis Alfredo Diez MD Primary Care Provider: Howard Kraus MD Diagnoses at Discharge Discharge Diagnosis (1) Acute on chronic diastolic (congestive) heart failure: Status: Acute (2) Morbid obesity: Status: Acute (3) Hypertension: Status: Acute Qualifiers: Hypertension type: essential hypertension Qualified Code(s): I10 - Essential (primary) hypertension (4) Abnormal stress test: Status: Acute Reason for Visit Reason for Visit: SOB/weakness Hospital Course Hospital Course Maria Del Carmen Ansari is a 73 year old female? with Hx of HTN, HLD, HFpEF with diastolic HF, mild valvular heart disease, Hx of CVA, anxiety/depression and obesity presented to ED with SOB. onset 1 week. Associated with KELLY, SOB, fatigue, somnolence, dry cough, N, malaise. states it feels like when she had HF in past. SOB and KELLY, some difficulty eating 2/2 SOB,? unable to walk more than 20ft without SOB,? shaking. states symptoms of SOB have progressively worsened over past 1 week. Sleeps in a recliner, not as beneficial over past few days. has been able to urinate but has decreased over past days. No changes of medication changes or hospitalizations. Admits to medication compliance. pt states she uses lasix 40mg on a PRN basis but gets terrible leg cramps. last seen by cardiology 03/16, scheduled for AM appointment. Has not used clonidine in some time, used on PRN basis. currently taking ASA and plavix since CVA 2 months ago in eyes. Denies V/D/C, abd pain, productive cough. Patient was admitted to [facility] for shortness of breath, diastolic CHF exacerbation, received diuresis, CT angiogram no acute pulmonary embolism, diuresed, overall shortness of breath improved, discharged on Bumex 1 mg once daily with potassium, with magnesium, with a follow-up with cardiology and primary care as outpatient to monitor shortness of breath, monitor creatinine Patient had pulmonary nodules on her CT angiogram of the chest, up to 6 mm, remote history of smoking, follow-up with pulmonary as outpatient Due to persistent shortness of breath, patient underwent stress testing which was positive underwent coronary angiography which did not show any obstructive CAD Patient was found to have moderate stenosis, potentially this could be playing a role in terms of her shortness of breath Mitral valve is thickened and calcified.? Mild mitral ?regurgitation.? Moderate mitral stenosis with mean gradient ?across mitral valve of 7.9 mmHg. Mitral valve area by pressure ?half time is 3.1cm2. Will follow-up with cardiology as outpatient for consideration of transesophageal echocardiogram Patient did have episodes of anxiety, during her hospitalization, continue her home Xanax Did have complaints of weakness fatigue, her hemoglobin is on the lower end at 9.9, no significant evidence of iron deficiency, nonetheless as she is on aspirin and Plavix have discharged on Protonix, Carafate, monitor for bloody black stools if so go to the emergency room, follow-up with general surgery for consideration of EGD and colonoscopy Patient was found on a CT angiogram of her head and neck to have 1. ? Severe stenosis left internal carotid artery 1. ? Right common carotid artery stenosis in the 50-60% range. 2. ? Stenosis in the proximal right internal carotid artery in excess of 60%. 3. ? Stenosis in the proximal left internal carotid artery in excess of 50%. Follow-up with Dr. Auguste as outpatient ? Physical Exam Const: COMMON NORMALS: no acute distress and patient oriented x3 Resp: COMMON NORMALS: normal respiratory effort, No retractions, No use of accessory muscles and clear to auscultation bilaterally AUSCULTATION: clear to auscultation bilaterally Cardio: COMMON NORMALS: regular rate, regular rhythm, S1 normal heart sound present and S2 normal heart sound present RATE: regular rate RHYTHM: regular rhythm HEART SOUNDS: S1 normal heart sound present and S2 normal heart sound present GI: COMMON NORMALS: Normal to inspection, nondistended, normoactive bowel sounds present and non-tender Extremity: COMMON NORMALS: no pedal edema Neuro: COMMON NORMALS: patient oriented x3 Psych: COMMON NORMALS: mental status grossly normal Discharge Data Studies Completed and Pending Completed Studies During Hospitalization Category Date Time Status CT angio chest 60749 Urgent Cat Scan 06/27/23 16:20 Completed CXRP [XR chest 1V portable [id number]] Stat Exams 07/01/23 23:31 Completed Cardiac Stress Test MIBI [Sestamibi Stress Test Request Exams 06/30/23 06:58 Draft ] Routine XR chest 1V portable [id number] Routine Exams 06/30/23 11:59 Completed XR chest 1V portable [id number] Stat Exams 06/26/23 11:40 Completed NM rashida perf SPECT r/s* [id number] Routine Nuc Med 06/30/23 06:00 Completed CV. echo complete* [id number] Routine Ultrasound 06/30/23 11:59 Completed Pending at discharge Category Date Time Status DIE [employer] STAMPING request for service Routine Exams 07/01/23 09:54 Taken Cardiac Stress Test MIBI [Sestamibi Stress Test Request Exams 06/28/23 11:04 Stop Req ] Routine Basic Metabolic Panel AM LABS Lab 07/03/23 04:00 Ordered Complete Blood Count w/Auto AM LABS Lab 07/03/23 04:00 Ordered Magnesium AM LABS Lab 07/03/23 04:00 Ordered NT Pro B Type Natriuretic Pept QAM Lab 07/03/23 06:00 Ordered Phosphorus AM LABS Lab 07/03/23 04:00 Ordered Radiology Impressions Chest CTA 06/27/23 16:20 IMPRESSION: 1. No evidence of pulmonary embolism. 2. Stable right-sided pulmonary nodules common no further follow-up necessary. Chest X-Ray 07/01/23 23:31 IMPRESSION: Cardiomegaly and mild pulmonary vascular congestion. Laboratory Results WBC 7.5 10^3/uL (4.0-10.0) 07/02/23 04:11 RBC 3.42 10^6/uL (4.1-5.3) L 07/02/23 04:11 Hgb 9.9 g/dL (11.5-15.3) L 07/02/23 04:11 Hct 30.8 % (37.0-47.0) L 07/02/23 04:11 MCV 90.1 fl (81-99) 07/02/23 04:11 MCH 28.9 pg (28.0-34.0) 07/02/23 04:11 MCHC 32.1 g/dL (30.0-36.0) 07/02/23 04:11 RDW 15.8 % (12.1-15.1) H 07/02/23 04:11 Plt Count 257 10^3/cmm (130-400) 07/02/23 04:11 MPV 8.3 fL (7.4-10.4) 07/02/23 04:11 Neut % (Auto) 62.2 % 07/02/23 04:11 Lymph % (Auto) 17.4 % 07/02/23 04:11 Perkins % (Auto) 13.5 % 07/02/23 04:11 Eos % (Auto) 3.7 % 07/02/23 04:11 Baso % (Auto) 0.5 % 07/02/23 04:11 Reticulocyte % (Auto) 3.2 % (0.5-2.0) H 06/30/23 02:44 Neut # (Auto) 4.65 10^3/uL (1.8-7.7) 07/02/23 04:11 Lymph # (Auto) 1.3 10^3/uL (0.8-4.8) 07/02/23 04:11 Perkins # (Auto) 1.0 10^3/uL (0.2-0.9) H 07/02/23 04:11 Eos # (Auto) 0.3 10^3/uL (0.0-0.8) 07/02/23 04:11 Baso # (Auto) 0.0 10^3/uL (0.0-0.1) 07/02/23 04:11 Nucleated RBC % (auto) 0 % 07/02/23 04:11 Nucleated RBCs # 0.0 /100WBC 07/02/23 04:11 D-Dimer 0.96 ug/mIFEU (0-0.59) H 07/02/23 04:11 Specimen Type Arterial 07/02/23 10:18 Sample Site Radial, left 07/02/23 10:18 ABG pH 7.44 (7.35-7.45) 07/02/23 10:18 ABG pCO2 36.4 mmHg (35-45) 07/02/23 10:18 ABG pO2 70.9 mmHg (80.0-100.0) L 07/02/23 10:18 ABG HCO3 24.8 mmol/L (22-26) 07/02/23 10:18 ABG O2 Saturation 97.0 07/02/23 10:18 ABG Base Excess 0.8 mmol/L (-2.0-2.0) 07/02/23 10:18 Artur Test Pos 07/02/23 10:18 VBG pH 7.53 (7.32-7.42) H 06/26/23 11:50 VBG pCO2 26.1 mmHg (41-51) L 06/26/23 11:50 VBG pO2 40.2 mmHg (25-40) H 06/26/23 11:50 VBG HCO3 21.8 mmol/L (24-28) L 06/26/23 11:50 VBG Base Excess 0.2 mmol/L (-3.0-3.0) 06/26/23 11:50 VBG Hematocrit 36.4 % (37-47) L 06/26/23 11:50 A-a O2 Gradient 4.3 mmHg (5-10) L 07/02/23 10:18 Hematocrit 30.0 % (37-47) L 07/02/23 10:18 Hgb O2 Saturation 94.4 % (95-100) L 07/02/23 10:18 Carboxyhemoglobin 2.4 %THgb (0.4-20.1) 07/02/23 10:18 Methemoglobin 0.4 % (0.4-1.5) 07/02/23 10:18 Total Hemoglobin 9.8 g/dL (12-16) L 07/02/23 10:18 Sodium 132.0 mmol/L (131-143) 07/02/23 10:18 Potassium 4.1 mmol/L (3.5-5.0) 07/02/23 10:18 Glucose 169.0 mg/dL (70-115) H 07/02/23 10:18 Ionized Calcium 1.2 mmol/L (1.1-1.4) 07/02/23 10:18 O2 Delivery Device Room air 07/02/23 10:18 Cyber Legal Advisor ID [place] 07/02/23 10:18 Blood Gas Notified Time 1206 06/26/23 11:50 Sodium 132 mmol/L (136-145) L 07/02/23 04:11 Potassium 4.9 mmol/L (3.5-5.1) 07/02/23 04:11 Chloride 95 mmol/L (98-107) L 07/02/23 04:11 Carbon Dioxide 26 mmol/L (22-29) 07/02/23 04:11 Anion Gap 15.9 (5-19) 07/02/23 04:11 BUN 14 mg/dL (8-23) 07/02/23 04:11 Creatinine 0.7 mg/dL (0.5-0.9) 07/02/23 04:11 GFR Calculation Not Reportable 07/02/23 04:11 Glucose 144 mg/dL (65-115) H 07/02/23 04:11 POC Glucose 133 mg/dL (70-110) H 06/30/23 06:11 Estimat Average Glucose 103 06/27/23 03:10 Hemoglobin A1c 5.2 % (4.0-6.0) 06/27/23 03:10 Calculated Osmolality 277 mOsm/kg (285-295) L 07/02/23 04:11 Calcium 8.8 mg/dL (8.5-10.5) 07/02/23 04:11 Phosphorus 3.3 mg/dL (2.5-4.5) 07/02/23 04:11 Magnesium 2.0 mg/dL (1.7-2.3) 07/02/23 04:11 Iron 68 ug/dL (37-145) 06/30/23 02:44 TIBC 294 mcg/dl 06/30/23 02:44 % Saturation 23.1 % (20-50) 06/30/23 02:44 Unsat Iron Binding 226 ug/dL (112-347) 06/30/23 02:44 Ferritin 740 ng/mL (15-150) H 06/30/23 02:44 Total Bilirubin 0.5 mg/dL (0.15-1.2) 06/29/23 03:49 AST 40 U/L (0-32) H 06/29/23 03:49 ALT 47 U/L (0-33) H 06/29/23 03:49 Alkaline Phosphatase 78 U/L (35-105) 06/29/23 03:49 Troponin T Baseline 18 ng/L (0-10) H 06/30/23 12:33 Troponin T 120 Minute 15.96 ng/L (0-10) H 06/30/23 14:55 Delta Troponin T -2.04 ABS# (0-10) L 06/30/23 14:55 Troponin T Hi Sens 6Hr 14.43 ng/L (0-10) H 06/30/23 18:14 Troponin T Hi Sens 6Hr Delta -3.57 ng/L (0-12) L 06/30/23 18:14 C-Reactive Protein 25.3 mg/L (0.0-4.9) H 06/30/23 12:33 NT-Pro-B Natriuret Pep 1357 pg/mL (0-125) H 07/02/23 04:11 Total Protein 6.7 g/dL (6.6-8.7) 06/29/23 03:49 Albumin 4.1 g/dL (3.5-5.2) 06/29/23 03:49 Globulin 2.6 g/dL (1.3-4.6) 06/29/23 03:49 Triglycerides 317 mg/dL (0-150) H 06/27/23 03:10 Cholesterol 144 mg/dL (0-200) 06/27/23 03:10 LDL Cholesterol, Calc 55 mg/dL (50-129) 06/27/23 03:10 HDL Cholesterol 26 mg/dL (60-100) L 06/27/23 03:10 LDL/HDL Ratio 2.12 RATIO (0.00-3.22) 06/27/23 03:10 Cholesterol/HDL Ratio 5.54 mg/dL (0.0-4.40) H 06/27/23 03:10 Vitamin B12 1142 pg/mL (232-1245) 06/30/23 02:44 Folate > 20.0 ng/mL (4.8-37.3) 06/30/23 02:44 Procalcitonin 0.25 ng/mL (0-0.5) 06/30/23 12:33 TSH 3.76 uIU/mL (0.27-4.20) 06/26/23 11:50 Urine Color Yellow (Yellow) 06/26/23 15:48 Urine Appearance Clear (CLEAR) 06/26/23 15:48 Urine pH 6 (5-7) 06/26/23 15:48 Ur Specific [place] 1.005 (1.005-1.030) 06/26/23 15:48 Urine Protein Neg (Negative) 06/26/23 15:48 Urine Glucose (UA) Norm (Normal) 06/26/23 15:48 Urine Ketones Negative (Negative) 06/26/23 15:48 Urine Blood Neg (Negative) 06/26/23 15:48 Urine Nitrate Positive (Negative) H 06/26/23 15:48 Urine Bilirubin Neg (Negative) 06/26/23 15:48 Urine Urobilinogen Norm mg/dL (Negative) 06/26/23 15:48 Ur Leukocyte Esterase Trace (Negative) H 06/26/23 15:48 Urine RBC 0-4 /hpf (0-2) H 06/26/23 15:48 Urine WBC 5-10 /hpf (0-5) H 06/26/23 15:48 Ur Squamous Epith Cells 0-4 /hpf (0-5) H 06/26/23 15:48 Amorphous Sediment Not Reportable 06/26/23 15:48 Urine Bacteria 4+ /hpf (NONE) H 06/26/23 15:48 Nasal Influ A H1 2009 PCR Not detected (NOT DETECT) 06/26/23 11:49 Adenovirus (PCR) Not detected (NOT DETECT) 06/26/23 11:49 C. pneumoniae DNA (PCR) Not detected (NOT DETECT) 06/26/23 11:49 Coronavirus 229E (PCR) Not detected (NOT DETECT) 06/26/23 11:49 Human Metapneumovir PCR Not detected (NOT DETECT) 06/26/23 11:49 Influenza A (H1) PCR Not detected (NOT DETECT) 06/26/23 11:49 Influenza A (H3) PCR Not detected (NOT DETECT) 06/26/23 11:49 Influenza Type A (PCR) Not detected (NOT DETECT) 06/26/23 11:49 Influenza Type B (PCR) Not detected (NOT DETECT) 06/26/23 11:49 M. pneumoniae (PCR) Not detected (NOT DETECT) 06/26/23 11:49 Parainfluenza 1 (PCR) Not detected (NOT DETECT) 06/26/23 11:49 Parainfluenza 2 (PCR) Not detected (NOT DETECT) 06/26/23 11:49 Parainfluenza 3 (PCR) Not detected (NOT DETECT) 06/26/23 11:49 Parainfluenza 4 (PCR) Not detected (NOT DETECT) 06/26/23 11:49 RSV Type A (PCR) Not detected (NOT DETECT) 06/26/23 11:49 RSV Type B (PCR) Not detected (NOT DETECT) 06/26/23 11:49 Entero/Rhino (PCR) Not detected (NOT DETECT) 06/26/23 11:49 SARS-CoV-2 (PCR) Not detected (NOT DETECT) 06/26/23 11:49 Vitals Last Vital Signs Temp 98.5 F 07/02/23 11:34 Pulse 71 07/02/23 14:35 Resp 26 H 07/02/23 11:34 BP 127/54 07/02/23 11:34 Pulse Ox 96 07/02/23 11:34 O2 Del Method Nasal Cannula 07/02/23 08:00 O2 Flow Rate 2 07/02/23 08:00 Discharge Plan Discharge Patient Disposition: Home Condition: Stable Prescriptions: New bumetanide 1 mg Tablet 1 mg PO DAILY 30 Days Qty: 30 0RF pantoprazole [Protonix] 40 mg tablet,delayed release (DR/EC) 40 mg PO BID 30 Days Qty: 60 0RF sucralfate [Carafate] 1 gram tablet 1 g PO BID 30 Days Qty: 60 0RF aspirin 81 mg Tablet,Delayed Release (Dr/Ec) 81 mg PO DAILY 30 Days Qty: 30 0RF magnesium L-lactate [Magtab] 84 mg Tablet Extended Release 84 mg PO DAILY 30 Days Qty: 30 0RF Continued clonidine HCl 0.1 mg tablet 0.1 mg PO TID PRN (Reason: pressure >190/100) Qty: 30 0RF potassium chloride [Klor-Con 10] 10 mEq tablet extended release 10 meq PO DAILY Qty: 90 2RF alprazolam 0.5 mg tablet 0.5 mg PO BID PRN (Reason: anxiety) Qty: 45 3RF losartan 100 mg tablet 100 mg PO QAM Qty: 90 1RF labetalol 200 mg tablet 200 mg PO BID Qty: 180 1RF nitroglycerin [Nitrostat] 0.4 mg Tablet, Sublingual 0.4 mg SUBLINGUAL Q5M PRN (Reason: Chest Pain) Rx Instructions: do not exceed 3 doses per episode docusate sodium [Colace] 100 mg Capsule 100 mg PO QAM simvastatin 40 mg tablet 40 mg PO BEDTIME clopidogrel [Plavix] 75 mg tablet 75 mg PO DAILY Qty: 30 1RF Centrum Silver Women 8 mg iron-400 mcg-300 mcg Tablet 1 tab PO DAILY Hair, Skin and Nails (biotin) 10,000 mcg Tablet,Chewable 20,000 mcg PO DAILY Discontinued furosemide 40 mg tablet 40 mg PO DAILY@12 PRN (Reason: Edema) aspirin 325 mg Tablet 325 mg PO DAILY Discharge Orders: Discharge Order (Routine); Ordered 07/02/23 Ordered By: Luis Alfredo Diez Referrals: Gareth Ochoa MD [Physician] - 2 weeks (egd and colonscopy ) Howard Kraus MD [Primary Care Provider] - 07/09/23 11:00 am Jonathan Auguste MD [Physician] - 1 week (carotid stenosis) Paola Galindo FNP [Nurse Practitioner] - 07/04/23 9:30 am DatarWeston MD [Physician] - 2 weeks Discharge Diet: Cardiac Discharge Activity: Resume usual activity Patient Instructions: Heart Failure (DC), Heart Catheterization (DC), CHF Stoplight, Opioid Safety, Post Angiogram Home Care Instructions Activity Restrictions/Additional Instructions: - If you have any strokelike symptoms please call 911 -Please follow-up with Dr. Kraus -Have Dr. Kraus repeat your CBC monitor hemoglobin -Have Dr. Kraus recheck your BMP monitor your kidney function -For your fluid overload, discharged on Bumex 1 mg once daily with potassium replacement with magnesium -If you have any chest pain or shortness of breath go to the emergency room -For your carotid artery stenosis I referred you to Dr. Auguste for follow-up and monitoring -Continue aspirin, statin, Plavix -For your anemia, I have discharged you on Protonix, Carafate, follow-up with Dr. Deanne Aranda for consideration of EGD and colonoscopy if you develop bloody or black stools please go to the emergency room -For your mitral stenosis please follow-up with cardiology -Please follow-up with Dr. Kraus for sleep study Discharge Attestations Time Spent in Discharge Care*: greater than 30 min Quality Metrics Clinical Quality Measures [ No reported AMI, CVA or VTE this stay] Coding Level of Care Code 09923 Total time (in minutes) for Discharge: 45 Diagnoses Acute on chronic diastolic (congestive) heart failure I50.33 Morbid obesity E66.01 Hypertension I10 Hypertension type: essential hypertension Abnormal stress test R94.39
[2023-07-02 18:16] LABS: Add Urine Microscopic? NO; Charge for UA Resulting for Rev
[2023-07-02 18:23] LABS: Bilirubin Urine Neg (Negative); Blood Urine Neg (Negative); Glucose Urine UA Norm (Normal); Ketones Urine Negative (Negative); Nitrate Urine Negative (Negative); Protein Urine Neg (Negative); Specific Gravity, Urine 1.005 (1.005-1.030); Urine Appearance Clear (CLEAR); Urine Color Yellow (Yellow); pH Urine 5 (5-7)
[2023-07-02 18:24] LABS: Leukocyte Esterase Urine Negative (Negative); Urobilinogen Urine Norm (Negative)
--- NOTE | 2023-07-03 07:36 | PM.PN ---
Subjective Subjective: Please consider this as documentation for 07/02/2023 as note was missed) Patient is doing well. No significant chest pain. Last night had an episode that she got anxious and was short of breath Vitals/I&O/Wt Last Vital Signs Temp 98.5 F 07/02/23 16:43 Pulse 71 07/02/23 16:43 Resp 25 H 07/02/23 16:43 BP 125/73 07/02/23 16:43 Pulse Ox 100 07/02/23 16:43 O2 Del Method Nasal Cannula 07/02/23 08:00 O2 Flow Rate 2 07/02/23 08:00 Weight last 48 hrs Weight 249 lb 1.6 oz Physical Exam Narrative: GENERAL: Patient is alert, awake and oriented x3. [] NECK: No jugular vein distension. [] HEENT: No cyanosis. No icterus. No pallor. [] HEART: Regular S1 and S2. Grade 2/6 systolic murmur LUNGS: Diminished air entry. [] CENTRAL NERVOUS SYSTEM: Grossly nonfocal. [] EXTREMITIES: Lower extremities with 1+ edema bilaterally. Data 07/02/23 04:11 07/02/23 04:11 A&P Assessment and plan (1) Acute on chronic diastolic (congestive) heart failure: (2) Morbid obesity: (3) Hypertension: Qualifiers: Hypertension type: essential hypertension Qualified Code(s): I10 - Essential (primary) hypertension (4) Abnormal stress test: Plan Patient is stable. Continue p.o. Lasix. From cardiology standpoint he is stable to be discharged. Can have outpatient transesophageal echocardiogram to better assess mitral stenosis. Thank you for involving us with care of this patient. Please call with questions. Attestations Medical Necessity Statement*: Care expected to cross 2 midnights. Coding Level of Care Code Acute Code for Chg Fwd Diagnoses Acute on chronic diastolic (congestive) heart failure I50.33 Morbid obesity E66.01 Hypertension I10 Hypertension type: essential hypertension Abnormal stress test R94.39
== END 2023-07-02 18:33 | disposition home or self-care (01) | DRG 286 ==
LOC: ER 15:01 → MEDSURG 15:38 → CSU 16:30
PROVIDERS: Family Medicine; Internal Medicine; Admitting Provider Family Medicine; Emergency Provider Emergency Medicine; PCP Family Medicine; Visit Provider Family Medicine
PROC: B2111ZZ Fluoroscopy of Multiple Coronary Arteries using Low Osmolar Contrast (ICD-10-PCS; principal; 2023-07-01 11:05)
DX: I11.0 Hypertensive heart disease with heart failure (principal); I50.33 Acute on chronic diastolic (congestive) heart failure; N39.0 Urinary tract infection, site not specified; Z68.41 Body mass index [BMI] 40.0-44.9, adult; E87.1 Hypo-osmolality and hyponatremia; B96.20 Unspecified Escherichia coli [E. coli] as the cause of diseases classified elsewhere; I25.10 Atherosclerotic heart disease of native coronary artery without angina pectoris; E66.01 Morbid (severe) obesity due to excess calories; R94.39 Abnormal result of other cardiovascular function study; E78.5 Hyperlipidemia, unspecified; Z86.73 Personal history of transient ischemic attack (TIA), and cerebral infarction without residual deficits; F41.9 Anxiety disorder, unspecified; F32.A Depression, unspecified; M47.816 Spondylosis without myelopathy or radiculopathy, lumbar region; M43.16 Spondylolisthesis, lumbar region; Z79.02 Long term (current) use of antithrombotics/antiplatelets; I27.20 Pulmonary hypertension, unspecified; I08.3 Combined rheumatic disorders of mitral, aortic and tricuspid valves; I66.02 Occlusion and stenosis of left middle cerebral artery; R73.9 Hyperglycemia, unspecified
CPT/HCPCS: 36415; 36416; 36600; 71045; 71275; 78452; 80048; 80051; 80053; 80061; 81001; 81003; 82330; 82607; 82728; 82746; 82803; 82805; 82962; 83036; 83540; 83550; 83735; 83880; 84100; 84145; 84443; 84484; 85025; 85027; 85045; 85378; 86140; 87077; 87086; 87186; 87486; 87581; 87633; 93005; 93017; 93306; 93458; 94640; 96372; 96375; 96376; 99152; 99153; 99285; A9500; C1760; C1769; C1887; C1894; G0378; J0360; J0696; J1644; J1650; J1940; J2250; J2270; J2785; J3010; J7030; Q0163; Q9967

== ENCOUNTER → 2023-07-04 09:24 | Outpatient (BNVA) | payer MEDICARE, OTHER, SELFPAY | PROVIDERS: PCP Family Medicine; Visit Provider Nurse Practitioner Family | DX: I25.10 Atherosclerotic heart disease of native coronary artery without angina pectoris (principal); I10 Essential (primary) hypertension | CPT/HCPCS: 99213 ==

== ENCOUNTER → 2023-07-07 10:33 | Outpatient (BNVA) | payer MEDICARE, OTHER, SELFPAY | PROVIDERS: PCP Family Medicine; Visit Provider Surgery | DX: D64.9 Anemia, unspecified (principal) | CPT/HCPCS: 99204 ==

== ENCOUNTER 2023-07-09 14:24 | Emergency (ER) | payer MEDICARE, OTHER, SELFPAY ==
--- NOTE | 2023-07-09 14:34 | XRR_ITS ---
PROCEDURE INFORMATION: Exam: XR Chest Exam date and time: 07/09/2023 2:57 PM Age: 73 years old Clinical indication: Cough and dyspnea; Additional info: Dyspnea/cough TECHNIQUE: Imaging protocol: Radiologic exam of the chest. Views: 1 view. COMPARISON: CR (CHEST, ) 07/01/2023 11:45 PM FINDINGS: Tubes, catheters and devices: Spinal stimulator leads noted within the thoracic spinal canal. Lungs: Unremarkable. No consolidation. Pleural spaces: Unremarkable. No pleural effusion. No pneumothorax. Heart/Mediastinum: Unremarkable. No cardiomegaly. Bones/joints: Unremarkable. XR/XR chest 1V portable [id number] IMPRESSION: No acute findings.
--- NOTE | 2023-07-09 14:35 | ECG_ITS ---
[facility] Test Date: 2023-07-09 Pat Name: Maria Del Carmen Ansari Department: Room: Gender: Female Digester Hand: : 1950 Requested By: Yousif Bell Order Number: [id number] Tremaine MD: Madi Rodriguez M.D. Measurements Intervals [place] Rate: 67 P: 56 ND: 363 QRS: 27 QRSD: 103 T: 56 QT: 413 QTc: 438 Interpretive Statements NORMAL SINUS RHYTHM. BASELINE ARTIFACT NOTED Compared to ECG 07/01/2023 23:48:47 NO SIGNIFICANT CHANGES Electronically Signed On 07-10-2023 7:59:24 CDT by Madi Rodriguez M.D. [email or web address]
[2023-07-09 14:47] VITALS: BP 110/43; PULSE 66; RESP 18; TEMP 36.6; O2SAT 96
[2023-07-09 15:04] LABS: Basophils % 0.5 %; Eosinophils % 0.7 %; Hematocrit 30.8 % (37.0-47.0); Hemoglobin 9.5 g/dL (11.5-15.3); Lymphocytes # 2.3 10^3/uL (0.8-4.8); Mean Corpuscular HGB Conc 30.8 g/dL (30.0-36.0); Mean Corpuscular Hemoglobin 28.5 pg (28.0-34.0); Mean Corpuscular Volume 92.5 fl (81-99); Mean Platelet Volume 8.5 fL (7.4-10.4); Monocytes % 15.6 %; Neutrophils # 2.67 10^3/uL (1.8-7.7); Neutrophils % 43.4 %; Nucleated Red Blood Cells % 0 %; Platelet Count 268 10^3/cmm (130-400); Red Blood Count 3.33 10^6/uL (4.1-5.3); Red Cell Distribution Width 16.3 % (12.1-15.1); White Blood Count 6.2 10^3/uL (4.0-10.0)
[2023-07-09 15:07] LABS: Slide Review Slide Review Perform
[2023-07-09 15:37] LABS: Alanine Aminotransferase 33 U/L (0-33); Albumin Level 3.9 g/dL (3.5-5.2); Alkaline Phosphatase 84 U/L (35-105); Anion Gap 15.4 (5-19); Aspartate Amino Transferase 33 U/L (0-32); Blood Urea Nitrogen 18 mg/dL (8-23); Calcium 9.2 mg/dL (8.5-10.5); Carbon Dioxide 25 mmol/L (22-29); Chloride 95 mmol/L (98-107); Globulin 3.8 g/dL (1.3-4.6); Glucose 123 mg/dL (65-115); NT Pro B Type Natriuretic Pept 409 pg/mL (0-125); Osmolality Calculated 275 mOsm/kg (285-295); Potassium 4.4 mmol/L (3.5-5.1); Sodium 131 mmol/L (136-145); Total Bilirubin 0.7 mg/dL (0.15-1.2); Total Protein 7.7 g/dL (6.6-8.7)
--- NOTE | 2023-07-09 16:51 | W.ED.WEAKNES ---
HPI - Weakness General: Chief complaint: Weakness Stated complaint: weakness Time Seen by Provider: 07/09/23 14:34 Source: patient Mode of arrival: ambulatory History of Present Illness: 71-year-old female presents emergency room complaining of generalized weakness. She was admitted last week states she still feels very tired. She is on high-dose beta-arminda. In addition at this she has significant congestive heart failure. Recent most recent hospitalization reviewed. She denies any fever sweats chills dysuria urgency or frequency. MD Complaint: generalized weakness Onset (ago): minute(s) Location: generalized Relieving factors: none Exacerbating factors: none Associated symptoms: Reports short of breath; Denies chest pain, chills, confusion, melena, decreased appetite, diaphoresis, dysuria, easy bruising, fever(s), headache(s), myalgias, nausea, rash, syncope or vomiting Review of Systems Const: Denies: fever(s), chills or diaphoresis Card: Reports: palpitations and edema; Denies: chest pain, irregular heart rhythm or syncope Resp: Denies: dyspnea, productive cough or non-productive cough GI: Denies: abdominal pain, nausea, vomiting or melena : Denies: dysuria, urinary frequency or urinary urgency Skin/Breast: Denies: rash or pruritus Neuro: Denies: headache(s) or confusion Jt/Lymph: Denies: easy bruising PFSH ED PFSH: Medical History Anxiety CVA (cerebral vascular accident) Hypercholesteremia Hyperglycemia Hypertension Hypothyroid Lumbar disc disease with radiculopathy Lumbar spondylosis Morbid obesity Spondylolisthesis, lumbar region Venous insufficiency of both lower extremities Surgical History H/O carpal tunnel repair H/O cataract removal with insertion of prosthetic lens H/O: hysterectomy History of arthroscopic surgery of elbow History of cholecystectomy Family History Father Cancer CAD (coronary artery disease) Mother CAD (coronary artery disease) Diabetes Hypertension Stroke Denies family history of Anesthesia complication Bleeding disorder Social History Smoking and tobacco status: never smoked Second hand smoke exposure: No Alcohol intake: never Substance/Drug Use: never Adopted: No Caregiver/support person: Yes Lives independently: Yes Household members: spouse Housing: House Marital status: service: No Current occupational status: retired Current occupational exposures/hazards: No Pets and animals: No Sexually active: No Do you think of yourself as: Straight/Heterosexual Current gender identity: Female Ratna/Scientologist: Oriental Orthodox Special ratna needs: No Agree to transfusion: No Financial difficulty paying for basics: Decline to Answer Physical Exam Const: GENERAL APPEARANCE: cooperative and comfortable ORIENTATION/CONSCIOUSNESS: Yes awake, Yes oriented to person, Yes oriented to place and Yes oriented to time HENMT: COMMON NORMALS: normocephalic, atraumatic and hearing grossly normal bilaterally HEAD & SCALP: normocephalic and atraumatic Resp: COMMON NORMALS: normal respiratory effort, No retractions, No use of accessory muscles and clear to auscultation bilaterally AUSCULTATION: clear to auscultation bilaterally Cardio: COMMON NORMALS: regular rate, regular rhythm and No murmurs present (Cardio) RATE: regular rate RHYTHM: regular rhythm GI: COMMON NORMALS: Soft to palpation and No hepatosplenomegaly present AUSCULTATION: Yes normoactive bowel sounds PALPATION: Yes Soft to palpation, No Tenderness to palpation present (GI), No Guarding due to palpation present (GI) and Yes No hepatosplenomegaly present Extremity: COMMON NORMALS: normal to inspection, capillary refill normal, no clubbing, cyanosis or edema, no calf tenderness and no pedal edema Neuro: SENSORIUM/ORIENTATION: Yes oriented to person, Yes oriented to place and Yes oriented to time Skin: COMMON NORMALS: no rashes or lesions noted GENERAL SKIN EXAM: no rashes or lesions noted Course Vital Signs: Vital signs: Vital Signs Temperature 97.8 F 07/09/23 14:47 Pulse Rate 66 07/09/23 14:47 Respiratory Rate 18 07/09/23 14:47 Blood Pressure 150/63 07/09/23 17:08 Pulse Oximetry 97 07/09/23 17:08 Oxygen Delivery Me thod Room Air 07/09/23 14:47 MDM - Weakness Medical Decision Making Suspect some of this is just her medications particular beta-arminda combined with her underlying comorbid conditions particular congestive heart failure she has no acute emergent finding at this time. She is not in decompensated failure at this time. 1 suggestion would be for her to return to cardiology Review her medications consider changing to a different beta-arminda although discussed with her and the family that all beta-blockers are likely to cause similar side effects. Continue current medications at this time. Recheck fasting worsening or changing symptoms. Medical Records I reviewed the patient's medical records. Lab Data I reviewed the patient's lab results. 07/09/23 14:55 07/09/23 14:55 Radiology Impressions Chest X-Ray 07/09/23 14:34 IMPRESSION: No acute findings. Laboratory Results WBC 6.2 10^3/uL (4.0-10.0) 07/09/23 14:55 RBC 3.33 10^6/uL (4.1-5.3) L 07/09/23 14:55 Hgb 9.5 g/dL (11.5-15.3) L 07/09/23 14:55 Hct 30.8 % (37.0-47.0) L 07/09/23 14:55 MCV 92.5 fl (81-99) 07/09/23 14:55 MCH 28.5 pg (28.0-34.0) 07/09/23 14:55 MCHC 30.8 g/dL (30.0-36.0) 07/09/23 14:55 RDW 16.3 % (12.1-15.1) H 07/09/23 14:55 Plt Count 268 10^3/cmm (130-400) 07/09/23 14:55 MPV 8.5 fL (7.4-10.4) 07/09/23 14:55 Neut % (Auto) 43.4 % 07/09/23 14:55 Lymph % (Auto) 38.0 % 07/09/23 14:55 [place] % (Auto) 15.6 % 07/09/23 14:55 Eos % (Auto) 0.7 % 07/09/23 14:55 Baso % (Auto) 0.5 % 07/09/23 14:55 Neut # (Auto) 2.67 10^3/uL (1.8-7.7) 07/09/23 14:55 Lymph # (Auto) 2.3 10^3/uL (0.8-4.8) 07/09/23 14:55 [place] # (Auto) 1.0 10^3/uL (0.2-0.9) H 07/09/23 14:55 Eos # (Auto) 0.0 10^3/uL (0.0-0.8) 07/09/23 14:55 Baso # (Auto) 0.0 10^3/uL (0.0-0.1) 07/09/23 14:55 Nucleated RBC % (auto) 0 % 07/09/23 14:55 Nucleated RBCs # 0.0 /100WBC 07/09/23 14:55 Sodium 131 mmol/L (136-145) L 07/09/23 14:55 Potassium 4.4 mmol/L (3.5-5.1) 07/09/23 14:55 Chloride 95 mmol/L (98-107) L 07/09/23 14:55 Carbon Dioxide 25 mmol/L (22-29) 07/09/23 14:55 Anion Gap 15.4 (5-19) 07/09/23 14:55 BUN 18 mg/dL (8-23) 07/09/23 14:55 Creatinine 1.0 mg/dL (0.5-0.9) H 07/09/23 14:55 GFR Calculation Not Reportable 07/09/23 14:55 Glucose 123 mg/dL (65-115) H 07/09/23 14:55 Calculated Osmolality 275 mOsm/kg (285-295) L 07/09/23 14:55 Calcium 9.2 mg/dL (8.5-10.5) 07/09/23 14:55 Total Bilirubin 0.7 mg/dL (0.15-1.2) 07/09/23 14:55 AST 33 U/L (0-32) H 07/09/23 14:55 ALT 33 U/L (0-33) 07/09/23 14:55 Alkaline Phosphatase 84 U/L (35-105) 07/09/23 14:55 NT-Pro-B Natriuret Pep 409 pg/mL (0-125) H 07/09/23 14:55 Total Protein 7.7 g/dL (6.6-8.7) 07/09/23 14:55 Albumin 3.9 g/dL (3.5-5.2) 07/09/23 14:55 Globulin 3.8 g/dL (1.3-4.6) 07/09/23 14:55 Urine Color Yellow (Yellow) 07/09/23 17:32 Urine Appearance Sl hazy (CLEAR) A 07/09/23 17:32 Urine pH 6.5 (5-7) 07/09/23 17:32 Ur Specific [place] 1.010 (1.005-1.030) 07/09/23 17:32 Urine Protein Neg (Negative) 07/09/23 17:32 Urine Glucose (UA) Norm (Normal) 07/09/23 17:32 Urine Ketones Negative (Negative) 07/09/23 17:32 Urine Blood Neg (Negative) 07/09/23 17:32 Urine Nitrate Negative (Negative) 07/09/23 17:32 Urine Bilirubin Neg (Negative) 07/09/23 17:32 Urine Urobilinogen Norm mg/dL (Negative) 07/09/23 17:32 Ur Leukocyte Esterase Trace (Negative) H 07/09/23 17:32 Urine RBC None /hpf (0-2) 07/09/23 17:32 Urine WBC 0-4 /hpf (0-5) H 07/09/23 17:32 Ur Squamous Epith Cells 0-4 /hpf (0-5) H 07/09/23 17:32 Amorphous Sediment Not Reportable 07/09/23 17:32 Urine Bacteria 2+ /hpf (NONE) H 07/09/23 17:32 Discharge Plan Discharge Patient Disposition: Home Clinical Impression: Diastolic CHF, Morbid obesity, Medication side effect Condition: Stable Prescriptions: No Action clopidogrel [Plavix] 75 mg tablet 75 mg PO DAILY Qty: 90 3RF nitroglycerin [Nitrostat] 0.4 mg tablet, sublingual 0.4 mg SUBLINGUAL Q5M PRN (Reason: Chest Pain) Qty: 30 4RF Rx Instructions: do not exceed 3 doses per episode clonidine HCl 0.1 mg tablet 0.1 mg PO TID PRN (Reason: pressure >190/100) Qty: 30 0RF potassium chloride [Klor-Con 10] 10 mEq tablet extended release 10 meq PO DAILY Qty: 90 2RF alprazolam 0.5 mg tablet 0.5 mg PO BID PRN (Reason: anxiety) Qty: 45 3RF losartan 100 mg tablet 100 mg PO QAM Qty: 90 1RF labetalol 200 mg tablet 200 mg PO BID Qty: 180 1RF docusate sodium [Colace] 100 mg Capsule 100 mg PO QAM simvastatin 40 mg tablet 40 mg PO BEDTIME Centrum Silver Women 8 mg iron-400 mcg-300 mcg Tablet 1 tab PO DAILY Hair, Skin and Nails (biotin) 10,000 mcg Tablet,Chewable 20,000 mcg PO DAILY aspirin 81 mg Tablet,Delayed Release (Dr/Ec) 81 mg PO DAILY 30 Days Qty: 30 0RF bumetanide 1 mg Tablet 1 mg PO DAILY 30 Days Qty: 30 0RF Magtab 84 mg Tablet Extended Release 84 mg PO DAILY 30 Days Qty: 30 0RF Protonix 40 mg tablet,delayed release (DR/EC) 40 mg PO BID 30 Days Qty: 60 0RF Carafate 1 gram tablet 1 g PO BID 30 Days Qty: 60 0RF Discharge Orders: Discharge ED (Routine); Ordered 07/09/23 Ordered By: Yousif Neumann Referrals: Howard Kraus MD [Primary Care Provider] - Patient Instructions: Opioid Safety, Pain Management Coding Level of Care Code ED Finance Admin for Sariah Borjas
[2023-07-09 17:08] VITALS: BP 150/63; O2SAT 97
[2023-07-09 18:11] LABS: Add Urine Culture? No; Add Urine Microscopic? YES; Bacteria Urine 2+ /hpf; Bilirubin Urine Neg (Negative); Blood Urine Neg (Negative); Glucose Urine UA Norm (Normal); Ketones Urine Negative (Negative); Leukocyte Esterase Urine Trace (Negative); Nitrate Urine Negative (Negative); Protein Urine Neg (Negative); Squamous Epithelial Cell Urine 0-4 /hpf (0-5); Urine Appearance SL Hazy (CLEAR); Urine Color Yellow (Yellow); Urobilinogen Urine Norm (Negative); WBC Urine 0-4 /hpf (0-5); pH Urine 6.5 (5-7)
== END 2023-07-09 18:28 | disposition home or self-care (01) ==
PROVIDERS: Emergency Provider Family Medicine; PCP Family Medicine
DX: I11.0 Hypertensive heart disease with heart failure (principal); I50.30 Unspecified diastolic (congestive) heart failure; E66.01 Morbid (severe) obesity due to excess calories; T50.995A Adverse effect of other drugs, medicaments and biological substances, initial encounter; Z86.73 Personal history of transient ischemic attack (TIA), and cerebral infarction without residual deficits; Z79.82 Long term (current) use of aspirin; Z79.02 Long term (current) use of antithrombotics/antiplatelets; Z68.41 Body mass index [BMI] 40.0-44.9, adult
CPT/HCPCS: 36415; 71045; 80053; 81001; 83880; 85025; 93005; 99215; 99285

== ENCOUNTER 2023-08-15 14:31 | Emergency (ER) | payer MEDICARE, OTHER, SELFPAY ==
[2023-08-15 14:34] VITALS: BP 148/65; PULSE 97; RESP 18; TEMP 36.6; O2SAT 97; BMI 39.8
[2023-08-15 15:15] VITALS: BP 131/64; PULSE 77; RESP 18; O2SAT 99
--- NOTE | 2023-08-15 15:16 | CTR_ITS ---
PROCEDURE INFORMATION: Exam: CT Head Without Contrast Exam date and time: 08/15/2023 3:35 PM Age: 73 years old Clinical indication: Weakness, extremity; Right; Additional info: R sided weakness TECHNIQUE: Imaging protocol: Computed tomography of the head without contrast. Radiation optimization: All CT scans at this facility use at least one of these dose optimization techniques: automated exposure control; mA and/or kV adjustment per patient size (includes targeted exams where dose is matched to clinical indication); or iterative reconstruction. REPORTING DATA: Count of CT and Cardiac NM exams in prior 12 months: This patient has received 3 known CTs and 0 known cardiac nuclear medicine studies in the 12 months prior to the current study. COMPARISON: CT angio headneck* [id number] 02/20/2023 4:34 PM RADIATION DOSE METRICS: Total DLP (mGy-cm): 1071.78 FINDINGS: Brain: No midline shift. Ventricles, cisterns, and sulci are normal. No mass, acute infarct, hemorrhage, or extraaxial fluid collection. Very small hypodensity posterosuperior left cerebellar hemisphere likely remote ischemia. Cerebral ventricles: No ventriculomegaly. Paranasal sinuses: Visualized sinuses are unremarkable. No fluid levels. Mastoid air cells: Visualized mastoid air cells are well aerated. Bones/joints: Unremarkable. No acute fracture. Soft tissues: Unremarkable. Other findings: Scattered bilateral punctate parenchymal calcifications. CT/CT head wo con* [id number] IMPRESSION: No acute intracranial abnormality. Scattered bilateral punctate parenchymal calcifications which could represent evidence of remote hemorrhage, infection or possibly cysticercosis.
--- NOTE | 2023-08-15 15:24 | PC.PHAR ---
pt states she takes care of her own medications-pt states she is unsure if she takes her plavix 75mg in the am or in the pm-pt states she had a wixela diskus 250-50 but states she doesnt use it and that it ext shows last filled 01/09/23-
[2023-08-15 15:37] LABS: Basophils % 0.4 %; Eosinophils # 0.1 10^3/uL (0.0-0.8); Eosinophils % 1.5 %; Hematocrit 32.3 % (36-47); Lymphocytes # 2.3 10^3/uL (0.8-4.8); Lymphocytes % 42.7 %; Mean Corpuscular HGB Conc 31.3 g/dL (30-55); Mean Corpuscular Hemoglobin 27.7 pg (27-33); Mean Corpuscular Volume 88.7 fl (85-98); Mean Platelet Volume 8.2 fL (7.4-10.4); Monocytes # 0.6 10^3/uL (0.2-0.9); Monocytes % 11.7 %; Neutrophils # 2.38 10^3/uL (1.8-7.7); Neutrophils % 43.5 %; Nucleated Red Blood Cells % 0 %; Platelet Count 234 10^3/cmm (157-399); Red Blood Count 3.64 10^6/uL (3.85-5.65); Red Cell Distribution Width 14.3 % (12.1-15.1); White Blood Count 5.46 10^3/uL (3.29-11.43)
[2023-08-15 15:58] LABS: Alanine Aminotransferase 23 U/L (0-33); Albumin Level 4.1 g/dL (3.5-5.2); Alkaline Phosphatase 81 U/L (35-105); Anion Gap 13.3 (5-19); Aspartate Amino Transferase 22 U/L (0-32); Blood Urea Nitrogen 19 mg/dL (8-23); Calcium 9.4 mg/dL (8.5-10.5); Carbon Dioxide 27 mmol/L (22-29); Chloride 100 mmol/L (98-107); Globulin 3.4 g/dL (1.3-4.6); Glucose 116 mg/dL (65-115); Osmolality Calculated 285 mOsm/kg (285-295); Potassium 4.3 mmol/L (3.5-5.1); Sodium 136 mmol/L (136-145); Total Bilirubin 0.4 mg/dL (0.15-1.2); Total Protein 7.5 g/dL (6.6-8.7)
--- NOTE | 2023-08-15 16:21 | W.ED.NEUROSD ---
HPI - Neuro Symptoms/Deficit General: Chief Complaint: Neuro Symptoms/Deficit Stated Complaint: stroke symptoms Time Seen by Provider: 08/15/23 14:48 Source: patient Mode of arrival: ambulatory History of Present Illness: 73-year-old female presents emergency room with sudden onset of weakness. Patient had gone out to eat when she was returning home she had bilateral weakness in her upper extremities no difficulty speech or swallowing symptoms resolved spontaneously and she is asymptomatic on arrival here. No chest pain or shortness of breath. Symptoms began at 1 PM and were completely resolved by the time patient arrives here. Onset (ago): hour(s) Time: 14:31 Last Observed Normal: 13:00 Location: left arm and right arm Severity: mild Quality: weak Relieving factors: none Exacerbating factors: none Context: sudden onset Associated symptoms: Deny chest pain, cough, diaphoresis, fevers/chills, headache(s), anorexia, malaise, nausea, seizures, short of breath, syncope, tingling, vertigo, vomiting or weakness Treatments Prior to Arrival: none Review of Systems Const: Denies: fever(s), chills, malaise or diaphoresis ENMT: Denies: throat pain, ear or mastoid pain, nasal discharge or nasal congestion Card: Denies: chest pain, palpitations or syncope Resp: Denies: dyspnea, productive cough or non-productive cough GI: Denies: abdominal pain, nausea or vomiting : Denies: flank pain, difficulty voiding, dysuria, urinary frequency or urinary urgency Skin/Breast: Denies: rash or pruritus Neuro: Denies: headache(s) or vertigo PFSH ED PFSH: Medical History Anxiety CVA (cerebral vascular accident) Hypercholesteremia Hyperglycemia Hypertension Hypothyroid Lumbar disc disease with radiculopathy Lumbar spondylosis Morbid obesity Spondylolisthesis, lumbar region Venous insufficiency of both lower extremities Surgical History H/O carpal tunnel repair H/O cataract removal with insertion of prosthetic lens H/O: hysterectomy History of arthroscopic surgery of elbow History of cholecystectomy Family History Father Cancer CAD (coronary artery disease) Mother CAD (coronary artery disease) Diabetes Hypertension Stroke Denies family history of Anesthesia complication Bleeding disorder Social History Smoking and tobacco status: never smoked Second hand smoke exposure: No Alcohol intake: never Substance/Drug Use: never Adopted: No Caregiver/support person: Yes Lives independently: Yes Household members: spouse Housing: House Marital status: service: No Current occupational status: retired Current occupational exposures/hazards: No Pets and animals: No Sexually active: No Do you think of yourself as: Straight/Heterosexual Current gender identity: Female Ratna/Mormon: Alevism Special ratna needs: No Agree to transfusion: No Financial difficulty paying for basics: Decline to Answer NIH stroke score NIHSS: Level Of Consciousness - 1a: 0 Level Of Consciousness Questions - 1b: Both Correct Level Of Consciousness Commands - 1c: Both Correct Best Gaze - 2: Normal Visual Nuñez - 3: No Visual Loss Facial Palsy - 4: Normal Motor Arm Right - 5: No Drift Motor Arm Left - 5: No Drift Motor Leg Right - 6: No Drift Motor Leg Left - 6: No Drift Limb Ataxia - 7: Absent Sensory - 8: Normal Best Language - 9: No Aphasia Dysarthia - 10: Normal Extinction And Inattention - 11: 0 Score: Total Score: 0 Physical Exam Const: GENERAL APPEARANCE: cooperative and comfortable ORIENTATION/CONSCIOUSNESS: Yes awake, Yes oriented to person, Yes oriented to place and Yes oriented to time HENMT: COMMON NORMALS: normocephalic, atraumatic and hearing grossly normal bilaterally HEAD & SCALP: normocephalic and atraumatic Resp: COMMON NORMALS: normal respiratory effort, No retractions, No use of accessory muscles and clear to auscultation bilaterally AUSCULTATION: clear to auscultation bilaterally Cardio: COMMON NORMALS: regular rate, regular rhythm and No murmurs present (Cardio) RATE: regular rate RHYTHM: regular rhythm GI: COMMON NORMALS: Soft to palpation and No hepatosplenomegaly present AUSCULTATION: Yes normoactive bowel sounds PALPATION: Yes Soft to palpation, No Tenderness to palpation present (GI), No Guarding due to palpation present (GI) and Yes No hepatosplenomegaly present Extremity: COMMON NORMALS: normal to inspection, capillary refill normal, no clubbing, cyanosis or edema, no calf tenderness and no pedal edema Neuro: SENSORIUM/ORIENTATION: Yes oriented to person, Yes oriented to place and Yes oriented to time Skin: COMMON NORMALS: no rashes or lesions noted GENERAL SKIN EXAM: no rashes or lesions noted Course Vital Signs: Vital signs: Vital Signs Temperature 97.9 F 08/15/23 14:34 Pulse Rate 77 08/15/23 17:12 Respiratory Rate 18 08/15/23 17:12 Blood Pressure 152/66 08/15/23 17:12 Pulse Oximetry 98 08/15/23 17:12 Oxygen Delivery Me thod Room Air 08/15/23 17:12 MDM - Neuro Symptoms/Deficit Medical Decision Making Symptoms resolved prior to arrival. CT head unremarkable Labs and imaging EKG reviewed patient is a mild anemia, However this is chronic and actually improved from what her baseline has been over the last couple of months. We will discharge patient home, she is already on aspirin Plavix and statin. Set her up for an outpatient MRI follow-up with neurology. Medical Records I reviewed the patient's medical records. Lab Data I reviewed the patient's lab results. 08/15/23 15:28 08/15/23 15:[address] 08/15/23 15:16 IMPRESSION: No acute intracranial abnormality. Scattered bilateral punctate parenchymal calcifications which could represent evidence of remote hemorrhage, infection or possibly cysticercosis. Laboratory Results WBC 5.46 10^3/uL (3.29-11.43) 08/15/23 15:28 RBC 3.64 10^6/uL (3.85-5.65) L 08/15/23 15:28 Hgb 10.10 g/dL (11.27-16.99) L 08/15/23 15:28 Hct 32.3 % (36-47) L 08/15/23 15:28 MCV 88.7 fl (85-98) 08/15/23 15:28 MCH 27.7 pg (27-33) 08/15/23 15:28 MCHC 31.3 g/dL (30-55) 08/15/23 15:28 RDW 14.3 % (12.1-15.1) 08/15/23 15:28 Plt Count 234 10^3/cmm (157-399) 08/15/23 15:28 MPV 8.2 fL (7.4-10.4) 08/15/23 15:28 Neut % (Auto) 43.5 % 08/15/23 15:28 Lymph % (Auto) 42.7 % 08/15/23 15:28 [place] % (Auto) 11.7 % 08/15/23 15:28 Eos % (Auto) 1.5 % 08/15/23 15:28 Baso % (Auto) 0.4 % 08/15/23 15:28 Neut # (Auto) 2.38 10^3/uL (1.8-7.7) 08/15/23 15:28 Lymph # (Auto) 2.3 10^3/uL (0.8-4.8) 08/15/23 15: [place] # (Auto) 0.6 10^3/uL (0.2-0.9) 08/15/23 15: Eos # (Auto) 0.1 10^3/uL (0.0-0.8) 08/15/23 15: Baso # (Auto) 0.0 10^3/uL (0.0-0.1) 08/15/23 15: Nucleated RBC % (auto) 0 % 08/15/23 15: Nucleated RBCs # 0.0 /100WBC 08/15/23 15:28 Sodium 136 mmol/L (136-145) 08/15/23 15:28 Potassium 4.3 mmol/L (3.5-5.1) 08/15/23 15: Chloride 100 mmol/L (98-107) 08/15/23 15: Carbon Dioxide 27 mmol/L (22-29) 08/15/23 15:28 Anion Gap 13.3 (5-19) 08/15/23 15:28 BUN 19 mg/dL (8-23) 08/15/23 15:28 Creatinine 1.0 mg/dL (0.5-0.9) H 08/15/23 15:28 GFR Calculation Not Reportable 08/15/23 15:28 Glucose 116 mg/dL (65-115) H 08/15/23 15:28 Calculated Osmolality 285 mOsm/kg (285-295) 08/15/23 15:28 Calcium 9.4 mg/dL (8.5-10.5) 08/15/23 15:28 Total Bilirubin 0.4 mg/dL (0.15-1.2) 08/15/23 15:28 AST 22 U/L (0-32) 08/15/23 15:28 ALT 23 U/L (0-33) 08/15/23 15:28 Alkaline Phosphatase 81 U/L (35-105) 08/15/23 15:28 Total Protein 7.5 g/dL (6.6-8.7) 08/15/23 15:28 Albumin 4.1 g/dL (3.5-5.2) 08/15/23 15:28 Globulin 3.4 g/dL (1.3-4.6) 08/15/23 15:28 All radiology interpretation(s) finalized by discharge Discharge Plan Discharge Patient Disposition: Home Clinical Impression: Transient cerebral ischemia Condition: Stable Prescriptions: No Action clopidogrel [Plavix] 75 mg tablet 75 mg PO DAILY Qty: 90 3RF nitroglycerin [Nitrostat] 0.4 mg tablet, sublingual 0.4 mg SUBLINGUAL Q5M PRN (Reason: Chest Pain) Qty: 30 4RF Rx Instructions: do not exceed 3 doses per episode clonidine HCl 0.1 mg tablet 0.1 mg PO TID PRN (Reason: pressure >190/100) Qty: 30 0RF potassium chloride [Klor-Con 10] 10 mEq tablet extended release 10 meq PO DAILY Qty: 90 2RF alprazolam 0.5 mg tablet 0.5 mg PO BID PRN (Reason: anxiety) Qty: 45 3RF losartan 100 mg tablet 100 mg PO QAM Qty: 90 1RF labetalol 200 mg tablet 200 mg PO BID Qty: 180 1RF Magtab 84 mg tablet extended release 84 mg PO DAILY 30 Days Qty: 30 4RF Protonix 40 mg tablet,delayed release (DR/EC) 40 mg PO BID 30 Days Qty: 60 5RF sucralfate [Carafate] 1 gram tablet 1 g PO BID 30 Days Qty: 60 5RF bumetanide 1 mg tablet 1 mg PO BID Qty: 60 5RF docusate sodium [Colace] 100 mg Capsule 100 mg PO QAM simvastatin 40 mg tablet 40 mg PO BEDTIME Centrum Silver Women 8 mg iron-400 mcg-300 mcg Tablet 1 tab PO QAM Hair, Skin and Nails (biotin) 10,000 mcg Tablet,Chewable 20,000 mcg PO QAM aspirin 81 mg tablet,delayed release (DR/EC) 81 mg PO QAM Discharge Orders: Discharge ED (Routine); Ordered 08/15/23 Ordered By: Yousif Neumann Referrals: Howard Kraus MD [Primary Care Provider] - Discharge Diet: Usual diet Discharge Activity: Increase activity as tolerated Patient Instructions: Opioid Safety, Pain Management Activity Restrictions/Additional Instructions: Case management will make arrangements for a MRI as an outpatient and follow-up with neurology. Continue to take the clopidogrel aspirin and simvastatin. Coding Level of Care Code ED Trouble Dispatcher for Sariah Borjas
[2023-08-15 17:12] VITALS: BP 152/66; PULSE 77; RESP 18; O2SAT 98
--- NOTE | 2023-08-18 09:19 | PC.SOCIAL ---
O/p MRI Orders for MRI faxed to centralized scheduling at this time.
--- NOTE | 2023-08-25 10:23 | PM.MISC ---
Miscellaneous Note Note: Patient recently had stroke like incident last month and is supposed to be referred to cardiology and get an US of carotids (its sounds like). The endoscopy is to receive clearance for intervention on the heart valve. Will reschedule her endscopy until after she is evaluated by neurology.
== END 2023-08-15 18:02 | disposition home or self-care (01) ==
PROVIDERS: Emergency Provider Family Medicine; PCP Family Medicine
DX: G45.9 Transient cerebral ischemic attack, unspecified (principal); Z79.82 Long term (current) use of aspirin; Z79.02 Long term (current) use of antithrombotics/antiplatelets; Z86.73 Personal history of transient ischemic attack (TIA), and cerebral infarction without residual deficits; I10 Essential (primary) hypertension
CPT/HCPCS: 36415; 70450; 80053; 85025; 99284

== ENCOUNTER 2023-09-03 12:18 | Outpatient (CLI) | payer MEDICARE, OTHER, SELFPAY ==
--- NOTE | 2023-09-03 12:15 | USCV_ITS ---
Maria Del Carmen Ansari Age: 73 Gender: F : 1950 Exam Date: 09/03/2023 12:43 Ordering Phys: Jonathan Auguste MD (Andy) ([email or web address] [place]) Technologist: CASE Exam Location: [facility] [place] Indication: KNOWN RIGHT ICA STENOSIS. F/U Risk Factors: Previous Vascular Surgery: Right Brachial BP: / Left Brachial BP: / Right Left Velocity (cm/s) Spectral Plaque Velocity (cm/s) Spectral Plaque Syst/Diast Broadening Syst/Diast Broadening 102.50/23.20 Prox CCA 87.10 / 23.30 114.70/23.20 Mid CCA 88.10 / 11.80 110.30/19.80 Distal CCA 85.20 / 17.50 202.80/52.50 Prox ICA 81.20 / 19.70 200.80/54.40 Mid ICA 100.80/ 33.30 176.70/44.60 Distal ICA 70.10 / 17.90 244.20 ECA 175.60 1.77 ICA/CCA 1.14 Antegrade Vertebral Antegrade 119.6/ 45.10 cm/s 99.10/ 22.20 cm/s 0 Tri Subclavian Tri 143.6 185.8 0 0 FINDINGS Comparison:. 03/20/23 Mild elevation of velocity right ICA, similar to prior exam. Mild bilateral plaque. Antegrade vertebral arteries. CONCLUSIONS No interval change in stenosis since prior exam. Right ICA stenosis 50-69%. Left ICA stenosis < 50%. Dr. Delicia Beck DO (Electronically Signed) Final Date: 03 September 2023 13:34 S
== END 2023-09-03 12:19 | disposition home or self-care (01) ==
PROVIDERS: PCP Family Medicine; Visit Provider Thoracic Surgery (Cardiothoracic Vascular Surgery)
DX: I65.23 Occlusion and stenosis of bilateral carotid arteries (principal)
CPT/HCPCS: 93880

== ENCOUNTER 2023-09-22 08:09 | Emergency (ER) | payer MEDICARE, OTHER, SELFPAY ==
[2023-09-22 08:11] VITALS: BMI 40.7
[2023-09-22 08:12] VITALS: BP 206/85; PULSE 98; RESP 21; TEMP 36.8; O2SAT 96
--- NOTE | 2023-09-22 08:12 | ECG_ITS ---
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 Measurements Intervals [place] Rate: 97 P: 216 GA: 344 QRS: 73 QRSD: 94 T: 72 QT: 361 QTc: 461 Interpretive Statements SINUS RHYTHM WITH BASELINE ARTIFACT Compared to ECG 07/09/2023 16:32:01 Sinus rhythm no longer present Electronically Signed On 09-22-2023 11:09:40 CDT by Madi Rodriguez M.D. [id number] f
--- NOTE | 2023-09-22 08:16 | XRR_ITS ---
PROCEDURE INFORMATION: Exam: XR Chest Exam date and time: 09/22/2023 8:54 AM Age: 73 years old Clinical indication: Pain; Angina pectoris; Additional info: Chest pain TECHNIQUE: Imaging protocol: Radiologic exam of the chest. Views: 1 view. COMPARISON: CR XR chest 1V portable [id number] 07/09/2023 2:57 PM FINDINGS: Lungs: There is no consolidation. Pleural spaces: There is no pleural effusion or pneumothorax. Heart/Mediastinum: There is mild enlargement of the cardiac silhouette. Diaphragm: There is mild asymmetric elevation of the right hemidiaphragm. Bones/joints: Bones are unremarkable. XR/XR chest 1V portable [id number] IMPRESSION: No acute findings.
--- NOTE | 2023-09-22 08:40 | W.ED.CHESTPA ---
HPI - Chest Pain General: Chief Complaint: Chest Pain Stated Complaint: chest pain, arm pain Time Seen by Provider: 09/22/23 08:12 Source: patient Mode of arrival: ambulatory History of Present Illness: 73-year-old female presents to the emergency room with complaint of chest pain. She has recently been hospitalized for chest pain. The previous hospitalization was reviewed she had a stress test which was questionably positive followed by an angiogram which was negative. She reporting right-sided chest pain or shortness of breath intermittently. No fever sweats chills no productive cough no vomiting or diarrhea no recent fall or trauma. MD complaint: chest pain Onset (ago): day(s) Timing of current episode: episodic Prior episodes: Yes Onset: during rest Pain location: substernal and right chest Severity: moderate Quality: sharp Exacerbating factors: nothing Associated symptoms: Reports nausea and sense of impending doom; Deny abdominal pain, diaphoresis, dyspnea, fever(s), leg edema, palpitations, syncope or vomiting Treatment prior to arrival: none Review of Systems Const: Denies: fever(s), chills or diaphoresis Card: Reports: chest pain; Denies: palpitations, irregular heart rhythm, edema or syncope Resp: Denies: dyspnea GI: Reports: nausea; Denies: abdominal pain or vomiting : Denies: dysuria, urinary frequency or urinary urgency Musc: Denies: neck pain or back pain Skin/Breast: Denies: rash PFSH ED PFSH: Medical History Anxiety CVA (cerebral vascular accident) Hypercholesteremia Hyperglycemia Hypertension Hypothyroid Lumbar disc disease with radiculopathy Lumbar spondylosis Morbid obesity Spondylolisthesis, lumbar region Venous insufficiency of both lower extremities Surgical History H/O carpal tunnel repair H/O cataract removal with insertion of prosthetic lens H/O: hysterectomy History of arthroscopic surgery of elbow History of cholecystectomy Family History Father Cancer CAD (coronary artery disease) Mother CAD (coronary artery disease) Diabetes Hypertension Stroke Denies family history of Anesthesia complication Bleeding disorder Social History (Reviewed 09/22/23 @ 08:40 by MARCIN Palacios Smoking and tobacco/nicotine status: never used tobacco/nicotine Second hand smoke exposure: No Alcohol intake: never Substance/Drug Use: never Adopted: No Caregiver/support person: Yes Lives independently: Yes Household members: spouse Housing: House Marital status: service: No Current occupational status: retired Current occupational exposures/hazards: No Pets and animals: No Sexually active: No Do you think of yourself as: Straight/Heterosexual Current gender identity: Female Ratna/Zoroastrianism: Gnosticist Special ratna needs: No Agree to transfusion: No Physical Exam Const: GENERAL APPEARANCE: cooperative and comfortable ORIENTATION/CONSCIOUSNESS: Yes awake, Yes oriented to person, Yes oriented to place and Yes oriented to time HENMT: COMMON NORMALS: normocephalic, atraumatic and hearing grossly normal bilaterally HEAD & SCALP: normocephalic and atraumatic Resp: COMMON NORMALS: normal respiratory effort, No retractions, No use of accessory muscles and clear to auscultation bilaterally AUSCULTATION: clear to auscultation bilaterally Cardio: COMMON NORMALS: regular rate, regular rhythm and No murmurs present (Cardio) RATE: regular rate RHYTHM: regular rhythm GI: COMMON NORMALS: Soft to palpation and No hepatosplenomegaly present AUSCULTATION: Yes normoactive bowel sounds PALPATION: Yes Soft to palpation, No Tenderness to palpation present (GI), No Guarding due to palpation present (GI) and Yes No hepatosplenomegaly present Extremity: COMMON NORMALS: normal to inspection, capillary refill normal, no clubbing, cyanosis or edema, no calf tenderness and no pedal edema Neuro: SENSORIUM/ORIENTATION: Yes oriented to person, Yes oriented to place and Yes oriented to time Skin: COMMON NORMALS: no rashes or lesions noted GENERAL SKIN EXAM: no rashes or lesions noted Course Vital Signs: Vital signs: Vital Signs Temperature 98.2 F 09/22/23 08:12 Pulse Rate 98 09/22/23 08:12 Respiratory Rate 21 H 09/22/23 08:12 Blood Pressure 206/85 09/22/23 08:12 Pulse Oximetry 96 09/22/23 08:12 Oxygen Delivery Me thod Room Air 09/22/23 08:12 MDM - Chest Pain Medical Decision Making Cardiac enzymes negative age-adjusted D-dimer negative oxygen sats and heart rate normal no signs of pneumonia pneumothorax or widening mediastinum. No sign of acute coronary syndrome in June of this year patient had a stress test followed by an angiogram which was unremarkable. She still has a vague chest discomfort and some of this may be GI in nature. Continue on the pantoprazole 40 twice daily follow-up with primary care no emergent cause of chest pain identified at this time. Given extensive previous work-up including heart catheterization and the patient can be discharged home recheck for any worsening or changes symptoms. Medical Records I reviewed the patient's medical records. Lab Data I reviewed the patient's lab results. 09/22/23 08:44 09/22/23 08:44 Radiology Impressions Chest X-Ray 09/22/23 08:16 IMPRESSION: No acute findings. Laboratory Results WBC 11.14 10^3/uL (3.29-11.43) 09/22/23 08:44 RBC 3.85 10^6/uL (3.85-5.65) 09/22/23 08:44 Hgb 10.60 g/dL (11.27-16.99) L 09/22/23 08:44 Hct 31.9 % (36-47) L 09/22/23 08:44 MCV 82.9 fl (85-98) L 09/22/23 08:44 MCH 27.5 pg (27-33) 09/22/23 08:44 MCHC 33.2 g/dL (30-55) 09/22/23 08:44 RDW 14.4 % (12.1-15.1) 09/22/23 08:44 Plt Count 238 10^3/cmm (157-399) 09/22/23 08:44 MPV 8.7 fL (7.4-10.4) 09/22/23 08:44 Neut % (Auto) 79.0 % 09/22/23 08:44 Lymph % (Auto) 11.0 % 09/22/23 08:44 [place] % (Auto) 7.1 % 09/22/23 08:44 Eos % (Auto) 2.2 % 09/22/23 08:44 Baso % (Auto) 0.3 % 09/22/23 08:44 Neut # (Auto) 8.81 10^3/uL (1.8-7.7) H 09/22/23 08:44 Lymph # (Auto) 1.2 10^3/uL (0.8-4.8) 09/22/23 08:44 [place] # (Auto) 0.8 10^3/uL (0.2-0.9) 09/22/23 08:44 Eos # (Auto) 0.2 10^3/uL (0.0-0.8) 09/22/23 08:44 Baso # (Auto) 0.0 10^3/uL (0.0-0.1) 09/22/23 08:44 Nucleated RBC % (auto) 0 % 09/22/23 08:44 Nucleated RBCs # 0.0 /100WBC 09/22/23 08:44 D-Dimer 0.74 ug/mLFEU (0-0.59) H 09/22/23 08:44 Sodium 135 mmol/L (136-145) L 09/22/23 08:44 Potassium 4.7 mmol/L (3.5-5.1) 09/22/23 08:44 Chloride 99 mmol/L (98-107) 09/22/23 08:44 Carbon Dioxide 25 mmol/L (22-29) 09/22/23 08:44 Anion Gap 15.7 (5-19) 09/22/23 08:44 BUN 17 mg/dL (8-23) 09/22/23 08:44 Creatinine 0.7 mg/dL (0.5-0.9) 09/22/23 08:44 GFR Calculation Not Reportable 09/22/23 08:44 Glucose 159 mg/dL (65-115) H 09/22/23 08:44 Calculated Osmolality 285 mOsm/kg (285-295) 09/22/23 08:44 Calcium 9.3 mg/dL (8.5-10.5) 09/22/23 08:44 Total Bilirubin 0.5 mg/dL (0.15-1.2) 09/22/23 08:44 AST 14 U/L (0-32) 09/22/23 08:44 ALT 13 U/L (0-33) 09/22/23 08:44 Alkaline Phosphatase 85 U/L (35-105) 09/22/23 08:44 Troponin T Baseline 24 ng/L (0-10) H 09/22/23 08:44 Troponin T 120 Minute 23.10 ng/L (0-10) H 09/22/23 10:51 Delta Troponin T -0.90 ABS# (0-10) L 09/22/23 10:51 Total Protein 7.1 g/dL (6.6-8.7) 09/22/23 08:44 Albumin 4.3 g/dL (3.5-5.2) 09/22/23 08:44 Globulin 2.8 g/dL (1.3-4.6) 09/22/23 08:44 All radiology interpretation(s) finalized by discharge Discharge Plan Discharge Patient Disposition: Home Clinical Impression: Atypical chest pain, Hypertension Condition: Stable Prescriptions: No Action clopidogrel [Plavix] 75 mg tablet 75 mg PO DAILY Qty: 90 3RF nitroglycerin [Nitrostat] 0.4 mg tablet, sublingual 0.4 mg SUBLINGUAL Q5M PRN (Reason: Chest Pain) Qty: 30 4RF Rx Instructions: do not exceed 3 doses per episode clonidine HCl 0.1 mg tablet 0.1 mg PO TID PRN (Reason: pressure >190/100) Qty: 30 0RF potassium chloride [Klor-Con 10] 10 mEq tablet extended release 10 meq PO DAILY Qty: 90 2RF alprazolam 0.5 mg tablet 0.5 mg PO BID PRN (Reason: anxiety) Qty: 45 3RF losartan 100 mg tablet 100 mg PO QAM Qty: 90 1RF labetalol 200 mg tablet 200 mg PO BID Qty: 180 1RF Magtab 84 mg tablet extended release 84 mg PO DAILY 30 Days Qty: 30 4RF Protonix 40 mg tablet,delayed release (DR/EC) 40 mg PO BID 30 Days Qty: 60 5RF bumetanide 1 mg tablet 1 mg PO BID Qty: 60 5RF docusate sodium [Colace] 100 mg Capsule 100 mg PO QAM Centrum Silver Women 8 mg iron-400 mcg-300 mcg Tablet 1 tab PO QAM Hair, Skin and Nails (biotin) 10,000 mcg Tablet,Chewable 20,000 mcg PO QAM aspirin 81 mg tablet,delayed release (DR/EC) 81 mg PO QAM sucralfate 1 gram tablet 1 g PO BID simvastatin 40 mg tablet 40 mg PO QPM Aleve 220 mg Capsule 440 mg PO Q12H PRN (Reason: Pain) Discharge Orders: Discharge ED (Routine); Ordered 09/22/23 Ordered By: Yousif Neumann Referrals: Howard Kraus MD [Primary Care Provider] - Discharge Diet: Usual diet Discharge Activity: Increase activity as tolerated Patient Instructions: Opioid Safety, Pain Management Activity Restrictions/Additional Instructions: Thank you for choosing [facility] for your healthcare needs today. Please realize this is an emergency room and that we are providing you with a medical screening exam and this may not be complete and all inclusive of all the testing and or work up that you may need to determine your ailment or severity of your illness. It is very important that you follow up as instructed or that you return to the Emergency Department should you have concerns or if your condition changes or worsens in any way Cardiac enzymes and EKG were unremarkable did not show any acute changes. Reviewing her history in June of this year he had a cardiac stress test which was followed by a angiogram which was normal. There is no sign of pulmonary embolism aneurysm pneumonia or pneumothorax. Continue current medications follow-up with your primary care doctor. Coding Level of Care Code ED Athletic Equipment Manager for Sariah Borjas
[2023-09-22 09:02] LABS: Basophils % 0.3 %; Eosinophils # 0.2 10^3/uL (0.0-0.8); Eosinophils % 2.2 %; Hematocrit 31.9 % (36-47); Lymphocytes # 1.2 10^3/uL (0.8-4.8); Mean Corpuscular HGB Conc 33.2 g/dL (30-55); Mean Corpuscular Hemoglobin 27.5 pg (27-33); Mean Corpuscular Volume 82.9 fl (85-98); Mean Platelet Volume 8.7 fL (7.4-10.4); Monocytes # 0.8 10^3/uL (0.2-0.9); Monocytes % 7.1 %; Neutrophils # 8.81 10^3/uL (1.8-7.7); Nucleated Red Blood Cells % 0 %; Platelet Count 238 10^3/cmm (157-399); Red Blood Count 3.85 10^6/uL (3.85-5.65); Red Cell Distribution Width 14.4 % (12.1-15.1); White Blood Count 11.14 10^3/uL (3.29-11.43)
[2023-09-22 09:12] LABS: Troponin(5th) Baseline 24 ng/L (0-10)
[2023-09-22 09:14] LABS: Alanine Aminotransferase 13 U/L (0-33); Albumin Level 4.3 g/dL (3.5-5.2); Alkaline Phosphatase 85 U/L (35-105); Anion Gap 15.7 (5-19); Aspartate Amino Transferase 14 U/L (0-32); Blood Urea Nitrogen 17 mg/dL (8-23); Calcium 9.3 mg/dL (8.5-10.5); Carbon Dioxide 25 mmol/L (22-29); Chloride 99 mmol/L (98-107); Globulin 2.8 g/dL (1.3-4.6); Glucose 159 mg/dL (65-115); Osmolality Calculated 285 mOsm/kg (285-295); Potassium 4.7 mmol/L (3.5-5.1); Sodium 135 mmol/L (136-145); Total Bilirubin 0.5 mg/dL (0.15-1.2); Total Protein 7.1 g/dL (6.6-8.7)
--- NOTE | 2023-09-22 10:17 | ECG_ITS ---
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 Measurements Intervals [place] Rate: 84 P: 161 NC: 329 QRS: 50 QRSD: 97 T: 58 QT: 386 QTc: 459 Interpretive Statements SINUS RHYTHM WITH BASELINE ARTIFACT Compared to ECG 09/22/2023 08:12:59 No significant changes Electronically Signed On 09-22-2023 11:10:16 CDT by Madi Rodriguez M.D. [id number]
[2023-09-22 12:09] LABS: D Dimer 0.74 ug/mLFEU (0-0.59)
== END 2023-09-22 13:33 | disposition home or self-care (01) ==
PROVIDERS: Emergency Provider Family Medicine; PCP Family Medicine
DX: R07.89 Other chest pain (principal); I10 Essential (primary) hypertension; Z79.02 Long term (current) use of antithrombotics/antiplatelets; Z79.82 Long term (current) use of aspirin; Z86.73 Personal history of transient ischemic attack (TIA), and cerebral infarction without residual deficits
CPT/HCPCS: 71045; 80053; 84484; 85025; 85378; 93005; 99285

== ENCOUNTER → 2023-10-02 13:21 | Outpatient (BNVA) | payer MEDICARE, OTHER, SELFPAY | PROVIDERS: PCP Family Medicine; Visit Provider Thoracic Surgery (Cardiothoracic Vascular Surgery) | DX: I63.9 Cerebral infarction, unspecified (principal); I10 Essential (primary) hypertension | CPT/HCPCS: 99213 ==

== ENCOUNTER → 2023-10-09 15:58 | Outpatient (BNVA) | payer MEDICARE, OTHER, SELFPAY | PROVIDERS: PCP Family Medicine; Visit Provider Internal Medicine Pulmonary Disease | DX: D64.89 Other specified anemias (principal); T78.40XA Allergy, unspecified, initial encounter; R06.02 Shortness of breath; I50.30 Unspecified diastolic (congestive) heart failure; I65.23 Occlusion and stenosis of bilateral carotid arteries; X58.XXXA Exposure to other specified factors, initial encounter | CPT/HCPCS: 36415; 82607; 82728; 82746; 82785; 83540; 83550; 83615; 86003; 99204 ==

== ENCOUNTER 2023-10-29 08:16 | Outpatient (RCR) | payer MEDICARE, OTHER, SELFPAY | END 2023-11-23 23:59 | disposition home or self-care (01) | LOC: SOT 08:16 | PROVIDERS: Visit Provider Internal Medicine | DX: I69.351 Hemiplegia and hemiparesis following cerebral infarction affecting right dominant side (principal) | CPT/HCPCS: 97022; 97110; 97166; 97530 ==

== ENCOUNTER 2023-11-06 10:03 | Outpatient (CLI) | payer MEDICARE, OTHER, SELFPAY ==
[2023-11-06 10:19] VITALS: PULSE 78; RESP 18; O2SAT 98
[2023-11-06 10:23] VITALS: PULSE 76
[2023-11-06] MEDS: albuterol 2.5 mg/3 mL Neb INHALATION (10:23)
== END 2023-11-06 10:04 | disposition home or self-care (01) ==
PROVIDERS: Visit Provider Internal Medicine Pulmonary Disease
DX: R06.02 Shortness of breath (principal)
CPT/HCPCS: 94060; 94729; J7613

== ENCOUNTER → 2023-12-04 10:59 | Outpatient (BNVA) | payer MEDICARE, OTHER, SELFPAY | PROVIDERS: Visit Provider Thoracic Surgery (Cardiothoracic Vascular Surgery) | DX: I65.23 Occlusion and stenosis of bilateral carotid arteries (principal); I73.9 Peripheral vascular disease, unspecified; I10 Essential (primary) hypertension | CPT/HCPCS: 99213 ==

== ENCOUNTER 2023-12-16 08:28 | Outpatient (CLI) | payer MEDICARE, OTHER, SELFPAY ==
--- NOTE | 2023-12-16 08:45 | USCV_ITS ---
Maria Del Carmen Ansari Age: 73 Gender: F : 1950 Exam Date: 12/16/2023 08:38 Ordering Phys: Jonathan Auguste MD (Andy) ([email or web address] [email or web address]) Technologist: CT Exam Location: [facility] – [place] Indication: leg pain Risk Factors: Previous Vascular Surgery: RIGHT LEFT BP: 140.0 / 84.00 BP: 138.0/ 80.00 0 0 Waveform Velocity (cm/s) Velocity (cm/s) Waveform Biphasic 156.9 Iliac Prox 118.7 Biphasic Triphasic 198.9 Iliac Mid 111.2 Triphasic Biphasic 198.9 Iliac Distal 124.7 Triphasic Biphasic 184.9 ORAL SURGERY ASSISTANT 133.9 Biphasic Biphasic 174.0 SFA Prox 113.6 Biphasic Triphasic 179.9 SFA Mid 98.4 Biphasic Triphasic 145.7 SFA Dist 107.2 Biphasic Biphasic 88.1 POP 107.2 Triphasic Biphasic 103.9 SEMICONDUCTOR PROCESSING TECHNICIAN 94.3 Triphasic Biphasic 59.0 DPA 79.3 Biphasic 0.9 ROLA 1.0 FINDINGS mixed triphasic and biphasic waveforms Mild diffuse plaque with intimal thickening in the iliac, femoral and popliteal arteries bilaterally Resting ROLA 0.93 on the right side and 1.0 on the left side CONCLUSIONS Normal resting ABIs bilaterally Mild diffuse plaque with intimal thickening in the iliac, femoral and popliteal arteries bilaterally No significant arterial obstruction, based on the above findings Dr Juan Horne MD [facility] (Electronically Signed) Final Date: 17 December 2023 17:32 S
== END 2023-12-16 08:29 | disposition home or self-care (01) ==
LOC: RAD 08:29
PROVIDERS: PCP Family Medicine; Visit Provider Thoracic Surgery (Cardiothoracic Vascular Surgery)
DX: I70.203 Unspecified atherosclerosis of native arteries of extremities, bilateral legs (principal)
CPT/HCPCS: 93925

== ENCOUNTER → 2023-12-17 14:25 | Outpatient (BNVA) | payer MEDICARE, OTHER, SELFPAY | PROVIDERS: PCP Family Medicine; Visit Provider Internal Medicine | DX: D64.9 Anemia, unspecified (principal); F41.9 Anxiety disorder, unspecified; F45.8 Other somatoform disorders; I11.0 Hypertensive heart disease with heart failure; I50.31 Acute diastolic (congestive) heart failure; E66.01 Morbid (severe) obesity due to excess calories; Z87.891 Personal history of nicotine dependence; Z86.73 Personal history of transient ischemic attack (TIA), and cerebral infarction without residual deficits; Z68.41 Body mass index [BMI] 40.0-44.9, adult | CPT/HCPCS: 99214 ==

== ENCOUNTER 2023-12-25 07:08 | Outpatient (CLI) | payer MEDICARE, OTHER, SELFPAY ==
--- NOTE | 2023-12-25 07:30 | USCV_ITS ---
Maria Del Carmen Ansari Age: 73 Gender: F : 1950 Exam Date: 12/25/2023 07:32 Ordering Phys: Madi Rodriguez M.D ([email or web address]) Technologist: CASE Exam Location: [facility] [place] Indication: CHEST PAIN AND SHORTNESS OF BREATH BP: 157 / 74 HR: 80 Rhythm: Sinus Technical Quality: Adequate MEASUREMENTS (Male / Female) Normal Values 2D ECHO LVOT Diameter 2.0 cm LV Ejection Fraction MOD 2C 65.6 % LV Ejection Fraction 2C AL 67.3 % LA Diameter 4.5 cm LA Width 3.1 cm LA Height 4.8 cm RA Width 3.7 cm RA Height 3.6 cm Aorta at Sinotubular Diameter 2.0 cm IVC Diameter 1.7 cm M-MODE Aortic Annulus Diameter 3.2 cm LA Ao Ratio MM 1.3 MV E Point Septal Separation 0.7 cm DOPPLER AV Peak Velocity 234.0 cm/s LVOT Peak Velocity 114.0 cm/s AV Area Cont Eq vti 1.7 cm squared AV Area Cont Eq pk 1.5 cm squared MV Peak Velocity 219.0 cm/s MV Area PHT 3.9 cm squared Mitral E to A Ratio 2.0 MV E' Velocity 113.0 cm/s Mitral E to MV E' Ratio 30.3 Mitral E to LV E' Lateral Ratio 26.6 Mitral E to LV E' Septal Ratio 35.7 TR Peak Velocity 298.3 cm/s TR Peak Gradient 35.6 mmHg TR Mean Velocity 258.4 cm/s TR Mean Gradient 27.2 mmHg TR Velocity Time Integral 112.0 cm TV Peak E Velocity 72.0 cm/s Right Atrial Pressure 3.0 mmHg Pulmonary Artery Systolic Pressu 38.6 mmHg PV Peak Velocity 126.0 cm/s RV Acceleration Time 0.1 s RV Ejection Time 0.3 s RV AcT/ET 0.4 FINDINGS Left Ventricle Left ventricle is normal in size. LV systolic function is normal with EF of 60 to 65%. No regional wall motion abnormalities are seen. Grade 3 diastolic dysfunction. Right Ventricle Normal in size and function Right Atrium Normal in size Left Atrium Dilated. Mitral Valve Severe mitral annular calcification seen. Mild mitral regurgitation. Moderate mitral stenosis with mean gradient across mitral valve 7 mmHg. Mitral valve area by pressure half- time is 2.39 cm squared. Aortic Valve Aortic valve is thickened. Mild aortic stenosis with aortic valve area of 1.73 cm squared and mean gradient across aortic valve of 13 mmHg. Tricuspid Valve Mild tricuspid regurgitation. RVSP is 35 to 40 mmHg. This is consistent with mild pulmonary hypertension. Pulmonic Valve Not well-visualized. Mild pulmonic regurgitation. Pericardium Normal Aorta Normal in size IVC Appears to be normal CONCLUSIONS LV systolic function is normal with EF of 60 to 65%. Grade 3 diastolic dysfunction. Left atrial dilation Mild mitral regurgitation. Moderate mitral stenosis. Mild aortic stenosis. Mild tricuspid regurgitation. Mild pulmonary hypertension. Mild pulmonic regurgitation. Compared to prior echocardiogram from 06/2023, no significant changes are seen. Madi Rodriguez MD (Electronically Signed) Final Date: 04 January 2024 19:23 S
== END 2023-12-25 07:09 | disposition home or self-care (01) ==
LOC: RAD 07:08
PROVIDERS: PCP Family Medicine; Visit Provider Internal Medicine
DX: R07.9 Chest pain, unspecified (principal); I05.0 Rheumatic mitral stenosis; R06.02 Shortness of breath
CPT/HCPCS: 93306

== ENCOUNTER → 2024-01-06 15:15 | Outpatient (BNVA) | payer MEDICARE, OTHER, SELFPAY | PROVIDERS: PCP Family Medicine; Visit Provider Internal Medicine Pulmonary Disease | DX: J98.4 Other disorders of lung (principal); D64.9 Anemia, unspecified; G45.9 Transient cerebral ischemic attack, unspecified; I50.30 Unspecified diastolic (congestive) heart failure | CPT/HCPCS: 99214 ==

== ENCOUNTER 2024-01-21 11:53 | Outpatient (CLI) | payer MEDICARE, OTHER, SELFPAY ==
[2024-01-21 13:08] LABS: C Reactive Protein 5.9 mg/L (0.0-4.9)
[2024-01-21 13:10] LABS: Erythrocyte Sedimentation Rate 34 mm/hr (0-15)
[2024-01-22 13:19] LABS: SM/RNP Antibodies <1.0 NEG AI (<1.0 NEG)
[2024-01-22 14:55] LABS: Anti-Double Strand DNA AB <1 IU/mL; Cyclic Citrullinated Peptide <16 UNITS
[2024-01-23 12:35] LABS: Anti-Nuclear Antibody Pattern Nuclear, Speckled; Anti-Nuclear Antibody Screen POSITIVE (NEGATIVE)
== END 2024-01-21 11:54 | disposition home or self-care (01) ==
LOC: LAB 11:54
PROVIDERS: PCP Family Medicine; Visit Provider Internal Medicine Pulmonary Disease
DX: J98.4 Other disorders of lung (principal)
CPT/HCPCS: 36415; 85651; 86038; 86140; 86200; 86225; 86235; 86431

== ENCOUNTER 2024-01-27 09:49 | Outpatient (CLI) | payer MEDICARE, OTHER, SELFPAY ==
--- NOTE | 2024-01-27 10:00 | CTR_ITS ---
PROCEDURE INFORMATION: Exam: CT Chest Without Contrast; Diagnostic Exam date and time: 01/27/2024 10:07 AM Age: 73 years old Clinical indication: Condition or disease; Lung condition and disease; Shortness of breath; Patient HX: SOB worse with exertion. Interstitial lung disease; Additional info: Hrct TECHNIQUE: Imaging protocol: Diagnostic computed tomography of the chest without contrast. Radiation optimization: All CT scans at this facility use at least one of these dose optimization techniques: automated exposure control; mA and/or kV adjustment per patient size (includes targeted exams where dose is matched to clinical indication); or iterative reconstruction. COMPARISON: CT angio chest [id number] 06/27/2023 4:54 PM RADIATION DOSE METRICS: Total DLP (mGy-cm): 1596.25 FINDINGS: Tubes, catheters and devices: Midthoracic neurostimulator. Lungs: Stable scattered right-sided pulmonary nodules, the largest 8 mm in size. All are unchanged. No significant interstitial fibrosis. Pleural spaces: Unremarkable. No pneumothorax. No pleural effusion. Heart: Unremarkable. No cardiomegaly. No pericardial effusion. Lymph nodes: Unremarkable. No enlarged lymph nodes. Vasculature: Unremarkable. No aortic aneurysm. Bones/joints: Unremarkable. No acute fracture. Soft tissues: Unremarkable. CT/CT chest wo con [id number] IMPRESSION: Stable pulmonary nodules. No significant parenchymal fibrosis.
== END 2024-01-27 09:50 | disposition home or self-care (01) ==
LOC: RAD 09:50
PROVIDERS: PCP Family Medicine; Visit Provider Internal Medicine Pulmonary Disease
DX: J84.9 Interstitial pulmonary disease, unspecified (principal); R91.8 Other nonspecific abnormal finding of lung field
CPT/HCPCS: 71250

== ENCOUNTER 2024-03-04 08:48 | Outpatient (CLI) | payer MEDICARE, OTHER, SELFPAY ==
--- NOTE | 2024-03-04 09:00 | USCV_ITS ---
Maria Del Carmen Ansari Age: 73 Gender: F : 1950 Exam Date: 03/04/2024 09:00 Ordering Phys: Jonathan Auguste MD (Andy) ([email or web address] [place]) Technologist: CASE Exam Location[place] [facility] [place] Indication: EVAL FOR CAROTID STENOSIS Risk Factors: Previous Vascular Surgery: Right Brachial BP: / Left Brachial BP: / Right Left Velocity (cm/s) Spectral Plaque Velocity (cm/s) Spectral Plaque Syst/Diast Broadening Syst/Diast Broadening 99.20/ 27.10 Prox CCA 98.60 / 18.10 96.60/ 24.50 Mid CCA 85.60 / 14.40 117.20/32.20 Distal CCA 100.20/ 18.10 151.60/60.30 Prox ICA 36.70 / 14.30 186.20/66.00 Mid ICA 55.70 / 22.00 159.20/64.10 Distal ICA 71.70 / 28.00 204.60 ECA 123.90 1.60 ICA/CCA 0.70 Antegrade Vertebral Antegrade 47.90/ 18.70 cm/s 50.00/ 15.90 cm/s Tri Subclavian Tri 223.7 167.3 0 0 FINDINGS Comparison:. 09/03/23 Mild elevation of right ICA velocity. Mild carotid atherosclerosis. Antegrade vertebral arteries. CONCLUSIONS Right ICA stenosis 50-69%. Closer to 50%. Left ICA stenosis < 50%. No interval change in stenosis since prior exam. Dr. Delicia Beck DO (Electronically Signed) Final Date: 04 March 2024 11:40 S
== END 2024-03-04 08:49 | disposition home or self-care (01) ==
LOC: RAD 08:48
PROVIDERS: PCP Family Medicine; Visit Provider Thoracic Surgery (Cardiothoracic Vascular Surgery)
DX: I65.23 Occlusion and stenosis of bilateral carotid arteries (principal)
CPT/HCPCS: 93880

== ENCOUNTER 2024-04-26 09:04 | Emergency (ER) | payer MEDICARE, OTHER, SELFPAY ==
[2024-04-26 09:11] VITALS: BP 104/73; PULSE 80; RESP 18; TEMP 36.7; O2SAT 97; BMI 40.7
--- NOTE | 2024-04-26 09:12 | W.ED.SOB ---
HPI - SOB/Dyspnea General: Chief Complaint: Shortness of Breath/Dyspnea Stated Complaint: sob Time Seen by Provider: 04/26/24 09:06 Source: patient Mode of arrival: ambulatory Limitations: no limitations History of Present Illness: HPI Narrative: Patient is a 73-year-old female with a history of carotid artery stenosis, reactive airway disease, hypertension, hyperlipidemia, diastolic congestive heart failure, moderate mitral stenosis and mild aortic stenosis here for complaints of cough and dyspnea. Patient states approximately 4 days ago she began having a mild dry, nonproductive cough. She states they spent the weekend in [place] and an [employer]. She states while there she began feeling run down and fatigued. She states she feels like her cough is worsening and her chest feels tight and wheezy. She is now reporting increased phlegm production. She is having nasal congestion and sinus pain/pressure. No reported fevers but states she woke up sweating and chilling yesterday evening. Has not noticed any weight gain or worsening lower extremity edema. MD elicited complaint: shortness of breath and cough Pertinent past history: congestive heart failure Onset (ago): day(s) Timing: constant Severity: moderate Exacerbating factors: nothing Relieving factors: nothing Known history of: congestive heart failure Associated symptoms: Reports chest pain (tightness); Deny abdominal pain, chest congestion, dizziness, extremity pain, fever(s), hemoptysis, lightheadedness, nausea, orthopnea, palpitations, syncope or vomiting Treatment prior to arrival: none Related Data: Home oxygen amount: none Review of Systems Const: Reports: chills and night sweats; Denies: fever(s), body aches, fatigue or malaise Eyes: Denies: change in vision or blurry vision ENMT: Reports: nasal discharge, nasal congestion and sinus pain; Denies: throat pain, odynophagia or ear or mastoid pain Card: Reports: chest pain (tightness) and swelling of feet/ankles (chronic-hx of CHF; at baseline); Denies: palpitations, irregular heart rhythm, edema, lightheadedness, syncope, pre-syncope, dyspnea on exertion, orthopnea, leg pain with exertion or acrocyanosis Resp: Reports: dyspnea, non-productive cough and wheezing; Denies: productive cough, pain on inspiration, hemoptysis or chest congestion GI: Denies: abdominal pain, nausea, vomiting, heartburn or diarrhea : Denies: dysuria Musc: Denies: neck pain, back pain, extremity pain, extremity swelling or joint pain Skin/Breast: Denies: rash Neuro: Denies: headache(s), numbness in extremities, weakness in extremities, sensory changes or dizziness PFS ED PFSH: Medical History Anxiety Hyperglycemia Venous insufficiency of both lower extremities Hypothyroid Morbid obesity Lumbar spondylosis Spondylolisthesis, lumbar region Lumbar disc disease with radiculopathy CVA (cerebral vascular accident) Hypercholesteremia Hypertension Surgical History History of arthroscopic surgery of elbow H/O cataract removal with insertion of prosthetic lens H/O: hysterectomy History of cholecystectomy H/O carpal tunnel repair Family History Father Cancer CAD (coronary artery disease) Mother CAD (coronary artery disease) Diabetes Hypertension Stroke Denies family history of Anesthesia complication Bleeding disorder Social History Smoking and tobacco/nicotine status: never used tobacco/nicotine Second hand smoke exposure: No Alcohol intake: never Substance/Drug Use: never Adopted: No Caregiver/support person: Yes Lives independently: Yes Household members: spouse Housing: House Marital status: service: No Current occupational status: retired Current occupational exposures/hazards: No Pets and animals: No Sexually active: No Do you think of yourself as: Straight/Heterosexual Current gender identity: Female Ratna/Jainism: [employer] Special ratna needs: No Agree to transfusion: No Physical Exam Const: COMMON NORMALS: patient oriented x3, no limitations, alert and well nourished GENERAL APPEARANCE: cooperative and in distress (appears slightly dyspneic) NUTRITIONAL APPEARANCE: obese ORIENTATION/CONSCIOUSNESS: Yes awake, Yes oriented to person, Yes oriented to place and Yes oriented to time HENMT: COMMON NORMALS: normocephalic and atraumatic HEAD & SCALP: normal to inspection, normocephalic and atraumatic FACE & SINUS: normal facial exam and sinus tenderness maxillary NOSE: Nasal discharge present Eye: COMMON NORMALS: no scleral icterus GENERAL EYE: appearance normal, both eyes and all related structures Neck/C-Spine: COMMON NORMALS: full ROM, no lymphadenopathy, no meningeal signs, no JVD and No carotid bruits Chest: COMMONS NORMALS: normal inspection of the chest and normal palpation of entire chest wall Resp: COMMON NORMALS: normal respiratory effort AUSCULTATION: rhonchi and wheezes throughout Cardio: COMMON NORMALS: no JVD, regular rate and regular rhythm RATE: regular rate RHYTHM: regular rhythm GI: COMMON NORMALS: Normal to inspection, nondistended, normoactive bowel sounds present, Soft to palpation and non-tender PALPATION: Yes Soft to palpation Back/Pelvis: COMMON NORMALS: thoracic and lumbar spine normal to inspection Extremity: COMMON NORMALS: capillary refill normal, no joint enlargement, no clubbing, cyanosis or edema, no calf tenderness and no pedal edema NARRATIVE EXTREMITY EXAM: no significant edema; no calf pain GENERAL: Yes normal exam except as noted Neuro: COMMON NORMALS: patient oriented x3, moves all extremities, no focal motor deficits and no sensory deficits noted SENSORIUM/ORIENTATION: Yes alert, Yes oriented to person, Yes oriented to place and Yes oriented to time MENINGEAL SIGNS: Yes no meningeal signs Skin: COMMON NORMALS: no rashes or lesions noted GENERAL SKIN EXAM: no rashes or lesions noted Course Vital Signs: Vital signs: Vital Signs Temperature 98.0 F 04/26/24 09:11 Pulse Rate 72 04/26/24 10:29 Respiratory Rate 18 04/26/24 10:21 Blood Pressure 104/73 04/26/24 09:11 Pulse Oximetry 97 04/26/24 10:21 Oxygen Delivery Me thod Room Air 04/26/24 10:21 MDM - SOB/Dyspnea Medical Decision Making Patient is satting normally on room air. Her CXR showing small airway disease. She has seen Dr. Pimentel who has diagnosed her with restrictive lung disease/interstitial lung disease. She reportedly had a CT chest in June 2023 showing small airway obstruction likely due to obesity/eosinophilic asthma. Respiratory panel collected and pending. Her wheezing/rhonchi did improve after IM Solu-Medrol and DuoNeb. At this time we will go ahead and place her on albuterol, antibiotics, steroids. Recommend follow-up with primary care later this week if symptoms do not seem to be improving. Return to ED precautions given. Differential Diagnosis Likely acute exacerbation of chronic obstructive airways disease, congestive heart failure and asthma with exacerbation Medical Records I reviewed the patient's medical records. Lab Data Labs/Radiology: Radiology Impressions Chest X-Ray 04/26/24 09:15 IMPRESSION: Small airway disease of unknown chronicity. All radiology interpretation(s) finalized by discharge Discharge Plan Discharge Patient Disposition: Home Clinical Impression: Upper respiratory tract infection Qualifiers: URI type: unspecified URI Qualified Code(s): J06.9 - Acute upper respiratory infection, unspecified Condition: Stable Prescriptions: New dexamethasone 6 mg tablet 6 mg PO DAILY Qty: 6 0RF levofloxacin 500 mg tablet 500 mg PO DAILY 7 Days Qty: 7 0RF albuterol sulfate 90 mcg/actuation HFA aerosol inhaler 2 inh INHALATION Q4H PRN (Reason: shortness of breath or wheezing) Qty: 6.7 0RF Discontinued aspirin 81 mg tablet,delayed release (DR/EC) 81 mg PO QAM No Action clopidogrel [Plavix] 75 mg tablet 75 mg PO DAILY Qty: 90 3RF nitroglycerin [Nitrostat] 0.4 mg tablet, sublingual 0.4 mg SUBLINGUAL Q5M PRN (Reason: Chest Pain) Qty: 30 4RF Rx Instructions: do not exceed 3 doses per episode pantoprazole [Protonix] 40 mg tablet,delayed release (DR/EC) 40 mg PO DAILY fluticasone propion-salmeterol [Advair HFA] 45-21 mcg/actuation HFA aerosol inhaler 2 puff inhalation BID Qty: 12 3RF clonidine HCl 0.1 mg tablet 0.1 mg PO TID PRN (Reason: pressure >190/100) Qty: 30 0RF alprazolam 0.5 mg tablet 0.5 mg PO BID PRN (Reason: anxiety) Qty: 45 3RF labetalol 200 mg tablet 200 mg PO BID Qty: 180 1RF losartan 100 mg tablet 100 mg PO QAM Qty: 90 1RF potassium chloride [Klor-Con 10] 10 mEq tablet extended release 10 meq PO DAILY Qty: 90 2RF simvastatin 40 mg tablet See Rx Instructions .ROUTE .COMPLEX Qty: 90 3RF Dose Instruction: TAKE 1 TABLET BY MOUTH DAILY Rx Instructions: TAKE 1 TABLET BY MOUTH DAILY sucralfate 1 gram tablet See Rx Instructions .ROUTE .COMPLEX Qty: 180 0RF Dose Instruction: TAKE 1 TABLET BY MOUTH TWICE DAILY Rx Instructions: TAKE 1 TABLET BY MOUTH TWICE DAILY Magtab 84 mg tablet extended release 84 mg PO DAILY 30 Days Qty: 30 4RF bumetanide 1 mg tablet See Rx Instructions .ROUTE .COMPLEX Qty: 60 4RF Dose Instruction: TAKE 1 TABLET BY MOUTH TWICE DAILY Rx Instructions: TAKE 1 TABLET BY MOUTH TWICE DAILY docusate sodium [Colace] 100 mg capsule 100 mg PO QAM PRN Centrum Silver Women 8 mg iron-400 mcg-300 mcg Tablet 1 tab PO QAM Hair, Skin and Nails (biotin) 10,000 mcg Tablet,Chewable 20,000 mcg PO QAM Aleve 220 mg Capsule 440 mg PO Q12H PRN (Reason: Pain) Discharge Orders: Discharge ED (Routine); Ordered 04/26/24 Ordered By: Etelvina Zelaya Referrals: Howard Kraus MD [Primary Care Provider] - Coding Level of Care Code ED Correctional Agency Director for Sariah Borjas
--- NOTE | 2024-04-26 09:14 | ECG_ITS ---
[facility] Test Date: 2024-04-26 Pat Name: Maria Del Carmen Ansari Department: Room: Gender: Female Desk Clerk: : 1950 Requested By: Etelvina Zelaya Order Number: [id number] Tremaine MD: Gabriel Sharma M.D. Measurements Intervals [place] Rate: 80 P: 243 FL: 365 QRS: 78 QRSD: 90 T: 58 QT: 390 QTc: 450 Interpretive Statements Sinus rhythm with baseline artifact No further interpretation available ABNORMAL RHYTHM ECG Compared to ECG 09/22/2023 10:17:28 No change Electronically Signed On 04-26-2024 14:34:41 CDT by Gabriel Sharma M.D. [id number]
--- NOTE | 2024-04-26 09:15 | XR_ITS ---
WS: [id number] XR chest 1V portable [id number] REASON FOR EXAM: dyspnea FINDINGS: Mild tortuosity of the thoracic aorta. Normal heart size. Elevation of the right hemidiaphragm. Compared to the examination of 09/22/2023 there is moderate peribronchial cuffing without pulmonary p arenchymal opacity. No acute pleural abnormality. Mild thoracic scoliosis convex right. Moderate degenerative spondylosis in the mid and lower thoracic spine. XR/XR chest 1V portable [id number] IMPRESSION: Small airway disease of unknown chronicity.
[2024-04-26] MEDS: methylPREDNISolone sod succ 125 mg/2 mL INJ IVP (10:06)
[2024-04-26 10:21] VITALS: PULSE 73; RESP 18; O2SAT 97
[2024-04-26] MEDS: ipratropium-albuterol 3 mL Neb INHALATION (10:24)
[2024-04-26 10:29] VITALS: PULSE 72
[2024-04-26 12:48] LABS: Adenovirus Not Detected (NOT DETECT); Chlamydia Pneumoniae Not Detected (NOT DETECT); Coronavirus 229E,HKU1,NL63,OC4 Not Detected (NOT DETECT); Human Metapneumovirus Detected (NOT DETECT); Human Rhinovirus/Enterovirus Not Detected (NOT DETECT); Influenza A Not Detected (NOT DETECT); Influenza A H1 Not Detected (NOT DETECT); Influenza A H1-2009 Not Detected (NOT DETECT); Influenza A H3 Not Detected (NOT DETECT); Influenza B Not Detected (NOT DETECT); Mycoplasma Pneumoniae Not Detected (NOT DETECT); Parainfluenza Virus Type 1 Not Detected (NOT DETECT); Parainfluenza Virus Type 2 Not Detected (NOT DETECT); Parainfluenza Virus Type 3 Not Detected (NOT DETECT); Parainfluenza Virus Type 4 Not Detected (NOT DETECT); Respiratory Syncytial Virus A Not Detected (NOT DETECT); Respiratory Syncytial Virus B Not Detected (NOT DETECT); SARS-COV-2 Not Detected (NOT DETECT)
== END 2024-04-26 10:57 | disposition home or self-care (01) ==
PROVIDERS: Emergency Provider Physician Assistant; PCP Family Medicine
DX: J06.9 Acute upper respiratory infection, unspecified (principal); Z79.02 Long term (current) use of antithrombotics/antiplatelets; Z86.73 Personal history of transient ischemic attack (TIA), and cerebral infarction without residual deficits; I10 Essential (primary) hypertension
CPT/HCPCS: 71045; 87486; 87581; 87633; 93005; 94640; 96374; 99285; J2919

== ENCOUNTER 2024-04-29 23:51 | Emergency (ER) | payer MEDICARE, OTHER, SELFPAY ==
[2024-04-29 23:58] VITALS: BP 165/84; PULSE 73; RESP 16; TEMP 36.4; O2SAT 96; BMI 40.7
--- NOTE | 2024-04-30 00:16 | XRR_ITS ---
PROCEDURE INFORMATION: Exam: XR Chest Exam date and time: 04/30/2024 12:59 AM Age: 73 years old Clinical indication: Shortness of breath TECHNIQUE: Imaging protocol: Radiologic exam of the chest. Views: 1 view. COMPARISON: CR XR chest 1V portable [id number] 04/26/2024 9:20 AM FINDINGS: Tubes, catheters and devices: Partially evaluated nerve stimulator device terminating at the midthoracic spine. Lungs: Scattered basilar infiltrates likely atelectasis/scarring. Redemonstrated peribronchial cuffing. Pleural spaces: Blunting of the right costophrenic angle, minimal. Heart/Mediastinum: Unremarkable. No cardiomegaly. Vasculature: Atherosclerotic disease of the aortic arch. Diaphragm: Right diaphragm eventration/elevation stable from prior comparison exam. Bones/joints: Mild dextroconvex curvature of the thoracic spine. Degenerative change of the visualized osseous structures. XR/XR chest 1V portable [id number] IMPRESSION: 1. Peribronchial cuffing with basilar atelectasis/scarring. Superimposed infection cannot be ruled out. 2. Minimal right pleural effusion.
[2024-04-30 00:44] LABS: Basophils % 0.1 %; Hematocrit 36.4 % (36-47); Lymphocytes # 1.9 10^3/uL (0.8-4.8); Lymphocytes % 22.1 %; Mean Corpuscular HGB Conc 32.1 g/dL (30-55); Mean Corpuscular Hemoglobin 28.2 pg (27-33); Mean Corpuscular Volume 87.7 fl (85-98); Mean Platelet Volume 8.5 fL (7.4-10.4); Monocytes # 0.9 10^3/uL (0.2-0.9); Monocytes % 10.1 %; Neutrophils # 5.68 10^3/uL (1.8-7.7); Neutrophils % 66.2 %; Nucleated Red Blood Cells % 0 %; Platelet Count 244 10^3/cmm (157-399); Red Blood Count 4.15 10^6/uL (3.85-5.65); Red Cell Distribution Width 15.2 % (12.1-15.1); White Blood Count 8.59 10^3/uL (3.29-11.43)
[2024-04-30 01:11] LABS: Alanine Aminotransferase 29 U/L (0-33); Albumin Level 4.2 g/dL (3.5-5.2); Alkaline Phosphatase 83 U/L (35-105); Anion Gap 17.8 (5-19); Aspartate Amino Transferase 30 U/L (0-32); Blood Urea Nitrogen 40 mg/dL (8-23); C Reactive Protein 12.7 mg/L (0.0-4.9); Calcium 9.7 mg/dL (8.5-10.5); Carbon Dioxide 26 mmol/L (22-29); Chloride 96 mmol/L (98-107); Globulin 3.8 g/dL (1.3-4.6); Glucose 125 mg/dL (65-115); NT Pro B Type Natriuretic Pept 347 pg/mL (0-125); Osmolality Calculated 293 mOsm/kg (285-295); Potassium 3.8 mmol/L (3.5-5.1); Sodium 136 mmol/L (136-145); Total Bilirubin 0.2 mg/dL (0.15-1.2)
[2024-04-30 01:12] LABS: Creatinine Clr Calc Pharmacy 58.7396; Slide Review Slide Review Perform
[2024-04-30 01:18] VITALS: BP 177/89; PULSE 69; RESP 20; O2SAT 94
--- NOTE | 2024-04-30 02:04 | W.ED.SOB ---
HPI - SOB/Dyspnea General: Chief Complaint: Shortness of Breath/Dyspnea Stated Complaint: SOB Time Seen by Provider: 04/30/24 00:16 History of Present Illness: HPI Narrative: 73-year-old female with a history of morbid obesity, stroke, hypertension, hyperlipidemia who presents the emergency room with worsening cough and shortness of breath. She was seen in the emergency room for this a few days ago and started on steroids and antibiotics. She says she is continue to have a severe cough and she has been lightheaded at times. No fevers. No altered mental status. No focal motor deficits. Review of Systems Narrative: Constitutional symptoms: Negative except as documented in HPI. Skin symptoms: Negative except as documented in HPI. Eye symptoms: Negative except as documented in HPI. ENMT symptoms: Negative except as documented in HPI. Respiratory symptoms: Negative except as documented in HPI. Cardiovascular symptoms: Negative except as documented in HPI. Gastrointestinal symptoms: Negative except as documented in HPI. Genitourinary symptoms: Negative except as documented in HPI. Musculoskeletal symptoms: Negative except as documented in HPI. Neurologic symptoms: Negative except as documented in HPI. Psychiatric symptoms: Negative except as documented in HPI. Endocrine symptoms: Negative except as documented in HPI. PFSH ED PFSH: Medical History Anxiety Hyperglycemia Venous insufficiency of both lower extremities Hypothyroid Morbid obesity Lumbar spondylosis Spondylolisthesis, lumbar region Lumbar disc disease with radiculopathy CVA (cerebral vascular accident) Hypercholesteremia Hypertension Surgical History History of arthroscopic surgery of elbow H/O cataract removal with insertion of prosthetic lens H/O: hysterectomy History of cholecystectomy H/O carpal tunnel repair Family History Father Cancer CAD (coronary artery disease) Mother CAD (coronary artery disease) Diabetes Hypertension Stroke Denies family history of Anesthesia complication Bleeding disorder Social History Smoking and tobacco/nicotine status: never used tobacco/nicotine Second hand smoke exposure: No Alcohol intake: never Substance/Drug Use: never Adopted: No Caregiver/support person: Yes Lives independently: Yes Household members: spouse Housing: House Marital status: service: No Current occupational status: retired Current occupational exposures/hazards: No Pets and animals: No Sexually active: No Do you think of yourself as: Straight/Heterosexual Current gender identity: Female Ratna/Hoahaoism: [employer] Special ratna needs: No Agree to transfusion: No Physical Exam Narrative: EXAM NARRATIVE: General: Alert, no acute distress. Skin: Warm, dry. Head: Normocephalic, atraumatic. Neck: Supple, trachea midline. Eye: Extraocular movements are intact. Ears, nose, mouth and throat: mucosa moist. Cardiovascular: Regular, Normal peripheral perfusion. Respiratory: frequent cough, some mild scattered wheeze, no increased work of breathing Gastrointestinal: Soft, Nontender, Non distended, Normal bowel sounds. Musculoskeletal: Normal ROM, no deformity. Neurological: Alert and oriented, No focal neurological deficit observed. Psychiatric: Cooperative, appropriate mood & affect. Course Vital Signs: Vital signs: Vital Signs Temperature 97.5 F L 04/29/24 23:58 Pulse Rate 67 04/30/24 03:10 Respiratory Rate 20 H 04/30/24 03:10 Blood Pressure 183/85 04/30/24 03:10 Pulse Oximetry 91 04/30/24 03:10 Oxygen Delivery Me thod Room Air 04/30/24 03:10 MDM - SOB/Dyspnea Medical Decision Making Differential diagnosis for patient with shortness of breath includes but is not limited to and based on the above HPI, review of systems and physical exam: Pneumonia. Bronchitis. Asthma or COPD with acute exacerbation. Acute coronary syndrome / AL. Pulmonary embolism. Anxiety. Congestive heart failure. Viral infections including influenza and Covid-19. Atrial fibrillation. Anxiety. Pleural effusion. Pneumothorax. Workup: Lab work, chest X-ray and EKG ordered to evaluate, rule in and rule out above pathologies Lab Review: Laboratory results were reviewed and interpreted by myself the emergency room physician. Lab work is fairly unremarkable. No leukocytosis. Hemoglobin stable 11.7. Her BUN is elevated at 40 with a normal creatinine of 1. This is likely secondary to her steroids that she has been taking. Glucose is 125. Chest x-ray: No acute process. No infiltrate. No pneumothorax. No cardiomegaly. This was reviewed and interpreted by myself the ER physician. Prolonged emergency room stay: Stay over 3 hours secondary to length of time to report viral respiratory panel I reviewed the patient's medical record. Reexamination: Patient says she feels quite a bit better after cough medicines and breathing treatments and steroids. She is not requiring oxygen. We discussed the findings of human metapneumovirus and that this is basically a common cold but is causing her an exacerbation. We also discussed that she could use her inhaler every 4 scheduled and every 2 as needed. Assessment and plan: Human metapneumovirus Bronchitis Wheeze ? Updraft, IM Solu-Medrol, Tessalon Perles, codeine guaifenesin. In the emergency room - Discharged home - Discussed plan with patient. Answered any questions. - Evaluation and treatment of this problem were appropriate in the emergency setting. Lab Data 04/30/24 00:38 04/30/24 00:38 Labs/Radiology: Laboratory Results WBC 8.59 10^3/uL (3.29-11.43) 04/30/24 00:38 RBC 4.15 10^6/uL (3.85-5.65) 04/30/24 00:38 Hgb 11.70 g/dL (11.27-16.99) 04/30/24 00:38 Hct 36.4 % (36-47) 04/30/24 00:38 MCV 87.7 fl (85-98) 04/30/24 00:38 MCH 28.2 pg (27-33) 04/30/24 00:38 MCHC 32.1 g/dL (30-55) 04/30/24 00:38 RDW 15.2 % (12.1-15.1) H 04/30/24 00:38 Plt Count 244 10^3/cmm (157-399) 04/30/24 00:38 MPV 8.5 fL (7.4-10.4) 04/30/24 00:38 Neut % (Auto) 66.2 % 04/30/24 00:38 Lymph % (Auto) 22.1 % 04/30/24 00:38 [place] % (Auto) 10.1 % 04/30/24 00:38 Eos % (Auto) 0.0 % 04/30/24 00:38 Baso % (Auto) 0.1 % 04/30/24 00:38 Neut # (Auto) 5.68 10^3/uL (1.8-7.7) 04/30/24 00:38 Lymph # (Auto) 1.9 10^3/uL (0.8-4.8) 04/30/24 00:38 [place] # (Auto) 0.9 10^3/uL (0.2-0.9) 04/30/24 00:38 Eos # (Auto) 0.0 10^3/uL (0.0-0.8) 04/30/24 00:38 Baso # (Auto) 0.0 10^3/uL (0.0-0.1) 04/30/24 00:38 Nucleated RBC % (auto) 0 % 04/30/24 00:38 Nucleated RBCs # 0.0 /100WBC 04/30/24 00:38 Sodium 136 mmol/L (136-145) 04/30/24 00:38 Potassium 3.8 mmol/L (3.5-5.1) 04/30/24 00:38 Chloride 96 mmol/L (98-107) L 04/30/24 00:38 Carbon Dioxide 26 mmol/L (22-29) 04/30/24 00:38 Anion Gap 17.8 (5-19) 04/30/24 00:38 BUN 40 mg/dL (8-23) H 04/30/24 00:38 Creatinine 1.0 mg/dL (0.5-0.9) H 04/30/24 00:38 GFR Calculation Not Reportable 04/30/24 00:38 Glucose 125 mg/dL (65-115) H 04/30/24 00:38 Calculated Osmolality 293 mOsm/kg (285-295) 04/30/24 00:38 Calcium 9.7 mg/dL (8.5-10.5) 04/30/24 00:38 Total Bilirubin 0.2 mg/dL (0.15-1.2) 04/30/24 00:38 AST 30 U/L (0-32) 04/30/24 00:38 ALT 29 U/L (0-33) 04/30/24 00:38 Alkaline Phosphatase 83 U/L (35-105) 04/30/24 00:38 C-Reactive Protein 12.7 mg/L (0.0-4.9) H 04/30/24 00:38 NT-Pro-B Natriuret Pep 347 pg/mL (0-125) H 04/30/24 00:38 Total Protein 8.0 g/dL (6.6-8.7) 04/30/24 00:38 Albumin 4.2 g/dL (3.5-5.2) 04/30/24 00:38 Globulin 3.8 g/dL (1.3-4.6) 04/30/24 00:38 Adenovirus (PCR) Not detected (NOT DETECT) 04/30/24 01:20 C. pneumoniae DNA (PCR) Not detected (NOT DETECT) 04/30/24 01:20 Coronavirus 229E (PCR) Not detected (NOT DETECT) 04/30/24 01:20 Human Metapneumovir PCR Detected (NOT DETECT) A 04/30/24 01:20 Influenza A (H1) PCR Not detected (NOT DETECT) 04/30/24 01:20 Influ A (H1/09) PCR Not detected (NOT DETECT) 04/30/24 01:20 Influenza A (H3) PCR Not detected (NOT DETECT) 04/30/24 01:20 Influenza Type A (PCR) Not detected (NOT DETECT) 04/30/24 01:20 Influenza Type B (PCR) Not detected (NOT DETECT) 04/30/24 01:20 M. pneumoniae (PCR) Not detected (NOT DETECT) 04/30/24 01:20 Parainfluenza 1 (PCR) Not detected (NOT DETECT) 04/30/24 01:20 Parainfluenza 2 (PCR) Not detected (NOT DETECT) 04/30/24 01:20 Parainfluenza 3 (PCR) Not detected (NOT DETECT) 04/30/24 01:20 Parainfluenza 4 (PCR) Not detected (NOT DETECT) 04/30/24 01:20 RSV Type A (PCR) Not detected (NOT DETECT) 04/30/24 01:20 RSV Type B (PCR) Not detected (NOT DETECT) 04/30/24 01:20 Entero/Rhino (PCR) Not detected (NOT DETECT) 04/30/24 01:20 SARS-CoV-2 (PCR) Not detected (NOT DETECT) 04/30/24 01:20 All radiology interpretation(s) finalized by discharge Discharge Plan Discharge Patient Disposition: Home Clinical Impression: Acute bronchiolitis due to human metapneumovirus Condition: Stable Prescriptions: New codeine-guaifenesin 10-100 mg/5 mL liquid 5 ml PO Q6H PRN (Reason: cough) Qty: 120 0RF benzonatate 200 mg capsule 200 mg PO TID PRN (Reason: cough) Qty: 30 0RF No Action clopidogrel [Plavix] 75 mg tablet 75 mg PO DAILY Qty: 90 3RF nitroglycerin [Nitrostat] 0.4 mg tablet, sublingual 0.4 mg SUBLINGUAL Q5M PRN (Reason: Chest Pain) Qty: 30 4RF Rx Instructions: do not exceed 3 doses per episode pantoprazole [Protonix] 40 mg tablet,delayed release (DR/EC) 40 mg PO DAILY fluticasone propion-salmeterol [Advair HFA] 45-21 mcg/actuation HFA aerosol inhaler 2 puff inhalation BID Qty: 12 3RF clonidine HCl 0.1 mg tablet 0.1 mg PO TID PRN (Reason: pressure >190/100) Qty: 30 0RF alprazolam 0.5 mg tablet 0.5 mg PO BID PRN (Reason: anxiety) Qty: 45 3RF labetalol 200 mg tablet 200 mg PO BID Qty: 180 1RF losartan 100 mg tablet 100 mg PO QAM Qty: 90 1RF potassium chloride [Klor-Con 10] 10 mEq tablet extended release 10 meq PO DAILY Qty: 90 2RF simvastatin 40 mg tablet See Rx Instructions .ROUTE .COMPLEX Qty: 90 3RF Dose Instruction: TAKE 1 TABLET BY MOUTH DAILY Rx Instructions: TAKE 1 TABLET BY MOUTH DAILY sucralfate 1 gram tablet See Rx Instructions .ROUTE .COMPLEX Qty: 180 0RF Dose Instruction: TAKE 1 TABLET BY MOUTH TWICE DAILY Rx Instructions: TAKE 1 TABLET BY MOUTH TWICE DAILY Magtab 84 mg tablet extended release 84 mg PO DAILY 30 Days Qty: 30 4RF bumetanide 1 mg tablet See Rx Instructions .ROUTE .COMPLEX Qty: 60 4RF Dose Instruction: TAKE 1 TABLET BY MOUTH TWICE DAILY Rx Instructions: TAKE 1 TABLET BY MOUTH TWICE DAILY docusate sodium [Colace] 100 mg capsule 100 mg PO QAM PRN Centrum Silver Women 8 mg iron-400 mcg-300 mcg Tablet 1 tab PO QAM Hair, Skin and Nails (biotin) 10,000 mcg Tablet,Chewable 20,000 mcg PO QAM Aleve 220 mg Capsule 440 mg PO Q12H PRN (Reason: Pain) dexamethasone 6 mg tablet 6 mg PO DAILY Qty: 6 0RF levofloxacin 500 mg tablet 500 mg PO DAILY 7 Days Qty: 7 0RF albuterol sulfate 90 mcg/actuation HFA aerosol inhaler 2 inh INHALATION Q4H PRN (Reason: shortness of breath or wheezing) Qty: 6.7 0RF Discharge Orders: Discharge ED (Routine); Ordered 04/30/24 Ordered By: Clarisse Apple Referrals: Howard Kraus MD [Primary Care Provider] - 4-7 days Discharge Diet: Usual diet Discharge Activity: Increase activity as tolerated Patient Instructions: Viral Pneumonia (ED) Activity Restrictions/Additional Instructions: Thank you for choosing [facility] for your healthcare needs today. Please realize this is an emergency room and that we are providing you with a medical screening exam and this may not be complete and all inclusive of all the testing and or work up that you may need to determine your ailment or severity of your illness. You have been screened and evaluated and felt safe for discharge. Health conditions do change or evolve sometimes and as such it is important that you follow up with your Primary Doctor to be re checked, 3-5 days is a general good time frame for follow up. You are always welcome to return to the ED for re assessment if your symptoms are worsening or you have new concerns Coding Level of Care Code ED Contract Negotiation Specialist for Sariah Borjas
[2024-04-30] MEDS: methylPREDNISolone sod succ 125 mg/2 mL INJ IVP (02:06)
[2024-04-30] MEDS: benzonatate 100 mg Capsule 200 MG PO (02:08)
[2024-04-30 02:10] VITALS: BP 173/77; PULSE 69; RESP 20; O2SAT 92
[2024-04-30 02:20] VITALS: PULSE 69; RESP 22; O2SAT 94
[2024-04-30] MEDS: albuterol 2.5 mg/3 mL Neb INHALATION (02:20)
[2024-04-30 03:06] LABS: Adenovirus Not Detected (NOT DETECT); Chlamydia Pneumoniae Not Detected (NOT DETECT); Coronavirus 229E,HKU1,NL63,OC4 Not Detected (NOT DETECT); Human Metapneumovirus Detected (NOT DETECT); Human Rhinovirus/Enterovirus Not Detected (NOT DETECT); Influenza A Not Detected (NOT DETECT); Influenza A H1 Not Detected (NOT DETECT); Influenza A H1-2009 Not Detected (NOT DETECT); Influenza A H3 Not Detected (NOT DETECT); Influenza B Not Detected (NOT DETECT); Mycoplasma Pneumoniae Not Detected (NOT DETECT); Parainfluenza Virus Type 1 Not Detected (NOT DETECT); Parainfluenza Virus Type 2 Not Detected (NOT DETECT); Parainfluenza Virus Type 3 Not Detected (NOT DETECT); Parainfluenza Virus Type 4 Not Detected (NOT DETECT); Respiratory Syncytial Virus A Not Detected (NOT DETECT); Respiratory Syncytial Virus B Not Detected (NOT DETECT); SARS-COV-2 Not Detected (NOT DETECT)
[2024-04-30] MEDS: guaiFENesin-codeine UDC 10 mL PO (03:08)
[2024-04-30 03:10] VITALS: BP 183/85; PULSE 67; RESP 20; O2SAT 91
[2024-04-30 03:49] VITALS: BP 176/80; PULSE 65; O2SAT 90
== END 2024-04-30 03:40 | disposition home or self-care (01) ==
PROVIDERS: Emergency Provider Emergency Medicine; PCP Family Medicine
DX: J21.1 Acute bronchiolitis due to human metapneumovirus (principal); Z79.02 Long term (current) use of antithrombotics/antiplatelets; Z11.52 Encounter for screening for COVID-19; Z86.73 Personal history of transient ischemic attack (TIA), and cerebral infarction without residual deficits; I10 Essential (primary) hypertension
CPT/HCPCS: 36415; 71045; 80053; 83880; 85025; 86140; 87486; 87581; 87633; 94640; 96374; 99284; J2919; J7613

== ENCOUNTER → 2024-05-17 13:15 | Outpatient (BNVA) | payer MEDICARE, OTHER, SELFPAY | PROVIDERS: PCP Family Medicine; Visit Provider Thoracic Surgery (Cardiothoracic Vascular Surgery) | DX: I65.23 Occlusion and stenosis of bilateral carotid arteries (principal); Z87.891 Personal history of nicotine dependence; I10 Essential (primary) hypertension | CPT/HCPCS: 99213 ==

== ENCOUNTER → 2024-06-23 12:58 | Outpatient (BNVA) | payer MEDICARE, OTHER, SELFPAY | PROVIDERS: PCP Family Medicine; Visit Provider Internal Medicine | DX: D64.9 Anemia, unspecified (principal); F41.9 Anxiety disorder, unspecified; F45.8 Other somatoform disorders; I11.0 Hypertensive heart disease with heart failure; I50.31 Acute diastolic (congestive) heart failure; E66.01 Morbid (severe) obesity due to excess calories; Z86.73 Personal history of transient ischemic attack (TIA), and cerebral infarction without residual deficits; Z68.39 Body mass index [BMI] 39.0-39.9, adult | CPT/HCPCS: 99214 ==

== ENCOUNTER → 2024-07-06 09:15 | Outpatient (BNVA) | payer MEDICARE, OTHER, SELFPAY | PROVIDERS: PCP Family Medicine; Visit Provider Internal Medicine Critical Care Medicine | DX: R06.09 Other forms of dyspnea (principal); I50.32 Chronic diastolic (congestive) heart failure; I27.20 Pulmonary hypertension, unspecified; I34.2 Nonrheumatic mitral (valve) stenosis; J98.4 Other disorders of lung; E66.9 Obesity, unspecified; G47.33 Obstructive sleep apnea (adult) (pediatric); E66.01 Morbid (severe) obesity due to excess calories; Z68.41 Body mass index [BMI] 40.0-44.9, adult; R53.81 Other malaise | CPT/HCPCS: 99214 ==

== ENCOUNTER → 2024-12-14 10:26 | Outpatient (BNVA) | payer MEDICARE, OTHER, SELFPAY | PROVIDERS: PCP Family Medicine; Visit Provider Family Medicine | DX: E78.00 Pure hypercholesterolemia, unspecified (principal); D64.9 Anemia, unspecified; I10 Essential (primary) hypertension | CPT/HCPCS: 80053; 80061; 85025 ==

== ENCOUNTER → 2024-12-23 14:44 | Outpatient (BNVA) | payer MEDICARE, OTHER, SELFPAY | PROVIDERS: PCP Family Medicine; Visit Provider Internal Medicine | DX: I11.0 Hypertensive heart disease with heart failure (principal); I50.31 Acute diastolic (congestive) heart failure; Z86.73 Personal history of transient ischemic attack (TIA), and cerebral infarction without residual deficits; D64.9 Anemia, unspecified; F41.9 Anxiety disorder, unspecified; F45.8 Other somatoform disorders; E66.01 Morbid (severe) obesity due to excess calories; I35.0 Nonrheumatic aortic (valve) stenosis; I65.23 Occlusion and stenosis of bilateral carotid arteries; Z68.39 Body mass index [BMI] 39.0-39.9, adult | CPT/HCPCS: 99214 ==

== ENCOUNTER 2024-12-27 12:20 | Emergency (ER) | payer MEDICARE, OTHER, SELFPAY ==
[2024-12-27 12:22] VITALS: BP 134/85; PULSE 73; RESP 18; TEMP 36.8; O2SAT 98; BMI 40.7
--- NOTE | 2024-12-27 12:24 | XRR_ITS ---
PROCEDURE INFORMATION: Exam: XR Right Knee Exam date and time: 12/27/2024 12:35 PM Age: 74 years old Clinical indication: Injury or trauma; Fall; Blunt trauma; Knee; Right TECHNIQUE: Imaging protocol: Radiologic exam of the right knee. Views: 3 views. COMPARISON: No relevant prior studies available. FINDINGS: Bones/joints: Normal osseous alignment. Joint spaces are maintained. No joint effusion. Normal fabella posteriorly. Coarsened articular surface at the patella with small superior osteophyte. Minimal spurring of the tibial spines. No radiographically apparent fracture. No aggressive osseous lesion. Soft tissues: Vascular calcifications noted in the posterior soft tissues. XR/XR knee RT 3V* [id number] IMPRESSION: 1. No radiographically apparent fracture or malalignment. 2. Mild osteoarthritis in the patellofemoral compartment.
--- NOTE | 2024-12-27 12:24 | XRR_ITS ---
PROCEDURE INFORMATION: Exam: XR Right Ankle Exam date and time: 12/27/2024 12:40 PM Age: 74 years old Clinical indication: Injury or trauma; Fall; Blunt trauma; Ankle; Right TECHNIQUE: Imaging protocol: Radiologic exam of the right ankle. Views: 3 or more views. COMPARISON: CR XR knee RT 3V* [id number] 12/27/2024 12:35 PM FINDINGS: Bones/joints: Normal alignment joint space at the ankle mortise. Normal talar dome. Achilles enthesopathy at the calcaneal insertion. Small plantar calcaneal spur. There is a small area of linear mineralization along the inferior margin of the lateral malleolar joint space which is nonspecific. This could represent a tiny avulsion fragment from the distal fibula. No prior comparison for confirmation. Soft tissues: Mild soft tissue swelling at the ankle. XR/XR ankle RT min 3V* [id number] IMPRESSION: 1. Small linear area of mineralization on the mortise view overlapping the lower lateral mortise joint space. This is nonspecific but could represent a small fibular avulsion fragment. 2. Other chronic findings as above.
--- NOTE | 2024-12-27 12:24 | XRR_ITS ---
PROCEDURE INFORMATION: Exam: XR Left Knee Exam date and time: 12/27/2024 12:31 PM Age: 74 years old Clinical indication: Injury or trauma; Fall; Blunt trauma; Knee; Left TECHNIQUE: Imaging protocol: Radiologic exam of the left knee. Views: 3 views. COMPARISON: CR XR knees AP WB w LT lmt ORTH 06/08/2020 9:05 AM FINDINGS: Bones/joints: Prior left knee replacement. Hardware appears intact without evidence of complication. There is cortical buckling at the proximal fibular metadiaphysis with minimal angulation consistent with a nondisplaced fracture. No aggressive osseous lesion. Soft tissues: Normal. Vasculature: Peripheral vascular atherosclerosis noted. XR/XR knee LT 3V* [id number] IMPRESSION: Proximal fibular buckle fracture with minimal angulation at the metadiaphysis.
--- NOTE | 2024-12-27 12:24 | XRR_ITS ---
PROCEDURE INFORMATION: Exam: XR Pelvis Exam date and time: 12/27/2024 12:30 PM Age: 74 years old Clinical indication: Injury or trauma; Fall; Blunt trauma (contusions or hematomas); Bilateral; Pelvic region TECHNIQUE: Imaging protocol: Radiologic exam of the pelvis. Views: 1 or 2 view. COMPARISON: CR XR KUB portable [id number] 09/21/2022 11:03 AM FINDINGS: Tubes, catheters and devices: Stimulator device overlaps the lower abdomen and pelvis on the left. Bones/joints: Normal osseous alignment at the hips. No radiographically apparent hip fracture on this single frontal view. Osseous pelvis appears intact without displaced fracture. Degenerative changes in the lower lumbar spine. Mild degenerative changes of both hips. Enthesophyte along the inferior margin of the right greater trochanter. Soft tissues: Unremarkable. Vasculature: Peripheral vascular atherosclerosis noted in the femoral vessels. XR/XR pelvis 1-2V* [id number] IMPRESSION: 1. No radiographically apparent osseous injury or malalignment. 2. Scattered degenerative changes.
--- NOTE | 2024-12-27 12:27 | ED_ITS ---
HPI - Fall General: Chief Complaint: Extremity Injury, Lower Stated Complaint: fall Time Seen by Provider: 12/27/24 12:21 Source: patient and EMS Mode of arrival: EMS Limitations: no limitations History of Present Illness: 74-year-old female who states that she h ad tripped and fell just prior to arrival she states she had landed on a sidewalk. She does have abrasions to her right lower leg she complains of right ankle pain bilateral knee pain and some slight hip pain. Denies hitting her head denies any neck pain. Related Data Home Medications Medication Instructions Recorded Confirmed biotin 10,000 mcg chewable tablet 20,000 mcg PO QAM 06/26/23 12/27/24 (Hair, Skin and Nails (biotin)) [id number] 8 mg-folic 400 1 tab PO QAM 06/26/23 12/27/24 mcg-K 50 mcg-lutein 300 mcg tablet (Centrum Silver Women) docusate sodium 100 mg capsule 100 mg PO QPM PRN Constipation 12/04/23 12/27/24 (Colace) bumetanide 1 mg tablet 1 mg PO BID 12/27/24 12/27/24 potassium gluconate 595 mg (99 mg) 595 mg PO DAILY 12/27/24 12/27/24 tablet simvastatin 40 mg tablet 40 mg PO QPM 12/27/24 12/27/24 Previous Rx's Medication Instructions Recorded clonidine HCl 0.1 mg tablet 0.1 mg PO TID PRN pressure 12/23/22 >190/100 #30 tabs nitroglycerin 0.4 mg sublingual 0.4 mg sublingual Q5M PRN Chest 07/04/23 tablet (Nitrostat) Pain #30 tabs magnesium L-lactate 84 mg 84 mg PO DAILY 30 days #30 tabs 02/16/24 tablet,extended release (Magtab) albuterol sulfate 90 mcg/actuation 2 inh inhalation Q4H PRN shortness 04/26/24 aerosol inhaler of breath or wheezing #6.7 grams clopidogrel 75 mg tablet (Plavix) 75 mg PO DAILY #90 tabs 06/10/24 losartan 100 mg tablet 100 mg PO QAM #90 tabs 12/03/24 alprazolam 0.5 mg tablet 0.5 mg PO BID PRN anxiety #45 tabs 12/14/24 labetalol 200 mg tablet 200 mg PO BID #180 tabs 12/22/24 hydrocodone 5 mg-acetaminophen 325 1 tab PO Q6H PRN pain #10 tabs 12/27/24 mg tablet naproxen 500 mg tablet (Naprosyn) 500 mg PO BID PRN pain #20 tabs 12/27/24 Allergies Allergy/AdvReac Type Severity Reaction Status Date / Time No Known Allergies Allergy Verified 12/23/24 14:54 PFSH ED PFSH: Medical History Anxiety Hyperglycemia Venous insufficiency of both lower extremities Hypothyroid Morbid obesity Lumbar spondylosis Spondylolisthesis, lumbar region Lumbar disc disease with radiculopathy CVA (cerebral vascular accident) Hypercholesteremia Hypertension Surgical History History of arthroscopic surgery of elbow H/O cataract removal with insertion of prosthetic lens H/O: hysterectomy History of cholecystectomy H/O carpal tunnel repair Family History Father Cancer CAD (coronary artery disease) Mother CAD (coronary artery disease) Diabetes Hypertension Stroke Denies family history of Anesthesia complication Bleeding disorder Social History Smoking and tobacco/nicotine status: never used tobacco/nicotine Second hand smoke exposure: No Alcohol intake: never Substance/Drug Use: never Adopted: No Caregiver/support person: Yes Lives independently: Yes Household members: spouse Housing: House Marital status: service: No Current occupational status: retired Current occupational exposures/hazards: No Pets and animals: No Sexually active: No Do you think of yourself as: Straight/Heterosexual Current gender identity: Female Ratna/Mormonism: Mandaen Special ratna needs: No Agree to transfusion: No Course Vital Signs: Vital signs: Vital Signs Temperature 98.2 F 12/27/24 12:22 Pulse Rate 73 12/27/24 12:22 Respiratory Rate 18 12/27/24 12:22 Blood Pressure 134/85 12/27/24 12:22 Pulse Oximetry 98 12/27/24 12:22 Oxygen Delivery Me thod Room Air 12/27/24 12:22 MDM - Fall Medical Decision Making Patient presents here with fibula fracture left knee from a fall imaging otherwise is negative did place her in a knee immobilizer along with crutches she is follow-up with orthopedics return if worsening she understands agrees to plan. Medical Records I reviewed the patient's medical records. Lab Data Radiology Impressions Ankle X-Ray 12/27/24 12:24 IMPRESSION: 1. Small linear area of mineralization on the mortise view overlapping the lower lateral mortise joint space. This is nonspecific but could represent a small fibular avulsion fragment. 2. Other chronic findings as above. Knee X-Ray 12/27/24 12:24 IMPRESSION: Proximal fibular buckle fracture with minimal angulation at the metadiaphysis. Pelvis X-Ray 12/27/24 12:24 IMPRESSION: 1. No radiographically apparent osseous injury or malalignment. 2. Scattered degenerative changes. All radiology interpretation(s) finalized by discharge Discharge Plan Discharge Patient Disposition: Home Clinical Impression: Fracture of left fibula Qualifiers: Fibula location: proximal Fracture type: closed Prescriptions: New hydrocodone-acetaminophen 5-325 mg tablet 1 tab PO Q6H PRN (Reason: pain) Qty: 10 0RF naproxen [Naprosyn] 500 mg tablet 500 mg PO BID PRN (Reason: pain) Qty: 20 0RF No Action nitroglycerin [Nitrostat] 0.4 mg tablet, sublingual 0.4 mg SUBLINGUAL Q5M PRN (Reason: Chest Pain) Qty: 30 4RF Rx Instructions: do not exceed 3 doses per episode alprazolam 0.5 mg tablet 0.5 mg PO BID PRN (Reason: anxiety) Qty: 45 2RF clonidine HCl 0.1 mg tablet 0.1 mg PO TID PRN (Reason: pressure >190/100) Qty: 30 0RF Magtab 84 mg tablet extended release 84 mg PO DAILY 30 Days Qty: 30 4RF clopidogrel [Plavix] 75 mg tablet 75 mg PO DAILY Qty: 90 3RF losartan 100 mg tablet 100 mg PO QAM Qty: 90 3RF labetalol 200 mg tablet 200 mg PO BID Qty: 180 1RF docusate sodium [Colace] 100 mg capsule 100 mg PO QPM PRN (Reason: Constipation) Centrum Silver Women 8 mg iron-400 mcg-300 mcg Tablet 1 tab PO QAM Hair, Skin and Nails (biotin) 10,000 mcg Tablet,Chewable 20,000 mcg PO QAM albuterol sulfate 90 mcg/actuation HFA aerosol inhaler 2 inh INHALATION Q4H PRN (Reason: shortness of breath or wheezing) Qty: 6.7 0RF simvastatin 40 mg tablet 40 mg PO QPM bumetanide 1 mg tablet 1 mg PO BID potassium gluconate 595 mg (99 mg) Tablet 595 mg PO DAILY Discharge Orders: Discharge ED (Routine); Ordered 12/27/24 Ordered By: Deann Aguilar Referrals: Howard Kraus MD [Primary Care Provider] - Discharge Diet: Advance as tolerated Discharge Activity: Limit activity as instructed and Use walker/crutches as instructed Patient Instructions: Leg Fracture (ED) Coding Level of Care Code 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
[2024-12-27] MEDS: HYDROcodone-acetaminophen 5-325 mg Tablet 1 TAB PO (12:44)
[2024-12-27 13:44] VITALS: BP 170/59; PULSE 73; O2SAT 95
--- NOTE | 2024-12-30 09:37 | DCPLANNER ---
messaged ortho for er f/u
== END 2024-12-27 13:45 | disposition home or self-care (01) ==
PROVIDERS: Emergency Provider Emergency Medicine; PCP Family Medicine
DX: S82.402A Unspecified fracture of shaft of left fibula, initial encounter for closed fracture (principal); Z79.02 Long term (current) use of antithrombotics/antiplatelets; Z86.73 Personal history of transient ischemic attack (TIA), and cerebral infarction without residual deficits; I10 Essential (primary) hypertension; X58.XXXA Exposure to other specified factors, initial encounter; M25.561 Pain in right knee
CPT/HCPCS: 72170; 73562; 73610; 99284

== ENCOUNTER 2025-01-17 07:03 | Outpatient (CLI) | payer MEDICARE, OTHER, SELFPAY ==
--- NOTE | 2025-01-17 08:30 | USCV_ITS ---
Maria Del Carmen Ansari Age: 74 Gender: F : 1950 Exam Date: 01/17/2025 07:51 Ordering Phys: Madi Rodriguez M.D ([email or web address]) Technologist: SERGIO Exam Location: [facility] Indication: Stenosis Risk Factors: Previous Vascular Surgery: Right Brachial BP: / Left Brachial BP: / Right Left Velocity (cm/s) Spectral Plaque Velocity (cm/s) Spectral Plaque Syst/Diast Broadening Syst/Diast Broadening 105.70/23.50 Prox CCA 82.10 / 18.60 96.60/ 27.20 Mid CCA 89.70 / 22.90 102.00/25.40 Distal CCA 80.10 / 12.60 157.90/56.40 Prox ICA 71.20 / 19.10 145.40/50.60 Mid ICA 54.30 / 23.20 178.00/66.10 Distal ICA 80.80 / 30.40 169.70 ECA 125.30 1.50 ICA/CCA 0.90 Antegrade Vertebral Antegrade 77.30/ 29.80 cm/s 66.50/ 20.00 cm/s Tri Subclavian Tri 147.1 107.5 0 0 CONCLUSIONS Right ICA stenosis 50-69%. Moderate atheromatous plaque right carotid bulb/ICA. Left ICA stenosis <50%. Mild atheromatous plaque left carotid bulb/ICA. Normal antegrade Doppler flow noted in the right vertebral artery. Normal antegrade Doppler flow noted in the left vertebral artery. Kevin Adames MD (Electronically Signed) Final Date: 17 January 2025 08:45 S
== END 2025-01-17 07:04 | disposition home or self-care (01) ==
PROVIDERS: PCP Family Medicine; Visit Provider Internal Medicine
DX: I65.23 Occlusion and stenosis of bilateral carotid arteries (principal)
CPT/HCPCS: 93306; 93880

== ENCOUNTER → 2025-02-08 14:29 | Outpatient (BNVA) | payer MEDICARE, OTHER, SELFPAY | PROVIDERS: PCP Family Medicine; Visit Provider Emergency Medicine | DX: R59.0 Localized enlarged lymph nodes (principal) | CPT/HCPCS: 85025 ==

== ENCOUNTER 2025-02-22 12:16 | Outpatient (CLI) | payer MEDICARE, OTHER, SELFPAY ==
--- NOTE | 2025-02-22 12:30 | CTR_ITS ---
PROCEDURE INFORMATION: Exam: CTA Neck With Contrast Exam date and time: 02/22/2025 12:48 PM Age: 74 years old Clinical indication: Condition or disease; Other: Carotid stenosis TECHNIQUE: Imaging protocol: Computed tomographic angiography of the neck with contrast. Exam focused on the cervical segments of the vasculature. 3D rendering (Not supervised by radiologist): MIP and/or 3D reconstructed images were created by the technologist. Radiation optimization: All CT scans at this facility use at least one of these dose optimization techniques: automated exposure control; mA and/or kV adjustment per patient size (includes targeted exams where dose is matched to clinical indication); or iterative reconstruction. Contrast material: OMNI 350; Contrast volume: 100 ml; Contrast route: INTRAVENOUS (IV); COMPARISON: CT angio headneck* [id number] 02/20/2023 4:34 PM RADIATION DOSE METRICS: Total DLP (mGy-cm): 307.73 FINDINGS: Right common carotid artery: There is calcified plaque within the distal common carotid artery. Right internal carotid artery: There is moderate to severe atherosclerotic plaque involving the carotid bulb and proximal internal carotid artery with luminal stenosis estimated at approximately 70%. No dissection or occlusion. Right external carotid artery: No occlusion or significant stenosis of the origin. Left common carotid artery: There is calcified plaque involving the distal common carotid artery. Left internal carotid artery: There is atherosclerotic plaque involving the carotid bulb and proximal internal carotid artery with luminal stenosis estimated at approximately 70%. No dissection or occlusion. Left external carotid artery: No occlusion or significant stenosis of the origin. Right vertebral artery: No significant stenosis. No dissection or occlusion. Left vertebral artery: No significant stenosis. No dissection or occlusion. Visualized intracranial vessels: There is moderate atherosclerotic plaque involving the right cavernous and supraclinoid internal carotid artery and moderate to severe atherosclerotic plaque involving the left cavernous and supraclinoid internal carotid artery. Soft tissues: Unremarkable. No significant soft tissue swelling. Bones/joints: No acute fracture. CT/CT angio neck [id number] IMPRESSION: 1. Moderate to severe atherosclerotic plaque involving the carotid bulbs and proximal internal carotid arteries bilaterally with a proximally 70% luminal stenosis bilaterally. Similar findings were seen on the prior exam. 2. Moderate to severe atherosclerotic plaque involving the left cavernous and supraclinoid internal carotid artery and moderate atherosclerotic plaque involving the right cavernous and supraclinoid internal carotid artery. These findings were also seen on the prior study. A complete CTA head was not included on the current exam. REFERENCES: NASCET CRITERIA. The degree of stenosis in the cervical segment of the internal carotid artery is based on NASCET criteria. Normal is no stenosis. Mild is less than 50% stenosis. Moderate is 50-69% stenosis. Severe is 70% to 99% stenosis. Total occlusion is no detectable patent lumen.
[2025-02-22 12:43] LABS: Blood Urea Nitrogen 15 mg/dL (8-23)
[2025-02-22] MEDS: iohexol 350 mg/mL 500 mL Btl (per mL) IV (12:52)
== END 2025-02-22 12:17 | disposition home or self-care (01) ==
LOC: RAD 12:17
PROVIDERS: PCP Family Medicine; Visit Provider Internal Medicine
DX: I65.23 Occlusion and stenosis of bilateral carotid arteries (principal)
CPT/HCPCS: 70498; 82565; 84520

== ENCOUNTER 2025-03-02 10:48 | Emergency (ER) | payer MEDICARE, OTHER, SELFPAY ==
--- NOTE | 2025-03-02 10:49 | XRR_ITS ---
PROCEDURE INFORMATION: Exam: XR Left Shoulder Exam date and time: 03/02/2025 11:21 AM Age: 74 years old Clinical indication: Injury or trauma; Fall; Blunt trauma (contusions or hematomas); Shoulder; Left TECHNIQUE: Imaging protocol: Radiologic exam she was the left shoulder. Views: 2 or more views. COMPARISON: CT angio neck [id number] 02/22/2025 12:48 PM FINDINGS: Tubes, catheters and devices: Mid thoracic nerve stimulator. Bones/joints: Normal. Mild acromioclavicular and glenohumeral narrowing and spurring. Soft tissues: Normal. XR/XR shoulder LT min 2V* [id number] IMPRESSION: No acute findings.
[2025-03-02 11:10] VITALS: BP 133/72; PULSE 71; RESP 17; TEMP 36.6; O2SAT 95; BMI 39.8
--- NOTE | 2025-03-02 11:28 | W.ED.FALL ---
HPI - Fall General: Chief Complaint: Fall Stated Complaint: fall, pain in L shoulder Time Seen by Provider: 03/02/25 11:00 Source: patient Mode of arrival: ambulatory Limitations: no limitations History of Present Illness: 74-year-old female who states she fell out of bed on Friday and landed on her left shoulder. States she has had bruising at left shoulder along with pain to her left shoulder. States it is worse with movement palpation she denies any other injuries denies hitting her head denies any neck pain. Associated symptoms-after fall: Denies abdominal pain, chest pain, headache(s) or neck pain Related Data Home Medications ?Medication ?Instructions ?Recorded ?Confirmed biotin 10,000 mcg chewable tablet 20,000 mcg PO QAM 06/26/23 02/08/25 (Hair, Skin and Nails (biotin)) [id number] 8 mg-folic 400 1 tab PO QAM 06/26/23 02/08/25 mcg-K 50 mcg-lutein 300 mcg tablet (Centrum Silver Women) docusate sodium 100 mg capsule 100 mg PO QPM PRN Constipation 12/04/23 02/08/25 (Colace) bumetanide 1 mg tablet 1 mg PO BID 12/27/24 02/08/25 potassium gluconate 595 mg (99 mg) 595 mg PO DAILY 12/27/24 02/08/25 tablet simvastatin 40 mg tablet 40 mg PO QPM 12/27/24 02/08/25 Previous Rx's ?Medication ?Instructions ?Recorded clonidine HCl 0.1 mg tablet 0.1 mg PO TID PRN pressure 12/23/22 >190/100 #30 tabs nitroglycerin 0.4 mg sublingual 0.4 mg sublingual Q5M PRN Chest 07/04/23 tablet (Nitrostat) Pain #30 tabs magnesium L-lactate 84 mg 84 mg PO DAILY 30 days #30 tabs 02/16/24 tablet,extended release (Magtab) albuterol sulfate 90 mcg/actuation 2 inh inhalation Q4H PRN shortness 04/26/24 aerosol inhaler of breath or wheezing #6.7 grams clopidogrel 75 mg tablet (Plavix) 75 mg PO DAILY #90 tabs 06/10/24 losartan 100 mg tablet 100 mg PO QAM #90 tabs 12/03/24 alprazolam 0.5 mg tablet 0.5 mg PO BID PRN anxiety #45 tabs 12/14/24 labetalol 200 mg tablet 200 mg PO BID #180 tabs 12/22/24 hydrocodone 5 mg-acetaminophen 325 1 tab PO Q8H PRN pain 15 days #45 01/05/25 mg tablet tabs diclofenac sodium 75 mg 75 mg PO BID PRN pain #20 tabs 01/10/25 tablet,delayed release stirrup gel pad splint #1 ea 01/31/25 levofloxacin 750 mg tablet 750 mg PO DAILY 7 days #7 tabs 02/08/25 Allergies Allergy/AdvReac Type Severity Reaction Status Date / Time No Known Allergies Allergy Verified 03/02/25 11:14 Review of Systems Const: Denies: fever(s), chills, body aches or change in appetite ENMT: Denies: throat pain or dental pain Card: Denies: chest pain Resp: Denies: dyspnea GI: Denies: abdominal pain, nausea, vomiting or diarrhea Musc: Reports: extremity pain; Denies: neck pain or back pain Skin/Breast: Denies: rash Neuro: Denies: headache(s) PFSH ED PFSH: Medical History Anxiety Hyperglycemia Venous insufficiency of both lower extremities Hypothyroid Morbid obesity Lumbar spondylosis Spondylolisthesis, lumbar region Lumbar disc disease with radiculopathy CVA (cerebral vascular accident) Hypercholesteremia Hypertension Surgical History History of arthroscopic surgery of elbow H/O cataract removal with insertion of prosthetic lens H/O: hysterectomy History of cholecystectomy H/O carpal tunnel repair Family History Father Cancer CAD (coronary artery disease) Mother CAD (coronary artery disease) Diabetes Hypertension Stroke Denies family history of Anesthesia complication Bleeding disorder Social History Smoking and tobacco/nicotine status: never used tobacco/nicotine Second hand smoke exposure: No Alcohol intake: never Substance/Drug Use: never Adopted: No Caregiver/support person: Yes Lives independently: Yes Household members: spouse Housing: House Marital status: service: No Current occupational status: retired Current occupational exposures/hazards: No Pets and animals: No Sexually active: No Do you think of yourself as: Straight/Heterosexual Current gender identity: Female Ratna/Temple: Orthodox Special ratna needs: No Agree to transfusion: No Physical Exam Const: COMMON NORMALS: no acute distress, patient oriented x3 and healthy appearing HENMT: COMMON NORMALS: normocephalic and atraumatic HEAD & SCALP: normocephalic and atraumatic Eye: COMMON NORMALS: conjunctivae normal CONJUNCTIVA: Yes conjunctivae normal Neck/C-Spine: COMMON NORMALS: full ROM and supple Chest: COMMONS NORMALS: normal inspection of the chest Resp: COMMON NORMALS: normal respiratory effort Cardio: COMMON NORMALS: regular rate, regular rhythm and No murmurs present (Cardio) RATE: regular rate RHYTHM: regular rhythm Extremity: COMMON NORMALS: full ROM NARRATIVE EXTREMITY EXAM: Bruising noted to left shoulder no obvious deformity distal pulses intact Neuro: COMMON NORMALS: patient oriented x3, moves all extremities and no focal motor deficits Psych: COMMON NORMALS: mental status grossly normal, Normal thought process present and cooperative THOUGHT PROCESS: Normal thought process present Skin: COMMON NORMALS: no rashes or lesions noted and no wounds GENERAL SKIN EXAM: no rashes or lesions noted Course Vital Signs: Vital signs: Vital Signs Temperature 97.9 F 03/02/25 11:10 Pulse Rate 71 03/02/25 11:10 Respiratory Rate 17 03/02/25 11:10 Blood Pressure 133/72 03/02/25 11:10 Pulse Oximetry 95 03/02/25 11:10 Oxygen Delivery Me thod Room Air 03/02/25 11:10 MDM - Fall Medical Decision Making Patient presents here with contusion to her shoulder x-ray shows no fracture she is well-appearing here stable for discharge follow-up with PCP return if worsening. Medical Records I reviewed the patient's medical records. XR interpretation done by ED provider, pending radiology final review ED provider radiology interpretation(s): X-ray left shoulder no obvious fracture Discharge Plan Discharge Patient Disposition: Home Clinical Impression: Contusion of left shoulder Condition: Stable Prescriptions: No Action nitroglycerin [Nitrostat] 0.4 mg tablet, sublingual 0.4 mg SUBLINGUAL Q5M PRN (Reason: Chest Pain) Qty: 30 4RF Rx Instructions: do not exceed 3 doses per episode alprazolam 0.5 mg tablet 0.5 mg PO BID PRN (Reason: anxiety) Qty: 45 2RF diclofenac sodium 75 mg tablet,delayed release (DR/EC) 75 mg PO BID PRN (Reason: pain) Qty: 20 0RF (DME) stirrup gel pad splint See Rx Instructions .Route .MEDSUPPLY Qty: 1 0RF Rx Instructions: As directed levofloxacin 750 mg tablet 750 mg PO DAILY 7 Days Qty: 7 0RF clonidine HCl 0.1 mg tablet 0.1 mg PO TID PRN (Reason: pressure >190/100) Qty: 30 0RF Magtab 84 mg tablet extended release 84 mg PO DAILY 30 Days Qty: 30 4RF clopidogrel [Plavix] 75 mg tablet 75 mg PO DAILY Qty: 90 3RF losartan 100 mg tablet 100 mg PO QAM Qty: 90 3RF labetalol 200 mg tablet 200 mg PO BID Qty: 180 1RF hydrocodone-acetaminophen 5-325 mg tablet 1 tab PO Q8H PRN (Reason: pain) 15 Days Qty: 45 0RF docusate sodium [Colace] 100 mg capsule 100 mg PO QPM PRN (Reason: Constipation) Centrum Silver Women 8 mg iron-400 mcg-300 mcg Tablet 1 tab PO QAM Hair, Skin and Nails (biotin) 10,000 mcg Tablet,Chewable 20,000 mcg PO QAM albuterol sulfate 90 mcg/actuation HFA aerosol inhaler 2 inh INHALATION Q4H PRN (Reason: shortness of breath or wheezing) Qty: 6.7 0RF simvastatin 40 mg tablet 40 mg PO QPM bumetanide 1 mg tablet 1 mg PO BID potassium gluconate 595 mg (99 mg) Tablet 595 mg PO DAILY Discharge Orders: Discharge ED (Routine); Ordered 03/02/25 Ordered By: Deann Aguilar Referrals: Howard Kraus MD [Primary Care Provider] - 4-7 days Discharge Diet: Advance as tolerated Discharge Activity: Resume usual activity Patient Instructions: Contusion in Adults (ED), Shoulder Pain (ED) Print Language: Burundian Coding Level of Care Code ED 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
[2025-03-02 11:36] VITALS: BP 161/78; PULSE 66; RESP 12; O2SAT 95
[2025-03-02] MEDS: HYDROcodone-acetaminophen 5-325 mg Tablet 1 TAB PO (11:44)
[2025-03-02] MEDS: ondansetron hcl ODT 4 mg Tab PO (11:44)
== END 2025-03-02 11:56 | disposition home or self-care (01) ==
PROVIDERS: Emergency Provider Emergency Medicine; PCP Family Medicine
DX: S40.012A Contusion of left shoulder, initial encounter (principal); Z79.02 Long term (current) use of antithrombotics/antiplatelets; Z86.73 Personal history of transient ischemic attack (TIA), and cerebral infarction without residual deficits; I10 Essential (primary) hypertension; W06.XXXA Fall from bed, initial encounter
CPT/HCPCS: 73030; 99283; J9999; Q0162

== ENCOUNTER 2025-04-21 18:04 | Emergency (ER) | payer MEDICARE, OTHER, SELFPAY ==
[2025-04-21 18:18] VITALS: BP 103/61; PULSE 76; RESP 17; TEMP 36.6; O2SAT 96; BMI 39.8
[2025-04-21 19:22] LABS: Bilirubin Urine Negative (Negative); Blood Urine Negative (Negative); Glucose Urine UA Negative (Normal); Ketones Urine Negative (Negative); Leukocyte Esterase Urine 2+ (Negative); Nitrate Urine Negative (Negative); Protein Urine Negative (Negative); Specific Gravity, Urine 1.013 (1.005-1.030); Urine Appearance Clear (CLEAR); Urine Color Yellow (Yellow); Urobilinogen Urine 0.2 mg/dL (Negative); pH Urine 5.5 (5-7)
[2025-04-21 19:28] LABS: Bacteria Urine 4+ /hpf; Hyaline Casts Urine 7.42 /lpf; RBC Urine 0-2 /hpf (0-2); Squamous Epithelial Cell Urine 0-5 /hpf (0-5); WBC Urine 21-50 /hpf (0-5)
[2025-04-21 19:52] LABS: Add Urine Culture? Yes; UA Slide Review UA Slide Review Perf
--- NOTE | 2025-04-21 23:18 | W.ED.BACK ---
HPI - Back Pain/Injury General: Chief Complaint: Back Pain/Injury Stated Complaint: back left flank pain/spasms Time Seen by Provider: 04/21/25 22:52 Source: patient Mode of arrival: ambulatory Limitations: no limitations History of Present Illness: 74yo female presents with significant other for foul-smelling urine that she noticed today and left low back spasms that has been ongoing for the past 3 to 4 days. States she does have a spinal stimulator which typically takes care of her back pain, but this is different than her typical back pain. States that it feels as if it just tightens. Patient denies any fall, trauma, known injury to the area, fever, recent illness. Associated symptoms: Deny chills, fever(s) or vomiting Related Data Home Medications ?Medication ?Instructions ?Recorded ?Confirmed biotin 10,000 mcg chewable tablet 20,000 mcg PO QAM 06/26/23 03/07/25 (Hair, Skin and Nails (biotin)) [id number] 8 mg-folic 400 1 tab PO QAM 06/26/23 03/07/25 mcg-K 50 mcg-lutein 300 mcg tablet (Centrum Silver Women) docusate sodium 100 mg capsule 100 mg PO QPM PRN Constipation 12/04/23 03/07/25 (Colace) bumetanide 1 mg tablet 1 mg PO BID 12/27/24 03/07/25 potassium gluconate 595 mg (99 mg) 595 mg PO DAILY 12/27/24 03/07/25 tablet simvastatin 40 mg tablet 40 mg PO QPM 12/27/24 03/07/25 Previous Rx's ?Medication ?Instructions ?Recorded clonidine HCl 0.1 mg tablet 0.1 mg PO TID PRN pressure 12/23/22 >190/100 #30 tabs nitroglycerin 0.4 mg sublingual 0.4 mg sublingual Q5M PRN Chest 07/04/23 tablet (Nitrostat) Pain #30 tabs magnesium L-lactate 84 mg 84 mg PO DAILY 30 days #30 tabs 02/16/24 tablet,extended release (Magtab) albuterol sulfate 90 mcg/actuation 2 inh inhalation Q4H PRN shortness 04/26/24 aerosol inhaler of breath or wheezing #6.7 grams clopidogrel 75 mg tablet (Plavix) 75 mg PO DAILY #90 tabs 06/10/24 losartan 100 mg tablet 100 mg PO QAM #90 tabs 12/03/24 alprazolam 0.5 mg tablet 0.5 mg PO BID PRN anxiety #45 tabs 12/14/24 labetalol 200 mg tablet 200 mg PO BID #180 tabs 12/22/24 hydrocodone 5 mg-acetaminophen 325 1 tab PO Q8H PRN pain 15 days #45 01/05/25 mg tablet tabs diclofenac sodium 75 mg 75 mg PO BID PRN pain #20 tabs 01/10/25 tablet,delayed release stirrup gel pad splint #1 ea 01/31/25 levofloxacin 750 mg tablet 750 mg PO DAILY 7 days #7 tabs 02/08/25 cefdinir 300 mg capsule 300 mg PO BID 5 days #10 caps 04/21/25 tizanidine 2 mg tablet 2 mg PO Q8H PRN muscle spasticity 04/21/25 #20 tabs Allergies Allergy/AdvReac Type Severity Reaction Status Date / Time No Known Allergies Allergy Verified 03/07/25 11:15 Review of Systems Const: Denies: fever(s), chills or body aches Card: Denies: chest pain Resp: Denies: dyspnea GI: Denies: vomiting : Reports: other (Foul-smelling urine) Musc: Reports: back pain (left lower) Skin/Breast: Denies: rash PFSH ED PFSH: Medical History Anxiety Hyperglycemia Venous insufficiency of both lower extremities Hypothyroid Morbid obesity Lumbar spondylosis Spondylolisthesis, lumbar region Lumbar disc disease with radiculopathy CVA (cerebral vascular accident) Hypercholesteremia Hypertension Surgical History History of arthroscopic surgery of elbow H/O cataract removal with insertion of prosthetic lens H/O: hysterectomy History of cholecystectomy H/O carpal tunnel repair Family History Father Cancer CAD (coronary artery disease) Mother CAD (coronary artery disease) Diabetes Hypertension Stroke Denies family history of Anesthesia complication Bleeding disorder Social History Smoking and tobacco/nicotine status: never used tobacco/nicotine Second hand smoke exposure: No Alcohol intake: never Substance/Drug Use: never Adopted: No Caregiver/support person: Yes Lives independently: Yes Household members: spouse Housing: House Marital status: service: No Current occupational status: retired Current occupational exposures/hazards: No Pets and animals: No Sexually active: No Do you think of yourself as: Straight/Heterosexual Current gender identity: Female Ratna/Moravian: Denominational Special ratna needs: No Agree to transfusion: No Physical Exam Const: COMMON NORMALS: no acute distress, patient oriented x3, healthy appearing and alert GENERAL APPEARANCE: cooperative ORIENTATION/CONSCIOUSNESS: Yes awake OTHER: Patient is sitting upright on the side of the stretcher in no acute distress. She is able to give history with no difficulty. She is interactive with exam appropriately. Significant other is at bedside HENMT: COMMON NORMALS: normocephalic and atraumatic HEAD & SCALP: normocephalic and atraumatic Neck/C-Spine: COMMON NORMALS: full ROM Chest: CHEST: Yes Symmetrical chest wall rise Resp: COMMON NORMALS: normal respiratory effort and clear to auscultation bilaterally EFFORT & INSPECTION: Yes able to speak in complete sentences AUSCULTATION: clear to auscultation bilaterally Cardio: COMMON NORMALS: regular rate and regular rhythm RATE: regular rate RHYTHM: regular rhythm : COMMON NORMALS: Yes no CVA tenderness BLADDER/KIDNEY EXAM: Yes no CVA tenderness Back/Pelvis: COMMON NORMALS: no CVA tenderness LUMBAR SPINE/LOWER BACK: Yes paraspinal muscle tenderness Lumbar paraspinal muscle tenderness: left left lumbar paraspinal muscle tenderness: L1 and L2 and Yes paraspinal muscle spasm Lumbar paraspinal muscle spasm: left Left lumbar paraspinal muscle spasm: L1 and L2 Extremity: COMMON NORMALS: full ROM Neuro: COMMON NORMALS: patient oriented x3 SENSORIUM/ORIENTATION: Yes alert Psych: COMMON NORMALS: cooperative Course Vital Signs: Vital signs: Vital Signs Temperature 97.9 F 04/21/25 18:18 Pulse Rate 76 04/21/25 18:18 Respiratory Rate 17 04/21/25 18:18 Blood Pressure 103/61 04/21/25 18:18 Pulse Oximetry 96 04/21/25 18:18 Oxygen Delivery Me thod Room Air 04/21/25 18:18 MDM - Back Pain/Injury Medical Decision Making 74yo female presents with significant other for foul-smelling urine that she noticed today and left low back spasms that has been ongoing for the past 3 to 4 days. Patient is nontoxic in appearance. Vital signs are stable. UA with 2+ leukocyte Estrace. Urine microscopy with 4+ bacteria, 21-50 white blood cells. Discussed findings with patient and family. On exam, patient did not have any midline tenderness, only mild tenderness to the left lower. There was no CVA tenderness to indicate pyelonephritis. Discussed findings with patient. Advised we would begin treatment for her urinary tract infection and provide a mild muscle relaxer to help with her back spasms. Encourage patient to continue to monitor her symptoms closely. Recommend she follow-up with primary care, call Friday with an update of symptoms and to discuss a recheck. Return precautions provided. Patient states understanding and has no further questions or concerns at this time. Medical Records I reviewed the patient's medical records. Labs I reviewed the patient's lab results. Laboratory Results Urine Color Yellow (Yellow) 04/21/25 19:12 Urine Appearance Clear (CLEAR) 04/21/25 19:12 Urine pH 5.5 (5-7) 04/21/25 19:12 Ur Specific [place] 1.013 (1.005-1.030) 04/21/25 19:12 Urine Protein Negative (Negative) 04/21/25 19:12 Urine Glucose (UA) Negative (Normal) 04/21/25 19:12 Urine Ketones Negative (Negative) 04/21/25 19:12 Urine Blood Negative (Negative) 04/21/25 19:12 Urine Nitrate Negative (Negative) 04/21/25 19:12 Urine Bilirubin Negative (Negative) 04/21/25 19:12 Urine Urobilinogen 0.2 mg/dL (Negative) 04/21/25 19:12 Ur Leukocyte Esterase 2+ (Negative) A 04/21/25 19:12 Urine RBC 0-2 /hpf (0-2) 04/21/25 19:12 Urine WBC 21-50 /hpf (0-5) H 04/21/25 19:12 Ur Squamous Epith Cells 0-5 /hpf (0-5) 04/21/25 19:12 Amorphous Sediment Not Reportable 04/21/25 19:12 Urine Bacteria 4+ /hpf (NONE) H 04/21/25 19:12 Hyaline Casts 7.42 /lpf 04/21/25 19:12 No radiology studies performed this visit Discharge Plan Discharge Patient Disposition: Home Clinical Impression: Acute cystitis without hematuria, Spasm of muscle of lower back Condition: Stable Prescriptions: New cefdinir 300 mg capsule 300 mg PO BID 5 Days Qty: 10 0RF tizanidine 2 mg tablet 2 mg PO Q8H PRN (Reason: muscle spasticity) Qty: 20 0RF No Action nitroglycerin [Nitrostat] 0.4 mg tablet, sublingual 0.4 mg SUBLINGUAL Q5M PRN (Reason: Chest Pain) Qty: 30 4RF Rx Instructions: do not exceed 3 doses per episode alprazolam 0.5 mg tablet 0.5 mg PO BID PRN (Reason: anxiety) Qty: 45 2RF diclofenac sodium 75 mg tablet,delayed release (DR/EC) 75 mg PO BID PRN (Reason: pain) Qty: 20 0RF (DME) stirrup gel pad splint See Rx Instructions .Route .MEDSUPPLY Qty: 1 0RF Rx Instructions: As directed levofloxacin 750 mg tablet 750 mg PO DAILY 7 Days Qty: 7 0RF clonidine HCl 0.1 mg tablet 0.1 mg PO TID PRN (Reason: pressure >190/100) Qty: 30 0RF Magtab 84 mg tablet extended release 84 mg PO DAILY 30 Days Qty: 30 4RF clopidogrel [Plavix] 75 mg tablet 75 mg PO DAILY Qty: 90 3RF losartan 100 mg tablet 100 mg PO QAM Qty: 90 3RF labetalol 200 mg tablet 200 mg PO BID Qty: 180 1RF hydrocodone-acetaminophen 5-325 mg tablet 1 tab PO Q8H PRN (Reason: pain) 15 Days Qty: 45 0RF docusate sodium [Colace] 100 mg capsule 100 mg PO QPM PRN (Reason: Constipation) Centrum Silver Women 8 mg iron-400 mcg-300 mcg Tablet 1 tab PO QAM Hair, Skin and Nails (biotin) 10,000 mcg Tablet,Chewable 20,000 mcg PO QAM albuterol sulfate 90 mcg/actuation HFA aerosol inhaler 2 inh INHALATION Q4H PRN (Reason: shortness of breath or wheezing) Qty: 6.7 0RF simvastatin 40 mg tablet 40 mg PO QPM bumetanide 1 mg tablet 1 mg PO BID potassium gluconate 595 mg (99 mg) Tablet 595 mg PO DAILY Discharge Orders: Discharge ED (Routine); Ordered 04/21/25 Ordered By: Nile Solis Referrals: Hwoard Kraus MD [Primary Care Provider, Family Practice] Discharge Diet: Usual diet Discharge Activity: Increase activity as tolerated Patient Instructions: Muscle Spasm (ED), Urinary Tract Infection in Older Adults (ED) Activity Restrictions/Additional Instructions: Your urine was concerning for urinary tract infection. We did begin cefdinir in the emergency department and a prescription has been sent to your pharmacy. Tizanidine has been sent to your pharmacy for back spasms. Please do not drive or operate heavy machinery while taking this medication Continue to monitor your symptoms closely Follow-up with primary care, call Friday with an update of symptoms and to discuss a recheck Return to the emergency department if any rapid worsening symptoms, onset of fever associated with worsening, and as needed Print Language: Indian Coding Level of Care Code ED Treasury Management Sales Consultant for Sariah Borjas
[2025-04-21] MEDS: cefdinir 300 MG CAPSULE PO (23:52)
[2025-04-21] MEDS: tizanidine 4 mg Tablet 2 MG PO (23:52)
== END 2025-04-21 23:58 | disposition home or self-care (01) ==
PROVIDERS: Student in an Organized Health Care Education/Training Program; Emergency Provider Nurse Practitioner; PCP Family Medicine
DX: N30.00 Acute cystitis without hematuria (principal); M62.830 Muscle spasm of back; Z79.02 Long term (current) use of antithrombotics/antiplatelets; Z86.73 Personal history of transient ischemic attack (TIA), and cerebral infarction without residual deficits; I10 Essential (primary) hypertension
CPT/HCPCS: 81001; 87077; 87086; 87186; 99283; J9999

== ENCOUNTER → 2025-06-23 16:56 | Outpatient (BNVA) | payer MEDICARE, OTHER, SELFPAY | PROVIDERS: PCP Family Medicine; Visit Provider Internal Medicine | DX: I10 Essential (primary) hypertension (principal); R06.09 Other forms of dyspnea; R58 Hemorrhage, not elsewhere classified | CPT/HCPCS: 36415; 80048; 83880; 85025; 85610 ==

== ENCOUNTER 2025-07-11 08:38 | Outpatient (CLI) | payer MEDICARE, OTHER, SELFPAY ==
[2025-07-11] VITALS (13 sets, daily range): BP systolic 100–189; BP diastolic 49–81; PULSE 70–76; RESP 12–21; TEMP 36.7; O2SAT 95–98; BMI 39.8
--- NOTE | 2025-07-11 10:18 | XACV_ITS ---
Exam Room: 2 Ht: 160 cm Wt: 102 kg BSA: 2.18 m2 Gender: Female : 1950 Any Known Allergies: No known allergies Exam Priority: Routine Procedure(s): Procedure Description: Diagnostic procedure Procedure Description: Left Heart Catheterization Procedure Description: Right Heart Catheterization Procedure Description: O2 saturation Procedure Description: Coronary Angiography Diagnostic Cath Status: Elective Diagnostic Findings * INDICATION: Worsening dyspnea on exertion. * Left Main has no significant disease. * Circumflex has no significant disease. * Proximal Right Coronary Artery: obstructive 60-70% stenosis, VARINDER: 3 flow. Small sized vessel. * Right heart cath: Elevated right and left sided cardiac pressures. Severe pre and post capillary pulmonary hypertension. * Proximal Left Anterior Descending to Mid Left Anterior Descending: minimal 30% stenosis, VARINDER: 3 flow. * Coronary angiography shows left dominance. Conclusions 1. Moderate to severe proximal RCA stenosis. Small sized artery. Medical therapy. 2. Severe pulmonary hypertension. Recommendations * Obtain echocardiogram to again assess mitral stenosis. Will also refer to pulmonology as has history of restrictive lung disease and now severe pulmonary hypertension. * Outpatient cardiology follow up in 2 weeks. Interventional RX Recommendation: medical therapy and/or counseling Diagnostic RX Recommendation: medical therapy and/or counseling Anticoagulation: Heparin Pressures Phase:Rest AO : 129 / 85 ( 106 ) @ 11:57:00 AM 136 / 91 ( 113 ) @ 12:00:00 PM 144 / 64 ( 91 ) @ 12:10:00 PM 143 / 61 ( 91 ) @ 12:10:00 PM LV : 155 / 10 18 @ 12:09:00 PM 156 / 10 / 18 @ 12:10:00 PM RV : 82 / -3 / 12 @ 11:46:00 AM PA : 90 / 29 ( 56 ) @ 11:44:00 AM RA : a wave = 15 v wave = 14 mean = 12 @ 11:46:00 AM PCW : a wave = 45 v wave = 65 mean = 44 @ 11:43:00 AM O2 Content Phase:Rest PA : O2 Content O2: 66.6 @ 12:00:00 PM Saturations Phase:Rest AO : 97 @ 11:57:00 AM PA : 67 @ 12:00:00 PM Cardiac Output Phase:Rest Tiny : 4 @ 11:26:13 AM Tiny Cardiac Index: 2 @ 11:26:13 AM Flow Phase:Rest Qp : 4 @ 11::13 AM Qs : 4 @ 11:26:13 AM Valves Phase:DefaultPhase AV : 13.0 @ 11:26:13 AM AV Mean Gradient: 19.0 @ 11:26:13 AM AV Flow: 388 @ ::13 AM AV Area: 2.0 @ 11:26:13 AM AV Area Index: 0.99 @ 11:26:13 AM Clinical Evaluation EBL: 5mL-10mL Procedural Details Pre-Procedure Time Out. Identified patient by full name and date of as verbalized by the patient/guarantor. Does the consent match the physician's order: Yes. Accurate & Complete Informed Consent: Yes. Inpatient/Outpatient History & Physical on Chart: Yes. If H&P is completed, is and addenduem needed: No; If yes, is the addendum complete: N/A. Visualize and Verify Site with Patient/Guarantor: N/A. Relevant Radiology Images available: Yes. Pre-op teaching completed and patient verbalized understanding. The risks, benefits, and alternatives of sedation and/or procedure were discussed by physician. The patient agrees to continue. Procedure started. [facility] Clinical Fraility Score: 5: Mildly Frail. Adult Education Manager Indications: Valvular Disease. Chest Pain Symptom Assessment: Non-anginal Chest Pain. Correct patient, site and procedure confirmed by cath team. PERRLA. Strong, equal hand digital imaging technician bilaterally. Lungs clear x 5 lobes. IV Site on Arrival: 20 gauge in the right anticubital. IV Site on Arrival: 20 gauge in the left forearm. IV Fluids: 0.9% NaCl at KVO. 0 mL infused prior to labor relations or personnel negotiator. Pre Procedural Pulses: right dorsalis pedis was Doppled. Pre Procedural Pulses: left dorsalis pedis was 2+. Pre Procedural Pulses: right posterior tibial was Doppled. Pre Procedural Pulses: left posterior tibial was 1+. Pre Procedural Pulses: bilateral radial was 3+. right groin was prepped with chloroprep then draped in the usual sterile fashion. right radial was prepped with chloroprep then draped in the usual sterile fashion. right brachial was prepped with chloroprep then draped in the usual sterile fashion. Baseline sample Acquired. HR: 79 BPM. Physician arrived. Physician scrubbed in. Immediate Pre-Procedure Time Out. Correct Patient: Yes; Correct Procedure: Yes; Correct Site: Yes; Correct Patient Position: Yes; Correct Supplies: Yes; Dried Flammable Prep: Yes; Blood Products Available: N/A;. Lidocaine 1% infiltrated to the right brachial. Sheath wire inserted through the right brachial IV catheter. IV catheter out OTW. [place]-Iftikhar MON catheter inserted. Oximetry samples were obtained. Normal venous range: 60-85%. Normal arterial range: 95-100%. Pressure measurements obtained. [place]-Iftikhar out. Lidocaine 1% infiltrated to the right radial. Arterial access obtained. A 5 tanzanian TIG catheter in over wire. Multiple views taken of left coronary artery. Catheter removed over the exchange wire. A 5 tanzanian JL3.5 catheter in over wire. Multiple views taken of left coronary artery. Catheter removed over the exchange wire. A 5 tanz[place] JR4 catheter in over wire. Catheter removed over the exchange wire. A 5 tanzanian Angled Pig catheter in over wire. EDP Sample taken: LV 155/10,18; HR: 86 BPM; SpO2: 94%. Pullback taken: LV 156/10,18; AO 144/64(91); Mean: 19mmHg, Peak to Peak: 13mmHg, SEP: 11sec/min; HR: 88 BPM; SpO2: 95%. Catheter removed over the exchange wire. A 5 tanzanian AL1 catheter in over wire. Catheter removed over the exchange wire. A 5 tanzanian 3DRC catheter in over wire. Multiple views taken of right coronary artery. Catheter removed over the exchange wire. Physician review of cine films. Physician scrubbed out. Vital chart was stopped. A TR Band was successful obtaining hemostatsis at the Right Radial artery insertion site. A Manual Compression was successful obtaining hemostatsis at the Right Brachial Vein insertion site. Post Procedure: Pulses reassessed and unchanged. PERRLA. Strong, equal hand digital imaging technician bilaterally. No VTE prophylaxis required. Medication's Wasted: Lidocaine 1% = 15 mL. Medication's Wasted: Nitro = 49.4 mcg. Medication's Wasted: Heparin = 1000 units. Medication's Wasted: Other = Fentanyl 50mcg Versed 1 mg. Total IV fluids: 35 mL. Post-op diagnosis: Severe Pulmonary Hypertension, Moderate/Severe Stenosis of the non-dominant RCA. Complications: None. Estimated blood loss: 5mL-10mL. Responsiveness - Normal response to verbal stimuli; alert and oriented, PERRLA. Airway - Unaffected, no intervention required; spontaneous ventilation. Circulation: W/N/L, pulses unchanged. Nausea/Vomiting: No. Procedure completed. Patient transferred by stretcher to CPRU. Access Site Site: Right Brachial Vein Sheath Size: 6 Fr Hemostasis Method: Manual Compression Hemostasis Success: Successful Site: Right Radial artery Sheath Size: 6 Fr Hemostasis Method: TR Band Hemostasis Success: Successful Procedure Medications Start: 10:35 AM Stop: 10:35 AM Medication: Versed Amount: 1 mg Route: I.V. Start: 10:50 AM Stop: 10:50 AM Medication: Nitrogylcerin Amount: 200 mcg Route: I.A. Start: 10:51 AM Stop: 10:51 AM Medication: Fentanyl Amount: 50 mcg Route: I.V. Start: 10:52 AM Stop: 10:52 AM Medication: Heparin Amount: 5000 units Route: I.V. Start: 10:59 AM Stop: 10:59 AM Medication: Versed Amount: 1 mg Route: I.V. Start: 11:06 AM Stop: 11:06 AM Medication: Nitrogylcerin Amount: 200 mcg Route: I.A. Start: 11:08 AM Stop: 11:08 AM Medication: Versed Amount: 1 mg Route: I.V. Start: 11:14 AM Stop: 11:14 AM Medication: Nitrogylcerin Amount: 200 mcg Route: I.A. I, the attending physician, have reviewed and verified all procedure medications. Yes, all medications given per verbal order History/Risk Factors Hypertension: Yes Dyslipidemia: Yes Peripheral Arterial Disease (PAD): No Myocardial Infarction ([place]): No Obesity: Yes Renal Disease: No Tobacco Use: Former Prior Interventions PCI: No CABG: No Valve Surgery: No Report Signatures Finalized by Madi Rodriguez MD on 07/19/2025 11:44 AM
--- NOTE | 2025-07-11 10:32 | W.PM.OPSUD ---
Surgery/Procedure H&P Update DATE OF PROCEDURE: July 11, 2025 DATE H&P PERFORMED: 06/23/25 H&P UPDATE INFORMATION: I have reviewed H&P completed within last 30 days, I have examined patient prior to procedure and No changes to prior documentation PREOP DIAGNOSIS: Worsening dyspnea on exertion/ aortic stenosis PRIMARY INDICATION FOR PROCEDURE: Worsening dyspnea on exertion/ aortic stenosis PLANNED PROCEDURE: Operation Date: 07/11/25 10:00 Proposed Procedures p Cardiac Catheterization - RLHC w/wo LV & Lotus(Bilateral) - Madi Rodriguez M.D Possible percutaneous coronary intervention PATIENT REASSESSED PRIOR TO SEDATION, WITH NO CHANGE NOTED: Yes PHYSICAL EXAM: alert, oriented x 3, clear to auscultation bilaterally and regular rate & rhythm OTHER PERTINENT EXAM FINDINGS: Grade 3/6 systolic murmur AIRWAY EVAL/ANESTHESIA PLAN: normal airway, ASA III, Local Anesthesia, Risks, benefits & alternatives of sedation and/or procedure discussed and Patient agrees to continue as planned ADDITIONAL INFORMATION: Moderate sedation
[2025-07-11 10:38] LABS: Anion Gap 13.1 (5-19); Blood Urea Nitrogen 23 mg/dL (8-23); Calcium 9.2 mg/dL (8.5-10.5); Carbon Dioxide 27 mmol/L (22-29); Chloride 99 mmol/L (98-107); Creatinine Clr Calc Pharmacy 62.5612; Glucose 130 mg/dL (65-115); Osmolality Calculated 285 mOsm/kg (285-295); Potassium 4.1 mmol/L (3.5-5.1); Sodium 135 mmol/L (136-145)
[2025-07-11 10:59] LABS: Alveolar-Arterial Oxygen Gradi 2.6 mmHg (5-10); Arterial Blood Gas Hematocrit 35.2 % (37-47); Blood Gas Operator Identificat glc; Blood Gas Sample Site Not specified; Blood Gas Sample Type Arterial; Carboxyhemoglobin 1.4 %THgb (0.4-20.1); Methemoglobin 0.1 % (0.4-1.5)
[2025-07-11 11:02] LABS: Arterial Blood Gas Hematocrit 31.1 % (37-47); Blood Gas Operator Identificat glc; Blood Gas Sample Site Not specified; Blood Gas Sample Type Not specified; Carboxyhemoglobin 1.5 %THgb (0.4-20.1); Methemoglobin 0.4 % (0.4-1.5)
--- NOTE | 2025-07-11 11:30 | PC.NURSE ---
Received the patient back from the laborer electroplating via cot s/p Diagnostic [facility]. ekg monitor tech placed and vital signs obtained. TR band intact to the right wrist. No bleeding or hematoma noted. Palpable radial pulse. Bulky pressure dressing to the right brachial area from RHC procedure. No bleeding or hematoma noted. Dressing dry and intact. No other assessment changes noted from pre cath assessment. Family at bedside. No concerns voiced at this time.
--- NOTE | 2025-07-11 12:30 | PC.NURSE ---
Letting the air out of the TR band per protocol. No other assessment changes noted at this time. Family remains at bedside.
--- NOTE | 2025-07-11 13:17 | P.PCN_ITS ---
Procedure Note: Date of procedure: 07/11/25 Pre-procedure diagnosis: Worsening dyspnea on exertion Post-procedure diagnosis: other (Severe pulmonary hypertension) Procedure: Non-dominant proximal RCA has 60-70% proximal vessel stenosis. Otherwise non- obstructive coronary artery disease Severe pulmonary hypertension We will refer to pulmonology Order echocardiogram to assess mitral stenosis. Performing Provider: Madi Rodriguez Estimated blood loss (mL): 10 Complications: None Condition: stable Disposition: same day Coding Level of Care Code Acute Code for Sariah Borjas
--- NOTE | 2025-07-11 13:30 | PC.NURSE ---
TR band off per protocol. Site cleansed with warm water and patted dry. A large band aid was applied to the site and loosely secured with coban. No bleeding or hematoma noted. Palpable radial pulse. Post radial activity instruction verbally given to the patient with her understanding verbalized. No other assessment changes noted at this time.
--- NOTE | 2025-07-11 14:37 | PC.NURSE ---
Patient discharged home via wheelchair with spouse and daughter.
== END 2025-07-11 08:39 | disposition home or self-care (01) ==
PROVIDERS: PCP Family Medicine; Visit Provider Internal Medicine
DX: I25.10 Atherosclerotic heart disease of native coronary artery without angina pectoris (principal); I27.20 Pulmonary hypertension, unspecified; I11.0 Hypertensive heart disease with heart failure; I50.31 Acute diastolic (congestive) heart failure; E78.5 Hyperlipidemia, unspecified; E66.01 Morbid (severe) obesity due to excess calories; Z68.39 Body mass index [BMI] 39.0-39.9, adult; Z87.891 Personal history of nicotine dependence; E03.9 Hypothyroidism, unspecified; Z82.49 Family history of ischemic heart disease and other diseases of the circulatory system; Z86.73 Personal history of transient ischemic attack (TIA), and cerebral infarction without residual deficits
CPT/HCPCS: 36415; 80048; 82810; 93460; 99152; 99153; C1751; C1769; C1887; C1894; J1644; J2250; J3010; J3490; J7030; J9999; Q0163; Q9967

== ENCOUNTER 2025-08-09 07:03 | Outpatient (CLI) | payer MEDICARE, OTHER, SELFPAY ==
--- NOTE | 2025-08-09 07:08 | USCV_ITS ---
Maria Del Carmen Ansari Age: 75 Gender: F : 1950 Exam Date: 08/09/2025 07:21 Ordering Phys: Paola Galindo Technologist: [place]am [place] [facility] [place]: as BP: 140 / 80 HR: 73 Rhythm: Sinus Technical Quality: Adequate MEASUREMENTS (Male / Female) Normal Values 2D ECHO LV Diastolic Diameter PLAX 5.0 cm 4.2 - 5.9 / 3.9 - 5.3 cm IVS Diastolic Thickness 0.9 cm 0.6 - 1.0 / 0.6 - 0.9 cm IVS Systolic Thickness 1.6 cm LVPW Diastolic Thickness 1.1 cm 0.6 - 1.0 / 0.6 - 0.9 cm LVPW Systolic Thickness 1.4 cm LVOT Diameter 2.0 cm LV Ejection Fraction 2D Teich 66.4 % LV Ejection Fraction MOD 4C 74.0 % LV Ejection Fraction MOD 2C 57.9 % LV Ejection Fraction 2C AL 59.9 % LA Diameter 5.1 cm RA Systolic Volume 4C AL 36.1 ml RA Systolic Volume 4C MOD 34.3 ml LA Sys Volume AL 95.6 cm cubed LA Sys Volume Index AL 44.0 cm cubed/m squared Aorta at Sinotubular Diameter 3.4 cm M-MODE LA Ao Ratio MM 1.5 AV Cusp Separation MM 1.9 cm DOPPLER AV Peak Velocity 243.3 cm/s AV Area Cont Eq vti 1.6 cm squared AV Area Cont Eq pk 1.2 cm squared MV Peak Velocity 257.0 cm/s MV Area PHT 3.5 cm squared Mitral E to A Ratio 1.7 TV Peak Velocity 268.0 cm/s TR Peak Velocity 274.0 cm/s TR Peak Gradient 30.0 mmHg PV Peak Velocity 98.0 cm/s FINDINGS Left Ventricle Normal left ventricular size and systolic function, EF 74%. Mild left ventricular hypertrophy. No regional wall motion abnormalities. Grade III/IV diastolic dysfunction (restrictive filling pattern), severely elevated filling pressures. Right Ventricle The right ventricle is normal in size and function. Right Atrium The right atrium is normal in size. Left Atrium Moderately increased left atrial size. Left atrial systolic volume index of 44.0 mL/m squared Mitral Valve Moderate mitral annular calcification. Mild-moderate mitral valve regurgitation. Aortic Valve Mild aortic valve stenosis, mean gradient 10.4 mmHg, ALESSANDRO 1.6 cm squared. Peak velocity of 2.7 with a peak gradient of 25 mmHg Tricuspid Valve Trace tricuspid valve regurgitation. Pulmonic Valve Pulmonic valve not well visualized. Pericardium Normal pericardium without effusion. Aorta Normal ascending aorta dimension. IVC Inferior vena cava not visualized. CONCLUSIONS Normal left ventricular size and systolic function, EF 74%. Mild left ventricular hypertrophy. No regional wall motion abnormalities. Grade III/IV diastolic dysfunction (restrictive filling pattern), severely elevated filling pressures. Mild aortic valve stenosis, mean gradient 10.4 mmHg, ALESSANDRO 1.6 cm squared. Peak velocity of 2.7 with a peak gradient of 25 mmHg. Moderate mitral annular calcification. Mild-moderate mitral valve regurgitation. Moderately increased left atrial size. Left atrial systolic volume index of 44.0 mL/m squared. Trace tricuspid valve regurgitation. Estimated pulmonary artery peak systolic pressure 33 mmHg There is no pericardial effusion. There are no intracardiac masses. Comparison with the previous study is difficult because of the difference in the technical quality. Dr Juan Horne MD [facility] (Electronically Signed) Final Date: 12 August 2025 09:08 S
== END 2025-08-09 07:04 | disposition home or self-care (01) ==
LOC: RAD 07:04
PROVIDERS: PCP Family Medicine; Visit Provider Nurse Practitioner Family
DX: I51.7 Cardiomegaly (principal); I50.30 Unspecified diastolic (congestive) heart failure; I35.0 Nonrheumatic aortic (valve) stenosis; I34.81 Nonrheumatic mitral (valve) annulus calcification; I35.1 Nonrheumatic aortic (valve) insufficiency; I34.0 Nonrheumatic mitral (valve) insufficiency; I51.89 Other ill-defined heart diseases; I36.1 Nonrheumatic tricuspid (valve) insufficiency
CPT/HCPCS: 93306

== ENCOUNTER → 2025-08-11 09:16 | Outpatient (BNVA) | payer MEDICARE, OTHER, SELFPAY | PROVIDERS: PCP Family Medicine; Visit Provider Internal Medicine | DX: J84.9 Interstitial pulmonary disease, unspecified (principal); G47.33 Obstructive sleep apnea (adult) (pediatric); Z99.89 Dependence on other enabling machines and devices; R91.1 Solitary pulmonary nodule; E66.9 Obesity, unspecified; Z68.39 Body mass index [BMI] 39.0-39.9, adult; R06.00 Dyspnea, unspecified; Z87.891 Personal history of nicotine dependence; J44.9 Chronic obstructive pulmonary disease, unspecified; T78.40XA Allergy, unspecified, initial encounter; Y99.9 Unspecified external cause status | CPT/HCPCS: 36415; 85025; 86003; 99204; 99214 ==

== ENCOUNTER 2025-08-24 09:00 | Outpatient (CLI) | payer MEDICARE, OTHER, SELFPAY ==
--- NOTE | 2025-08-24 09:00 | CT_ITS ---
WS: [id number] CT chest ION (PULM ONLY) [id number] HISTORY: 8 mm right lung nodule TECHNIQUE: Axial imaging performed through the thorax. Coronal and sagittal reformats are submitted. All CT scans at [facility] use at least one of these dose optimization techniques: automated exposure control; mA and/or kV adjustment per patient size (includes targeted exams where dose is matched to clinical indication); or iterative reconstruction. CONTRAST: None DLP: 489.63 mGy COMPARISON: 06/27/2023, 01/27/2024 Exam is performed for navigational bronchoscopy. Reidentified are multiple noncalcified pulmonary nodules on the RIGHT. The largest is at the RIGHT lung base measuring 7.2 mm. Numerous additional scattered tiny nodules at the lung. Lung volumes are decreased due to poor inspiration. Mild elevation RIGHT hemidiaphragm with subsegmental atelectasis at the RIGHT lung base. Atherosclerosis aorta. Mildly enlarged pulmonary artery. No adenopathy. Normal adrenal glands. Prior cholecystectomy. Mild increase in thoracic kyphosis. CT/CT chest ION (PULM ONLY) [id number] IMPRESSION: 1. Multiple noncalcified right-sided pulmonary nodules. The largest 7.2 mm at the RIGHT lung base. This study was performed for navigational bronchoscopy pur poses. 2. No adenopathy.
[2025-08-24 17:48] LABS: Anion Gap 17.1 (5-19); Blood Urea Nitrogen 28 mg/dL (8-23); Calcium 9.2 mg/dL (8.5-10.5); Carbon Dioxide 28 mmol/L (22-29); Chloride 99 mmol/L (98-107); Glucose 121 mg/dL (65-115); NT Pro B Type Natriuretic Pept 395 pg/mL (0-125); Osmolality Calculated 297 mOsm/kg (285-295); Potassium 4.1 mmol/L (3.5-5.1); Sodium 140 mmol/L (136-145)
== END 2025-08-24 09:01 | disposition home or self-care (01) ==
LOC: RAD 09:02
PROVIDERS: Internal Medicine; PCP Family Medicine; Visit Provider Internal Medicine
DX: R91.8 Other nonspecific abnormal finding of lung field (principal); R06.09 Other forms of dyspnea; I10 Essential (primary) hypertension; R06.02 Shortness of breath; Z90.49 Acquired absence of other specified parts of digestive tract; M40.204 Unspecified kyphosis, thoracic region; D53.9 Nutritional anemia, unspecified; Z86.73 Personal history of transient ischemic attack (TIA), and cerebral infarction without residual deficits; F41.9 Anxiety disorder, unspecified; F45.8 Other somatoform disorders; I11.0 Hypertensive heart disease with heart failure; I50.30 Unspecified diastolic (congestive) heart failure; E66.9 Obesity, unspecified; Z68.39 Body mass index [BMI] 39.0-39.9, adult
CPT/HCPCS: 36415; 71250; 80048; 83880; 99214

== ENCOUNTER 2025-09-01 16:46 | Inpatient (IN) | payer MEDICARE, OTHER, SELFPAY ==
[2025-09-01] VITALS (10 sets, daily range): BP systolic 110–130; BP diastolic 43–73; PULSE 63–73; RESP 16–18; TEMP 36.4; O2SAT 97–98; BMI 39.5
--- NOTE | 2025-09-01 17:42 | ECG_ITS ---
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
--- NOTE | 2025-09-01 17:42 | XRR_ITS ---
PROCEDURE INFORMATION: Exam: XR Chest Exam date and time: 09/01/2025 6:39 PM Age: 75 years old Clinical indication: Other: Weakness TECHNIQUE: Imaging protocol: Radiologic exam of the chest. Views: 1 view. COMPARISON: CT chest ION (PULM ONLY) [id number] 08/24/2025 9:19 AM FINDINGS: Tubes, catheters and devices: Spinal stimulator device noted. Lungs: Unremarkable. No consolidation. Pleural spaces: Unremarkable. No pleural effusion. No pneumothorax. Heart/Mediastinum: Unremarkable. No cardiomegaly. Vasculature: Coarse calcifications in the aortic arch. Bones/joints: Unremarkable. Other findings: No acute intrathoracic abnormality. XR/XR chest 1V portable [id number] IMPRESSION: No acute intrathoracic abnormality.
[2025-09-01 18:35] LABS: Hematocrit 34.7 % (36-47); Hemoglobin 11.50 g/dL (11.27-16.99); Mean Corpuscular HGB Conc 33.1 g/dL (30-55); Mean Corpuscular Hemoglobin 28.3 pg (27-33); Mean Corpuscular Volume 85.5 fl (85-98); Nucleated Red Blood Cells % 0 %; Platelet Count 272 10^3/cmm (157-399); Red Blood Count 4.06 10^6/uL (3.85-5.65); White Blood Count 10.87 10^3/uL (3.29-11.43)
[2025-09-01 19:09] LABS: Troponin(5th) Baseline 36 ng/L (0-10)
[2025-09-01 19:11] LABS: Lactic Sepsis W/Reflex 2.0 mmol/L (0.5-2.2)
[2025-09-01 19:12] LABS: Alanine Aminotransferase 28 U/L (0-33); Albumin Level 4.8 g/dL (3.5-5.2); Alkaline Phosphatase 100 U/L (35-105); Anion Gap 25.2 (5-19); Aspartate Amino Transferase 26 U/L (0-32); Calcium 10.1 mg/dL (8.5-10.5); Carbon Dioxide 25 mmol/L (22-29); Chloride 87 mmol/L (98-107); Creatinine Clr Calc Pharmacy 17.8620; Globulin 3.4 g/dL (1.3-4.6); Glucose 152 mg/dL (65-115); Osmolality Calculated 312 mOsm/kg (285-295); Potassium 4.2 mmol/L (3.5-5.1); Sodium 133 mmol/L (136-145); Total Protein 8.2 g/dL (6.6-8.7)
[2025-09-01 19:20] LABS: Blood Urea Nitrogen 104 mg/dL (8-23)
[2025-09-01 20:07] LABS: Respiratory Syncytial Virus Ce NEGATIVE (Negative); SARS-CoV-2 PCR NEGATIVE (Negative)
[2025-09-01 20:30] LABS: Troponin 5 2HR 35.89 ng/L (0-10)
[2025-09-01 20:32] LABS: Troponin 5 2HR Delta -0.11 ABS# (0-10)
--- NOTE | 2025-09-01 20:46 | W.ED.GENADLT ---
HPI - General Adult General: Chief complaint: General Medical Stated complaint: weakness / low bp (check@home) Time Seen by Provider: 09/01/25 19:11 History of Present Illness: 75-year-old female past medical history significant for hypertension, hyperlipidemia, CHF with grade 3 diastolic dysfunction, pulmonary hypertension and obstructive sleep apnea with restrictive lung disease, obesity, CVA/TIA in the past, peripheral arterial disease, presenting to the emergency department with labile blood pressures reading well over the last few days with increasing weakness and poor p.o. tolerance over the last week, nausea without vomiting, reports that approximately a week ago had a significant medication adjustment with doubling of her diuretic and adding of metolazone due to elevated wedge pressures by manager report, she reports significant urine output, she is not taking in much fluids. No vomiting or diarrhea, no chest pain or abdominal pain. She is complaining of an intermittent headache and intermittent lightheaded dizziness. Related Data Home Medications ?Medication ?Instructions ?Recorded ?Confirmed biotin 10,000 mcg chewable tablet 20,000 mcg PO QAM 06/26/23 08/24/25 (Hair, Skin and Nails (biotin)) [id number] 8 mg-folic 400 1 tab PO QAM 06/26/23 08/24/25 mcg-K 50 mcg-lutein 300 mcg tablet (Centrum Silver Women) docusate sodium 100 mg capsule 100 mg PO QPM PRN Constipation 12/04/23 08/24/25 (Colace) simvastatin 40 mg tablet 40 mg PO QPM 12/27/24 08/24/25 Previous Rx's ?Medication ?Instructions ?Recorded clonidine HCl 0.1 mg tablet 0.1 mg PO TID PRN pressure 12/23/22 >190/100 #30 tabs nitroglycerin 0.4 mg sublingual 0.4 mg sublingual Q5M PRN Chest 07/04/23 tablet (Nitrostat) Pain #30 tabs albuterol sulfate 90 mcg/actuation 2 inh inhalation Q4H PRN shortness 04/26/24 aerosol inhaler of breath or wheezing #6.7 grams losartan 100 mg tablet 100 mg PO QAM #90 tabs 12/03/24 alprazolam 0.5 mg tablet 0.5 mg PO BID PRN anxiety #45 tabs 12/14/24 hydrocodone 5 mg-acetaminophen 325 1 tab PO Q8H PRN pain 15 days #45 01/05/25 mg tablet tabs diclofenac sodium 75 mg 75 mg PO BID PRN pain #20 tabs 01/10/25 tablet,delayed release stirrup gel pad splint #1 ea 01/31/25 tizanidine 2 mg tablet 2 mg PO Q8H PRN muscle spasticity 04/21/25 #20 tabs clopidogrel 75 mg tablet See Rx Instructions .Route 06/01/25 .COMPLEX #90 tabs labetalol 200 mg tablet 200 mg PO BID #180 tabs 07/01/25 metolazone 2.5 mg tablet 2.5 mg PO DAILY #90 tabs 08/24/25 potassium chloride 20 mEq 20 meq PO DAILY #90 tabs 08/24/25 tablet,extended release (K-Tab) bumetanide 1 mg tablet See Rx Instructions .Route 08/31/25 .COMPLEX #180 tabs Allergies Allergy/AdvReac Type Severity Reaction Status Date / Time No Known Allergies Allergy Verified 08/24/25 14:59 PFSH ED PFSH: Medical History Anxiety Hyperglycemia Venous insufficiency of both lower extremities Hypothyroid Morbid obesity Lumbar spondylosis Spondylolisthesis, lumbar region Lumbar disc disease with radiculopathy CVA (cerebral vascular accident) Hypercholesteremia Hypertension Surgical History History of arthroscopic surgery of elbow H/O cataract removal with insertion of prosthetic lens H/O: hysterectomy History of cholecystectomy H/O carpal tunnel repair Family History Father Cancer CAD (coronary artery disease) Mother CAD (coronary artery disease) Diabetes Hypertension Stroke Denies family history of Anesthesia complication Bleeding disorder Social History Smoking and tobacco/nicotine status: former use of tobacco/nicotine (2 cigarettes per day X 1 year. Quit in 1973) Second hand smoke exposure: No Alcohol intake: never Substance/Drug Use: never Adopted: No Caregiver/support person: Yes Lives independently: Yes Household members: spouse Housing: House Marital status: service: No Current occupational status: retired Current occupational exposures/hazards: No Pets and animals: No Sexually active: No Do you think of yourself as: Straight/Heterosexual Current gender identity: Female Ratna/Temple: Mandaeism Special ratna needs: No Agree to transfusion: No Physical Exam Narrative: EXAM NARRATIVE: Gen: A&Ox4, no acute distress, nontoxic appearing HEENT: Normocephalic, atraumatic, no scleral icterus, external ears normal, dry mucous membranes Neck: Supple, full range of motion, no observable masses Lungs: No Respiratory distress, Lungs clear to auscultation bilaterally no rales, rhonchi, wheezing CV: Regular rate and rhythm, no murmur, no pitting edema to lower extremities bilaterally Abdomen: Soft, nondistended, nontender to palpation MSK: No joint swelling, FROM all 4 extremities Skin: No rashes, petechiae, lesions. Normal color per patient. Neuro: Alert and oriented, no slurred speech, sensation and strength grossly intact all 4 extremities Psych: Appropriate for situation. Course Reevaluation(s): Reevaluation #1: Reassessed patient at this time, clinically stable, she has started to produce urine which appeared concentrated, her kidney function on repeat testing is improving creatinine down to 2.8 from 3.1, uremia to 97 from 103, she still appears hypovolemic and has no respiratory distress will start maintenance fluids, admit overnight for management of RAF, hold diuretics Time: 23:13 Vital Signs: Vital signs: Vital Signs Temperature 97.6 F 09/01/25 16:49 Pulse Rate 73 09/01/25 22:30 Respiratory Rate 16 09/01/25 19:52 Blood Pressure 123/50 09/01/25 23:00 Pulse Oximetry 97 09/01/25 22:30 Oxygen Delivery Me thod Room Air 09/01/25 20:30 [facility] - General Adult Medical Decision Making 75-year-old female medical history significant for hypertension hyperlipidemia PAD CVA CHF and restrictive lung disease with pulmonary hypertension presenting to the emergency department with weakness lethargy nausea and intermittent hypotension with intermittent headaches and lightheadedness after a significant up titration in her diuretic regimen 1 week ago. Patient appears significantly dehydrated on exam, no lower extremity edema, clear lungs, dry mucous membranes, blood work showing significant prerenal azotemia with acute kidney injury to a creatinine in the 3.5 range, no hyperkalemia or volume overload or severe acidosis to indicate need for emergent dialysis, will give volume resuscitation, repeat labs, reassess for disposition, anticipate patient will need down titration of her diuretic regimen. Lab Data Labs showing clinically significant acute kidney injury/renal failure with uremia to 103/3.1, mild hyponatremia, urinalysis showing evidence of bacteriuria but no symptoms of UTI 09/01/25 18:17 09/01/25 22:22 Radiology Impressions Chest X-Ray 09/01/25 17:42 IMPRESSION: No acute intrathoracic abnormality. Laboratory Results WBC 10.87 10^3/uL (3.29-11.43) 09/01/25 18:17 RBC 4.06 10^6/uL (3.85-5.65) 09/01/25 18:17 Hgb 11.50 g/dL (11.27-16.99) 09/01/25 18:17 Hct 34.7 % (36-47) L 09/01/25 18:17 MCV 85.5 fl (85-98) 09/01/25 18:17 MCH 28.3 pg (27-33) 09/01/25 18:17 MCHC 33.1 g/dL (30-55) 09/01/25 18:17 RDW 14.6 % (12.1-15.1) 09/01/25 18:17 Plt Count 272 10^3/cmm (157-399) 09/01/25 18:17 MPV 9.1 fL (7.4-10.4) 09/01/25 18:17 Neut % (Auto) 72.3 % 09/01/25 18:17 Lymph % (Auto) 18.4 % 09/01/25 18:17 Rains % (Auto) 7.8 % 09/01/25 18:17 Eos % (Auto) 0.8 % 09/01/25 18:17 Baso % (Auto) 0.3 % 09/01/25 18:17 Neut # (Auto) 7.86 10^3/uL (1.8-7.7) H 09/01/25 18:17 Lymph # (Auto) 2.0 10^3/uL (0.8-4.8) 09/01/25 18:17 Rains # (Auto) 0.9 10^3/uL (0.2-0.9) 09/01/25 18:17 Eos # (Auto) 0.1 10^3/uL (0.0-0.8) 09/01/25 18:17 Baso # (Auto) 0.0 10^3/uL (0.0-0.1) 09/01/25 18:17 Nucleated RBC % (auto) 0 % 09/01/25 18:17 Nucleated RBCs # 0.0 /100WBC 09/01/25 18:17 Sodium 130 mmol/L (136-145) L 09/01/25 22:22 Potassium 3.8 mmol/L (3.5-5.1) 09/01/25 22:22 Chloride 88 mmol/L (98-107) L 09/01/25 22:22 Carbon Dioxide 25 mmol/L (22-29) 09/01/25 22:22 Anion Gap 20.8 (5-19) H 09/01/25 22:22 BUN 97 mg/dL (8-23) H* 09/01/25 22:22 Creatinine 2.8 mg/dL (0.5-0.9) H 09/01/25 22:22 GFR Calculation Not Reportable 09/01/25 22:22 Glucose 128 mg/dL (65-115) H 09/01/25 22:22 Calculated Osmolality 302 mOsm/kg (285-295) H 09/01/25 22:22 Lactic Acid 2.0 mmol/L (0.5-2.2) 09/01/25 18:17 Calcium 8.9 mg/dL (8.5-10.5) 09/01/25 22:22 Total Bilirubin 0.3 mg/dL (0.15-1.2) 09/01/25 18:17 AST 26 U/L (0-32) 09/01/25 18:17 ALT 28 U/L (0-33) 09/01/25 18:17 Alkaline Phosphatase 100 U/L (35-105) 09/01/25 18:17 Troponin T Baseline 36 ng/L (0-10) H 09/01/25 18:17 Troponin T 120 Minute 35.89 ng/L (0-10) H 09/01/25 20:08 Delta Troponin T -0.11 ABS# (0-10) L 09/01/25 20:08 Total Protein 8.2 g/dL (6.6-8.7) 09/01/25 18:17 Albumin 4.8 g/dL (3.5-5.2) 09/01/25 18:17 Globulin 3.4 g/dL (1.3-4.6) 09/01/25 18:17 Urine Color Yellow (Yellow) 09/01/25 22:09 Urine Appearance Turbid (CLEAR) A 09/01/25 22:09 Urine pH 5.5 (5-7) 09/01/25 22:09 Ur Specific [place] 1.010 (1.005-1.030) 09/01/25 22:09 Urine Protein Negative (Negative) 09/01/25 22: Urine Glucose (UA) Negative (Normal) 09/01/25 22: Urine Ketones Negative (Negative) 09/01/25 22: Urine Blood Trace (Negative) A 09/01/25 22:09 Urine Nitrate Positive (Negative) A 09/01/25 22: Urine Bilirubin Negative (Negative) 09/01/25 22: Urine Urobilinogen 0.2 mg/dL (Negative) 09/01/25 22:09 Ur Leukocyte Esterase 3+ (Negative) A 09/01/25 22:09 Urine RBC 0-4 /hpf (0-2) H 09/01/25 22:09 Urine WBC Too numerous to cnt /hpf (0-5) H 09/01/25 22:09 Ur Squamous Epith Cells 5-10 /hpf (0-5) H 09/01/25 22:09 Amorphous Sediment Not Reportable 09/01/25 22:09 Urine Bacteria 2+ /hpf (NONE) H 09/01/25 22:09 Hyaline Casts 0-4 /lpf H 09/01/25 22:09 Influenza A (PCR) Negative (Negative) 09/01/25 19:19 Influenza Type B (PCR) Negative (Negative) 09/01/25 19:19 RSV (PCR) Negative (Negative) 09/01/25 19:19 SARS-CoV-2 (PCR) Negative (Negative) 09/01/25 19:19 All radiology interpretation(s) finalized by discharge ED provider radiology interpretation(s): Chest x-ray negative for acute pathology, spinal stimulator in place, No pleural effusions or pulmonary edema EKG Data EKG 1: I personally reviewed and interpreted this EKG as follows: EKG interpretation date: 09/01/25 EKG interpretation time: 20:51 Interpretation: Normal sinus rhythm at 63 bpm, no STEMI, no ectopy, QTc 459 ms, significant abnormalities in the baseline noted secondary to thoracic spinal cord stimulator, interpreted by computer EKG reading as pacemaker however patient has no pacemaker Computer generated interpretation: Chest X-Ray 09/01/25 17:42 IMPRESSION: No acute intrathoracic abnormality. Discharge Plan Discharge Patient Disposition: Admitted As Inpatient Clinical Impression: Acute renal failure, ASB (asymptomatic bacteriuria), Dehydration with hyponatremia Condition: Stable Coding Level of Care Code ED Scrap Burner for Sariah Borjas
[2025-09-01 22:21] LABS: Glucose Urine UA Negative (Normal); Nitrate Urine Positive (Negative); Specific Gravity, Urine 1.010 (1.005-1.030)
[2025-09-01 22:33] LABS: UA Manual Slide Review YES
[2025-09-01 22:45] LABS: Anion Gap 20.8 (5-19); Calcium 8.9 mg/dL (8.5-10.5); Carbon Dioxide 25 mmol/L (22-29); Chloride 88 mmol/L (98-107); Creatinine Clr Calc Pharmacy 19.7758; Glucose 128 mg/dL (65-115); Osmolality Calculated 302 mOsm/kg (285-295); Potassium 3.8 mmol/L (3.5-5.1); Sodium 130 mmol/L (136-145)
[2025-09-01 22:53] LABS: Blood Urea Nitrogen 97 mg/dL (8-23)
--- NOTE | 2025-09-01 23:50 | PM.HP ---
Providers/Chief Complaint Admitting Physician: Tami Hamm MD----patient seen and evaluated before midnight Primary Care Provider: Howard Kraus MD Chief Complaint: weakness / low bp (check@home) History of Present Illness Maria Del Carmen Ansari is a 75 year old female with medical history significant for heart failure with exacerbation and on diuretics. Patient had failure had gotten worse and she followed up with the cardiology clinic with Dr. Rodriguez who initiated multiple diuretics with the resultant much acute kidney injury diuretics induced. Patient had come to the emergency room because she could not focus and had been quite nauseated over the past 3 days and had not eaten over the past 5 days and feeling a sensation of near syncopal event. Patient almost passed out at [facility] today. And also had not voided all day. She had called Dr. Whitney to seek advice and he told her to come to the emergency room for further evaluation. Patient admitted to the emergency room workup was pretty impressive. Patient was found to be in acute tubular necrosis [ATN] patient clinic visit was on 08/24/2025 and all the diuretics initiated including Bumex and metolazone once along with others and the creatinine had gone from a normal creatinine of 0.9 to a 3.1 today in 8 days, BUN was 104, chloride went from 99 down to 87 significant contraction alkalosis. Sodium was normal it came down to 133 Patient did not void today and urinalysis was significant for too numerous to count white cells patient is also with UTI. Will be initiating antibiotics at this time. Though white count was within normal but a baseline white count for this patient is 6 but it had gone to a 10.7 will obtain blood cultures if not already obtained in the emergency room Patient had received 2 L of IV fluid bolus in the emergency room for severe contraction alkalosis with symptoms and renal failure and a creatinine of 3.1 and had gone down now to 2.8 patient baseline creatinine is 0.9 even as of 8 days ago. I will continue with just gentle hydration of normal saline at 75 cc/h to allow 13 hours for a liter to infuse by obtaining every 6 hours chemistry of BMP. Patient indeed is feeling much better than she had felt in 5 days Review of Systems Narrative: System review upon 10 organ system reviewed were entirely unremarkable except for moderate volume contraction with symptomatology of near passing out, musculoskeletal weakness and system having anuria Medications/Allergies Home Medications ?Medication ?Instructions ?Recorded ?Confirmed ?Last Taken ?Type clonidine HCl 0.1 mg tablet 0.1 mg PO TID PRN pressure 12/23/22 08/24/25 07/10/25 Rx >190/100 #30 tabs biotin 10,000 mcg chewable tablet 20,000 mcg PO QAM 06/26/23 08/24/25 07/10/25 History (Hair, Skin and Nails (biotin)) [id number] 8 mg-folic 400 1 tab PO QAM 06/26/23 08/24/25 07/10/25 History mcg-K 50 mcg-lutein 300 mcg tablet (Centrum Silver Women) nitroglycerin 0.4 mg sublingual 0.4 mg sublingual Q5M PRN Chest 07/04/23 08/24/25 4 Years Ago Rx tablet (Nitrostat) Pain #30 tabs ~08/25/19 docusate sodium 100 mg capsule 100 mg PO QPM PRN Constipation 12/04/23 08/24/25 12/26/24 History (Colace) albuterol sulfate 90 mcg/actuation 2 inh inhalation Q4H PRN shortness 04/26/24 08/24/25 07/10/25 Rx aerosol inhaler of breath or wheezing #6.7 grams losartan 100 mg tablet 100 mg PO QAM #90 tabs 12/03/24 08/24/25 07/10/25 Rx alprazolam 0.5 mg tablet 0.5 mg PO BID PRN anxiety #45 tabs 12/14/24 08/24/25 Unknown Rx simvastatin 40 mg tablet 40 mg PO QPM 12/27/24 08/24/25 07/10/25 History hydrocodone 5 mg-acetaminophen 325 1 tab PO Q8H PRN pain 15 days #45 01/05/25 08/24/25 Unknown Rx mg tablet tabs diclofenac sodium 75 mg 75 mg PO BID PRN pain #20 tabs 01/10/25 08/24/25 Unknown Rx tablet,delayed release stirrup gel pad splint #1 ea 01/31/25 08/24/25 Unknown Rx tizanidine 2 mg tablet 2 mg PO Q8H PRN muscle spasticity 04/21/25 08/24/25 Unknown Rx #20 tabs clopidogrel 75 mg tablet See Rx Instructions .Route 06/01/25 08/24/25 07/10/25 Rx .COMPLEX #90 tabs labetalol 200 mg tablet 200 mg PO BID #180 tabs 07/01/25 08/24/25 07/10/25 Rx metolazone 2.5 mg tablet 2.5 mg PO DAILY #90 tabs 08/24/25 08/24/25 Unknown Rx potassium chloride 20 mEq 20 meq PO DAILY #90 tabs 08/24/25 08/24/25 Unknown Rx tablet,extended release (K-Tab) bumetanide 1 mg tablet See Rx Instructions .Route 08/31/25 Unknown Rx .COMPLEX #180 tabs Allergies Allergy/AdvReac Type Severity Reaction Status Date / Time No Known Allergies Allergy Verified 08/24/25 14:59 PFSH Acute PFSH: Medical History Anxiety Hyperglycemia Venous insufficiency of both lower extremities Hypothyroid Morbid obesity Lumbar spondylosis Spondylolisthesis, lumbar region Lumbar disc disease with radiculopathy CVA (cerebral vascular accident) Hypercholesteremia Hypertension Surgical History History of arthroscopic surgery of elbow H/O cataract removal with insertion of prosthetic lens H/O: hysterectomy History of cholecystectomy H/O carpal tunnel repair Family History Father Cancer CAD (coronary artery disease) Mother CAD (coronary artery disease) Diabetes Hypertension Stroke Denies family history of Anesthesia complication Bleeding disorder Social History Smoking and tobacco/nicotine status: former use of tobacco/nicotine (2 cigarettes per day X 1 year. Quit in 1973) Second hand smoke exposure: No Alcohol intake: never Substance/Drug Use: never Adopted: No Caregiver/support person: Yes Lives independently: Yes Household members: spouse Housing: House Marital status: service: No Current occupational status: retired Current occupational exposures/hazards: No Pets and animals: No Sexually active: No Do you think of yourself as: Straight/Heterosexual Current gender identity: Female Ratna/Roman Catholic: Restoration Special ratna needs: No Agree to transfusion: No Vitals/I&O/Wt Last Vital Signs Temp 97.6 F 09/01/25 16:49 Pulse 72 09/01/25 23:32 Resp 16 09/01/25 19:52 BP 130/53 09/01/25 23:32 Pulse Ox 98 09/01/25 23:32 O2 Del Method Room Air 09/01/25 20:30 09/01/25 09/01/25 09/02/25 14:59 22:59 06:59 Intake Total 799.2 / 799.2 1000 / 1799.2 Balance 799.2 / 799.2 1000 / 1799.2 Weight last 48 hrs Weight 99.065 kg Physical Exam Narrative: Generally patient now is much better and feeling better not nauseated anymore and not feeling like she is going to pass out HEENT normocephalic atraumatic neck neck is supple cardiovascular heart rate is regular lungs are pretty much clear abdomen is soft nontender nondistended unremarkable extremities are intact no edema has good pulses neurology has no focality lab studies lab studies reviewed and noted Data 09/01/25 18:17 09/01/25 22:22 Micro: Microbiology 09/01/25 18:25 Blood Culture - Preliminary Blood SPECIMEN COLLECTED 09/01/25 18:17 Blood Culture - Preliminary Blood SPECIMEN COLLECTED A&P Assessment and plan 1. ATN (acute tubular necrosis): 2. Acute renal failure: 3. Dehydration with hyponatremia: 4. History of heart failure: 5. Dehydration: 6. Weakness: Plan: #1 Acute tubular necrosis, diuretics induced- - Patient received 2 L of normal saline in the emergency room by the attending with relief of symptoms of near passing out - Will continue with very gentle rehydration at 75 mL/h - Continue interval check on chemistry every 6 hours x 2 days - Hold Lasix for now - Have patient return to normal renal function with a creatinine of 0.9 while cautiously rehydrating and careful Not to get the patient in failure - At discharge patient should be on diuretics once renal function is restored very low dose of diuretics To graduate slowly for any further addition of more diuretics - Patient had lost 12 pounds since 08/24/2025 when patient started on the new medication changes with much diuretics. Today states 09/01/2025 patient weighs 101.196 kg #2 Anuria - Patient had not voided in 24 hours - Patient now status post the first void after 2 L of normal saline infused - Need to monitor intake and output - Fluid restriction for oral fluid of 1200 #3 Dehydration with much volume contraction - Continue with a gentle rehydration and not induce volume overload - Daily weight #3 UTI with significant pyuria - Blood cultures be done because patient relates he really had gone up with white count within normal Urine culture be done as well Antibiotics initiated with ceftriaxone Follow cultures and optimize accordingly #4 History of CHF exacerbation -Patient is not in any overt heart failure at this time -Patient is very dry and with contraction alkalosis and renal failure from overdiuresis -Must rehydrate to maintain good renal function and not have patient in failure either #5 Dehydration -Gentle rehydration #6 Weakness -They have patient be with PT OT -Get renal function restored #7 GI and DVT prophylaxis in place PDMP PDMP Reviewed: Last Reviewed 09/02/25 00:43 by Tami Hamm MD Attestations Medical Necessity Statement*: Patient is with acute tubular necrosis and anuric not voiding because of much volume contraction from diuretics and treating patient's heart failure patient need to be optimized prior to discharge and this will need at least 2 midnights Coding Level of Care Code 97531 Diagnoses ATN (acute tubular necrosis) N17.0 Acute renal failure N17.9 Dehydration with hyponatremia E86.0; E87.1 History of heart failure Z86.79 Dehydration E86.0 Weakness R53.1 Time Spent (min) 60
[2025-09-02] VITALS (7 sets, daily range): BP systolic 129–145; BP diastolic 61–75; PULSE 69–78; RESP 16–18; TEMP 36.4–36.9; O2SAT 92–96
[2025-09-02] MEDS: heparin 5,000 unit/mL INJ 1 mL 5000 UNIT SUBCUT ×3 (00:23→23:34)
[2025-09-02 00:49] LABS: Hematocrit 30.5 % (36-47); Hemoglobin 10.10 g/dL (11.27-16.99); Mean Corpuscular HGB Conc 33.1 g/dL (30-55); Mean Corpuscular Hemoglobin 28.5 pg (27-33); Mean Corpuscular Volume 85.9 fl (85-98); Nucleated Red Blood Cells % 0 %; Platelet Count 203 10^3/cmm (157-399); Red Blood Count 3.55 10^6/uL (3.85-5.65); White Blood Count 7.66 10^3/uL (3.29-11.43)
[2025-09-02 01:01] LABS: Anion Gap 22.2 (5-19); Calcium 8.8 mg/dL (8.5-10.5); Carbon Dioxide 22 mmol/L (22-29); Chloride 89 mmol/L (98-107); Creatinine Clr Calc Pharmacy 21.5525; Glucose 122 mg/dL (65-115); Magnesium 2.6 mg/dL (1.7-2.3); Osmolality Calculated 301 mOsm/kg (285-295); Potassium 3.2 mmol/L (3.5-5.1); Sodium 130 mmol/L (136-145)
[2025-09-02 01:23] LABS: Blood Urea Nitrogen 95 mg/dL (8-23)
[2025-09-02 06:19] LABS: Magnesium 2.6 mg/dL (1.7-2.3)
--- NOTE | 2025-09-02 08:11 | P.PN_ITS ---
Subjective 2 Subjective: She denied any nausea or, vomiting or diarrhea. Her bumetanide was recently increased to 2 mg twice a day. She was also started on metolazone. She also takes losartan. Her baseline creatinine is 0.4-0.9. Her creatinine had increased to 3.1 yesterday. Creatinine improved to 2.6 this morning. She got 2 L normal saline bolus in the ED last night. She had good urine output overnight. Urine positive for UTI. Medications: Reviewed: Yes Vitals/I&O/Wt Last Vital Signs Temp 97.7 F 09/02/25 07:25 Pulse 70 09/02/25 07:25 Resp 16 09/02/25 07:25 BP 145/75 09/02/25 07:25 Pulse Ox 95 09/02/25 07:25 O2 Del Method Room Air 09/02/25 07:25 09/01/25 09/02/25 09/02/25 22:59 06:59 14:59 Intake Total 799.2 / 799.2 1312.917 / 2112.117 Output Total 500 / 500 Balance 799.2 / 799.2 812.917 / 1612.117 Weight last 48 hrs Weight 101.151 kg Weight 101.196 kg Weight 99.065 kg Physical Exam 2 Narrative: GEN: Alert, no acute distress HEENT: Normocephalic, atraumatic, PERRLA Neck: Supple Respiratory: No respiratory distress, clear to auscultation bilaterally Cardio: Regular rate and rhythm, S1, S2, murmur present Abdomen: Soft, nontender, normal active bowel sounds, no CVA tenderness Extremity: Warm, no edema Skin: No rash or lesions Psych: Cooperative Data 09/02/25 00:22 09/02/25 00:22 Micro: Microbiology 09/01/25 18:25 Blood Culture - Preliminary Blood SPECIMEN COLLECTED 09/01/25 18:17 Blood Culture - Preliminary Blood SPECIMEN COLLECTED A&P Assessment and plan 1. Acute renal failure: Secondary to overdiuresis Bumetanide was increased from 1 mg twice daily to 2 mg twice daily Also started on metolazone and she was on losartan She received 2 L normal saline bolus in the ED Creatinine is improving She does have chronic HFpEF so we will hold off on additional IV fluids for now Holding nephrotoxic meds for now Monitor serum creatinine Will renal ultrasound 2. Dehydration with hyponatremia: She has mild hyponatremia, Na 130 Continue to monitor 3. Acute UTI: Continue ceftriaxone Follow-up urine culture 4. Weakness: PT and OT consults 5. Chronic diastolic heart failure: LVEF 55 to 60% Holding diuretics and losartan for now Monitor I's and O's and daily weights 6. Primary hypertension: Continue labetalol and as needed clonidine 7. CATE (obstructive sleep apnea): CPAP nightly 8. Restrictive lung disease secondary to obesity: Counseled on weight loss 9. Progressive pulmonary hypertension: She has severe pulmonary hypertension. She sees pulmonology but may benefit from seeing pulmonary hypertension specialist 10. Mitral valve stenosis: Noted to have mild mitral stenosis (mean gradient 4.62 mmHg) and moderate aortic stenosis (mean gradient 11 mmHg and ALESSANDRO 1.38 cm?) on echo done on 01/17/2025 11. Anxiety: Alprazolam as needed Plan: GI and DVT prophylaxis in place PDMP PDMP Reviewed: Not Reviewed Attestations 2 Medical Necessity Statement*: Requires continued hospitalization for monitoring renal function and IV antibiotics. Coding Level of Care Code Acute Code for Chg Fwd Diagnoses Acute renal failure N17.9 Dehydration with hyponatremia E86.0; E87.1 Acute UTI N39.0 Weakness R53.1 Chronic diastolic heart failure I50.32 Primary hypertension I10 CATE (obstructive sleep apnea) G47.33 Restrictive lung disease secondary to obesity J98.4; E66.9 Progressive pulmonary hypertension I27.20 Mitral valve stenosis I05.0 Anxiety F41.9
--- NOTE | 2025-09-02 08:26 | PC.SOCIAL ---
*IMM* gave patient a copy of IMM, initialled and dated , place din chart.
--- NOTE | 2025-09-02 09:00 | PC.PHAR ---
Pt states her Albuterol Inhaler and Nitrostat are really old (last filled 2022) and would like to have new rx orders to replace them.
--- NOTE | 2025-09-02 11:02 | PM.PN ---
Vitals/I&O/Wt Last Vital Signs Temp 97.7 F 09/02/25 07:25 Pulse 70 09/02/25 07:25 Resp 16 09/02/25 07:25 BP 145/75 09/02/25 07:25 Pulse Ox 95 09/02/25 07:25 O2 Del Method Room Air 09/02/25 07:25 09/01/25 09/02/25 09/02/25 22:59 06:59 14:59 Intake Total 799.2 / 799.2 1312.917 / 2112.117 360 / 360 Output Total 500 / 500 900 / 900 Balance 799.2 / 799.2 812.917 / 1612.117 -540 / -540 Weight last 48 hrs Weight 101.151 kg Weight 101.196 kg Weight 99.065 kg Data 09/02/25 00:22 09/02/25 00:22 Micro: Microbiology 09/01/25 18:25 Blood Culture - Preliminary Blood SPECIMEN COLLECTED 09/01/25 18:17 Blood Culture - Preliminary Blood SPECIMEN COLLECTED A&P PDMP PDMP Reviewed: Not Reviewed Coding Level of Care Code Acute Code for Chg Fwd
--- NOTE | 2025-09-02 13:43 | PC.OT ---
Pt declines OT evaluation due to high level of function. Will attempt again at later time if necessary.
[2025-09-02] MEDS: ATORVASTATIN 20 MG TABLET PO (17:21)
[2025-09-02] MEDS: cefTRIAXone 1,000 mg SDV 1000 MG IVP (23:34)
[2025-09-03] VITALS (77 sets, daily range): BP systolic 86–148; BP diastolic 52–122; PULSE 68–139; RESP 16–38; TEMP 36.3–37.2; O2SAT 94–99
[2025-09-03 05:04] LABS: Anion Gap 18.2 (5-19); Blood Urea Nitrogen 58 mg/dL (8-23); Calcium 9.3 mg/dL (8.5-10.5); Carbon Dioxide 26 mmol/L (22-29); Chloride 97 mmol/L (98-107); Glucose 123 mg/dL (65-115); Osmolality Calculated 304 mOsm/kg (285-295); Potassium 3.2 mmol/L (3.5-5.1); Sodium 138 mmol/L (136-145)
[2025-09-03 05:13] LABS: Creatinine Clr Calc Pharmacy 50.9295
[2025-09-03] MEDS: morphine 4 mg/mL SDV 1 mL 2 MG IVP (07:50)
[2025-09-03] MEDS: metoprolol tartrate 1 mg/1 mL SDV 5 mL 5 MG IVP (08:11)
[2025-09-03 08:32] LABS: Troponin(5th) Baseline 24 ng/L (0-10)
--- NOTE | 2025-09-03 09:57 | ECG_ITS ---
[facility] Date: 2025-09-03 Pat Name: Maria Del Carmen Ansari Department: Room: 266 Gender: Female Crust Sorter: : 1950 Requested By: Madi Rodriguez Order Number: [id number] Reading MD: JEFF MACIAS Measurements Intervals [place] Rate: 129 P: 53 NC: 191 QRS: 44 QRSD: 101 T: 4 QT: 318 QTc: 466 Interpretive Statements Artifact in lead(s) Electronically Signed On 09-04-2025 23:19:37 CDT by JEFF MACIAS [id number]
[2025-09-03 10:11] LABS: Troponin 5 2HR 25.68 ng/L (0-10); Troponin 5 2HR Delta 1.68 ABS# (0-10)
--- NOTE | 2025-09-03 10:36 | PM.CONSULT ---
Providers/Reason For Consult Consulting Physician/Specialty*: Madi Rodriguez MD/ Cardiology Reason for Consult*: Atrial fibrillation Requesting Physician: Dr Snyder Attending Physician: Yolanda Snyder MD Primary Care Provider: Howard Kraus MD History of Present Illness History of Present Illness Maria Del Carmen Ansari is a 75 year old female with past medical history of pulmonary hypertension, hypertension, congestive heart failure who was admitted to hospital after she developed RAF with diuresis. Earlier today went into A-fib with RVR. Has been having chest pain. Troponins have not significantly trended up. EKG consistent with A-fib with RVR Review of Systems Card: Reports: chest pain Medications/Allergies Home Medications ?Medication ?Instructions ?Recorded ?Confirmed ?Last Taken ?Type clonidine HCl 0.1 mg tablet 0.1 mg PO TID PRN pressure 12/23/22 09/02/25 07/10/25 Rx >190/100 #30 tabs biotin 10,000 mcg chewable tablet 20,000 mcg PO QAM 06/26/23 09/02/25 09/01/25 History (Hair, Skin and Nails (biotin)) bmcqvdbp-djzl-efsg 8 mg-folic 400 1 tab PO QAM 06/26/23 09/02/25 09/01/25 History mcg-K 50 mcg-lutein 300 mcg tablet (Centrum Silver Women) nitroglycerin 0.4 mg sublingual 0.4 mg sublingual Q5M PRN Chest 07/04/23 09/02/25 4 Years Ago Rx tablet (Nitrostat) Pain #30 tabs ~08/25/19 docusate sodium 100 mg capsule 100 mg PO QPM PRN Constipation 12/04/23 09/02/25 12/26/24 History (Colace) albuterol sulfate 90 mcg/actuation 2 inh inhalation Q4H PRN shortness 04/26/24 09/02/25 07/10/25 Rx aerosol inhaler of breath or wheezing #6.7 grams losartan 100 mg tablet 100 mg PO QAM #90 tabs 12/03/24 09/02/25 09/01/25 Rx alprazolam 0.5 mg tablet 0.5 mg PO BID PRN anxiety #45 tabs 12/14/24 09/02/25 Unknown Rx simvastatin 40 mg tablet 40 mg PO QPM 12/27/24 09/02/2508/31/25 History stirrup gel pad splint #1 ea 01/31/25 09/02/25 Unknown Rx labetalol 200 mg tablet 200 mg PO BID #180 tabs 07/01/25 09/02/25 09/01/25 Rx metolazone 2.5 mg tablet 2.5 mg PO DAILY #90 tabs 08/24/25 09/02/25 09/01/25 Rx bumetanide 2 mg tablet 2 mg PO BID 09/02/25 09/02/25 09/01/25 History clopidogrel 75 mg tablet 75 mg PO DAILY 09/02/25 09/02/25 09/01/25 History potassium chloride 20 mEq 20 meq PO DAILY 09/02/25 09/02/25 09/01/25 History tablet,extended release Allergies Allergy/AdvReac Type Severity Reaction Status Date / Time No Known Allergies Allergy Verified 08/24/25 14:59 Current Medications Generic Name Dose Route Start Last Admin Trade Name Freq PRN Reason Stop Dose Admin Atorvastatin Calcium 20 mg 09/02/25 17:00 09/02/25 17:21 Atorvastatin 20 Mg Tablet PO 20 mg QPM BETTIE Administration Ceftriaxone Sodium 1,000 mg 09/03/25 01:00 09/02/25 23:34 Ceftriaxone 1,000 Mg Sdv IVP 1,000 mg Q24H BETTIE Administration Protocol Clopidogrel Bisulfate 75 mg 09/03/25 05:00 09/03/25 05:27 Clopidogrel 75 Mg Tablet PO 75 mg DAILY BETTIE Administration Docusate Sodium 100 mg 09/02/25 05:00 09/03/25 05:27 Docusate Sodium 100 Mg Capsule PO 100 mg BID BETTIE Administration Heparin Sodium (Porcine) 5,000 unit 09/01/25 23:45 09/02/25 23:34 Heparin 5,000 Unit/Ml Inj 1 Ml SUBCUT 5,000 unit Q12H BETTIE Administration Labetalol HCl 200 mg 09/02/25 11:00 09/03/25 05:27 Labetalol 200 Mg Tablet PO 200 mg BID BETTIE Administration Morphine Sulfate 2 mg 09/01/25 23:32 09/03/25 07:50 Morphine 4 Mg/Ml Sdv 1 Ml IVP 2 mg Q4H PRN Administration SEVERE PAIN Nitroglycerin 0.4 mg 09/02/25 10:59 09/03/25 09:26 Nitroglycerin 0.4 Mg Sublingual Tablet SUBLINGUAL 0.4 mg Q5M PRN Administration CHEST PAIN Pantoprazole Sodium 40 mg 09/02/25 05:00 09/03/25 05:[address] 40 Mg Tablet PO 40 mg DAILY BETTIE Administration Potassium Chloride 20 meq 09/03/25 05:00 09/03/25 05:27 Potassium Chloride Er 20 Meq Tablet PO 20 meq DAILY BETTIE Administration PFSH Acute PFSH: Medical History Anxiety Hyperglycemia Venous insufficiency of both lower extremities Hypothyroid Morbid obesity Lumbar spondylosis Spondylolisthesis, lumbar region Lumbar disc disease with radiculopathy CVA (cerebral vascular accident) Hypercholesteremia Hypertension Surgical History History of arthroscopic surgery of elbow H/O cataract removal with insertion of prosthetic lens H/O: hysterectomy History of cholecystectomy H/O carpal tunnel repair Family History Father Cancer CAD (coronary artery disease) Mother CAD (coronary artery disease) Diabetes Hypertension Stroke Denies family history of Anesthesia complication Bleeding disorder Social History Smoking and tobacco/nicotine status: former use of tobacco/nicotine (2 cigarettes per day X 1 year. Quit in 1973) Second hand smoke exposure: No Alcohol intake: never Substance/Drug Use: never Adopted: No Caregiver/support person: Yes Lives independently: Yes Household members: spouse Housing: House Marital status: service: No Current occupational status: retired Current occupational exposures/hazards: No Pets and animals: No Sexually active: No Do you think of yourself as: Straight/Heterosexual Current gender identity: Female Ratna/Quaker: Latter Day Special ratna needs: No Agree to transfusion: No Vitals/I&O/Wt Last Vital Signs Temp 97.8 F 09/03/25 07:54 Pulse 137 H 09/03/25 09:35 Resp 18 09/03/25 09:31 BP 95/63 09/03/25 09:35 Pulse Ox 98 09/03/25 09:31 O2 Del Method Nasal Cannula 09/03/25 09:31 O2 Flow Rate 2 09/03/25 09:31 09/02/25 09/03/25 09/03/25 22:59 06:59 14:59 Intake Total 1240 / 1840 480 / 2320 Output Total 400 / 2250 400 / 400 Balance 1240 / -10 80 / 70 -400 / -400 Weight last 48 hrs Weight 223 lb Weight 223 lb Weight 223 lb 1.6 oz Weight 218 lb 6.4 oz Physical Exam Narrative: GENERAL: Patient is alert, awake and oriented x3. [] NECK: No jugular vein distension. [] HEENT: No cyanosis. No icterus. No pallor. [] HEART: Irregularly irregular, tachycardia, Grade 3/6 systolic murmur LUNGS: Diminished air entry bilaterally CENTRAL NERVOUS SYSTEM: Grossly nonfocal. [] EXTREMITIES: Lower extremities with 1+ edema bilaterally. Data 09/04/25 00:53 09/04/25 00:53 Micro: Microbiology 09/01/25 22:09 Urine Culture - Preliminary Urine,Clean Catch Gram Negative Rods 09/01/25 18:25 Blood Culture - Preliminary Blood NEGATIVE TO DATE 09/01/25 18:17 Blood Culture - Preliminary Blood NEGATIVE TO DATE A&P Assessment and plan 1. Atrial fibrillation with RVR: 2. Chest pain: 3. Mitral valve stenosis: 4. History of heart failure: 5. Peripheral artery disease: 6. Hypertension: Plan: Patient has went into A-fib with RVR. Blood pressure is borderline low. Will start amiodarone. Transfer to cardiac stepdown unit. Start heparin drip. If over the next 24 to 48 hours, rhyhtm does not convert back to sinus rhythm, we will plan for DEBBIE/ cardioversion Thank you for involving us with care of this patient.We will continue to follow. Please call with questions PDMP PDMP Reviewed: Not Reviewed Consult Attestations Medical Necessity Statement: Care expected to cross 2 midnights. Coding Level of Care Code Acute Code for g Fwd Diagnoses Atrial fibrillation with RVR I48.91 Chest pain R07.9 Mitral valve stenosis I05.0 History of heart failure Z86.79 Peripheral artery disease I73.9 Hypertension I10
[2025-09-03] MEDS: heparin 5,000 unit/mL INJ 1 mL 5000 UNIT SUBCUT (10:51)
[2025-09-03] MEDS: amiodarone 150 MG/100 ML PREMIX 400 MG IV (11:05)
[2025-09-03] MEDS: AMIODARONE HCL/D5W 900 MG/500 ML BAG 33.33 MG IV (11:20)
--- NOTE | 2025-09-03 11:30 | P.PN_ITS ---
Subjective 2 Subjective: She denied any nausea or, vomiting or diarrhea. Her bumetanide was recently increased to 2 mg twice a day. She was also started on metolazone. She also takes losartan. Her baseline creatinine is 0.4-0.9. Her creatinine had increased to 3.1 yesterday. Creatinine improved to 2.6 this morning. She got 2 L normal saline bolus in the ED last night. She had good urine output overnight. Urine positive for UTI. Medications: Reviewed: Yes Vitals/I&O/Wt Last Vital Signs Temp 97.9 F 09/03/25 10:45 Pulse 136 H 09/03/25 10:45 Resp 18 09/03/25 10:45 BP 107/52 09/03/25 10:45 Pulse Ox 99 09/03/25 10:45 O2 Del Method Nasal Cannula 09/03/25 10:45 O2 Flow Rate 2 09/03/25 10:45 09/02/25 09/03/25 09/03/25 22:59 06:59 14:59 Intake Total 1240 / 1840 480 / 2320 100 / 100 Output Total 400 / 2250 400 / 400 Balance 1240 / -10 80 / 70 -300 / -300 Weight last 48 hrs Weight 101.151 kg Weight 101.151 kg Weight 101.196 kg Weight 99.065 kg Physical Exam 2 Narrative: GEN: Alert, no acute distress HEENT: Normocephalic, atraumatic, PERRLA Neck: Supple Respiratory: No respiratory distress, clear to auscultation bilaterally Cardio: Regular rate and rhythm, S1, S2, murmur present Abdomen: Soft, nontender, normal active bowel sounds, no CVA tenderness Extremity: Warm, no edema Skin: No rash or lesions Psych: Cooperative Data 09/03/25 09:37 09/03/25 02:36 Micro: Microbiology 09/01/25 22:09 Urine Culture - Preliminary Urine,Clean Catch Gram Negative Rods 09/01/25 18:25 Blood Culture - Preliminary Blood NEGATIVE TO DATE 09/01/25 18:17 Blood Culture - Preliminary Blood NEGATIVE TO DATE A&P Assessment and plan 1. Acute renal failure: Secondary to overdiuresis Bumetanide was increased from 1 mg twice daily to 2 mg twice daily Also started on metolazone and she was on losartan She received 2 L normal saline bolus in the ED Creatinine is improving She does have chronic HFpEF so we will hold off on additional IV fluids for now Holding nephrotoxic meds for now Monitor serum creatinine Will renal ultrasound 2. Dehydration with hyponatremia: She has mild hyponatremia, Na 130 Continue to monitor 3. Acute UTI: Continue ceftriaxone Follow-up urine culture 4. Weakness: PT and OT consults 5. Chronic diastolic heart failure: LVEF 55 to 60% Holding diuretics and losartan for now Monitor I's and O's and daily weights 6. Primary hypertension: Continue labetalol and as needed clonidine 7. CATE (obstructive sleep apnea): CPAP nightly 8. Restrictive lung disease secondary to obesity: Counseled on weight loss 9. Progressive pulmonary hypertension: She has severe pulmonary hypertension. She sees pulmonology but may benefit from seeing pulmonary hypertension specialist 10. Mitral valve stenosis: Noted to have mild mitral stenosis (mean gradient 4.62 mmHg) and moderate aortic stenosis (mean gradient 11 mmHg and ALESSANDRO 1.38 cm?) on echo done on 01/17/2025 11. Anxiety: Alprazolam as needed Plan: GI and DVT prophylaxis in place PDMP PDMP Reviewed: Not Reviewed Attestations 2 Medical Necessity Statement*: Requires continued hospitalization for monitoring renal function and IV antibiotics. Coding Level of Care Code Acute Code for [facility] Fwd Diagnoses Acute renal failure N17.9 Dehydration with hyponatremia E86.0; E87.1 Acute UTI N39.0 Weakness R53.1 Chronic diastolic heart failure I50.32 Primary hypertension I10 CATE (obstructive sleep apnea) G47.33 Restrictive lung disease secondary to obesity J98.4; E66.9 Progressive pulmonary hypertension I27.20 Mitral valve stenosis I05.0 Anxiety F41.9
[2025-09-03 11:40] LABS: Platelet Count 226 10^3/cmm (157-399)
--- NOTE | 2025-09-03 12:02 | PC.NURSE ---
Upon shift change, HARINDER Ching shift mechanic nurse and this nurse entered room and patient was complaining of moderately severe chest pain, stating, It feels like someone is squeezing my heart. Patient had pulled her gambling monitor off stating it was hurting her skin. This nurse educated the patient that with the said chest pain, it would be best to place patient back on the monitor. Patient was reading Afib on the bedside monitor but it was not giving this nurse a heart rate on the box. An EKG was performed due chest pain and irregular heart rhythm on the heart monitor. EKG read atrial pacemaker and ventricular pacemaker in a patient with no pacemaker. Patient has a pain stimulator in her back that is causing interference with a good reading. GADIEL Padilla Noc Charge and GADIEL Mccarthy Day Charge came to check on patient. Patient was placed on 2L NC due to shortness of breath. Morphine was administered for pain. Dr. Snyder was notified about patient's pain and vital signs. 5mg IVP metoprolol was ordered and given. After approximately one hour, patient's heart rate was still running Afib into the 140s. Dr. Snyder was notified again and she wanted this nurse to give Nitro tabs per protocol. Two nitro tabs were with vital signs in between doses, after the second tab, blood pressure started becoming hypotensive. Dr. Snyder entered into room and spoke with patient and family. They were notified that Dr. Rodriguez was consulted to see the patient. This nurse notified Dr. Snyder in person for the third time that the patient was still in Afib with heart rate 130s-140s and that blood pressure was hypotensive after two nitros. Dr. Rodriguez came to see patient and wanted patient transferred to [facility] for an amiodorine drip.
[2025-09-03] MEDS: heparin drip 25,000 UNIT/500 ML PREMIX 28 UNIT IV (12:21)
--- NOTE | 2025-09-03 12:24 | USR_ITS ---
PROCEDURE INFORMATION: Exam: US Retroperitoneal, Complete, Kidneys and Bladder Exam date and time: 09/03/2025 7:05 AM Age: 75 years old Clinical indication: Condition or disease; Other: Jorge TECHNIQUE: Imaging protocol: Real-time ultrasound of the retroperitoneum with image documentation. Complete exam focused on the bilateral kidneys and urinary bladder. COMPARISON: CT chest ION (PULM ONLY) [id number] 08/24/2025 9:19 AM FINDINGS: Right kidney: Normal. No stones. No hydronephrosis. Right kidney measures 10.5 x 4.9 x 4.4 cm with cortical thickness of 1.3 cm. Left kidney: Normal. No stones. No hydronephrosis. Left kidney measures 10 x 4.3 x 4.3 cm with cortical thickness of 1.1 cm. Urinary bladder: Unremarkable. Liver: Diffuse increased echogenicity of the liver, suggestive of hepatic steatosis. US/US renal BI* [id number] IMPRESSION: 1. No hydronephrosis on either side. 2. Hepatic steatosis.
[2025-09-03] MEDS: ATORVASTATIN 20 MG TABLET PO (16:27)
--- NOTE | 2025-09-03 16:35 | PM.PN ---
Subjective Subjective: Please disregard previous progress note from me from today. Done in error. She reported chest pain last morning which was not relieved by nitro morphine. She also went into A-fib with RVR. Cardiology was consulted and recommended starting her on amiodarone drip. She was transferred to [facility]. Her creatinine has improved. Medications: Reviewed: Yes Vitals/I&O/Wt Last Vital Signs Temp 98.1 F 09/03/25 16:00 Pulse 108 H 09/03/25 16:25 Resp 24 H 09/03/25 16:25 BP 125/79 09/03/25 16:25 Pulse Ox 97 09/03/25 16:00 O2 Del Method Nasal Cannula 09/03/25 10:45 O2 Flow Rate 2 09/03/25 10:45 09/03/25 09/03/25 09/03/25 06:59 14:59 22:59 Intake Total 480 / 2320 100 / 100 Output Total 400 / 2250 750 / 750 Balance 80 / 70 -650 / -650 Weight last 48 hrs Weight 101.151 kg Weight 101.151 kg Weight 101.196 kg Weight 99.065 kg Physical Exam Narrative: GEN: Alert, no acute distress HEENT: Normocephalic, atraumatic, PERRLA Neck: Supple Respiratory: No respiratory distress, clear to auscultation bilaterally Cardio: Tachycardic, irregular rate, S1, S2, murmur present Abdomen: Soft, nontender, normal active bowel sounds, no CVA tenderness Extremity: Warm, no edema Skin: No rash or lesions Psych: Cooperative Data 09/03/25 09:37 09/03/25 02:36 Micro: Microbiology 09/01/25 22:09 Urine Culture - Preliminary Urine,Clean Catch Gram Negative Rods 09/01/25 18:25 Blood Culture - Preliminary Blood NEGATIVE TO DATE 09/01/25 18:17 Blood Culture - Preliminary Blood NEGATIVE TO DATE A&P Assessment and plan 1. Atrial fibrillation with RVR: This is new onset. Given amiodarone bolus and started on continuous infusion. Also started heparin drip Transferred to [facility]. Cardiology following 2. Chest pain: She has CAD with small caliber RCA untenable with PCI. Chest pain this morning likely from her RVR. Telemetry monitoring 3. Acute renal failure: Secondary to overdiuresis. Bumetanide was recently increased from 1 mg bid to 2 mg bid. Also started on metolazone and she was on losartan She received IV fluids on admission Creatinine is near baseline Off of IV diuretics for now Monitor serum creatinine 4. Dehydration with hyponatremia: Resolved 5. Acute UTI: Urine growing GNR Continue ceftriaxone Follow-up urine culture 6. Weakness: PT and OT consults 7. Chronic diastolic heart failure: LVEF 55 to 60% Holding diuretics and losartan for now due to RAF Monitor I's and O's and daily weights 8. Primary hypertension: Continue labetalol and as needed clonidine 9. CATE (obstructive sleep apnea): CPAP nightly 10. Restrictive lung disease secondary to obesity: Counseled on weight loss 11. Progressive pulmonary hypertension: She has severe pulmonary hypertension. She sees pulmonology but may benefit from seeing pulmonary hypertension specialist 12. Nonrheumatic mitral valve stenosis: Noted to have mild mitral stenosis (mean gradient 4.62 mmHg) 13. Moderate aortic stenosis: moderate aortic stenosis (mean gradient 11 mmHg and ALESSANDRO 1.38 cm?) on echo done on 01/17/2025 14. Anxiety: Alprazolam as needed Plan: Full code GI and DVT prophylaxis in place PDMP PDMP Reviewed: Not Reviewed Attestations Medical Necessity Statement*: She requires continued hospitalization for amiodarone infusion, telemetry monitoring, cardiology consult. Coding Level of Care Code Acute Code for [facility] Diagnoses Atrial fibrillation with RVR I48.91 Chest pain R07.9 Acute renal failure N17.9 Acute renal failure type: unspecified Dehydration with hyponatremia E86.0; E87.1 Acute UTI N39.0 Weakness R53.1 Chronic diastolic heart failure I50.32 Primary hypertension I10 Hypertension type: primary hypertension CATE (obstructive sleep apnea) G47.33 Restrictive lung disease secondary to obesity J98.4; E66.9 Progressive pulmonary hypertension I27.20 Nonrheumatic mitral valve stenosis I34.2 Cardiac valve disease etiology: nonrheumatic Moderate aortic stenosis I35.0 Anxiety F41.9
[2025-09-03 17:15] LABS: Thyroid Stimulating Hormone 3.36 uIU/mL (0.27-4.20)
[2025-09-03 18:29] LABS: Partial Thromboplastin Time 98.2 SECONDS (23.9-36.7)
--- NOTE | 2025-09-03 23:31 | PC.NURSE ---
Nurse notified of high bp. Patient and family stated it was from using the bathroom, will recheck in 15 mins.
[2025-09-04] VITALS (25 sets, daily range): BP systolic 91–181; BP diastolic 55–114; PULSE 92–124; RESP 18–33; TEMP 35.6–37.1; O2SAT 94–98; BMI 39.2
[2025-09-04] MEDS: cefTRIAXone 1,000 mg SDV 1000 MG IVP (00:53)
[2025-09-04 01:08] LABS: Hematocrit 34.5 % (36-47); Hemoglobin 11.30 g/dL (11.27-16.99); Mean Corpuscular HGB Conc 32.8 g/dL (30-55); Mean Corpuscular Hemoglobin 28.5 pg (27-33); Mean Corpuscular Volume 86.9 fl (85-98); Nucleated Red Blood Cells % 0 %; Platelet Count 245 10^3/cmm (157-399); Red Blood Count 3.97 10^6/uL (3.85-5.65); White Blood Count 7.91 10^3/uL (3.29-11.43)
[2025-09-04 01:20] LABS: Anion Gap 16.7 (5-19); Blood Urea Nitrogen 34 mg/dL (8-23); Calcium 9.2 mg/dL (8.5-10.5); Carbon Dioxide 25 mmol/L (22-29); Chloride 98 mmol/L (98-107); Glucose 164 mg/dL (65-115); Osmolality Calculated 293 mOsm/kg (285-295); Potassium 3.7 mmol/L (3.5-5.1); Sodium 136 mmol/L (136-145)
[2025-09-04 01:21] LABS: Creatinine Clr Calc Pharmacy 56.0224
[2025-09-04 01:25] LABS: Partial Thromboplastin Time 80.1 SECONDS (23.9-36.7)
[2025-09-04] MEDS: ondansetron 2 mg/ML SDV 2 mL 4 MG IVP (02:29)
--- NOTE | 2025-09-04 02:36 | ECG_ITS ---
[facility] Test Date: 2025-09-04 Pat Name: Maria Del Carmen Ansari Department: Room: 111 Gender: Female [employer]: : [id number] Requested By: Yolanda Snyder Order Number: [id number] Tremaine MD: JEFF MACIAS Measurements Intervals [place] Rate: 112 P: 0 HI: 0 QRS: 7 QRSD: 101 T: 53 QT: 358 QTc: 489 Interpretive Statements ATRIAL FIBRILLATION WITH RAPID VENTRICULAR RESPONSE LOW QRS VOLTAGE IN EXTREMITY LEADS [QRS DEFLECTION < 0.5 mV IN LIMB LEADS] PATTERN CONSISTENT WITH PULMONARY DISEASE MINIMAL ST DEPRESSION [0.025+ mV ST DEPRESSION] Compared to ECG 09/03/2025 07:44:02 Low QRS voltage now present ST (T wave) deviation now present Atrial-paced complex(es) or rhythm no longer present Ventricular-paced complex(es) or rhythm no longer present Electronically Signed On 09-04-2025 23:22:18 CDT by JEFF MACIAS [email or web address]
--- NOTE | 2025-09-04 02:49 | PC.NURSE ---
Patient woke up to go to bathroom. When patient got back she reported feeling sick to her daughter at bedside. She then started developing heartburn. Daughter call nurse in room. Prior to patient going to bathroom patient BP was 97/74 HR 99 after using bathroom BP is 180/96 HR bouncing into 110-120's. Patient endorsing 7/10 burning pain Heartburn and nausea. Patient given nitro and zofran and had relief of symptoms within [address] Hamm notified and received orders to recheck vitals in 5-10 minutes. At recheck patient HR anywhere from 100-120's BP 127/80, Dr. Hamm notified. Discussed troponin and ekg findings. Received orders for troponin and f/u vitals in 15 minutes.
[2025-09-04 03:45] LABS: Troponin T (5th) Once 30 ng/L (0-10)
[2025-09-04] MEDS: dilTIAZem 5 mg/mL SDV 5 mL 10 MG IVP ×2 (05:22→21:51)
[2025-09-04] MEDS: heparin drip 25,000 UNIT/500 ML PREMIX 20 UNIT IV (07:46)
[2025-09-04 08:09] LABS: Partial Thromboplastin Time 60.6 SECONDS (23.9-36.7)
--- NOTE | 2025-09-04 11:03 | P.PN_ITS ---
Subjective 2 Subjective: Patient continues to be in atrial fibrillation with RVR Vitals/I&O/Wt Last Vital Signs Temp 98.8 F 09/04/25 08:00 Pulse 103 H 09/04/25 08:00 Resp 20 H 09/04/25 08:00 BP 125/93 09/04/25 08:00 Pulse Ox 98 09/04/25 08:00 O2 Del Method Room Air 09/04/25 07:58 O2 Flow Rate 2 09/03/25 10:45 09/03/25 09/04/25 09/04/25 22:59 06:59 14:59 Intake Total 388.490 / 488.490 154.367 / 642.857 365.666 / 365.666 Output Total 300 / 1050 Balance 388.490 / -261.510 -145.633 / -407.143 365.666 / 365.666 Weight last 48 hrs Weight 221 lb 11.2 oz Weight 223 lb Physical Exam 2 Narrative: GENERAL: Patient is alert, awake and oriented x3. [] NECK: No jugular vein distension. [] HEENT: No cyanosis. No icterus. No pallor. [] HEART: Irregularly irregular, tachycardia, Grade 3/6 systolic murmur LUNGS: Diminished air entry bilaterally CENTRAL NERVOUS SYSTEM: Grossly nonfocal. [] EXTREMITIES: Lower extremities with 1+ edema bilaterally. Data 09/05/25 04:13 09/05/25 04:13 Micro: Microbiology 09/01/25 22:09 Urine Culture - Preliminary Urine,Clean Catch Gram Negative Rods A&P Assessment and plan 1. Atrial fibrillation with RVR: 2. Chest pain: 3. Mitral valve stenosis: 4. History of heart failure: 5. Peripheral artery disease: 6. Hypertension: Plan: Patient continues to be in atrial fibrillation with RVR. Continue amiodarone and heparin. Will plan on DEBBIE/ Cardioversion tomorrow. NPO past midnight. Thank you for involving us with care of this patient.We will continue to follow. Please call with questions PDMP PDMP Reviewed: Not Reviewed Attestations 2 Medical Necessity Statement*: Care expected to cross 2 midnights. Coding Level of Care Code Acute Code for [facility] Fwd Diagnoses Atrial fibrillation with RVR I48.91 Chest pain R07.9 Mitral valve stenosis I05.0 History of heart failure Z86.79 Peripheral artery disease I73.9 Hypertension I10
[2025-09-04] MEDS: AMIODARONE HCL/D5W 900 MG/500 ML BAG 16.67 MG IV (13:54)
[2025-09-04 14:30] LABS: Partial Thromboplastin Time 40.8 SECONDS (23.9-36.7)
--- NOTE | 2025-09-04 15:12 | P.PN_ITS ---
Subjective 2 Subjective: She was transferred to [facility] yesterday because of A-fib with RVR. She was started on amiodarone and heparin drips. She is still in rapid A-fib. Cardiology plans to do DEBBIE cardioversion tomorrow if she remains in A-fib. She is doing better this morning. She did have an episode of chest pain overnight. Medications: Reviewed: Yes Vitals/I&O/Wt Last Vital Signs Temp 97.9 F 09/04/25 12:00 Pulse 112 H 09/04/25 14:00 Resp 23 H 09/04/25 12:00 BP 181/114 09/04/25 12:00 Pulse Ox 98 09/04/25 12:00 O2 Del Method Room Air 09/04/25 07:58 O2 Flow Rate 2 09/03/25 10:45 09/04/25 09/04/25 09/04/25 06:59 14:59 22:59 Intake Total 154.367 / 642.857 790.909 / 790.909 Output Total 300 / 1050 Balance -145.633 / -407.143 790.909 / 790.909 Weight last 48 hrs Weight 100.561 kg Weight 101.151 kg Physical Exam 2 Narrative: GEN: Alert, no acute distress HEENT: Normocephalic, atraumatic, PERRLA Neck: Supple Respiratory: No respiratory distress, clear to auscultation bilaterally Cardio: Tachycardic, irregular rate, S1, S2, murmur present Abdomen: Soft, nontender, normal active bowel sounds, no CVA tenderness Extremity: Warm, no edema Skin: No rash or lesions Psych: Cooperative Data 09/04/25 00:53 09/04/25 00:53 Micro: Microbiology 09/01/25 22:09 Urine Culture - Final Urine,Clean Catch Escherichia coli A&P Assessment and plan 1. Atrial fibrillation with RVR: New onset Continue amiodarone and heparin drips Cardiology started metoprolol to tartrate N.p.o. after midnight for possible DEBBIE cardioversion tomorrow Telemetry monitoring Cardiology following 2. Chest pain: She has CAD with small caliber RCA untenable with PCI. Chest pain is likely from her rapid A-fib Continue Plavix 3. Acute renal failure: She is admitted for RAF secondary to overdiuresis Bumetanide was recently increased from 1 mg bid to 2 mg bid. She was also started on metolazone and she was on losartan Diuretics on hold for now Off of IV fluids Creatinine is near baseline Monitor serum creatinine 4. Dehydration with hyponatremia: Resolved 5. Acute UTI: Urine grew Ecoli Continue ceftriaxone Follow-up urine culture 6. Chronic diastolic heart failure: LVEF 55 to 60% Holding diuretics and losartan for now due to RAF Monitor I's and O's and daily weights 7. Weakness: PT and OT consults 8. Primary hypertension: Continue labetalol and as needed clonidine 9. CATE (obstructive sleep apnea): CPAP nightly 10. Restrictive lung disease secondary to obesity: Counseled on weight loss 11. Progressive pulmonary hypertension: She has severe pulmonary hypertension. She sees pulmonology but may benefit from seeing pulmonary hypertension specialist 12. Nonrheumatic mitral valve stenosis: Noted to have mild mitral stenosis (mean gradient 4.62 mmHg) 13. Moderate aortic stenosis: moderate aortic stenosis (mean gradient 11 mmHg and ALESSANDRO 1.38 cm?) on echo done on 01/17/2025 14. Anxiety: Alprazolam as needed Plan: Full code GI and DVT prophylaxis in place PDMP PDMP Reviewed: Not Reviewed Attestations 2 Medical Necessity Statement*: She requires continued hospitalization for telemetry monitoring, amiodarone and heparin infusions, cardiology consult, antibiotics. Coding Level of Care Code Acute Code for [facility] Diagnoses Atrial fibrillation with RVR I48.91 Chest pain R07.9 Acute renal failure N17.9 Acute renal failure type: unspecified Dehydration with hyponatremia E86.0; E87.1 Acute UTI N39.0 Chronic diastolic heart failure I50.32 Weakness R53.1 Primary hypertension I10 Hypertension type: primary hypertension CATE (obstructive sleep apnea) G47.33 Restrictive lung disease secondary to obesity J98.4; E66.9 Progressive pulmonary hypertension I27.20 Nonrheumatic mitral valve stenosis I34.2 Cardiac valve disease etiology: nonrheumatic Moderate aortic stenosis I35.0 Anxiety F41.9
[2025-09-04] MEDS: ATORVASTATIN 20 MG TABLET PO (18:05)
--- NOTE | 2025-09-04 18:17 | PC.NURSE ---
mixing house operator called nurse with the potential schedule for patient's cardioversion on 09/05. Dr Rodriguez says 7-12, ultrasound says 8-10, and anesthesia says they will let us know in the morning about a time. paper mill supervisor has all this information in text message and has cc'd Teresa Fernandez RN manager. Patient to remain NPI after midnight.
[2025-09-04 21:37] LABS: Partial Thromboplastin Time 62.3 SECONDS (23.9-36.7)
[2025-09-05] VITALS (9 sets, daily range): BP systolic 100–146; BP diastolic 62–93; PULSE 75–108; RESP 18–26; TEMP 36.2–37.2; O2SAT 94–98
[2025-09-05] MEDS: cefTRIAXone 1,000 mg SDV 1000 MG IVP (00:40)
[2025-09-05 04:27] LABS: Hematocrit 34.1 % (36-47); Hemoglobin 11.10 g/dL (11.27-16.99); Mean Corpuscular HGB Conc 32.6 g/dL (30-55); Mean Corpuscular Hemoglobin 28.2 pg (27-33); Mean Corpuscular Volume 86.8 fl (85-98); Nucleated Red Blood Cells % 0 %; Platelet Count 221 10^3/cmm (157-399); Red Blood Count 3.93 10^6/uL (3.85-5.65); White Blood Count 8.32 10^3/uL (3.29-11.43)
[2025-09-05 04:45] LABS: Partial Thromboplastin Time 82.1 SECONDS (23.9-36.7)
[2025-09-05 04:46] LABS: Albumin Level 4.0 g/dL (3.5-5.2); Anion Gap 16.7 (5-19); Blood Urea Nitrogen 20 mg/dL (8-23); Calcium 9.3 mg/dL (8.5-10.5); Carbon Dioxide 25 mmol/L (22-29); Chloride 99 mmol/L (98-107); Creatinine Clr Calc Pharmacy 62.0428; Glucose 135 mg/dL (65-115); Magnesium 1.8 mg/dL (1.7-2.3); Potassium 3.7 mmol/L (3.5-5.1); Sodium 137 mmol/L (136-145)
--- NOTE | 2025-09-05 06:54 | PC.NURSE ---
2119- Patient HR is still elevated in the 110-130. 25 mg of metoprolol already given. Current BP is 121/89. Notified Dr. Hamm and received orders to give 10 mg IVP cardizem once and f/u within a hour. After a hour HR is 80-100. Her BP did go from 126/66 to 91/55 thirty minutes after administration. Current BP is 110/62. No new orders received.
[2025-09-05] MEDS: heparin drip 25,000 UNIT/500 ML PREMIX 22 UNIT IV (08:20)
--- NOTE | 2025-09-05 08:56 | P.PN_ITS ---
<Statement entered by Yung Kruse 09/08/25 09:24> Patient was cared for in conjunction with an advanced practice practitioner. I reviewed the chart and all pertinent data including imaging, telemetry, and laboratory results. I discussed the patient in detail with the advanced practice practitioner. Please see their note for agreed upon plan of care and results for the patient. Continue heparin and amiodarone. Cardioversion planned for today. Subjective 2 Subjective: Cardioversion planned today at 10AM. No chest pain or shortness of breath currently. Vitals/I&O/Wt Last Vital Signs Temp 97.1 F L 09/05/25 07:31 Pulse 86 09/05/25 08:38 Resp 18 09/05/25 08:38 BP 143/87 09/05/25 07:31 Pulse Ox 97 09/05/25 08:38 O2 Del Method Room Air 09/05/25 08:38 O2 Flow Rate 2 09/03/25 10:45 FiO2 21 09/04/25 20:58 09/04/25 09/05/25 09/05/25 22:59 06:59 14:59 Intake Total 408 / 1392.576 193.667 / 1392.576 Balance 408 / 1392.576 193.667 / 1392.576 Weight last 48 hrs Weight 222 lb Weight 221 lb 11.2 oz Physical Exam 2 Const: COMMON NORMALS: no acute distress and patient oriented x3 Chest: COMMONS NORMALS: normal inspection of the chest and normal palpation of entire chest wall CHEST: Yes Symmetrical chest wall rise Resp: COMMON NORMALS: normal respiratory effort, No retractions, No use of accessory muscles and clear to auscultation bilaterally EFFORT & INSPECTION: Yes symmetric chest movement AUSCULTATION: clear to auscultation bilaterally Cardio: COMMON NORMALS: S1 normal heart sound present, S2 normal heart sound present, No gallops present (Cardio), No clicks present (Cardio), No murmurs present (Cardio) and No rub (Cardio) RHYTHM: abnormal rhythm irregularly irregular HEART SOUNDS: S1 normal heart sound present and S2 normal heart sound present PERIPHERAL PULSES: radial pulses present, posterior tibial pulses present and dorsalis pedis present Neuro: COMMON NORMALS: patient oriented x3 and moves all extremities Psych: COMMON NORMALS: mental status grossly normal and cooperative Data 09/05/25 04:13 09/05/25 04:13 Micro: Microbiology 09/01/25 22:09 Urine Culture - Final Urine,Clean Catch Escherichia coli A&P Assessment and plan 1. Atrial fibrillation with RVR: 2. Moderate aortic stenosis: 3. Chronic diastolic heart failure: 4. Mitral valve stenosis: Plan: She has a nerve stimulator, we have contacted [employer] regarding advice for best practices around cardioversion. They advised to turn the device off, to keep the pads away from the stimulator and to use the lowest energy possible to accomplish the cardioversion. Damage to the device is still possible, possibly requiring explantation of the stimulator. Knowing the possible risks, she is in agreement to proceed. PDMP PDMP Reviewed: Not Reviewed Attestations 2 Medical Necessity Statement*: cardioversion today Coding Level of Care Code Acute Code for [facility] Diagnoses Atrial fibrillation with RVR I48.91 Moderate aortic stenosis I35.0 Chronic diastolic heart failure I50.32 Mitral valve stenosis I05.0
--- NOTE | 2025-09-05 09:39 | ANES.PREANE2 ---
Pre-Anesthetic Assessment Height/Weight: Height 1.6 m Weight 100.698 kg Temp Pulse Resp BP Pulse Ox O2 Del Method O2 Flow Rate 97.1 F L 86 18 143/87 97 Room Air 2 09/05/25 07:31 09/05/25 08:38 09/05/25 08:38 09/05/25 07:31 09/05/25 08:38 09/05/25 08:38 09/03/25 10:45 FiO2 21 09/04/25 20:58 DEBBIE/CV Familial anesthetic complications: none Was Beta Allen taken within 24 hours: Yes Was Clonidine taken within 24 hours: N/A Last intake: > 8 hrs Social No alcohol and No tobacco Exam alert, oriented x 3, clear to auscultation bilaterally and regular rate & rhythm CV/HEM Atrial Fibrillation and Congestive Heart Failure Neuropsych Cerebrovascular Accident Anesthetic Plan ASA status: 4 Anesthesia: MAC Risk of > 500 ml blood loss (7ml/kg in children): No Medications/Allergies Home Medications ?Medication ?Instructions ?Recorded ?Confirmed ?Last Taken ?Type clonidine HCl 0.1 mg tablet 0.1 mg PO TID PRN pressure 12/23/22 09/02/25 07/10/25 Rx >190/100 #30 tabs biotin 10,000 mcg chewable tablet 20,000 mcg PO QAM 06/26/23 09/02/25 09/01/25 History (Hair, Skin and Nails (biotin)) [id number] 8 mg-folic 400 1 tab PO QAM 06/26/23 09/02/25 09/01/25 History mcg-K 50 mcg-lutein 300 mcg tablet (Centrum Silver Women) nitroglycerin 0.4 mg sublingual 0.4 mg sublingual Q5M PRN Chest 07/04/23 09/02/25 4 Years Ago Rx tablet (Nitrostat) Pain #30 tabs ~08/25/19 docusate sodium 100 mg capsule 100 mg PO QPM PRN Constipation 12/04/23 09/02/25 12/26/24 History (Colace) albuterol sulfate 90 mcg/actuation 2 inh inhalation Q4H PRN shortness 04/26/24 09/02/25 07/10/25 Rx aerosol inhaler of breath or wheezing #6.7 grams losartan 100 mg tablet 100 mg PO QAM #90 tabs 12/03/24 09/02/25 09/01/25 Rx alprazolam 0.5 mg tablet 0.5 mg PO BID PRN anxiety #45 tabs 12/14/24 09/02/25 Unknown Rx simvastatin 40 mg tablet 40 mg PO QPM 12/27/24 09/02/25 08/31/25 History stirrup gel pad splint #1 ea 01/31/25 09/02/25 Unknown Rx labetalol 200 mg tablet 200 mg PO BID #180 tabs 07/01/25 09/02/25 09/01/25 Rx metolazone 2.5 mg tablet 2.5 mg PO DAILY #90 tabs 08/24/25 09/02/25 09/01/25 Rx bumetanide 2 mg tablet 2 mg PO BID 09/02/25 09/02/25 09/01/25 History clopidogrel 75 mg tablet 75 mg PO DAILY 09/02/25 09/02/25 09/01/25 History potassium chloride 20 mEq 20 meq PO DAILY 09/02/25 09/02/25 09/01/25 History tablet,extended release Allergies Allergy/AdvReac Type Severity Reaction Status Date / Time No Known Allergies Allergy Verified 08/24/25 14:59 Current Medications Generic Name Dose Route Start Last Admin Trade Name Wilfredoq PRN Reason Stop Dose Admin Acetaminophen 650 mg 09/01/25 23:32 09/04/25 21:49 Acetaminophen 325 Mg Tablet PO 650 mg Q6H PRN Administration Mild/Mod Pain Or Temp >/= 101 Atorvastatin Calcium 20 mg 09/02/25 17:00 09/04/25 18:05 Atorvastatin 20 Mg Tablet PO 20 mg QPM BETTIE Administration Ceftriaxone Sodium 1,000 mg 09/03/25 01:00 09/05/25 00:40 Ceftriaxone 1,000 Mg Sdv IVP 1,000 mg Q24H BETTIE Administration Protocol Clopidogrel Bisulfate 75 mg 09/03/25 05:00 09/05/25 04:11 Clopidogrel 75 Mg Tablet PO 75 mg DAILY BETTIE Administration Docusate Sodium 100 mg 09/02/25 05:00 09/05/25 04:11 Docusate Sodium 100 Mg Capsule PO Not Given BID BETTIE Heparin Sodium (Porcine) 5,000 unit 09/01/25 23:45 09/05/25 00:22 Heparin 5,000 Unit/Ml Inj 1 Ml SUBCUT Not Given Q12H BETTIE AMIODARONE HCL/D5W 900 mg in 500 mls @ 0 mls/hr 09/03/25 10:43 09/04/25 13:54 Amiodarone 900 Mg/500 Ml-D5w IV 0.5 mg/min .Q0M BETTIE 16.67 mls/hr Protocol Administration Per Protocol Heparin Sodium/Sodium Chloride 25,000 unit in 500 mls @ 0 mls/hr 09/03/25 11:30 09/05/25 08:20 Heparin Drip IV 10.87 unit/kg/hr CONT BETTIE 22 mls/hr Protocol Administration Per Protocol Metoprolol Tartrate 25 mg 09/04/25 09:00 09/05/25 08:18 Metoprolol Tartrate 25 Mg Tablet PO 25 mg BID@0900,2100 BETTIE Administration Morphine Sulfate 2 mg 09/01/25 23:32 09/03/25 07:50 Morphine 4 Mg/Ml Sdv 1 Ml IVP 2 mg Q4H PRN Administration SEVERE PAIN Nitroglycerin 0.4 mg 09/02/25 10:59 09/04/25 02:29 Nitroglycerin 0.4 Mg Sublingual Tablet SUBLINGUAL 0.4 mg Q5M PRN Administration CHEST PAIN Ondansetron HCl 4 mg 09/01/25 23:32 09/04/25 02:29 Ondansetron 2 Mg/Ml Sdv 2 Ml IVP 4 mg Q8H PRN Administration vomiting, or N/V if npo Pantoprazole Sodium 40 mg 09/02/25 05:00 09/05/25 04:[address] 40 Mg Tablet PO 40 mg DAILY BETTIE Administration Potassium Chloride 20 meq 09/03/25 05:00 09/05/25 04:11 Potassium Chloride Er 20 Meq Tablet PO 20 meq DAILY BETTIE Administration PFSH Anesthesia Medical History Anxiety Hyperglycemia Venous insufficiency of both lower extremities Hypothyroid Morbid obesity Lumbar spondylosis Spondylolisthesis, lumbar region Lumbar disc disease with radiculopathy CVA (cerebral vascular accident) Hypercholesteremia Hypertension Surgical History History of arthroscopic surgery of elbow H/O cataract removal with insertion of prosthetic lens H/O: hysterectomy History of cholecystectomy H/O carpal tunnel repair Family History Father Cancer CAD (coronary artery disease) Mother CAD (coronary artery disease) Diabetes Hypertension Stroke Denies family history of Anesthesia complication Bleeding disorder Social History Smoking and tobacco/nicotine status: former use of tobacco/nicotine (2 cigarettes per day X 1 year. Quit in 1973) Second hand smoke exposure: No Alcohol intake: never Substance/Drug Use: never Adopted: No Caregiver/support person: Yes Lives independently: Yes Household members: spouse Housing: House Marital status: service: No Current occupational status: retired Current occupational exposures/hazards: No Pets and animals: No Sexually active: No Do you think of yourself as: Straight/Heterosexual Current gender identity: Female Ratna/Adventist: Mu-Ism Special ratna needs: No Agree to transfusion: No Data Anesthesia 09/05/25 04:13 09/05/25 04:13 Short CBC 09/03/25 09/04/25 09/05/25 Range/Units 09:37 00:53 04:13 WBC 7.91 8.32 (3.29-11.43) 10^3/uL Hgb 11.30 11.10 L (11.27-16.99) g/dL Hct 34.5 L 34.1 L (36-47) % MCV 86.9 86.8 (85-98) fl Plt Count 226 245 221 (157-399) 10^3/cmm Neut % (Auto) 56.7 53.6 % Neut # (Auto) 4.49 4.46 (1.8-7.7) 10^3/uL BMP 09/04/25 09/05/25 00:53 04:13 Sodium 136 137 Potassium 3.7 3.7 Chloride 98 99 Carbon Dioxide 25 25 BUN 34 H 20 Creatinine 1.0 H 0.9 Glucose 164 H 135 H Calcium 9.2 9.3 Cardiac Enzymes 09/03/25 09/04/25 Range/Units 09:37 00:53 Troponin T 5th Gen ng/L 30 H (0-10) ng/L Troponin T 120 Minute 25.68 H (0-10) ng/L Delta Troponin T 1.68 (0-10) ABS# Liver Function 09/05/25 Range/Units 04:13 Albumin 4.0 (3.5-5.2) g/dL Coags 09/03/25 09/04/25 09/04/25 18:00 00:53 07:47 APTT 98.2 H 80.1 H 60.6 H 09/04/25 09/04/25 09/05/25 13:46 21:19 04:13 APTT 40.8 H 62.3 H D 82.1 H Microbiology 09/01/25 22:09 Urine Culture - Final Urine,Clean Catch Escherichia coli Cardiac Studies: Echocardiogram 01/17/25 Echocardiogram Ultrasound 08/09/25 Sestamibi Stress Test (Cardiology) 06/30/23 Cardiac Event Monitor 12/31/23
--- NOTE | 2025-09-05 09:48 | USCV_ITS ---
Left Maria Del Carmen Ansari Age: 75 Gender: F : 1950 Exam Date: 09/05/2025 10:01 Ordering Phys: Madi Rodriguez M.D ([email or web address]) Technologist: Baljit Victoria [place] [facility] [place]: card conversion BP: 135 / 80 HR: Rhythm: Sinus Technical Quality: MEASUREMENTS (Male / Female) Normal Values DOPPLER MV Area PHT 3.6 cm squared Medications Per anesthesia team Complications None Proc. Components After anesthesia team stated patient, we proceeded with procedure with advancing DEBBIE probe. FINDINGS Left Ventricle LV systolic function is normal. Right Ventricle Normal RV function Right Atrium Normal Left Atrium Dilated IA Septum Grossly normal LA Appendage No left atrial appendage thrombus Mitral Valve Mitral valve is thickened and calcified. Mild mitral regurgitation. Mild to moderate mitral stenosis with mean gradient of 5.7mmHg. Aortic Valve Aortic valve is thickened and calcified. Tricuspid Valve Structurally normal Pulmonic Valve Not well visualized Pericardium Normal Aorta Grossly normal CONCLUSIONS LV systolic function is normal Left atrial dilation No left atrial appendage thrombus Mild mitral regurgitation. Mild to moderate mitral stenosis with mean gradient of 5.7mmHg. Madi Rodriguez MD (Electronically Signed) Final Date: 06 September 2025 10:02 S
--- NOTE | 2025-09-05 09:55 | W.PM.OPSUD ---
Surgery/Procedure H&P Update DATE OF PROCEDURE: September 05, 2025 DATE H&P PERFORMED: 09/03/25 H&P UPDATE INFORMATION: I have reviewed H&P completed within last 30 days, I have examined patient prior to procedure and No changes to prior documentation PREOP DIAGNOSIS: Atrial fibrillation with RVR PRIMARY INDICATION FOR PROCEDURE: Atrial fibrillation with RVR PLANNED PROCEDURE: Transesophageal echocardiogram with cardioversion Anesthesia team available for procedure
--- NOTE | 2025-09-05 10:18 | PM.PROC ---
Procedure Note: Date of procedure: 09/05/25 Pre-procedure diagnosis: Atrial fibrillation with RVR Post-procedure diagnosis: other (Normal sinus rhythm) Procedure: DEBBIE/ Cardioversion: After anesthesia team sedated patient, we proceeded with advancing DEBBIE probe. No left atrial appendage thrombus seen. Initially we attempted cardioversion with 50J shock however was unsuccessful. We then proceeded with 120J shock and patient's rhythm converted to sinus rhythm. Performing Provider: Madi Rodriguez Complications: None Condition: stable Disposition: no change Coding Level of Care Code Acute Code for Sariah Borjas
--- NOTE | 2025-09-05 10:20 | ECG_ITS ---
[employer] [facility] [facility] Test Date: 2025-09-05 Pat Name: Maria Del Carmen Ansari Department: Room: 111 Gender: Female Facilities [employer] Pilot: : 1950 Requested By: Madi Rodriguez Order Number: [id number] Penaloza MD: Taigo Bowen M.D. Measurements Intervals [place] Rate: 76 P: 70 LA: 187 QRS: 67 QRSD: 102 T: 26 QT: 384 QTc: 433 Interpretive Statements SINUS RHYTHM LOW QRS VOLTAGE IN EXTREMITY LEADS [QRS DEFLECTION < 0.5 mV IN LIMB LEADS] Compared to ECG 09/04/2025 02:36:51 Atrial fibrillation no longer present ST (T wave) deviation no longer present Electronically Signed On 09-07-2025 21:40:18 CDT by Tiago Bowen M.D. [email or web address]
[2025-09-05 10:22] LABS: Partial Thromboplastin Time 58.7 SECONDS (23.9-36.7)
[2025-09-05 10:30] LABS: Estmated Average Glucose 111; Hemoglobin A1C 5.5 % (4.0-6.0)
--- NOTE | 2025-09-05 10:35 | ANE.PACU2 ---
Inpatient post-anesthesia follow up: Airway intact: Yes Vital signs: Temperature 97.1 F Pulse Rate 86 Respiratory Rate 18 Blood Pressure 143/87 Pulse Oximetry 97 Oxygen Delivery Me thod Room Air Oxygen Flow Rate 2 Fraction of Inspir ed Oxygen 21 Hydration adequate: Yes Nausea and vomiting: No Pain level: 1 Mental status: Baseline
[2025-09-05 10:48] LABS: Iron 63 ug/dL (37-145); Total Iron Binding Capacity 314 mcg/dl; Unsaturated Iron Binding 251 ug/dL (112-347); Vitamin B12 698 pg/mL (232-1245)
--- NOTE | 2025-09-05 11:00 | PC.SOCIAL ---
IMM Updated Updated pt on IMM. No questions voiced. Provided pt a copy. Initialed, dated, & timed copy in chart.
--- NOTE | 2025-09-05 11:41 | PC.NURSE ---
nurse spoke with Dr Rodriguez after the cardioversion who told the nurse to give eliquis 5mg BID, nurse ordered, and shut off the heparin 6 hours after giving eliquis. The goal is to bridge the eliquis.
--- NOTE | 2025-09-05 12:50 | PC.NURSE ---
DEBBIE with cardioversion started at [address] Rodriguez, Nancy Montelongo ([employer]ACH[employer] TENDER), Dr Ayala, and caption writer (nurse) at bedside. Procedure started at 1007 and DEBBIE was performed. First shock was given at 50 joules at 1012, and then a second shock was given at 1013 at 120 joules. Patient went into normal sinus rhythm at 1013. Procedure ended at 1015. Patient was awoken by daughter and she awoke without complication. Patient was switched to oral amiodarone and eliqius with heparin to be stopped 6 hours after eliquis was given per Dr Rodriguez.
--- NOTE | 2025-09-05 14:05 | P.PN_ITS ---
Subjective 2 Subjective: Hospital course, labs appreciated. Today morning patient underwent cardioversion. Currently normal sinus rhythm. Drowsy but waking up possible seizure. Acute complaints. Medications: Reviewed: Yes Vitals/I&O/Wt Last Vital Signs Temp 97.2 F L 09/05/25 12:00 Pulse 75 09/05/25 12:00 Resp 26 H 09/05/25 12:00 BP 146/83 09/05/25 12:00 Pulse Ox 98 09/05/25 12:00 O2 Del Method Room Air 09/05/25 12:00 O2 Flow Rate 2 09/03/25 10:45 FiO2 21 09/04/25 20:58 09/04/25 09/05/25 09/05/25 22:59 06:59 14:59 Intake Total 408 / 1198.909 193.667 / 1392.576 603.684 / 603.684 Balance 408 / 1198.909 193.667 / 1392.576 603.684 / 603.684 Weight last 48 hrs Weight 100.698 kg Weight 100.561 kg Physical Exam 2 Narrative: GEN: Alert, no acute distress HEENT: Normocephalic, atraumatic, PERRLA Neck: Supple Respiratory: No respiratory distress, clear to auscultation bilaterally Cardio: Tachycardic, irregular rate, S1, S2, murmur present Abdomen: Soft, nontender, normal active bowel sounds, no CVA tenderness Extremity: Warm, no edema Skin: No rash or lesions Psych: Cooperative Data 09/05/25 04:13 09/05/25 04:13 Micro: Microbiology 09/01/25 22:09 Urine Culture - Final Urine,Clean Catch Escherichia coli A&P Assessment and plan 1. Atrial fibrillation with RVR: New onset Post electrocardioversion. Back in normal sinus rhythm. Appreciate cardiology recommendations. Switch to oral amiodarone 200 mg twice daily. Discontinue drip. Continue with metoprolol 25 mg twice daily. Continue heparin drip for 6 to 8 hours. Will transition to oral Eliquis 5 mg twice daily from evening. Telemetry monitoring. Appreciate recent echocardiogram with EF of 75%, grade 3 diastolic dysfunction, mild aortic valve stenosis with gradient of 10.4 mmHg across the valve, mild to moderate MR, PASP of 73 mmHg. 2. Chest pain: She has CAD with small caliber RCA untenable with PCI. Chest pain so far resolved. Continue home dose of Plavix. Metoprolol. Check A1c, lipid panel. 3. Acute renal failure: Most likely in setting of overdiuresis and dehydration. Resolved. Creatinine back to baseline. Medical treatments patient done for nephrotoxic drugs. Hold off on metolazone, diuretics/Bumex and losartan. Most likely will transition to diuretic as needed. Can restart losartan as an outpatient if renal function remains stable for 1 to 2 weeks. Fluid restriction to less than 1500 cc. 4. Dehydration with hyponatremia: Resolved 5. Acute UTI: Urine grew Ecoli Continue ceftriaxone. Will finish a 5-day course. Can transition to oral Levaquin on discharge. Follow-up urine culture 6. Chronic diastolic heart failure: As above. Holding off on diuretics. 7. Weakness: Appreciate PT and OT consults 8. Primary hypertension: Goal blood pressure less than 140/90 mmHg. At home takes labetalol, losartan, clonidine as needed. Blood pressure stable for now. Metoprolol as above. If needed can add amlodipine. Pressures to be higher today once patient is back in normal sinus rhythm 9. CATE (obstructive sleep apnea): CPAP nightly 10. Restrictive lung disease secondary to obesity: Counseled on weight loss 11. Progressive pulmonary hypertension: She has severe pulmonary hypertension. She sees pulmonology but may benefit from seeing pulmonary hypertension specialist 12. Nonrheumatic mitral valve stenosis: Noted to have mild mitral stenosis (mean gradient 4.62 mmHg) 13. Moderate aortic stenosis: moderate aortic stenosis (mean gradient 11 mmHg and ALESSANDRO 1.38 cm?) on echo done on 01/17/2025 14. Anxiety: Alprazolam as needed Plan: Full code Cardiac diet Heparin drip being transitioned to Eliquis will be sufficient for DVT prophylaxis Protonix for PUD prophylaxis PDMP PDMP Reviewed: Not Reviewed Attestations 2 Medical Necessity Statement*: Requires further hospitalization for management of new onset A-fib with RVR requiring electrocardioversion, RAF due to overdiuresis, dehydration Diagnoses Atrial fibrillation with RVR I48.91 Chest pain R07.9 Acute renal failure N17.9 Acute renal failure type: unspecified Dehydration with hyponatremia E86.0; E87.1 Acute UTI N39.0 Chronic diastolic heart failure I50.32 Weakness R53.1 Primary hypertension I10 Hypertension type: primary hypertension CATE (obstructive sleep apnea) G47.33 Restrictive lung disease secondary to obesity J98.4; E66.9 Progressive pulmonary hypertension I27.20 Nonrheumatic mitral valve stenosis I34.2 Cardiac valve disease etiology: nonrheumatic Moderate aortic stenosis I35.0 Anxiety F41.9
[2025-09-05] MEDS: ATORVASTATIN 20 MG TABLET PO (17:27)
[2025-09-06] MEDS: cefTRIAXone 1,000 mg SDV 1000 MG IVP (00:26)
[2025-09-06 00:35] VITALS: BP 144/86; PULSE 72; RESP 20; O2SAT 98
[2025-09-06 04:00] VITALS: BP 127/85; PULSE 73; RESP 18; TEMP 36.9; O2SAT 95
[2025-09-06 04:27] LABS: Hematocrit 32.5 % (36-47); Hemoglobin 10.60 g/dL (11.27-16.99); Mean Corpuscular HGB Conc 32.6 g/dL (30-55); Mean Corpuscular Hemoglobin 28.6 pg (27-33); Mean Corpuscular Volume 87.8 fl (85-98); Nucleated Red Blood Cells % 0 %; Platelet Count 231 10^3/cmm (157-399); Red Blood Count 3.70 10^6/uL (3.85-5.65); White Blood Count 9.61 10^3/uL (3.29-11.43)
[2025-09-06 04:56] LABS: Cholesterol 154 mg/dL (0-200); HDL Cholesterol 42 mg/dL (60-100); Magnesium 1.7 mg/dL (1.7-2.3); Triglycerides 245 mg/dL (0-150); VLDL Cholestrol Calculation 49 mg/dL (0-30)
[2025-09-06 04:58] LABS: Alanine Aminotransferase 25 U/L (0-33); Albumin Level 4.0 g/dL (3.5-5.2); Alkaline Phosphatase 76 U/L (35-105); Anion Gap 17.2 (5-19); Aspartate Amino Transferase 23 U/L (0-32); Blood Urea Nitrogen 16 mg/dL (8-23); Calcium 9.1 mg/dL (8.5-10.5); Carbon Dioxide 25 mmol/L (22-29); Chloride 97 mmol/L (98-107); Creatinine Clr Calc Pharmacy 69.8515; Globulin 3.2 g/dL (1.3-4.6); Glucose 131 mg/dL (65-115); Osmolality Calculated 283 mOsm/kg (285-295); Potassium 4.2 mmol/L (3.5-5.1); Sodium 135 mmol/L (136-145); Total Protein 7.2 g/dL (6.6-8.7)
[2025-09-06 06:00] VITALS: BMI 39.2
[2025-09-06 08:00] VITALS: BP 146/73; PULSE 80; RESP 18; TEMP 36.8; O2SAT 97
--- NOTE | 2025-09-06 08:45 | PM.DCS ---
Discharge Providers Date of Admission: 09/01/25 23:27 Date of Discharge: September 06, 2025 Attending Provider at Admission: Tami Hamm MD Attending Provider at Discharge: Abebe Sharif MD Consults: Cardiology: Dr. Rodriguez Primary Care Provider: Howard Kraus MD Diagnoses at Discharge Discharge Diagnosis 1. Atrial fibrillation with RVR: 2. Chest pain: 3. Acute renal failure: 4. Dehydration with hyponatremia: 5. Acute UTI: 6. Chronic diastolic heart failure: 7. Weakness: 8. Primary hypertension: 9. CATE (obstructive sleep apnea): 10. Restrictive lung disease secondary to obesity: 11. Progressive pulmonary hypertension: 12. Nonrheumatic mitral valve stenosis: 13. Moderate aortic stenosis: 14. Anxiety: Reason for Visit Reason for Visit: weakness / low bp (check@home) Brief History: Per HPI Maria Del Carmen Ansari is a 75 year old female with medical history significant for heart failure with exacerbation and on diuretics. Patient had failure had gotten worse and she followed up with the cardiology clinic with Dr. Rodriguez who initiated multiple diuretics with the resultant much acute kidney injury diuretics induced. Patient had come to the emergency room because she could not focus and had been quite nauseated over the past 3 days and had not eaten over the past 5 days and feeling a sensation of near syncopal event. Patient almost passed out at [facility] today. And also had not voided all day. She had called Dr. Whitney to seek advice and he told her to come to the emergency room for further evaluation. Patient admitted to the emergency room workup was pretty impressive. Patient was found to be in acute tubular necrosis [ATN] patient clinic visit was on 08/24/2025 and all the diuretics initiated including Bumex and metolazone once along with others and the creatinine had gone from a normal creatinine of 0.9 to a 3.1 today in 8 days, BUN was 104, chloride went from 99 down to 87 significant contraction alkalosis. Sodium was normal it came down to 133 Patient did not void today and urinalysis was significant for too numerous to count white cells patient is also with UTI. Will be initiating antibiotics at this time. Though white count was within normal but a baseline white count for this patient is 6 but it had gone to a 10.7 will obtain blood cultures if not already obtained in the emergency room Patient had received 2 L of IV fluid bolus in the emergency room for severe contraction alkalosis with symptoms and renal failure and a creatinine of 3.1 and had gone down now to 2.8 patient baseline creatinine is 0.9 even as of 8 days ago. I will continue with just gentle hydration of normal saline at 75 cc/h to allow 13 hours for a liter to infuse by obtaining every 6 hours chemistry of BMP. Patient indeed is feeling much better than she had felt in 5 days Hospital Course Hospital Course Patient was admitted to the hospital further evaluation and management of acute kidney injury due to dehydration and hyponatremia. She was started on IV hydration after which her creatinine gradually improved to her baseline. She did have concern for mild UTI for which she was started on broad-spectrum antibiotics. Blood culture remained negative urine culture positive for rene sensitive E. coli. She has finished her course of antibiotics for UTI. Hospitalization was complicated by her developing A-fib with RVR for which she was started on amiodarone drip. As she persistently remained in A-fib with RVR she underwent electrocardioversion on 09/05 with 120 J after which she has remained in sinus rhythm. Her antihypertensive were adjusted. She has been discharged in hemodynamically stable condition with adjusted antihypertensive, counseling for lifestyle modification given congestive heart failure, Eliquis 5 mg twice daily as anticoagulation for stroke prevention with advised to check her body weight daily and maintain a blood pressure diary with goal of blood pressure less than 140/90 mmHg. Physical Exam Narrative: GEN: Alert, no acute distress HEENT: Normocephalic, atraumatic, PERRLA Neck: Supple Respiratory: No respiratory distress, clear to auscultation bilaterally Cardio: Tachycardic, irregular rate, S1, S2, murmur present Abdomen: Soft, nontender, normal active bowel sounds, no CVA tenderness Extremity: Warm, no edema Skin: No rash or lesions Psych: Cooperative Discharge Data Studies Completed and Pending Completed Studies During Hospitalization Category Date Time Status XR chest 1V portable [id number] Stat Exams 09/01/25 17:42 Completed US renal BI* [id number] Routine Ultrasound 09/03/25 12:24 Completed Pending at discharge Category Date Time Status Blood Culture Stat Lab 09/01/25 18:25 Results MAG [Magnesium] AM LABS Lab 09/07/25 04:00 Ordered MAG [Magnesium] AM LABS Lab 09/08/25 04:00 Ordered Platelet Count Q2D Lab 09/07/25 04:00 Ordered DEBBIE [CV. echo transesophageal [id number]] Routine Ultrasound 09/05/25 09:48 Taken Radiology Impressions Chest X-Ray 09/01/25 17:42 IMPRESSION: No acute intrathoracic abnormality. Renal Ultrasound 09/03/25 12:24 IMPRESSION: 1. No hydronephrosis on either side. 2. Hepatic steatosis. Laboratory Results WBC 9.61 10^3/uL (3.29-11.43) 09/06/25 04:07 RBC 3.70 10^6/uL (3.85-5.65) L 09/06/25 04:07 Hgb 10.60 g/dL (11.27-16.99) L 09/06/25 04:07 Hct 32.5 % (36-47) L 09/06/25 04:07 MCV 87.8 fl (85-98) 09/06/25 04:07 MCH 28.6 pg (27-33) 09/06/25 04:07 MCHC 32.6 g/dL (30-55) 09/06/25 04:07 RDW 14.5 % (12.1-15.1) 09/06/25 04:07 Plt Count 231 10^3/cmm (157-399) 09/06/25 04:07 MPV 9.2 fL (7.4-10.4) 09/06/25 04:07 Neut % (Auto) 65.6 % 09/06/25 04:07 Lymph % (Auto) 20.4 % 09/06/25 04:07 [place] % (Auto) 8.6 % 09/06/25 04:07 Eos % (Auto) 4.2 % 09/06/25 04:07 Baso % (Auto) 0.5 % 09/06/25 04:07 Neut # (Auto) 6.30 10^3/uL (1.8-7.7) 09/06/25 04:07 Lymph # (Auto) 2.0 10^3/uL (0.8-4.8) 09/06/25 04:07 [place] # (Auto) 0.8 10^3/uL (0.2-0.9) 09/06/25 04:07 Eos # (Auto) 0.4 10^3/uL (0.0-0.8) 09/06/25 04:07 Baso # (Auto) 0.1 10^3/uL (0.0-0.1) 09/06/25 04:07 Nucleated RBC % (auto) 0 % 09/06/25 04:07 Nucleated RBCs # 0.0 /100WBC 09/06/25 04:07 APTT 58.7 SECONDS (23.9-36.7) H 09/05/25 09:55 Sodium 135 mmol/L (136-145) L 09/06/25 04:07 Potassium 4.2 mmol/L (3.5-5.1) 09/06/25 04:07 Chloride 97 mmol/L (98-107) L 09/06/25 04:07 Carbon Dioxide 25 mmol/L (22-29) 09/06/25 04:07 Anion Gap 17.2 (5-19) 09/06/25 04:07 BUN 16 mg/dL (8-23) 09/06/25 04:07 Creatinine 0.8 mg/dL (0.5-0.9) 09/06/25 04:07 GFR Calculation Not Reportable 09/06/25 04:07 Glucose 131 mg/dL (65-115) H 09/06/25 04:07 Estimat Average Glucose 111 09/05/25 04:13 Hemoglobin A1c 5.5 % (4.0-6.0) 09/05/25 04:13 Calculated Osmolality 283 mOsm/kg (285-295) L 09/06/25 04:07 Lactic Acid 2.0 mmol/L (0.5-2.2) 09/01/25 18:17 Calcium 9.1 mg/dL (8.5-10.5) 09/06/25 04:07 Phosphorus 2.5 mg/dL (2.5-4.5) 09/05/25 04:13 Magnesium 1.7 mg/dL (1.7-2.3) 09/06/25 04:07 Iron 63 ug/dL (37-145) 09/05/25 04:13 TIBC 314 mcg/dl 09/05/25 04:13 % Saturation 20.0 % (20-50) 09/05/25 04:13 Unsat Iron Binding 251 ug/dL (112-347) 09/05/25 04:13 Total Bilirubin 0.3 mg/dL (0.15-1.2) 09/06/25 04:07 AST 23 U/L (0-32) 09/06/25 04:07 ALT 25 U/L (0-33) 09/06/25 04:07 Alkaline Phosphatase 76 U/L (35-105) 09/06/25 04:07 Troponin T 5th Gen ng/L 30 ng/L (0-10) H 09/04/25 00:53 Troponin T Baseline 24 ng/L (0-10) H 09/03/25 08:10 Troponin T 120 Minute 25.68 ng/L (0-10) H 09/03/25 09:37 Delta Troponin T 1.68 ABS# (0-10) 09/03/25 09:37 Total Protein 7.2 g/dL (6.6-8.7) 09/06/25 04:07 Albumin 4.0 g/dL (3.5-5.2) 09/06/25 04:07 Globulin 3.2 g/dL (1.3-4.6) 09/06/25 04:07 Triglycerides 245 mg/dL (0-150) H 09/06/25 04:07 Cholesterol 154 mg/dL (0-200) 09/06/25 04:07 LDL Cholesterol, Calc 63 mg/dL (50-129) 09/06/25 04:07 Total VLDL Cholesterol 49 mg/dL (0-30) H 09/06/25 04:07 HDL Cholesterol 42 mg/dL (60-100) L 09/06/25 04:07 Cholesterol/HDL Ratio 3.67 mg/dL (0.0-4.40) 09/06/25 04:07 Vitamin B12 698 pg/mL (232-1245) 09/05/25 04:13 Folate > 20.0 ng/mL (4.8-37.3) 09/06/25 04:07 TSH 3.36 uIU/mL (0.27-4.20) 09/03/25 09:37 Urine Color Yellow (Yellow) 09/01/25 22:09 Urine Appearance Turbid (CLEAR) A 09/01/25 22:09 Urine pH 5.5 (5-7) 09/01/25 22:09 Ur Specific [place] 1.010 (1.005-1.030) 09/01/25 22:09 Urine Protein Negative (Negative) 09/01/25 22:09 Urine Glucose (UA) Negative (Normal) 09/01/25 22:09 Urine Ketones Negative (Negative) 09/01/25 22:09 Urine Blood Trace (Negative) A 09/01/25 22:09 Urine Nitrate Positive (Negative) A 09/01/25 22: Urine Bilirubin Negative (Negative) 09/01/25 22:09 Urine Urobilinogen 0.2 mg/dL (Negative) 09/01/25 22:09 Ur Leukocyte Esterase 3+ (Negative) A 09/01/25 22:09 Urine RBC 0-4 /hpf (0-2) H 09/01/25 22:09 Urine WBC Too numerous to cnt /hpf (0-5) H 09/01/25 22:09 Ur Squamous Epith Cells 5-10 /hpf (0-5) H 09/01/25 22:09 Amorphous Sediment Not Reportable 09/01/25 22:09 Urine Bacteria 2+ /hpf (NONE) H 09/01/25 22:09 Hyaline Casts 0-4 /lpf H 09/01/25 22:09 Influenza A (PCR) Negative (Negative) 09/01/25 19:19 Influenza Type B (PCR) Negative (Negative) 09/01/25 19:19 RSV (PCR) Negative (Negative) 09/01/25 19:19 SARS-CoV-2 (PCR) Negative (Negative) 09/01/25 19:19 Vitals Last Vital Signs Temp 98.2 F 09/06/25 08:00 Pulse 80 09/06/25 08:00 Resp 18 09/06/25 08:00 BP 146/73 09/06/25 08:00 Pulse Ox 97 09/06/25 08:00 O2 Del Method Room Air 09/05/25 15:43 O2 Flow Rate 2 09/03/25 10:45 FiO2 21 09/04/25 20:58 Discharge Plan Discharge Patient Disposition: Home Condition: Stable Prescriptions: New amiodarone [Pacerone] 200 mg Tablet 200 mg PO BID Qty: 60 0RF Rx Instructions: 200 mg twice daily for 1 week f/b 200 mg daily pantoprazole 40 mg Tablet,Delayed Release (Dr/Ec) 40 mg PO DAILY Qty: 30 0RF Eliquis 5 mg Tablet 5 mg PO BID@0900,2100 Qty: 60 0RF bumetanide 1 mg tablet 1 mg PO DAILY PRN (Reason: weight gain of 3 lbs) Qty: 30 0RF metoprolol tartrate 37.5 mg tablet 37.5 mg PO BID Qty: 60 0RF Continued nitroglycerin [Nitrostat] 0.4 mg tablet, sublingual 0.4 mg SUBLINGUAL Q5M PRN (Reason: Chest Pain) Qty: 30 4RF Rx Instructions: do not exceed 3 doses per episode alprazolam 0.5 mg tablet 0.5 mg PO BID PRN (Reason: anxiety) Qty: 45 2RF (DME) stirrup gel pad splint See Rx Instructions .Route .MEDSUPPLY Qty: 1 0RF Rx Instructions: As directed clonidine HCl 0.1 mg tablet 0.1 mg PO TID PRN (Reason: pressure >190/100) Qty: 30 0RF docusate sodium [Colace] 100 mg capsule 100 mg PO QPM PRN (Reason: Constipation) Centrum Silver Women 8 mg iron-400 mcg-300 mcg Tablet 1 tab PO QAM Hair, Skin and Nails (biotin) 10,000 mcg Tablet,Chewable 20,000 mcg PO QAM potassium chloride 20 mEq tablet extended release 20 meq PO DAILY clopidogrel 75 mg tablet 75 mg PO DAILY albuterol sulfate 90 mcg/actuation HFA aerosol inhaler 2 inh INHALATION Q4H PRN (Reason: shortness of breath or wheezing) Qty: 6.7 0RF simvastatin 40 mg tablet 40 mg PO QPM Discontinued metolazone 2.5 mg tablet 2.5 mg PO DAILY Qty: 90 3RF losartan 100 mg tablet 100 mg PO QAM Qty: 90 3RF labetalol 200 mg tablet 200 mg PO BID Qty: 180 1RF bumetanide 2 mg tablet 2 mg PO BID Discharge Order = DC NOW: Discharge Order (Routine); Ordered 09/06/25 Ordered By: Abebe Sharif Referrals: Howard Kraus MD [Primary Care Provider, Family Practice] - 09/14/25 10:30 am Tiago Bowen MD [Physician, Cardiology] - 10/07/25 8:00 am Discharge Diet: Cardiac Discharge Activity: Resume usual activity and Increase activity as tolerated Patient Instructions: Metoprolol (By mouth) (Lopressor, Toprol XL), Bumetanide (By mouth) (Bumex), Amiodarone (By mouth) (Cordarone, Pacerone), Pantoprazole (By mouth) (Protonix), Apixaban (By mouth) (Eliquis), A-fib (Atrial Fibrillation) (DC), Aortic Stenosis (DC), CHF Stoplight, Opioid Safety, Patient Portal & Lit Instructions Activity Restrictions/Additional Instructions: Check your blood pressure daily at home maintain a blood pressure diary. Goal blood pressure less than 140/90 mmHg. Multiple medication changes have been done. Do not take your home dose of labetalol, losartan, metolazone anymore. Instead take amiodarone 200 mg twice daily for 1 week followed by 200 mg daily. Metoprolol has been added. Take 25 mg twice daily. Eliquis is a blood thinner which is supposed to take 5 mg twice daily. Restrict fluid intake to less than 1500 cc, salt intake to less than 2 g daily. Advised to check his weight daily at home. Is advised that weight today would be the dry weight and if body weight increases by around 3 pounds, patient is to take an extra dose of Bumex 1 mg daily till body weight comes down to weight today. If not able to come down to dry body weight in 1 week, then is to call cardiology office for further recommendations. Patient was counseled in detail to take medications regularly as prescribed. Discharge Attestations Time Spent in Discharge Care*: greater than 30 min Specific Discharge Activities: educating patient, educating and/or supporting family/caregiver, discussing with pcp/other providers, discussing with correctional case records supervisor/social workers/dc planners, documenting/other paperwork and evaluating patient/reviewing data Status at Discharge: Cognitive status at discharge: cognitively intact, Behavioral status at discharge: cooperative, Functional status at discharge: independent ambulation, Overall status at discharge: patient is back to baseline Quality Metrics Clinical Quality Measures [ No reported AMI, CVA or VTE this stay] Coding Level of Care Code 62963 Total time (in minutes) for Discharge: 65 Diagnoses Atrial fibrillation with RVR I48.91 Chest pain R07.9 Acute renal failure N17.9 Acute renal failure type: unspecified Dehydration with hyponatremia E86.0; E87.1 Acute UTI N39.0 Chronic diastolic heart failure I50.32 Weakness R53.1 Primary hypertension I10 Hypertension type: primary hypertension CATE (obstructive sleep apnea) G47.33 Restrictive lung disease secondary to obesity J98.4; E66.9 Progressive pulmonary hypertension I27.20 Nonrheumatic mitral valve stenosis I34.2 Cardiac valve disease etiology: nonrheumatic Moderate aortic stenosis I35.0 Anxiety F41.9
--- NOTE | 2025-09-06 09:46 | P.PN_ITS ---
<Statement entered by Madi Rodriguez M.D - 09/10/25 14:00> Patient was cared for in conjunction with an advanced practice practitioner.? I reviewed the chart and all pertinent data including imaging, telemetry, and laboratory results.? I discussed the patient in detail with the advanced practice practitioner.? Please see their note for progress note, testing results and agreed upon plan of care for the patient. Subjective 2 Subjective: Successful cardioversion yesterday, remained in sinus rhythm overnight. Discharge planned today. Vitals/I&O/Wt Last Vital Signs Temp 98.2 F 09/06/25 08:00 Pulse 80 09/06/25 08:00 Resp 18 09/06/25 08:00 BP 146/73 09/06/25 08:00 Pulse Ox 97 09/06/25 08:00 O2 Del Method Room Air 09/05/25 15:43 O2 Flow Rate 2 09/03/25 10:45 FiO2 21 09/04/25 20:58 09/05/25 09/06/25 09/06/25 22:59 06:59 14:59 Intake Total 455.233 / 1558.917 500 / 1558.917 120 / 120 Balance 455.233 / 1558.917 500 / 1558.917 120 / 120 Weight last 48 hrs Weight 221 lb 4 oz Weight 222 lb Physical Exam 2 Const: COMMON NORMALS: no acute distress and patient oriented x3 GENERAL APPEARANCE: cooperative and comfortable ORIENTATION/CONSCIOUSNESS: Yes awake, Yes oriented to person, Yes oriented to place and Yes oriented to time Chest: COMMONS NORMALS: normal inspection of the chest and normal palpation of entire chest wall CHEST: Yes Symmetrical chest wall rise Resp: COMMON NORMALS: normal respiratory effort, No retractions, No use of accessory muscles and clear to auscultation bilaterally EFFORT & INSPECTION: Yes symmetric chest movement AUSCULTATION: clear to auscultation bilaterally Cardio: COMMON NORMALS: regular rate, regular rhythm, S1 normal heart sound present, S2 normal heart sound present, No gallops present (Cardio), No clicks present (Cardio), No murmurs present (Cardio) and No rub (Cardio) RATE: r egular rate RHYTHM: regular rhythm HEART SOUNDS: S1 normal heart sound present and S2 normal heart sound present PERIPHERAL PULSES: radial pulses present Extremity: COMMON NORMALS: no pedal edema Neuro: COMMON NORMALS: patient oriented x3 and moves all extremities S ENSORIUM/ORIENTATION: Yes oriented to person, Yes oriented to place and Yes oriented to time Data 09/06/25 04:07 09/06/25 04:07 A&P Assessment and plan 1. Atrial fibrillation with RVR: 2. Moderate aortic stenosis: 3. Chronic diastolic heart failure: 4. Hypertension: Plan: Discharge home today with event monitor, continuing amiodarone 200mg BID, anticoagulation with Eliquis 5mg BID. Rate control with metoprolol suggest uptitration to 37.5mg BID to help control blood pressure as well. Follow up in 2 weeks with cardiology. PDMP PDMP Reviewed: Not Reviewed Attestations 2 Medical Necessity Statement*: dc home Coding Level of Care Code Acute Code for Chg Fwd Diagnoses Atrial fibrillation with RVR I48.91 Moderate aortic stenosis I35.0 Chronic diastolic heart failure I50.32 Hypertension I10
[2025-09-06 10:00] VITALS: PULSE 90; RESP 18; O2SAT 96
[2025-09-06 10:57] VITALS: BP 135/83; PULSE 68; O2SAT 96
== END 2025-09-06 10:55 | disposition home or self-care (01) | DRG 683 ==
LOC: ER 23:15 → MEDSURG 23:27 → CSU 09-03 10:59
PROVIDERS: Emergency Medicine; Internal Medicine; Student in an Organized Health Care Education/Training Program; Admitting Provider Internal Medicine; Emergency Provider Student in an Organized Health Care Education/Training Program; PCP Family Medicine; Visit Provider Student in an Organized Health Care Education/Training Program
DX: N17.0 Acute kidney failure with tubular necrosis (principal); E87.1 Hypo-osmolality and hyponatremia; N39.0 Urinary tract infection, site not specified; E87.3 Alkalosis; I50.32 Chronic diastolic (congestive) heart failure; I48.91 Unspecified atrial fibrillation; T50.2X5A Adverse effect of carbonic-anhydrase inhibitors, benzothiadiazides and other diuretics, initial encounter; I95.9 Hypotension, unspecified; R53.1 Weakness; E86.0 Dehydration; I11.0 Hypertensive heart disease with heart failure; G47.33 Obstructive sleep apnea (adult) (pediatric); J98.4 Other disorders of lung; E66.01 Morbid (severe) obesity due to excess calories; I73.9 Peripheral vascular disease, unspecified; I27.20 Pulmonary hypertension, unspecified; F41.9 Anxiety disorder, unspecified; I25.10 Atherosclerotic heart disease of native coronary artery without angina pectoris; E78.00 Pure hypercholesterolemia, unspecified; I34.2 Nonrheumatic mitral (valve) stenosis; I35.0 Nonrheumatic aortic (valve) stenosis; B96.20 Unspecified Escherichia coli [E. coli] as the cause of diseases classified elsewhere; Z68.39 Body mass index [BMI] 39.0-39.9, adult; Z79.899 Other long term (current) drug therapy; Z86.73 Personal history of transient ischemic attack (TIA), and cerebral infarction without residual deficits; Z11.52 Encounter for screening for COVID-19; Z71.3 Dietary counseling and surveillance; Z90.710 Acquired absence of both cervix and uterus; Z90.49 Acquired absence of other specified parts of digestive tract; Z87.891 Personal history of nicotine dependence; Z79.02 Long term (current) use of antithrombotics/antiplatelets
CPT/HCPCS: 36415; 71045; 76770; 80048; 80053; 80061; 80069; 81001; 82607; 82746; 83036; 83540; 83550; 83605; 83735; 84100; 84443; 84484; 85025; 85049; 85730; 87040; 87077; 87086; 87186; 87637; 93005; 93312; 93320; 93325; 94660; 96372; 97116; 97161; 97530; 99285; A4222; J0282; J0283; J0696; J1644; J2270; J2405; J2704; J3490; J7030; J9999

== ENCOUNTER → 2025-09-08 12:44 | Outpatient (BNVA) | payer MEDICARE, OTHER, SELFPAY | PROVIDERS: PCP Family Medicine; Visit Provider Internal Medicine | DX: J98.4 Other disorders of lung (principal); G47.33 Obstructive sleep apnea (adult) (pediatric); Z99.89 Dependence on other enabling machines and devices; R91.8 Other nonspecific abnormal finding of lung field; I48.91 Unspecified atrial fibrillation; Z79.01 Long term (current) use of anticoagulants; I35.9 Nonrheumatic aortic valve disorder, unspecified; Z87.891 Personal history of nicotine dependence; J44.9 Chronic obstructive pulmonary disease, unspecified; J44.1 Chronic obstructive pulmonary disease with (acute) exacerbation | CPT/HCPCS: 99214; Q3014 ==

== ENCOUNTER → 2025-10-07 07:54 | Outpatient (BNVA) | payer MEDICARE, OTHER, SELFPAY | PROVIDERS: PCP Family Medicine; Visit Provider Internal Medicine Cardiovascular Disease | DX: I35.0 Nonrheumatic aortic (valve) stenosis (principal); I48.20 Chronic atrial fibrillation, unspecified; Z79.01 Long term (current) use of anticoagulants; G47.33 Obstructive sleep apnea (adult) (pediatric); I73.9 Peripheral vascular disease, unspecified; I11.0 Hypertensive heart disease with heart failure; I50.32 Chronic diastolic (congestive) heart failure; I65.23 Occlusion and stenosis of bilateral carotid arteries; Z86.73 Personal history of transient ischemic attack (TIA), and cerebral infarction without residual deficits; Z87.891 Personal history of nicotine dependence; I48.91 Unspecified atrial fibrillation | CPT/HCPCS: 80053; 93005; 99214 ==

== ENCOUNTER 2025-10-12 07:18 | Outpatient (CLI) | payer MEDICARE, OTHER, SELFPAY ==
[2025-10-12 07:53] VITALS: PULSE 71; RESP 18; O2SAT 97
== END 2025-10-12 07:19 | disposition home or self-care (01) ==
LOC: RT 07:19
PROVIDERS: PCP Family Medicine; Visit Provider Internal Medicine
DX: J44.9 Chronic obstructive pulmonary disease, unspecified (principal)
CPT/HCPCS: 94060; 94618; 94726; 94729; J7613

== ENCOUNTER → 2025-11-08 11:05 | Outpatient (BNVA) | payer MEDICARE, OTHER, SELFPAY | PROVIDERS: PCP Family Medicine; Visit Provider Internal Medicine | DX: J98.4 Other disorders of lung (principal); G47.33 Obstructive sleep apnea (adult) (pediatric); R91.8 Other nonspecific abnormal finding of lung field; J98.6 Disorders of diaphragm; R94.2 Abnormal results of pulmonary function studies; I48.91 Unspecified atrial fibrillation; Z79.01 Long term (current) use of anticoagulants; I35.0 Nonrheumatic aortic (valve) stenosis; Z99.89 Dependence on other enabling machines and devices; Z87.891 Personal history of nicotine dependence | CPT/HCPCS: 99214; Q3014 ==